=== PATIENT | female | born 1965 | race Hispanic/Latino ===

== ENCOUNTER → 2018-11-26 | Outpatient (CLI) | payer OTHER, BC ==
--- NOTE | 2018-11-26 13:14 | Diagnostic Imaging Report ---
EXAM: Right upper quadrant abdominal ultrasound INDICATION: Hepatitis C COMPARISON: None. TECHNIQUE: Transverse and longitudinal images of the right upper quadrant abdomen were obtained FINDINGS: Somewhat limited examination due to overlying bowel gas and abdominal tenderness. Liver: Size: 17.1 cm in the right midclavicular line, enlarged Appearance: Increased echogenicity, smooth contour Mass: No evidence of solid mass. Anechoic cystic structures along the posterior edge of the left hepatic lobe demonstrate no doppler flow. Gallbladder: No distention, pericholecystic fluid, wall thickening, stone, or reported sonographic Chowdhury's sign. Gallbladder wall measures 0.4 cm. Bile Ducts: Intrahepatic Ducts: No dilatation Extrahepatic Ducts: Common bile duct measures 0.3 cm, no dilatation Pancreas: The visualized portions are unremarkable. Limited visualization of the tail. Kidney: The right kidney measures 11.9 cm without evidence of hydronephrosis or stone. Vessels: Aorta: Partially visualized portions are unremarkable. Inferior Vena Cava: Not well visualized. Main Portal Vein: 1.0 cm, normal size with hepatopetal flow. Free Fluid: No evidence of ascites. IMPRESSION: Hepatomegaly with hepatic steatosis. No sonographic evidence of cirrhosis. Cystic structures along the posterior edge of the left hepatic lobe likely are external to the liver and may represent small bowel loops or less likely varices, given absence of doppler flow. Signed by: Dr. Urmila Chris MD on 11/26/2018 1:10 PM
== END ==
LOC: US 10:15
PROVIDERS: ATTEND Internal Medicine Infectious Disease
DX: B18.2 Chronic viral hepatitis C (principal)
CPT/HCPCS: 76705

== ENCOUNTER → 2019-08-31 | Day surgery (SDC) | payer BC, OTHER, MEDICARE ==
[2019-08-26 16:24] LABS: BASOPHILS % 0.6 % (0.0-1.0); EOSINOPHILS # (AUTO) 0.1 (0.0-0.4); EOSINOPHILS % 2.6 % (0.0-6.0); HEMATOCRIT 29.9 % (34.2-44.1); HEMOGLOBIN 10.1 g/dL (12.0-16.0); LYMPHOCYTES # (AUTO) 0.9 (1.0-3.2); LYMPHOCYTES % 29.1 % (18.0-39.1); MEAN CORPUSCULAR HGB CONC 33.8 g/dL (31-35); MEAN CORPUSCULAR VOLUME 85.9 fL (81-99); MONOCYTES # (AUTO) 0.3 (0.2-0.8); MONOCYTES % 9.6 % (4.4-11.3); NEUTROPHILS # (AUTO) 1.8 (2.1-6.9); NEUTROPHILS % 57.8 % (38.7-80.0); PLATELET COUNT 89 x10e3/uL (140-360); RED BLOOD COUNT 3.48 x10e6/uL (3.6-5.1); RED CELL DISTRIBUTION WIDTH 13.7 % (11.7-14.4)
[2019-08-26 16:36] LABS: INR 1.08; PARTIAL THROMBOPLASTIN TIME 30.6 seconds (23.8-35.5); PROTHROMBIN TIME 14.5 seconds (11.9-14.5)
[2019-08-26 16:46] LABS: ALBUMIN 3.6 g/dL (3.5-5.0); ALBUMIN/GLOBULIN RATIO 0.9 (0.8-2.0); ANION GAP 14.8 mmol/L (8-16); CALCIUM 8.8 mg/dL (8.4-10.2); CREATININE, SERUM 1.59 mg/dL (0.57-1.11); POTASSIUM 3.8 mmol/L (3.5-5.1)
[~2019-08-31] MED LIST: CLEOCIN HCL150 MG PO; DOXYCYCLINE HY100 MG PO; FENTANYL CITRATE/PF 100MCG/2 ML INJ ONE; FUROSEMIDE40 MG PO; INSULIN REGULAR, HUMAN 100 UNIT/1 ML 3ML VIAL ONE; LANTUS 3ML100 UNITS/ SQ; LEVOTHYROXINE50 MCG PO; MIDAZOLAM HCL 2 MG/2 ML VIAL ONE; NOVOLIN R100 UNIT/1 PO; OSTEO BI-FLEX1 EAC2 PO; PROPOFOL IV EMULSION 10 MG/ML 20 ML VIAL ONE; PROPRANOLOL HCL10 MG PO; SPIRONOLACTONE25 MG PO; ULTRAM50 MG PO; VITAMIN D250000 UNIT PO; XIFAXAN550 MG PO
--- OUTSIDE RECORDS SUMMARY | 2019-08-31 09:42 | XMS REPORT | Summary of Care ---
Author Author LI BUSTOS M.D. Organization Unknown Address Unknown Phone Unavailable Care Team Providers Care Business Director Name Role Phone LI BUSTOS M.D. Unavailable Unavailable KATE LEARY N.P. 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, D50.0) Status: Active Post-menopausal bleeding (627.1, N95.0) Status: Active Breast cancer screening (V76.10, Z12.39) Status: Active Yeast infection (112.9, B37.9) Status: Active Swollen leg (729.81, M79.89) Status: Active History of DVT (deep vein thrombosis) (V12.51, Z86.718) Status: Active Acute right lower quadrant pain (789.03, R10.31) Status: Active Medications Name Dates Details Vitamin D (Ergocalciferol) 1.25 MG (03061 UT) Oral Capsule * Start : 13-Sep-2018 Active Spironolactone 25 MG Oral Tablet * Refills: 0 * Start : 13-Sep-2018 Active Levothyroxine Sodium 50 MCG Oral Tablet * Refills: 0 * Start : 13-Sep-2018 Active Furosemide 80 MG Oral Tablet * Refills: 0 * Start : 13-Sep-2018 Active NIFEdipine ER 60 MG Oral Tablet Extended Release 24 Hour * Refills: 0 * Start : 13-Sep-2018 Active Xifaxan 550 MG Oral Tablet * Refills: 0 * Start : 13-Sep-2018 Active traMADol HCl - 50 MG Oral Tablet * Refills: 0 * Start : 13-Sep-2018 Active Doxycycline Hyclate 100 MG Oral Capsule * Refills: 0 * Start : 13-Sep-2018 Active Phytoplex Z-Guard 57-17 % External Paste * Refills: 0 * Start : 13-Sep-2018 Active 12 x 113 GM Tube Nystatin 173509 UNIT/GM External Powder apply Nystatin powder to affected area 3 times daily for 7 days, continue use as needed to treat fungal skin infection * Quantity: 1 Refills: 1 KATE LEARY N.P. 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 History of diabetes mellitus (V12.29, Z86.39) Status: Resolved History of hepatitis (V12.09, Z86.19) Status: Resolved History of hepatitis C virus infection (V12.09, Z86.19) Status: Resolved History of iron deficiency anemia (V12.3, Z86.2) Status: Resolved Procedures Procedure Dates Details History of section Completed History of Dilation and curettage Completed Immunization Name Dates Details Immunizations not documented Family History Name Dates Details Family history of lupus erythematosus (V19.8, Z84.0) Status: Active Name Dates Details Family history of Alcoholic fibrosis and sclerosis of liver (571.2, K70.2) Status: Active Name Dates Details Family history of Alcoholic fibrosis and sclerosis of liver (571.2, K70.2) Status: Active Family history of hypertension (V17.49, Z82.49) Status: Active Name Dates Details Family history of malignant neoplasm of breast (V16.3, Z80.3) Status: Active Social History Name Dates Details - Status: Name Dates Details Never smoker Vital Signs Date Test Result Details No Known Vitals to report Results Date Description Value Details Results not documented Plan of Care Name Dates Details Planned Observations Planned Goals not documented Planned Encounters Appointment; LI BUSTOS M.D. On: 19-Dec-2019 9:40 Interventions Provided Labs/Procedures/Imaging* CT Abdomen/Pelvis w contrast 49251; To Be Done: 30 May 2019 * [facility] Digital Mammo Screening [place]xton [id number]; To Be Done: 30 May 2019 * [[facility]] CBC (INCLUDES DIFF/PLT); Done: 30 May 2019 * [[facility]] CMP W/EGFR; Done: 30 May 2019 Instructions Name Dates Details Instructions not documented Encounters Appointment; LI BUSTOS M.D. Encounter Diagnosis: Problem not documented On: 13-Sep-2018 12:00 Appointment; LI BUSTOS M.D. Encounter Diagnosis: Problem not documented On: 27-Sep-2018 13:20 Appointment; LI BUSTOS M.D. Encounter Diagnosis: Problem not documented On: 11-Oct-2018 12:40 Appointment; LI BUSTOS M.D. Encounter Diagnosis: Problem not documented On: 28-Oct-2018 14:00 Appointment; LI BUSTOS M.D. Encounter Diagnosis: Problem not documented On: 08-Nov-2018 12:00 Appointment; LI BUSTOS M.D. Encounter Diagnosis: Problem not documented On: 17-Nov-2018 11:20 Appointment; LI BUSTOS M.D. Encounter Diagnosis: Problem not documented On: 29-Nov-2018 11:40 Appointment; LI BUSTOS M.D. Encounter Diagnosis: Problem not documented On: 30-May-2019 11:40
--- OUTSIDE RECORDS SUMMARY | 2019-08-31 09:42 | XMS REPORT ---
Author Author [facility] Address Unknown Phone Unavailable Care Team Providers Care Videotape Editor Name Role Phone ROBIN ESCALANTE Unavailable Unavailable Payers Payer Name Policy Type Policy Number Effective Date Expiration Date Problems This patient has no known problems. Allergies, Adverse Reactions, Alerts Allergy Name Allergy Type Status Severity Reaction(s) Onset Date Inactive Date Treating Clinician Comments Penicillins DA Active SV 2019-07-14 00:00:00 ibuprofen DA Active SV 2019-07-14 00:00:00 Penicillins DA Active SV 2019-01-07 00:00:00 ibuprofen DA Active SV 2019-01-07 00:00:00 Penicillins DA Active SV 2018-05-04 00:00:00 ibuprofen DA Active SV 2018-05-04 00:00:00 Medications This patient has no known medications. Encounters Start Date/Time End Date/Time Encounter Type Admission Type Attending Clinicians Care Facility Care Department Encounter ID 2019-06-06 10:22:00 2019-06-06 10:22:00 Outpatient [facility]SE [id number] Results Test Description Test Time Test Comments Text Results Atomic Results Result Comments GLUBED 2019-07-22 08:06:00 GLUBED (test code=GLUBED) 194 mg/dL 74-106 Performed by certified yarn texturing machine operator at [facility] [id number] 20:51:00* Test Item Value Reference Range Comments GLUBED (test code=GLUBED) 148 mg/dL 74-106 Performed by certified yarn texturing machine operator at [facility] [id number] 17:19:00* Test Item Value Reference Range Comments GLUBED (test code=GLUBED) 222 mg/dL 74-106 [facility] certified yarn texturing machine [facility]~ [id number] 12:25:00* Test Item Value Reference Range Comments GLUBED (test code=GLUBED) 160 mg/dL 74-106 [facility] certified yarn texturing machine [facility] - CT HEAD/BRAIN W/O [id number] 10:53:00 Name: GRETTA MIRANDA [facility] : 1965 Age/S: 54 / F [address] [facility] Unit #: [id number] Loc: [place] [address] Phys: Harvey Chambers MD Acct: [id number] Dis Date: Status: ADM IN PHONE #: [phone] Exam Date: 07/21/2019 0935 FAX #: [phone] Reason: DOCTOR'S ORDERS EXAMS: CPT CODE: [id number] CT HEAD/BRAIN W/O CONT [id number] HISTORY: DOCTOR'S ORDERS TECHNIQUE: Noncontrast 2.[address] of the head. HISTORY: DOCTOR'S ORDERS TECHNIQUE: Noncontrast 2.[address] of the head. Examination acquired within 24 hours of arrival. Automated exposure control for dose reduction. COMPARISON: Noncontrast CT brain June 06, 2019 FINDINGS: No lacerations or contusions of the scalp or facial soft tissues.. Calvarium and skull base are intact. Incidental note is made of nonfusion of the posterior elements of C1. No acute hemorrhage. No intracranial mass, mass effect, or midline shift. No effacement of the sulci or anderson-white matter interface to suggest acute infarct. Cortical atrophy is unchanged from the previous exam. No hydrocephalus.. No extra-axial fluid collection. Visualized paranasal sinuses are clear. Mastoid air cells and middle ear cavities are clear. Orbital contents are unremarkable. IMPRESSION: No acute intracranial process. Cortical atrophy is unchanged from the prior exam. at 1053 Reported and signed by: Harsh Cifuentes MD CC: Harvey Chambers Technologist:Guerda Sorenson RT(R)(CT) CTDI: DLP: Trnscb Date/Time: 07/21/2019 (9177) [email or web address] Orig Print D/T: S: 07/21/2019 (5991) PAGE 1 Signed Report [id number] 08:44:00* Test Item Value Reference Range Comments GLUBED (test code=GLUBED) 227 mg/dL 74-106 Performed by certified yarn texturing machine operator at [facility] COMPREHENSIVE METABOLIC [id number] 07:53:00* Test Item Value Reference Range Comments SODIUM (test code=NA) 138 mmol/L 136-145 POTASSIUM (test code=K) 4.5 mmol/L 3.5-5.1 CHLORIDE (test code=CL) 104.0 mmol/L 98-107 CARBON DIOXIDE (test code=CO2) 27.0 mmol/L 21-32 ANION GAP (test code=GAP) 11.5 10-20 GLUCOSE (test code=GLU) 274 mg/dL 74-106 BLOOD UREA NITROGEN (test code=BUN) 40 mg/dL 7-18 GLOMERULAR FILTRATION RATE (test code=GFR) 31 mL/min >=60 Estimated GFR by using Modified MDRD formula.Chronic kidney disease is defined as either kidney damageor GFR <60 mL/min/1.73 m2 for >3 months. CREATININE (test code=CREAT) 1.70 mg/dL 0.55-1.02 Note change in reference range due to change in reagent. BUN/CREATININE RATIO (test code=BUN/CREA) 23.8 10-20 TOTAL PROTEIN (test code=PROT) 6.6 gram/dL 6.4-8.2 ALBUMIN (test code=ALB) 3.1 g/dL 3.4-5.0 GLOBULIN (test code=GLOB) 3.5 gram/dL 2.7-4.2 ALBUMIN/GLOBULIN RATIO (test code=A/G) 0.9 0.75-1.50 CALCIUM (test code=CA) 8.5 mg/dL 8.5-10.1 BILIRUBIN TOTAL (test code=BILT) 0.90 mg/dL 0.0-1.0 SGOT/AST (test code=AST) 17 IUnit/L 15-37 SGPT/ALT (test code=ALT) 24 IUnit/L 12-78 ALKALINE PHOSPHATASE TOTAL (test code=ALKP) 117 IUnit/L 45-117 Note change in reference range due to change in reagent. COMPREHENSIVE METABOLIC [id number] 07:46:00* Test Item Value Reference Range Comments SODIUM (test code=NA) 138 mmol/L 136-145 POTASSIUM (test code=K) 4.5 mmol/L 3.5-5.1 CHLORIDE (test code=CL) 104.0 mmol/L 98-107 CARBON DIOXIDE (test code=CO2) mmol/L 21-32 ANION GAP (test code=GAP) 10-20 GLUCOSE (test code=GLU) mg/dL 74-106 BLOOD UREA NITROGEN (test code=BUN) mg/dL 7-18 GLOMERULAR FILTRATION RATE (test code=GFR) mL/min >=60 CREATININE (test code=CREAT) mg/dL 0.55-1.02 BUN/CREATININE RATIO (test code=BUN/CREA) 10-20 TOTAL PROTEIN (test code=PROT) gram/dL 6.4-8.2 ALBUMIN (test code=ALB) g/dL 3.4-5.0 GLOBULIN (test code=GLOB) gram/dL 2.7-4.2 ALBUMIN/GLOBULIN RATIO (test code=A/G) 0.75-1.50 CALCIUM (test code=CA) mg/dL 8.5-10.1 BILIRUBIN TOTAL (test code=BILT) mg/dL 0.0-1.0 SGOT/AST (test code=AST) IUnit/L 15-37 SGPT/ALT (test code=ALT) IUnit/L 12-78 ALKALINE PHOSPHATASE TOTAL (test code=ALKP) IUnit/L 45-117 ALPHA FETOPROTEIN TUMOR [id number] 03:07:00* Test Item Value Reference Range Comments ALPHA FETOPROTEIN TUMOR MARKER (test code=AFPTM) 3.9 ng/mL 0.0-8.3 [facility] Electrochemiluminescence Immunoassay(ECLIA)Values obtained with different assay methods or kits cannotbe used interchangeably. Results cannot be interpreted asabsolute evidence of the presence or absence of malignantdisease.This test is not interpretable in females.Performed At: [facility] [id number] [place], [place] [id number] Sae Romero MD Ph:[phone] [id number] 20:56:00* Test Item Value Reference Range Comments GLUBED (test code=GLUBED) 131 mg/dL 74-106 Performed by certified yarn texturing machine operator at [facility] [id number] 18:50:00* Test Item Value Reference Range Comments GLUBED (test code=GLUBED) 168 mg/dL 74-106 Performed by certified yarn texturing machine operator at [facility] - US RETRO [id number] 17:08:00 Name: GRETAT MIRANDA [facility] : 1965 Age/S: 54 / F [address] [facility] #: [id number] Loc: [place] [address] Phys: Garret Ramesh MD Acct: [id number] Dis Date: Status: ADM IN PHONE #: [phone] Exam Date: 07/20/2019 1642 FAX #: [phone] Reason: ELLYN EXAMS: CPT CODE: [id number] US RETRO LTD [id number] REASON FOR EXAM: ELLYN EXAM ORDER DATE: 07/20/2019 12:24 PM Attending Laura: Garret Ramesh MD PROCEDURE: - US RETRO LTD FINDINGS: The right kidney measures 10.3 x 4.1 cm. The cross-sectional thickness of the right renal cortex measured 1.1 cm. The left kidney measures 9.4 x 4.6 cm. The cross- sectional thickness of the left renal cortex measured 1.1 cm. There is no evidence of hydronephrosis. There is no evidence of nephrolithiasis. There is no evidence of renal mass. The urinary bladder is partially contracted IMPRESSION: Unremarkable kidneys. at 1707 Reported and signed by: Ignacio Acosta M.D. CC: Harvey Chambers Salman A MD Technologist: Rosemarie Mercer RDMS [facility] Date/Time: 07/20/2019 (1411) [email or web address] Orig Print D/T: S: 07/20/2019 (5663) Probe: PAGE 1 Signed Report UR CREATININE [id number] 15:42:00* Test Item Value Reference Range Comments UR CREATININE RANDOM (test code=CREATU) < 13.0 mg/dL 30-125 URINALYSIS [id number] 15:42:00* Test Item Value Reference Range Comments UA COLOR (test code=COLU) COLORLESS YELLOW UA APPEARANCE (test code=APPU) CLEAR CLEAR UA GLUCOSE DIPSTICK (test code=DGLUU) NEGATIVE mg/dL NEGATIVE UA BILIRUBIN DIPSTICK (test code=BILU) NEGATIVE mg/dL NEGATIVE UA KETONE DIPSTICK (test code=KETU) NEGATIVE mg/dL NEGATIVE UA SPECIFIC GRAVITY (test code=SGU) 1.005 1.001-1.035 UA BLOOD DIPSTICK (test code=TUCKER) Negative mg/dL NEGATIVE UA PH DIPSTICK (test code=CLEMENTE) 6.5 5.0-8.0 UA PROTEIN DIPSTICK (test code=PROU) NEGATIVE mg/dL NEGATIVE UA UROBILINIOGEN DIPSTICK (test code=URO) Normal mg/dL NEGATIVE UA NITRITE DIPSTICK (test code=LEANN) NEGATIVE NEGATIVE UA LEUKOCYTE ESTERASE W REFLEX (test code=LEUUR) NEGATIVE Yumiko/uL NEGATIVE UA WBC (test code=WBCU) 0-5 per HPF 0-5 UA RBC (test code=RBCU) NONE SEEN #/HPF 0-5 UA EPITHELIAL CELLS (test code=EPIU) FEW per HPF FEW UA BACTERIA (test code=BACU) NONE SEEN #/HPF NONE Urine Source? Clean CatchUR NA,[id number] 15:42:00* Test Item Value Reference Range Comments UR NA,RANDOM (test code=MIO) 57 mmol/L 20-110 Urine Source? Clean CatchUR PROTEIN/CREATININE [id number] 15:42:00* Test Item Value Reference Range Comments UR PROTEIN RANDOM (test code=PROTU) < 5.0 mg/dL 0.0-11.9 Protein levels may be falsely elevated in patients withelevated level of aminoglycoside antibiotics in CSF and inhighly concentrated urine specimens. If false elevation issuspected, contact lab for alternated testing technique. UR CREATININE RANDOM (test code=CREATU) < 13.0 mg/dL 30-125 PROTEIN/CREATININE RATIO (test code=P/CRATIO) 0.30 RATIO 0.0-0.20 Urine Source? Clean CatchURINALYSIS [id number] 15:40:00* Test Item Value Reference Range Comments UA COLOR (test code=COLU) COLORLESS YELLOW UA APPEARANCE (test code=APPU) CLEAR CLEAR UA GLUCOSE DIPSTICK (test code=DGLUU) NEGATIVE mg/dL NEGATIVE UA BILIRUBIN DIPSTICK (test code=BILU) NEGATIVE mg/dL NEGATIVE UA KETONE DIPSTICK (test code=KETU) NEGATIVE mg/dL NEGATIVE UA SPECIFIC GRAVITY (test code=SGU) 1.005 1.001-1.035 UA BLOOD DIPSTICK (test code=TUCKER) Negative mg/dL NEGATIVE UA PH DIPSTICK (test code=CLEMENTE) 6.5 5.0-8.0 UA PROTEIN DIPSTICK (test code=PROU) NEGATIVE mg/dL NEGATIVE UA UROBILINIOGEN DIPSTICK (test code=URO) Normal mg/dL NEGATIVE UA NITRITE DIPSTICK (test code=LEANN) NEGATIVE NEGATIVE UA LEUKOCYTE ESTERASE W REFLEX (test code=LEUUR) NEGATIVE Yumiko/uL NEGATIVE UA WBC (test code=WBCU) 0-5 per HPF 0-5 UA RBC (test code=RBCU) NONE SEEN #/HPF 0-5 UA EPITHELIAL CELLS (test code=EPIU) FEW per HPF FEW UA BACTERIA (test code=BACU) NONE SEEN #/HPF NONE Urine Source? Clean CatchUR NA,[id number] 15:40:00* Test Item Value Reference Range Comments UR NA,RANDOM (test code=MIO) 57 mmol/L 20-110 Urine Source? Clean CatchUR PROTEIN/CREATININE [id number] 15:40:00* Test Item Value Reference Range Comments UR PROTEIN RANDOM (test code=PROTU) mg/dL 0.0-11.9 UR CREATININE RANDOM (test code=CREATU) mg/dL 30-125 PROTEIN/CREATININE RATIO (test code=P/CRATIO) RATIO 0.0-0.20 Urine Source? Clean CatchURINALYSIS [id number] 15:31:00* Test Item Value Reference Range Comments UA COLOR (test code=COLU) COLORLESS YELLOW UA APPEARANCE (test code=APPU) CLEAR CLEAR UA GLUCOSE DIPSTICK (test code=DGLUU) NEGATIVE mg/dL NEGATIVE UA BILIRUBIN DIPSTICK (test code=BILU) NEGATIVE mg/dL NEGATIVE UA KETONE DIPSTICK (test code=KETU) NEGATIVE mg/dL NEGATIVE UA SPECIFIC GRAVITY (test code=SGU) 1.005 1.001-1.035 UA BLOOD DIPSTICK (test code=TUCKER) Negative mg/dL NEGATIVE UA PH DIPSTICK (test code=CLEMENTE) 6.5 5.0-8.0 UA PROTEIN DIPSTICK (test code=PROU) NEGATIVE mg/dL NEGATIVE UA UROBILINIOGEN DIPSTICK (test code=URO) Normal mg/dL NEGATIVE UA NITRITE DIPSTICK (test code=LEANN) NEGATIVE NEGATIVE UA LEUKOCYTE ESTERASE W REFLEX (test code=LEUUR) NEGATIVE Yumiko/uL NEGATIVE UA WBC (test code=WBCU) 0-5 per HPF 0-5 UA RBC (test code=RBCU) NONE SEEN #/HPF 0-5 UA EPITHELIAL CELLS (test code=EPIU) FEW per HPF FEW UA BACTERIA (test code=BACU) NONE SEEN #/HPF NONE Urine Source? Clean CatchUR NA,[id number] 15:31:00* Test Item Value Reference Range Comments UR NA,RANDOM (test code=MIO) mmol/L 20-110 Urine Source? Clean CatchUR PROTEIN/CREATININE [id number] 15:31:00* Test Item Value Reference Range Comments UR PROTEIN RANDOM (test code=PROTU) mg/dL 0.0-11.9 UR CREATININE RANDOM (test code=CREATU) mg/dL 30-125 PROTEIN/CREATININE RATIO (test code=P/CRATIO) RATIO 0.0-0.20 Urine Source? Clean [id number] 15:09:00* Test Item Value Reference Range Comments AMMONIA (test code=AMM) 65 umol/L 11-32 [id number] 12:20:00* Test Item Value Reference Range Comments GLUBED (test code=GLUBED) 206 mg/dL 74-106 Performed by certified yarn texturing machine operator at [facility] [id number] 09:02:00* Test Item Value Reference Range Comments GLUBED (test code=GLUBED) 171 mg/dL 74-106 Performed by certified yarn texturing machine operator at [facility] [id number] 08:21:00* Test Item Value Reference Range Comments GLUBED (test code=GLUBED) 107 mg/dL 74-106 Performed by certified yarn texturing machine operator at [facility] [id number] 08:20:00* Test Item Value Reference Range Comments GLUBED (test code=GLUBED) 153 mg/dL 74-106 Performed by certified yarn texturing machine operator at [facility] CBC W/AUTO [id number] 06:32:00* Test Item Value Reference Range Comments WHITE BLOOD CELL (test code=WBC) 2.6 K/mm3 4.5-12.5 RED BLOOD CELL (test code=RBC) 3.02 mill/mm3 3.7-5.2 HEMOGLOBIN (test code=HGB) 8.8 gram/dL 11.5-15.5 HEMATOCRIT (test code=HCT) 25.5 % 36.0-46.0 MEAN CELL VOLUME (test code=MCV) 84.4 fL 80-98 MEAN CELL HGB (test code=MCH) 29.1 picogram 27.0-33.0 MEAN CELL HGB CONCETRATION (test code=MCHC) 34.5 gram/dL 33.0-36.0 RED CELL DISTRIBUTION WIDTH (test code=RDW) 13.5 % 11.6-16.2 RED CELL DISTRIBUTION WIDTH SD (test code=RDW-SD) 41.5 fL 37.0-51.0 PLATELET COUNT (test code=PLT) 91 K/mm3 150-450 MEAN PLATELET VOLUME (test code=MPV) 10.7 fL 6.7-11.0 NEUTROPHIL % (test code=NT%) 57.4 % 39.0-69.0 IMMATURE GRANULOCYTE % (test code=IG%) 0.4 % 0.0-5.0 LYMPHOCYTE % (test code=LY%) 29.3 % 25.0-55.0 MONOCYTE % (test code=MO%) 9.8 % 0.0-10.0 EOSINOPHIL % (test code=EO%) 2.3 % 0.0-5.0 BASOPHIL % (test code=BA%) 0.8 % 0.0-1.0 NUCLEATED RBC % (test code=NRBC%) 0.0 % 0-0 NEUTROPHIL # (test code=NT#) 1.47 K/mm3 1.8-7.7 IMMATURE GRANULOCYTE # (test code=IG#) 0.01 x10 3/uL 0-0.03 LYMPHOCYTE # (test code=LY#) 0.75 K/mm3 1.0-5.0 MONOCYTE # (test code=MO#) 0.25 K/mm3 0-0.8 EOSINOPHIL # (test code=EO#) 0.06 K/mm3 0.0-0.5 BASOPHIL # (test code=BA#) 0.02 K/mm3 0.0-0.2 NUCLEATED RBC # (test code=NRBC#) 0.00 K/mm3 0.0-0.1 MANUAL DIFF REQUIRED (test code=MDIFF) NO, ONLY SCAN NEEDED DIFFERENTIAL [id number] 06:32:00* Test Item Value Reference Range Comments STAIN ACCEPTABILITY (test code=STN ACCEPTABLE) STAIN ACCEPTABLE ANISOCYTOSIS (test code=ANISO) 1+ MICROCYTOSIS (test code=MICR) 1+ PLATELET ESTIMATE (test code=PLTEST) DECREASED PLATELET MORPHOLOGY (test code=PLTMORPH) NORMAL CBC W/AUTO [id number] 05:25:00* Test Item Value Reference Range Comments WHITE BLOOD CELL (test code=WBC) 2.6 K/mm3 4.5-12.5 RED BLOOD CELL (test code=RBC) 3.02 mill/mm3 3.7-5.2 HEMOGLOBIN (test code=HGB) 8.8 gram/dL 11.5-15.5 HEMATOCRIT (test code=HCT) 25.5 % 36.0-46.0 MEAN CELL VOLUME (test code=MCV) 84.4 fL 80-98 MEAN CELL HGB (test code=MCH) 29.1 picogram 27.0-33.0 MEAN CELL HGB CONCETRATION (test code=MCHC) 34.5 gram/dL 33.0-36.0 RED CELL DISTRIBUTION WIDTH (test code=RDW) 13.5 % 11.6-16.2 RED CELL DISTRIBUTION WIDTH SD (test code=RDW-SD) 41.5 fL 37.0-51.0 PLATELET COUNT (test code=PLT) 91 K/mm3 150-450 MEAN PLATELET VOLUME (test code=MPV) 10.7 fL 6.7-11.0 NEUTROPHIL % (test code=NT%) 57.4 % 39.0-69.0 IMMATURE GRANULOCYTE % (test code=IG%) 0.4 % 0.0-5.0 LYMPHOCYTE % (test code=LY%) 29.3 % 25.0-55.0 MONOCYTE % (test code=MO%) 9.8 % 0.0-10.0 EOSINOPHIL % (test code=EO%) 2.3 % 0.0-5.0 BASOPHIL % (test code=BA%) 0.8 % 0.0-1.0 NUCLEATED RBC % (test code=NRBC%) 0.0 % 0-0 NEUTROPHIL # (test code=NT#) 1.47 K/mm3 1.8-7.7 IMMATURE GRANULOCYTE # (test code=IG#) 0.01 x10 3/uL 0-0.03 LYMPHOCYTE # (test code=LY#) 0.75 K/mm3 1.0-5.0 MONOCYTE # (test code=MO#) 0.25 K/mm3 0-0.8 EOSINOPHIL # (test code=EO#) 0.06 K/mm3 0.0-0.5 BASOPHIL # (test code=BA#) 0.02 K/mm3 0.0-0.2 NUCLEATED RBC # (test code=NRBC#) 0.00 K/mm3 0.0-0.1 MANUAL DIFF REQUIRED (test code=MDIFF) NO, ONLY SCAN NEEDED DIFFERENTIAL [id number] 05:25:00* Test Item Value Reference Range Comments STAIN ACCEPTABILITY (test code=STN ACCEPTABLE) CABOT RINGS (test code=CAB) MORPHOLOGY COMMENT (test code=MOC) PLATELET ESTIMATE (test code=PLTEST) PLATELET MORPHOLOGY (test code=PLTMORPH) CBC W/AUTO [id number] 05:25:00* Test Item Value Reference Range Comments WHITE BLOOD CELL (test code=WBC) 2.6 K/mm3 4.5-12.5 RED BLOOD CELL (test code=RBC) 3.02 mill/mm3 3.7-5.2 HEMOGLOBIN (test code=HGB) 8.8 gram/dL 11.5-15.5 HEMATOCRIT (test code=HCT) 25.5 % 36.0-46.0 MEAN CELL VOLUME (test code=MCV) 84.4 fL 80-98 MEAN CELL HGB (test code=MCH) 29.1 picogram 27.0-33.0 MEAN CELL HGB CONCETRATION (test code=MCHC) 34.5 gram/dL 33.0-36.0 RED CELL DISTRIBUTION WIDTH (test code=RDW) 13.5 % 11.6-16.2 RED CELL DISTRIBUTION WIDTH SD (test code=RDW-SD) 41.5 fL 37.0-51.0 PLATELET COUNT (test code=PLT) 91 K/mm3 150-450 MEAN PLATELET VOLUME (test code=MPV) 10.7 fL 6.7-11.0 NEUTROPHIL % (test code=NT%) 57.4 % 39.0-69.0 IMMATURE GRANULOCYTE % (test code=IG%) 0.4 % 0.0-5.0 LYMPHOCYTE % (test code=LY%) 29.3 % 25.0-55.0 MONOCYTE % (test code=MO%) 9.8 % 0.0-10.0 EOSINOPHIL % (test code=EO%) 2.3 % 0.0-5.0 BASOPHIL % (test code=BA%) 0.8 % 0.0-1.0 NUCLEATED RBC % (test code=NRBC%) 0.0 % 0-0 NEUTROPHIL # (test code=NT#) 1.47 K/mm3 1.8-7.7 IMMATURE GRANULOCYTE # (test code=IG#) 0.01 x10 3/uL 0-0.03 LYMPHOCYTE # (test code=LY#) 0.75 K/mm3 1.0-5.0 MONOCYTE # (test code=MO#) 0.25 K/mm3 0-0.8 EOSINOPHIL # (test code=EO#) 0.06 K/mm3 0.0-0.5 BASOPHIL # (test code=BA#) 0.02 K/mm3 0.0-0.2 NUCLEATED RBC # (test code=NRBC#) 0.00 K/mm3 0.0-0.1 MANUAL DIFF REQUIRED (test code=MDIFF) NO, ONLY SCAN NEEDED DIFFERENTIAL [id number] 05:25:00* Test Item Value Reference Range Comments STAIN ACCEPTABILITY (test code=STN ACCEPTABLE) CABOT RINGS (test code=CAB) MORPHOLOGY COMMENT (test code=MOC) PLATELET ESTIMATE (test code=PLTEST) PLATELET MORPHOLOGY (test code=PLTMORPH) CBC W/AUTO [id number] 05:25:00* Test Item Value Reference Range Comments WHITE BLOOD CELL (test code=WBC) 2.6 K/mm3 4.5-12.5 RED BLOOD CELL (test code=RBC) 3.02 mill/mm3 3.7-5.2 HEMOGLOBIN (test code=HGB) 8.8 gram/dL 11.5-15.5 HEMATOCRIT (test code=HCT) 25.5 % 36.0-46.0 MEAN CELL VOLUME (test code=MCV) 84.4 fL 80-98 MEAN CELL HGB (test code=MCH) 29.1 picogram 27.0-33.0 MEAN CELL HGB CONCETRATION (test code=MCHC) 34.5 gram/dL 33.0-36.0 RED CELL DISTRIBUTION WIDTH (test code=RDW) 13.5 % 11.6-16.2 RED CELL DISTRIBUTION WIDTH SD (test code=RDW-SD) 41.5 fL 37.0-51.0 PLATELET COUNT (test code=PLT) 91 K/mm3 150-450 MEAN PLATELET VOLUME (test code=MPV) 10.7 fL 6.7-11.0 NEUTROPHIL % (test code=NT%) 57.4 % 39.0-69.0 IMMATURE GRANULOCYTE % (test code=IG%) 0.4 % 0.0-5.0 LYMPHOCYTE % (test code=LY%) 29.3 % 25.0-55.0 MONOCYTE % (test code=MO%) 9.8 % 0.0-10.0 EOSINOPHIL % (test code=EO%) 2.3 % 0.0-5.0 BASOPHIL % (test code=BA%) 0.8 % 0.0-1.0 NUCLEATED RBC % (test code=NRBC%) 0.0 % 0-0 NEUTROPHIL # (test code=NT#) 1.47 K/mm3 1.8-7.7 IMMATURE GRANULOCYTE # (test code=IG#) 0.01 x10 3/uL 0-0.03 LYMPHOCYTE # (test code=LY#) 0.75 K/mm3 1.0-5.0 MONOCYTE # (test code=MO#) 0.25 K/mm3 0-0.8 EOSINOPHIL # (test code=EO#) 0.06 K/mm3 0.0-0.5 BASOPHIL # (test code=BA#) 0.02 K/mm3 0.0-0.2 NUCLEATED RBC # (test code=NRBC#) 0.00 K/mm3 0.0-0.1 MANUAL DIFF REQUIRED (test code=MDIFF) NO, ONLY SCAN NEEDED DIFFERENTIAL [id number] 05:25:00* Test Item Value Reference Range Comments STAIN ACCEPTABILITY (test code=STN ACCEPTABLE) MORPHOLOGY COMMENT (test code=MOC) PLATELET ESTIMATE (test code=PLTEST) PLATELET MORPHOLOGY (test code=PLTMORPH) CBC W/AUTO [id number] 05:25:00* Test Item Value Reference Range Comments WHITE BLOOD CELL (test code=WBC) 2.6 K/mm3 4.5-12.5 RED BLOOD CELL (test code=RBC) 3.02 mill/mm3 3.7-5.2 HEMOGLOBIN (test code=HGB) 8.8 gram/dL 11.5-15.5 HEMATOCRIT (test code=HCT) 25.5 % 36.0-46.0 MEAN CELL VOLUME (test code=MCV) 84.4 fL 80-98 MEAN CELL HGB (test code=MCH) 29.1 picogram 27.0-33.0 MEAN CELL HGB CONCETRATION (test code=MCHC) 34.5 gram/dL 33.0-36.0 RED CELL DISTRIBUTION WIDTH (test code=RDW) 13.5 % 11.6-16.2 RED CELL DISTRIBUTION WIDTH SD (test code=RDW-SD) 41.5 fL 37.0-51.0 PLATELET COUNT (test code=PLT) 91 K/mm3 150-450 MEAN PLATELET VOLUME (test code=MPV) 10.7 fL 6.7-11.0 NEUTROPHIL % (test code=NT%) 57.4 % 39.0-69.0 IMMATURE GRANULOCYTE % (test code=IG%) 0.4 % 0.0-5.0 LYMPHOCYTE % (test code=LY%) 29.3 % 25.0-55.0 MONOCYTE % (test code=MO%) 9.8 % 0.0-10.0 EOSINOPHIL % (test code=EO%) 2.3 % 0.0-5.0 BASOPHIL % (test code=BA%) 0.8 % 0.0-1.0 NUCLEATED RBC % (test code=NRBC%) 0.0 % 0-0 NEUTROPHIL # (test code=NT#) 1.47 K/mm3 1.8-7.7 IMMATURE GRANULOCYTE # (test code=IG#) 0.01 x10 3/uL 0-0.03 LYMPHOCYTE # (test code=LY#) 0.75 K/mm3 1.0-5.0 MONOCYTE # (test code=MO#) 0.25 K/mm3 0-0.8 EOSINOPHIL # (test code=EO#) 0.06 K/mm3 0.0-0.5 BASOPHIL # (test code=BA#) 0.02 K/mm3 0.0-0.2 NUCLEATED RBC # (test code=NRBC#) 0.00 K/mm3 0.0-0.1 MANUAL DIFF REQUIRED (test code=MDIFF) NO, ONLY SCAN NEEDED DIFFERENTIAL [id number] 05:25:00* Test Item Value Reference Range Comments STAIN ACCEPTABILITY (test code=STN ACCEPTABLE) CABOT RINGS (test code=CAB) MORPHOLOGY COMMENT (test code=MOC) PLATELET ESTIMATE (test code=PLTEST) PLATELET MORPHOLOGY (test code=PLTMORPH) [id number] 20:19:00* Test Item Value Reference Range Comments GLUBED (test code=GLUBED) 235 mg/dL 74-106 Performed by certified yarn texturing machine operator at [facility] COMPREHENSIVE METABOLIC [id number] 20:17:00* Test Item Value Reference Range Comments SODIUM (test code=NA) 134 mmol/L 136-145 POTASSIUM (test code=K) 4.7 mmol/L 3.5-5.1 CHLORIDE (test code=CL) 102.0 mmol/L 98-107 CARBON DIOXIDE (test code=CO2) 23.0 mmol/L 21-32 ANION GAP (test code=GAP) 13.7 10-20 GLUCOSE (test code=GLU) 246 mg/dL 74-106 BLOOD UREA NITROGEN (test code=BUN) 52 mg/dL 7-18 GLOMERULAR FILTRATION RATE (test code=GFR) 23 mL/min >=60 Estimated GFR by using Modified MDRD formula.Chronic kidney disease is defined as either kidney damageor GFR <60 mL/min/1.73 m2 for >3 months. CREATININE (test code=CREAT) 2.20 mg/dL 0.55-1.02 Note change in reference range due to change in reagent. BUN/CREATININE RATIO (test code=BUN/CREA) 23.9 10-20 TOTAL PROTEIN (test code=PROT) 7.0 gram/dL 6.4-8.2 ALBUMIN (test code=ALB) 2.9 g/dL 3.4-5.0 GLOBULIN (test code=GLOB) 4.1 gram/dL 2.7-4.2 ALBUMIN/GLOBULIN RATIO (test code=A/G) 0.7 0.75-1.50 CALCIUM (test code=CA) 8.8 mg/dL 8.5-10.1 BILIRUBIN TOTAL (test code=BILT) 1.00 mg/dL 0.0-1.0 SGOT/AST (test code=AST) 15 IUnit/L 15-37 SGPT/ALT (test code=ALT) 21 IUnit/L 12-78 ALKALINE PHOSPHATASE TOTAL (test code=ALKP) 98 IUnit/L 45-117 Note change in reference range due to change in reagent. COMPREHENSIVE METABOLIC [id number] 20:10:00* Test Item Value Reference Range Comments SODIUM (test code=NA) 134 mmol/L 136-145 POTASSIUM (test code=K) 4.7 mmol/L 3.5-5.1 CHLORIDE (test code=CL) 102.0 mmol/L 98-107 CARBON DIOXIDE (test code=CO2) mmol/L 21-32 ANION GAP (test code=GAP) 10-20 GLUCOSE (test code=GLU) mg/dL 74-106 BLOOD UREA NITROGEN (test code=BUN) mg/dL 7-18 GLOMERULAR FILTRATION RATE (test code=GFR) mL/min >=60 CREATININE (test code=CREAT) mg/dL 0.55-1.02 BUN/CREATININE RATIO (test code=BUN/CREA) 10-20 TOTAL PROTEIN (test code=PROT) gram/dL 6.4-8.2 ALBUMIN (test code=ALB) g/dL 3.4-5.0 GLOBULIN (test code=GLOB) gram/dL 2.7-4.2 ALBUMIN/GLOBULIN RATIO (test code=A/G) 0.75-1.50 CALCIUM (test code=CA) mg/dL 8.5-10.1 BILIRUBIN TOTAL (test code=BILT) mg/dL 0.0-1.0 SGOT/AST (test code=AST) IUnit/L 15-37 SGPT/ALT (test code=ALT) IUnit/L 12-78 ALKALINE PHOSPHATASE TOTAL (test code=ALKP) IUnit/L 45-117 [id number] 19:22:00* Test Item Value Reference Range Comments GLUBED (test code=GLUBED) 178 mg/dL 74-106 Performed by certified yarn texturing machine operator at [facility] [id number] 19:22:00* Test Item Value Reference Range Comments GLUBED (test code=GLUBED) 116 mg/dL 74-106 Performed by certified yarn texturing machine operator at [facility]2019-09-17 13:01:00* Test Item Value Reference Range Comments GLUBED (test code=GLUBED) 218 mg/dL 74-106 Performed by certified yarn texturing machine operator at [facility]2019-09-16 16:20:00* Test Item Value Reference Range Comments GLUBED (test code=GLUBED) 157 mg/dL 74-106 Performed by certified yarn texturing machine operator at [facility] [id number] 16:14:00* Test Item Value Reference Range Comments GLUBED (test code=GLUBED) 90 mg/dL 74-106 Performed by certified yarn texturing machine operator at [facility] [id number] 10:25:00* Test Item Value Reference Range Comments GLUBED (test code=GLUBED) 219 mg/dL 74-106 Performed by certified yarn texturing machine operator at [facility] [id number] 10:25:00* Test Item Value Reference Range Comments GLUBED (test code=GLUBED) 186 mg/dL 74-106 Performed by certified yarn texturing machine operator at [facility] [id number] 10:24:00* Test Item Value Reference Range Comments GLUBED (test code=GLUBED) 154 mg/dL 74-106 Performed by certified yarn texturing machine operator at [facility] [id number] 10:23:00* Test Item Value Reference Range Comments GLUBED (test code=GLUBED) 176 mg/dL 74-106 Performed by certified yarn texturing machine operator at [facility] [id number] 10:22:00* Test Item Value Reference Range Comments GLUBED (test code=GLUBED) 141 mg/dL 74-106 Performed by certified yarn texturing machine operator at [facility] [id number] 10:21:00* Test Item Value Reference Range Comments GLUBED (test code=GLUBED) 145 mg/dL 74-106 Performed by certified yarn texturing machine operator at [facility] [id number] 10:20:00* Test Item Value Reference Range Comments GLUBED (test code=GLUBED) 157 mg/dL 74-106 Performed by certified yarn texturing machine operator at [facility] [id number] 10:19:00* Test Item Value Reference Range Comments GLUBED (test code=GLUBED) 200 mg/dL 74-106 Performed by certified yarn texturing machine operator at [facility] [id number] 10:18:00* Test Item Value Reference Range Comments GLUBED (test code=GLUBED) 253 mg/dL 74-106 Performed by certified yarn texturing machine operator at [facility] [id number] 10:17:00* Test Item Value Reference Range Comments GLUBED (test code=GLUBED) 224 mg/dL 74-106 Performed by certified yarn texturing machine operator at [facility] [id number] 10:16:00* Test Item Value Reference Range Comments GLUBED (test code=GLUBED) 193 mg/dL 74-106 Performed by certified yarn texturing machine operator at [facility] [id number] 10:16:00* Test Item Value Reference Range Comments GLUBED (test code=GLUBED) 155 mg/dL 74-106 Performed by certified yarn texturing machine operator at [facility] [id number] 10:15:00* Test Item Value Reference Range Comments GLUBED (test code=GLUBED) 142 mg/dL 74-106 Performed by certified yarn texturing machine operator at [facility] BASIC METABOLIC [id number] 05:54:00* Test Item Value Reference Range Comments SODIUM (test code=NA) 133 mmol/L 136-145 POTASSIUM (test code=K) 4.1 mmol/L 3.5-5.1 CHLORIDE (test code=CL) 99.0 mmol/L 98-107 CARBON DIOXIDE (test code=CO2) 25.0 mmol/L 21-32 ANION GAP (test code=GAP) 13.1 10-20 GLUCOSE (test code=GLU) 212 mg/dL 74-106 BLOOD UREA NITROGEN (test code=BUN) 37 mg/dL 7-18 GLOMERULAR FILTRATION RATE (test code=GFR) 29 mL/min >=60 Estimated GFR by using Modified MDRD formula.Chronic kidney disease is defined as either kidney damageor GFR <60 mL/min/1.73 m2 for >3 months. CREATININE (test code=CREAT) 1.80 mg/dL 0.55-1.02 Note change in reference range due to change in reagent. BUN/CREATININE RATIO (test code=BUN/CREA) 20.6 10-20 CALCIUM (test code=CA) 7.7 mg/dL 8.5-10.1 BASIC METABOLIC [id number] 05:45:00* Test Item Value Reference Range Comments SODIUM (test code=NA) 133 mmol/L 136-145 POTASSIUM (test code=K) 4.1 mmol/L 3.5-5.1 CHLORIDE (test code=CL) 99.0 mmol/L 98-107 CARBON DIOXIDE (test code=CO2) mmol/L 21-32 ANION GAP (test code=GAP) 10-20 GLUCOSE (test code=GLU) mg/dL 74-106 BLOOD UREA NITROGEN (test code=BUN) mg/dL 7-18 GLOMERULAR FILTRATION RATE (test code=GFR) mL/min >=60 CREATININE (test code=CREAT) mg/dL 0.55-1.02 BUN/CREATININE RATIO (test code=BUN/CREA) 10-20 CALCIUM (test code=CA) mg/dL 8.5-10.1 CBC W/AUTO [id number] 05:43:00* Test Item Value Reference Range Comments WHITE BLOOD CELL (test code=WBC) 4.8 K/mm3 4.5-12.5 RED BLOOD CELL (test code=RBC) 3.40 mill/mm3 3.7-5.2 HEMOGLOBIN (test code=HGB) 9.9 gram/dL 11.5-15.5 RESULT VERIFIED BY REPEAT ANALYSIS HEMATOCRIT (test code=HCT) 28.4 % 36.0-46.0 MEAN CELL VOLUME (test code=MCV) 83.5 fL 80-98 MEAN CELL HGB (test code=MCH) 29.1 picogram 27.0-33.0 MEAN CELL HGB CONCETRATION (test code=MCHC) 34.9 gram/dL 33.0-36.0 RED CELL DISTRIBUTION WIDTH (test code=RDW) 13.4 % 11.6-16.2 RED CELL DISTRIBUTION WIDTH SD (test code=RDW-SD) 40.9 fL 37.0-51.0 PLATELET COUNT (test code=PLT) 79 K/mm3 150-450 MEAN PLATELET VOLUME (test code=MPV) 10.5 fL 6.7-11.0 NEUTROPHIL % (test code=NT%) 61.6 % 39.0-69.0 IMMATURE GRANULOCYTE % (test code=IG%) 0.2 % 0.0-5.0 LYMPHOCYTE % (test code=LY%) 26.2 % 25.0-55.0 MONOCYTE % (test code=MO%) 9.3 % 0.0-10.0 EOSINOPHIL % (test code=EO%) 2.3 % 0.0-5.0 BASOPHIL % (test code=BA%) 0.4 % 0.0-1.0 NUCLEATED RBC % (test code=NRBC%) 0.0 % 0-0 NEUTROPHIL # (test code=NT#) 2.98 K/mm3 1.8-7.7 IMMATURE GRANULOCYTE # (test code=IG#) 0.01 x10 3/uL 0-0.03 LYMPHOCYTE # (test code=LY#) 1.27 K/mm3 1.0-5.0 MONOCYTE # (test code=MO#) 0.45 K/mm3 0-0.8 EOSINOPHIL # (test code=EO#) 0.11 K/mm3 0.0-0.5 BASOPHIL # (test code=BA#) 0.02 K/mm3 0.0-0.2 NUCLEATED RBC # (test code=NRBC#) 0.00 K/mm3 0.0-0.1 MANUAL DIFF REQUIRED (test code=MDIFF) NO PROCALCITONIN (PCT)2019-07-14 18:18:00* Test Item Value Reference Range Comments PROCALCITONIN (PCT) (test code=PROCAL) 0.48 ng/ml Concentration Interpretation (ng/mL) <0.51 Sepsis is not likely. Local bacterial infection is possible. (LOW RISK for progression to Sepsis) 0.51 - 2.00 Sepsis is possible, but other conditions are known to elevate PCT as well. (MODERATE RISK for progression to Sepsis) > 2.00 Sepsis is likely, unless other causes are known. (HIGH RISK for progression to Severe Sepsis or Septic Shock) 10.00 High likelihood of Severe Sepsis or Septic or higher Shock. *Increased PCT levels may not always be related to systemic bacterial infection.*Low PCT levels do not automatically exclude the presence of bacterial infection.*All results should be interpreted taking into account the patients history. LACTIC [id number] 17:58:00* Test Item Value Reference Range Comments LACTIC ACID (test code=LACT) 1.7 mmol/L 0.4-1.9 B-TYPE NATRIURETIC [id number] 17:00:00* Test Item Value Reference Range Comments B-TYPE NATRIURETIC PEPTIDE (test code=BNP) 49.82 pgram/mL 0-100 BASIC METABOLIC [id number] 16:56:00* Test Item Value Reference Range Comments SODIUM (test code=NA) 135 mmol/L 136-145 POTASSIUM (test code=K) 4.6 mmol/L 3.5-5.1 CHLORIDE (test code=CL) 104.0 mmol/L 98-107 CARBON DIOXIDE (test code=CO2) 20.0 mmol/L 21-32 ANION GAP (test code=GAP) 15.6 10-20 GLUCOSE (test code=GLU) 221 mg/dL 74-106 BLOOD UREA NITROGEN (test code=BUN) 35 mg/dL 7-18 GLOMERULAR FILTRATION RATE (test code=GFR) 31 mL/min >=60 Estimated GFR by using Modified MDRD formula.Chronic kidney disease is defined as either kidney damageor GFR <60 mL/min/1.73 m2 for >3 months. CREATININE (test code=CREAT) 1.70 mg/dL 0.55-1.02 Note change in reference range due to change in reagent. BUN/CREATININE RATIO (test code=BUN/CREA) 20.6 10-20 CALCIUM (test code=CA) 9.5 mg/dL 8.5-10.1 HEPATIC FUNCTION [id number] 16:56:00* Test Item Value Reference Range Comments TOTAL PROTEIN (test code=PROT) 8.4 gram/dL 6.4-8.2 ALBUMIN (test code=ALB) 3.4 g/dL 3.4-5.0 GLOBULIN (test code=GLOB) 5.0 gram/dL 2.7-4.2 ALBUMIN/GLOBULIN RATIO (test code=A/G) 0.7 0.75-1.50 BILIRUBIN TOTAL (test code=BILT) 1.90 mg/dL 0.0-1.0 BILIRUBIN DIRECT (test code=BILD) 0.38 mg/dL 0.0-0.20 SGOT/AST (test code=AST) 26 IUnit/L 15-37 SGPT/ALT (test code=ALT) 33 IUnit/L 12-78 ALKALINE PHOSPHATASE TOTAL (test code=ALKP) 138 IUnit/L 45-117 Note change in reference range due to change in reagent. [id number] 16:56:00* Test Item Value Reference Range Comments LIPASE (test code=LIP) 130 U/L 73.0-393.0 [id number] 16:56:00* Test Item Value Reference Range Comments MAGNESIUM (test code=MAG) 2.1 mg/dL 1.8-2.4 [id number] 16:56:00* Test Item Value Reference Range Comments TROPONIN-I (test code=TROPI) <0.015 ng/mL 0-0.045 BASIC METABOLIC [id number] 16:47:00* Test Item Value Reference Range Comments SODIUM (test code=NA) 135 mmol/L 136-145 POTASSIUM (test code=K) 4.6 mmol/L 3.5-5.1 CHLORIDE (test code=CL) 104.0 mmol/L 98-107 CARBON DIOXIDE (test code=CO2) mmol/L 21-32 ANION GAP (test code=GAP) 10-20 GLUCOSE (test code=GLU) mg/dL 74-106 BLOOD UREA NITROGEN (test code=BUN) mg/dL 7-18 GLOMERULAR FILTRATION RATE (test code=GFR) mL/min >=60 CREATININE (test code=CREAT) mg/dL 0.55-1.02 BUN/CREATININE RATIO (test code=BUN/CREA) 10-20 CALCIUM (test code=CA) mg/dL 8.5-10.1 HEPATIC FUNCTION [id number] 16:47:00* Test Item Value Reference Range Comments TOTAL PROTEIN (test code=PROT) gram/dL 6.4-8.2 ALBUMIN (test code=ALB) g/dL 3.4-5.0 GLOBULIN (test code=GLOB) gram/dL 2.7-4.2 ALBUMIN/GLOBULIN RATIO (test code=A/G) 0.75-1.50 BILIRUBIN TOTAL (test code=BILT) mg/dL 0.0-1.0 BILIRUBIN DIRECT (test code=BILD) mg/dL 0.0-0.20 SGOT/AST (test code=AST) IUnit/L 15-37 SGPT/ALT (test code=ALT) IUnit/L 12-78 ALKALINE PHOSPHATASE TOTAL (test code=ALKP) IUnit/L 45-117 [id number] 16:47:00* Test Item Value Reference Range Comments LIPASE (test code=LIP) U/L 73.0-393.0 [id number] 16:47:00* Test Item Value Reference Range Comments MAGNESIUM (test code=MAG) mg/dL 1.8-2.4 [id number] 16:47:00* Test Item Value Reference Range Comments TROPONIN-I (test code=TROPI) ng/mL 0-0.045 - XR CHEST 1 [id number] 16:45:00 FAX: Harvey Thapa MD [phone] [place]: St: REG FAX: Joyce Jacobo MD [phone] Name: GRETTA MIRANDA LUCY [facility] : 1965 Age/S: 54[facility]F [address] [facility]: [id number] Loc: [place] [address] Phys: Joyce Jacobo MD Acct: [id number] Dis Date: Status: REG ER PHONE #: [phone] Exam Date: 07/14/2019 1626 FAX #: [phone] Reason: CHEST PAIN EXAMS: CPT CODE: [id number] XR CHEST 1 V [id number] REASON FOR EXAM: CHEST PAIN Exam Order Date: 07/14/2019 3:57 PM Ordering M.D.: Joyce Jacobo MD PROCEDURE: - XR CHEST 1 V COMPARISON: Frontal chest x-ray February 04, 2019 FINDINGS: The lungs are clear other than mild subsegmental atelectasis in the mid to lower left lung. There is no pleural effusion or pneumothorax. Pulmonary vascularity is within normal limits. Cardiomediastinal silhouette is prominent but stable in size. The mediastinal contours are within normal limits. Degenerative changes are present in the spine. The visualized upper abdomen is within normal limits. IMPRESSION: No acute car diopulmonary process. Electronically Signed by Harsh Cifuentes MD on 10/2019 at 4508 Reported and signed by: Harsh Cifuentes MD CC: Harvey Chambers; Joyce Jacobo MD Technolog ist: RT [place](R) Trnscrd Date/Time/By : 07/14/2019 (1648) : By: [email or web address] Orig Print D/T: S: 07/14/2019 (164 9) PAGE 1 Signed Report PROTHROMBIN [id number] 16:39:00* Test Item Value Reference Range Comments PROTHROMBIN TIME PATIENT (test code=PTP) 12.8 seconds 9.0-14.0 INTERNATIONAL NORMAL RATIO (test code=INR) 1.1 0.8-1.2 The therapeutic range for oral anticoagulant therapy formost indications is an international normalized ratio (INR)of between 2.0 and 3.0. The recommended therapeutic INRrange for various clinical situations is listed below: Clinical Situation INR range Pulmonary e mbolism treatment (2.0-3.0)Venous thrombosis treatmentVenous thrombosis prophylaxis (high risk surgery)Prevention of systemic embolism from: Acute myocardial infarction Valvular heart disease Atrial fibrillation Mechanical prosthetic heart valves (2.5-3.5) IS PATIENT ON ANTICOAGULANTS? NTHROMBOPLASTIN TIME [id number] 16:39:00* Test Item Value Reference Range Comments THROMBOPLASTIN TIME PARTIAL (test code=PTT) 29.9 seconds 25.0-36.5 IS PATIENT ON ANTICOAGULANTS? NCBC W/O [id number] 16:28:00* Test Item Value Reference Range Comments WHITE BLOOD CELL (test code=WBC) 9.5 K/mm3 4.5-12.5 RED BLOOD CELL (test code=RBC) 4.38 mill/mm3 3.7-5.2 HEMOGLOBIN (test code=HGB) 13.1 gram/dL 11.5-15.5 HEMATOCRIT (test code=HCT) 39.9 % 36.0-46.0 MEAN CELL VOLUME (test code=MCV) 89.7 fL 80-98 MEAN CELL HGB (test code=MCH) 29.2 picogram 27.0-33.0 MEAN CELL HGB CONCETRATION (test code=MCHC) 32.6 gram/dL 33.0-36.0 RED CELL DISTRIBUTION WIDTH (test code=RDW) 13.7 % 11.6-16.2 PLATELET COUNT (test code=PLT) 104 K/mm3 150-450 MEAN PLATELET VOLUME (test code=MPV) 9.8 fL 6.7-11.0 CBC W/O [id number] 16:25:00* Test Item Value Reference Range Comments WHITE BLOOD CELL (test code=WBC) K/mm3 4.5-12.5 RED BLOOD CELL (test code=RBC) mill/mm3 3.7-5.2 HEMOGLOBIN (test code=HGB) 13.1 gram/dL 11.5-15.5 HEMATOCRIT (test code=HCT) 39.9 % 36.0-46.0 MEAN CELL VOLUME (test code=MCV) fL 80-98 MEAN CELL HGB (test code=MCH) picogram 27.0-33.0 MEAN CELL HGB CONCETRATION (test code=MCHC) gram/dL 33.0-36.0 RED CELL DISTRIBUTION WIDTH (test code=RDW) % 11.6-16.2 PLATELET COUNT (test code=PLT) K/mm3 150-450 MEAN PLATELET VOLUME (test code=MPV) fL 6.7-11.0 [id number] 12:50:00* Test Item Value Reference Range Comments GLUBED (test code=GLUBED) 149 mg/dL 74-106 Performed by certified yarn texturing machine operator at [facility] [id number] 12:50:00* Test Item Value Reference Range Comments GLUBED (test code=GLUBED) 218 mg/dL 74-106 Performed by certified yarn texturing machine operator at [facility] [id number] 12:50:00* Test Item Value Reference Range Comments GLUBED (test code=GLUBED) 144 mg/dL 74-106 Performed by certified yarn texturing machine operator at [facility] [id number] 12:29:00* Test Item Value Reference Range Comments GLUBED (test code=GLUBED) 205 mg/dL 74-106 Performed by certified yarn texturing machine operator at [facility] [id number] 12:27:00* Test Item Value Reference Range Comments GLUBED (test code=GLUBED) 145 mg/dL 74-106 Performed by certified yarn texturing machine operator at [facility] [id number] 14:40:00* Test Item Value Reference Range Comments GLUBED (test code=GLUBED) 125 mg/dL 74-106 Performed by certified yarn texturing machine operator at [facility] [id number] 14:39:00* Test Item Value Reference Range Comments GLUBED (test code=GLUBED) 93 mg/dL 74-106 Performed by certified yarn texturing machine operator at [facility] [id number] 14:39:00* Test Item Value Reference Range Comments GLUBED (test code=GLUBED) 129 mg/dL 74-106 Performed by certified yarn texturing machine operator at [facility] [id number] 10:37:00* Test Item Value Reference Range Comments GLUBED (test code=GLUBED) 124 mg/dL 74-106 Performed by certified yarn texturing machine operator at [facility] [id number] 10:37:00* Test Item Value Reference Range Comments GLUBED (test code=GLUBED) 239 mg/dL 74-106 Performed by certified yarn texturing machine operator at [facility] [id number] 10:37:00* Test Item Value Reference Range Comments GLUBED (test code=GLUBED) 151 mg/dL 74-106 Performed by certified yarn texturing machine operator at [facility] [id number] 10:29:00* Test Item Value Reference Range Comments GLUBED (test code=GLUBED) 186 mg/dL 74-106 Performed by certified yarn texturing machine operator at [facility] CBC W/AUTO [id number] 06:34:00* Test Item Value Reference Range Comments WHITE BLOOD CELL (test code=WBC) 2.5 K/mm3 4.5-12.5 RED BLOOD CELL (test code=RBC) 2.99 mill/mm3 3.7-5.2 HEMOGLOBIN (test code=HGB) 8.1 gram/dL 11.5-15.5 HEMATOCRIT (test code=HCT) 26.1 % 36.0-46.0 MEAN CELL VOLUME (test code=MCV) 87.3 fL 80-98 MEAN CELL HGB (test code=MCH) 27.1 picogram 27.0-33.0 MEAN CELL HGB CONCETRATION (test code=MCHC) 31.0 gram/dL 33.0-36.0 RED CELL DISTRIBUTION WIDTH (test code=RDW) 14.6 % 11.6-16.2 RED CELL DISTRIBUTION WIDTH SD (test code=RDW-SD) 45.7 fL 37.0-51.0 PLATELET COUNT (test code=PLT) 90 K/mm3 150-450 MEAN PLATELET VOLUME (test code=MPV) 10.7 fL 6.7-11.0 NEUTROPHIL % (test code=NT%) 50.5 % 39.0-69.0 IMMATURE GRANULOCYTE % (test code=IG%) 0.0 % 0.0-5.0 LYMPHOCYTE % (test code=LY%) 36.0 % 25.0-55.0 MONOCYTE % (test code=MO%) 9.9 % 0.0-10.0 EOSINOPHIL % (test code=EO%) 2.8 % 0.0-5.0 BASOPHIL % (test code=BA%) 0.8 % 0.0-1.0 NUCLEATED RBC % (test code=NRBC%) 0.0 % 0-0 NEUTROPHIL # (test code=NT#) 1.28 K/mm3 1.8-7.7 IMMATURE GRANULOCYTE # (test code=IG#) 0.00 x10 3/uL 0-0.03 LYMPHOCYTE # (test code=LY#) 0.91 K/mm3 1.0-5.0 MONOCYTE # (test code=MO#) 0.25 K/mm3 0-0.8 EOSINOPHIL # (test code=EO#) 0.07 K/mm3 0.0-0.5 BASOPHIL # (test code=BA#) 0.02 K/mm3 0.0-0.2 NUCLEATED RBC # (test code=NRBC#) 0.00 K/mm3 0.0-0.1 MANUAL DIFF REQUIRED (test code=MDIFF) NO, ONLY SCAN NEEDED DIFFERENTIAL [id number] 06:34:00* Test Item Value Reference Range Comments STAIN ACCEPTABILITY (test code=STN ACCEPTABLE) STAIN ACCEPTABLE ANISOCYTOSIS (test code=ANISO) 1+ MICROCYTOSIS (test code=MICR) 1+ PLATELET ESTIMATE (test code=PLTEST) DECREASED PLATELET MORPHOLOGY (test code=PLTMORPH) NORMAL BASIC METABOLIC [id number] 05:43:00* Test Item Value Reference Range Comments SODIUM (test code=NA) 135 mmol/L 136-145 POTASSIUM (test code=K) 4.3 mmol/L 3.5-5.1 CHLORIDE (test code=CL) 106.0 mmol/L 98-107 CARBON DIOXIDE (test code=CO2) 23.0 mmol/L 21-32 ANION GAP (test code=GAP) 10.3 10-20 GLUCOSE (test code=GLU) 135 mg/dL 74-106 BLOOD UREA NITROGEN (test code=BUN) 41 mg/dL 7-18 GLOMERULAR FILTRATION RATE (test code=GFR) 31 mL/min >=60 Estimated GFR by using Modified MDRD formula.Chronic kidney disease is defined as either kidney damageor GFR <60 mL/min/1.73 m2 for >3 months. CREATININE (test code=CREAT) 1.70 mg/dL 0.55-1.02 Note change in reference range due to change in reagent. BUN/CREATININE RATIO (test code=BUN/CREA) 24.1 10-20 CALCIUM (test code=CA) 8.2 mg/dL 8.5-10.1 BASIC METABOLIC [id number] 05:32:00* Test Item Value Reference Range Comments SODIUM (test code=NA) 135 mmol/L 136-145 POTASSIUM (test code=K) 4.3 mmol/L 3.5-5.1 CHLORIDE (test code=CL) 106.0 mmol/L 98-107 CARBON DIOXIDE (test code=CO2) mmol/L 21-32 ANION GAP (test code=GAP) 10-20 GLUCOSE (test code=GLU) mg/dL 74-106 BLOOD UREA NITROGEN (test code=BUN) mg/dL 7-18 GLOMERULAR FILTRATION RATE (test code=GFR) mL/min >=60 CREATININE (test code=CREAT) mg/dL 0.55-1.02 BUN/CREATININE RATIO (test code=BUN/CREA) 10-20 CALCIUM (test code=CA) mg/dL 8.5-10.1 [id number] 05:29:00* Test Item Value Reference Range Comments AMMONIA (test code=AMM) 60 umol/L 11-32 CBC W/AUTO [id number] 05:11:00* Test Item Value Reference Range Comments WHITE BLOOD CELL (test code=WBC) 2.5 K/mm3 4.5-12.5 RED BLOOD CELL (test code=RBC) 2.99 mill/mm3 3.7-5.2 HEMOGLOBIN (test code=HGB) 8.1 gram/dL 11.5-15.5 HEMATOCRIT (test code=HCT) 26.1 % 36.0-46.0 MEAN CELL VOLUME (test code=MCV) 87.3 fL 80-98 MEAN CELL HGB (test code=MCH) 27.1 picogram 27.0-33.0 MEAN CELL HGB CONCETRATION (test code=MCHC) 31.0 gram/dL 33.0-36.0 RED CELL DISTRIBUTION WIDTH (test code=RDW) 14.6 % 11.6-16.2 RED CELL DISTRIBUTION WIDTH SD (test code=RDW-SD) 45.7 fL 37.0-51.0 PLATELET COUNT (test code=PLT) 90 K/mm3 150-450 MEAN PLATELET VOLUME (test code=MPV) 10.7 fL 6.7-11.0 NEUTROPHIL % (test code=NT%) 50.5 % 39.0-69.0 IMMATURE GRANULOCYTE % (test code=IG%) 0.0 % 0.0-5.0 LYMPHOCYTE % (test code=LY%) 36.0 % 25.0-55.0 MONOCYTE % (test code=MO%) 9.9 % 0.0-10.0 EOSINOPHIL % (test code=EO%) 2.8 % 0.0-5.0 BASOPHIL % (test code=BA%) 0.8 % 0.0-1.0 NUCLEATED RBC % (test code=NRBC%) 0.0 % 0-0 NEUTROPHIL # (test code=NT#) 1.28 K/mm3 1.8-7.7 IMMATURE GRANULOCYTE # (test code=IG#) 0.00 x10 3/uL 0-0.03 LYMPHOCYTE # (test code=LY#) 0.91 K/mm3 1.0-5.0 MONOCYTE # (test code=MO#) 0.25 K/mm3 0-0.8 EOSINOPHIL # (test code=EO#) 0.07 K/mm3 0.0-0.5 BASOPHIL # (test code=BA#) 0.02 K/mm3 0.0-0.2 NUCLEATED RBC # (test code=NRBC#) 0.00 K/mm3 0.0-0.1 MANUAL DIFF REQUIRED (test code=MDIFF) NO, ONLY SCAN NEEDED DIFFERENTIAL [id number] 05:11:00* Test Item Value Reference Range Comments STAIN ACCEPTABILITY (test code=STN ACCEPTABLE) CABOT RINGS (test code=CAB) MORPHOLOGY COMMENT (test code=MOC) PLATELET ESTIMATE (test code=PLTEST) PLATELET MORPHOLOGY (test code=PLTMORPH) CBC W/AUTO [id number] 05:11:00* Test Item Value Reference Range Comments WHITE BLOOD CELL (test code=WBC) 2.5 K/mm3 4.5-12.5 RED BLOOD CELL (test code=RBC) 2.99 mill/mm3 3.7-5.2 HEMOGLOBIN (test code=HGB) 8.1 gram/dL 11.5-15.5 HEMATOCRIT (test code=HCT) 26.1 % 36.0-46.0 MEAN CELL VOLUME (test code=MCV) 87.3 fL 80-98 MEAN CELL HGB (test code=MCH) 27.1 picogram 27.0-33.0 MEAN CELL HGB CONCETRATION (test code=MCHC) 31.0 gram/dL 33.0-36.0 RED CELL DISTRIBUTION WIDTH (test code=RDW) 14.6 % 11.6-16.2 RED CELL DISTRIBUTION WIDTH SD (test code=RDW-SD) 45.7 fL 37.0-51.0 PLATELET COUNT (test code=PLT) 90 K/mm3 150-450 MEAN PLATELET VOLUME (test code=MPV) 10.7 fL 6.7-11.0 NEUTROPHIL % (test code=NT%) 50.5 % 39.0-69.0 IMMATURE GRANULOCYTE % (test code=IG%) 0.0 % 0.0-5.0 LYMPHOCYTE % (test code=LY%) 36.0 % 25.0-55.0 MONOCYTE % (test code=MO%) 9.9 % 0.0-10.0 EOSINOPHIL % (test code=EO%) 2.8 % 0.0-5.0 BASOPHIL % (test code=BA%) 0.8 % 0.0-1.0 NUCLEATED RBC % (test code=NRBC%) 0.0 % 0-0 NEUTROPHIL # (test code=NT#) 1.28 K/mm3 1.8-7.7 IMMATURE GRANULOCYTE # (test code=IG#) 0.00 x10 3/uL 0-0.03 LYMPHOCYTE # (test code=LY#) 0.91 K/mm3 1.0-5.0 MONOCYTE # (test code=MO#) 0.25 K/mm3 0-0.8 EOSINOPHIL # (test code=EO#) 0.07 K/mm3 0.0-0.5 BASOPHIL # (test code=BA#) 0.02 K/mm3 0.0-0.2 NUCLEATED RBC # (test code=NRBC#) 0.00 K/mm3 0.0-0.1 MANUAL DIFF REQUIRED (test code=MDIFF) NO, ONLY SCAN NEEDED DIFFERENTIAL [id number] 05:11:00* Test Item Value Reference Range Comments STAIN ACCEPTABILITY (test code=STN ACCEPTABLE) CABOT RINGS (test code=CAB) MORPHOLOGY COMMENT (test code=MOC) PLATELET ESTIMATE (test code=PLTEST) PLATELET MORPHOLOGY (test code=PLTMORPH) CBC W/AUTO [id number] 05:11:00* Test Item Value Reference Range Comments WHITE BLOOD CELL (test code=WBC) 2.5 K/mm3 4.5-12.5 RED BLOOD CELL (test code=RBC) 2.99 mill/mm3 3.7-5.2 HEMOGLOBIN (test code=HGB) 8.1 gram/dL 11.5-15.5 HEMATOCRIT (test code=HCT) 26.1 % 36.0-46.0 MEAN CELL VOLUME (test code=MCV) 87.3 fL 80-98 MEAN CELL HGB (test code=MCH) 27.1 picogram 27.0-33.0 MEAN CELL HGB CONCETRATION (test code=MCHC) 31.0 gram/dL 33.0-36.0 RED CELL DISTRIBUTION WIDTH (test code=RDW) 14.6 % 11.6-16.2 RED CELL DISTRIBUTION WIDTH SD (test code=RDW-SD) 45.7 fL 37.0-51.0 PLATELET COUNT (test code=PLT) 90 K/mm3 150-450 MEAN PLATELET VOLUME (test code=MPV) 10.7 fL 6.7-11.0 NEUTROPHIL % (test code=NT%) 50.5 % 39.0-69.0 IMMATURE GRANULOCYTE % (test code=IG%) 0.0 % 0.0-5.0 LYMPHOCYTE % (test code=LY%) 36.0 % 25.0-55.0 MONOCYTE % (test code=MO%) 9.9 % 0.0-10.0 EOSINOPHIL % (test code=EO%) 2.8 % 0.0-5.0 BASOPHIL % (test code=BA%) 0.8 % 0.0-1.0 NUCLEATED RBC % (test code=NRBC%) 0.0 % 0-0 NEUTROPHIL # (test code=NT#) 1.28 K/mm3 1.8-7.7 IMMATURE GRANULOCYTE # (test code=IG#) 0.00 x10 3/uL 0-0.03 LYMPHOCYTE # (test code=LY#) 0.91 K/mm3 1.0-5.0 MONOCYTE # (test code=MO#) 0.25 K/mm3 0-0.8 EOSINOPHIL # (test code=EO#) 0.07 K/mm3 0.0-0.5 BASOPHIL # (test code=BA#) 0.02 K/mm3 0.0-0.2 NUCLEATED RBC # (test code=NRBC#) 0.00 K/mm3 0.0-0.1 MANUAL DIFF REQUIRED (test code=MDIFF) NO, ONLY SCAN NEEDED DIFFERENTIAL [id number] 05:11:00* Test Item Value Reference Range Comments STAIN ACCEPTABILITY (test code=STN ACCEPTABLE) MORPHOLOGY COMMENT (test code=MOC) PLATELET ESTIMATE (test code=PLTEST) PLATELET MORPHOLOGY (test code=PLTMORPH) CBC W/AUTO [id number] 05:11:00* Test Item Value Reference Range Comments WHITE BLOOD CELL (test code=WBC) 2.5 K/mm3 4.5-12.5 RED BLOOD CELL (test code=RBC) 2.99 mill/mm3 3.7-5.2 HEMOGLOBIN (test code=HGB) 8.1 gram/dL 11.5-15.5 HEMATOCRIT (test code=HCT) 26.1 % 36.0-46.0 MEAN CELL VOLUME (test code=MCV) 87.3 fL 80-98 MEAN CELL HGB (test code=MCH) 27.1 picogram 27.0-33.0 MEAN CELL HGB CONCETRATION (test code=MCHC) 31.0 gram/dL 33.0-36.0 RED CELL DISTRIBUTION WIDTH (test code=RDW) 14.6 % 11.6-16.2 RED CELL DISTRIBUTION WIDTH SD (test code=RDW-SD) 45.7 fL 37.0-51.0 PLATELET COUNT (test code=PLT) 90 K/mm3 150-450 MEAN PLATELET VOLUME (test code=MPV) 10.7 fL 6.7-11.0 NEUTROPHIL % (test code=NT%) 50.5 % 39.0-69.0 IMMATURE GRANULOCYTE % (test code=IG%) 0.0 % 0.0-5.0 LYMPHOCYTE % (test code=LY%) 36.0 % 25.0-55.0 MONOCYTE % (test code=MO%) 9.9 % 0.0-10.0 EOSINOPHIL % (test code=EO%) 2.8 % 0.0-5.0 BASOPHIL % (test code=BA%) 0.8 % 0.0-1.0 NUCLEATED RBC % (test code=NRBC%) 0.0 % 0-0 NEUTROPHIL # (test code=NT#) 1.28 K/mm3 1.8-7.7 IMMATURE GRANULOCYTE # (test code=IG#) 0.00 x10 3/uL 0-0.03 LYMPHOCYTE # (test code=LY#) 0.91 K/mm3 1.0-5.0 MONOCYTE # (test code=MO#) 0.25 K/mm3 0-0.8 EOSINOPHIL # (test code=EO#) 0.07 K/mm3 0.0-0.5 BASOPHIL # (test code=BA#) 0.02 K/mm3 0.0-0.2 NUCLEATED RBC # (test code=NRBC#) 0.00 K/mm3 0.0-0.1 MANUAL DIFF REQUIRED (test code=MDIFF) NO, ONLY SCAN NEEDED DIFFERENTIAL [id number] 05:11:00* Test Item Value Reference Range Comments STAIN ACCEPTABILITY (test code=STN ACCEPTABLE) CABOT RINGS (test code=CAB) MORPHOLOGY COMMENT (test code=MOC) PLATELET ESTIMATE (test code=PLTEST) PLATELET MORPHOLOGY (test code=PLTMORPH) [id number] 17:26:00* Test Item Value Reference Range Comments GLUBED (test code=GLUBED) 82 mg/dL 74-106 Performed by certified yarn texturing machine operator at [facility] [id number] 06:02:00* Test Item Value Reference Range Comments GLUBED (test code=GLUBED) 130 mg/dL 74-106 Performed by certified yarn texturing machine operator at [facility] [id number] 16:46:00* Test Item Value Reference Range Comments GLYCOSYLATED HEMOGLOBIN (HA1C) (test code=GLYHGB) 8.4 % HbA1 4.8-6.0 ESTIMATED AVERAGE GLUCOSE (test code=EAG) 194 MG/DL CBC W/AUTO [id number] 16:44:00* Test Item Value Reference Range Comments WHITE BLOOD CELL (test code=WBC) 2.5 K/mm3 4.5-12.5 RED BLOOD CELL (test code=RBC) 3.09 mill/mm3 3.7-5.2 HEMOGLOBIN (test code=HGB) 8.4 gram/dL 11.5-15.5 HEMATOCRIT (test code=HCT) 26.5 % 36.0-46.0 MEAN CELL VOLUME (test code=MCV) 85.8 fL 80-98 MEAN CELL HGB (test code=MCH) 27.2 picogram 27.0-33.0 MEAN CELL HGB CONCETRATION (test code=MCHC) 31.7 gram/dL 33.0-36.0 RED CELL DISTRIBUTION WIDTH (test code=RDW) 14.7 % 11.6-16.2 RED CELL DISTRIBUTION WIDTH SD (test code=RDW-SD) 45.1 fL 37.0-51.0 PLATELET COUNT (test code=PLT) 84 K/mm3 150-450 MEAN PLATELET VOLUME (test code=MPV) 10.2 fL 6.7-11.0 NEUTROPHIL % (test code=NT%) 46.4 % 39.0-69.0 IMMATURE GRANULOCYTE % (test code=IG%) 0.8 % 0.0-5.0 LYMPHOCYTE % (test code=LY%) 36.9 % 25.0-55.0 MONOCYTE % (test code=MO%) 13.1 % 0.0-10.0 EOSINOPHIL % (test code=EO%) 2.0 % 0.0-5.0 BASOPHIL % (test code=BA%) 0.8 % 0.0-1.0 NUCLEATED RBC % (test code=NRBC%) 0.0 % 0-0 NEUTROPHIL # (test code=NT#) 1.17 K/mm3 1.8-7.7 IMMATURE GRANULOCYTE # (test code=IG#) 0.02 x10 3/uL 0-0.03 LYMPHOCYTE # (test code=LY#) 0.93 K/mm3 1.0-5.0 MONOCYTE # (test code=MO#) 0.33 K/mm3 0-0.8 EOSINOPHIL # (test code=EO#) 0.05 K/mm3 0.0-0.5 BASOPHIL # (test code=BA#) 0.02 K/mm3 0.0-0.2 NUCLEATED RBC # (test code=NRBC#) 0.00 K/mm3 0.0-0.1 MANUAL DIFF REQUIRED (test code=MDIFF) NO, ONLY SCAN NEEDED DIFFERENTIAL [id number] 16:44:00* Test Item Value Reference Range Comments STAIN ACCEPTABILITY (test code=STN ACCEPTABLE) STAIN ACCEPTABLE ANISOCYTOSIS (test code=ANISO) 1+ PLATELET ESTIMATE (test code=PLTEST) DECREASED PLATELET MORPHOLOGY (test code=PLTMORPH) NORMAL CBC W/AUTO [id number] 16:14:00* Test Item Value Reference Range Comments WHITE BLOOD CELL (test code=WBC) 2.5 K/mm3 4.5-12.5 RED BLOOD CELL (test code=RBC) 3.09 mill/mm3 3.7-5.2 HEMOGLOBIN (test code=HGB) 8.4 gram/dL 11.5-15.5 HEMATOCRIT (test code=HCT) 26.5 % 36.0-46.0 MEAN CELL VOLUME (test code=MCV) 85.8 fL 80-98 MEAN CELL HGB (test code=MCH) 27.2 picogram 27.0-33.0 MEAN CELL HGB CONCETRATION (test code=MCHC) 31.7 gram/dL 33.0-36.0 RED CELL DISTRIBUTION WIDTH (test code=RDW) 14.7 % 11.6-16.2 RED CELL DISTRIBUTION WIDTH SD (test code=RDW-SD) 45.1 fL 37.0-51.0 PLATELET COUNT (test code=PLT) 84 K/mm3 150-450 MEAN PLATELET VOLUME (test code=MPV) 10.2 fL 6.7-11.0 NEUTROPHIL % (test code=NT%) 46.4 % 39.0-69.0 IMMATURE GRANULOCYTE % (test code=IG%) 0.8 % 0.0-5.0 LYMPHOCYTE % (test code=LY%) 36.9 % 25.0-55.0 MONOCYTE % (test code=MO%) 13.1 % 0.0-10.0 EOSINOPHIL % (test code=EO%) 2.0 % 0.0-5.0 BASOPHIL % (test code=BA%) 0.8 % 0.0-1.0 NUCLEATED RBC % (test code=NRBC%) 0.0 % 0-0 NEUTROPHIL # (test code=NT#) 1.17 K/mm3 1.8-7.7 IMMATURE GRANULOCYTE # (test code=IG#) 0.02 x10 3/uL 0-0.03 LYMPHOCYTE # (test code=LY#) 0.93 K/mm3 1.0-5.0 MONOCYTE # (test code=MO#) 0.33 K/mm3 0-0.8 EOSINOPHIL # (test code=EO#) 0.05 K/mm3 0.0-0.5 BASOPHIL # (test code=BA#) 0.02 K/mm3 0.0-0.2 NUCLEATED RBC # (test code=NRBC#) 0.00 K/mm3 0.0-0.1 MANUAL DIFF REQUIRED (test code=MDIFF) NO, ONLY SCAN NEEDED DIFFERENTIAL [id number] 16:14:00* Test Item Value Reference Range Comments STAIN ACCEPTABILITY (test code=STN ACCEPTABLE) MORPHOLOGY COMMENT (test code=MOC) PLATELET ESTIMATE (test code=PLTEST) PLATELET MORPHOLOGY (test code=PLTMORPH) CBC W/AUTO [id number] 16:13:00* Test Item Value Reference Range Comments WHITE BLOOD CELL (test code=WBC) 2.5 K/mm3 4.5-12.5 RED BLOOD CELL (test code=RBC) 3.09 mill/mm3 3.7-5.2 HEMOGLOBIN (test code=HGB) 8.4 gram/dL 11.5-15.5 HEMATOCRIT (test code=HCT) 26.5 % 36.0-46.0 MEAN CELL VOLUME (test code=MCV) 85.8 fL 80-98 MEAN CELL HGB (test code=MCH) 27.2 picogram 27.0-33.0 MEAN CELL HGB CONCETRATION (test code=MCHC) 31.7 gram/dL 33.0-36.0 RED CELL DISTRIBUTION WIDTH (test code=RDW) 14.7 % 11.6-16.2 RED CELL DISTRIBUTION WIDTH SD (test code=RDW-SD) 45.1 fL 37.0-51.0 PLATELET COUNT (test code=PLT) 84 K/mm3 150-450 MEAN PLATELET VOLUME (test code=MPV) 10.2 fL 6.7-11.0 NEUTROPHIL % (test code=NT%) 46.4 % 39.0-69.0 IMMATURE GRANULOCYTE % (test code=IG%) 0.8 % 0.0-5.0 LYMPHOCYTE % (test code=LY%) 36.9 % 25.0-55.0 MONOCYTE % (test code=MO%) 13.1 % 0.0-10.0 EOSINOPHIL % (test code=EO%) 2.0 % 0.0-5.0 BASOPHIL % (test code=BA%) 0.8 % 0.0-1.0 NUCLEATED RBC % (test code=NRBC%) 0.0 % 0-0 NEUTROPHIL # (test code=NT#) 1.17 K/mm3 1.8-7.7 IMMATURE GRANULOCYTE # (test code=IG#) 0.02 x10 3/uL 0-0.03 LYMPHOCYTE # (test code=LY#) 0.93 K/mm3 1.0-5.0 MONOCYTE # (test code=MO#) 0.33 K/mm3 0-0.8 EOSINOPHIL # (test code=EO#) 0.05 K/mm3 0.0-0.5 BASOPHIL # (test code=BA#) 0.02 K/mm3 0.0-0.2 NUCLEATED RBC # (test code=NRBC#) 0.00 K/mm3 0.0-0.1 MANUAL DIFF REQUIRED (test code=MDIFF) NO, ONLY SCAN NEEDED DIFFERENTIAL [id number] 16:13:00* Test Item Value Reference Range Comments STAIN ACCEPTABILITY (test code=STN ACCEPTABLE) CABOT RINGS (test code=CAB) MORPHOLOGY COMMENT (test code=MOC) PLATELET ESTIMATE (test code=PLTEST) PLATELET MORPHOLOGY (test code=PLTMORPH) CBC W/AUTO [id number] 16:13:00* Test Item Value Reference Range Comments WHITE BLOOD CELL (test code=WBC) 2.5 K/mm3 4.5-12.5 RED BLOOD CELL (test code=RBC) 3.09 mill/mm3 3.7-5.2 HEMOGLOBIN (test code=HGB) 8.4 gram/dL 11.5-15.5 HEMATOCRIT (test code=HCT) 26.5 % 36.0-46.0 MEAN CELL VOLUME (test code=MCV) 85.8 fL 80-98 MEAN CELL HGB (test code=MCH) 27.2 picogram 27.0-33.0 MEAN CELL HGB CONCETRATION (test code=MCHC) 31.7 gram/dL 33.0-36.0 RED CELL DISTRIBUTION WIDTH (test code=RDW) 14.7 % 11.6-16.2 RED CELL DISTRIBUTION WIDTH SD (test code=RDW-SD) 45.1 fL 37.0-51.0 PLATELET COUNT (test code=PLT) 84 K/mm3 150-450 MEAN PLATELET VOLUME (test code=MPV) 10.2 fL 6.7-11.0 NEUTROPHIL % (test code=NT%) 46.4 % 39.0-69.0 IMMATURE GRANULOCYTE % (test code=IG%) 0.8 % 0.0-5.0 LYMPHOCYTE % (test code=LY%) 36.9 % 25.0-55.0 MONOCYTE % (test code=MO%) 13.1 % 0.0-10.0 EOSINOPHIL % (test code=EO%) 2.0 % 0.0-5.0 BASOPHIL % (test code=BA%) 0.8 % 0.0-1.0 NUCLEATED RBC % (test code=NRBC%) 0.0 % 0-0 NEUTROPHIL # (test code=NT#) 1.17 K/mm3 1.8-7.7 IMMATURE GRANULOCYTE # (test code=IG#) 0.02 x10 3/uL 0-0.03 LYMPHOCYTE # (test code=LY#) 0.93 K/mm3 1.0-5.0 MONOCYTE # (test code=MO#) 0.33 K/mm3 0-0.8 EOSINOPHIL # (test code=EO#) 0.05 K/mm3 0.0-0.5 BASOPHIL # (test code=BA#) 0.02 K/mm3 0.0-0.2 NUCLEATED RBC # (test code=NRBC#) 0.00 K/mm3 0.0-0.1 MANUAL DIFF REQUIRED (test code=MDIFF) NO, ONLY SCAN NEEDED DIFFERENTIAL [id number] 16:13:00* Test Item Value Reference Range Comments STAIN ACCEPTABILITY (test code=STN ACCEPTABLE) MORPHOLOGY COMMENT (test code=MOC) PLATELET ESTIMATE (test code=PLTEST) PLATELET MORPHOLOGY (test code=PLTMORPH) CBC W/AUTO [id number] 16:12:00* Test Item Value Reference Range Comments WHITE BLOOD CELL (test code=WBC) 2.5 K/mm3 4.5-12.5 RED BLOOD CELL (test code=RBC) 3.09 mill/mm3 3.7-5.2 HEMOGLOBIN (test code=HGB) 8.4 gram/dL 11.5-15.5 HEMATOCRIT (test code=HCT) 26.5 % 36.0-46.0 MEAN CELL VOLUME (test code=MCV) 85.8 fL 80-98 MEAN CELL HGB (test code=MCH) 27.2 picogram 27.0-33.0 MEAN CELL HGB CONCETRATION (test code=MCHC) 31.7 gram/dL 33.0-36.0 RED CELL DISTRIBUTION WIDTH (test code=RDW) 14.7 % 11.6-16.2 RED CELL DISTRIBUTION WIDTH SD (test code=RDW-SD) 45.1 fL 37.0-51.0 PLATELET COUNT (test code=PLT) 84 K/mm3 150-450 MEAN PLATELET VOLUME (test code=MPV) 10.2 fL 6.7-11.0 NEUTROPHIL % (test code=NT%) 46.4 % 39.0-69.0 IMMATURE GRANULOCYTE % (test code=IG%) 0.8 % 0.0-5.0 LYMPHOCYTE % (test code=LY%) 36.9 % 25.0-55.0 MONOCYTE % (test code=MO%) 13.1 % 0.0-10.0 EOSINOPHIL % (test code=EO%) 2.0 % 0.0-5.0 BASOPHIL % (test code=BA%) 0.8 % 0.0-1.0 NUCLEATED RBC % (test code=NRBC%) 0.0 % 0-0 NEUTROPHIL # (test code=NT#) 1.17 K/mm3 1.8-7.7 IMMATURE GRANULOCYTE # (test code=IG#) 0.02 x10 3/uL 0-0.03 LYMPHOCYTE # (test code=LY#) 0.93 K/mm3 1.0-5.0 MONOCYTE # (test code=MO#) 0.33 K/mm3 0-0.8 EOSINOPHIL # (test code=EO#) 0.05 K/mm3 0.0-0.5 BASOPHIL # (test code=BA#) 0.02 K/mm3 0.0-0.2 NUCLEATED RBC # (test code=NRBC#) 0.00 K/mm3 0.0-0.1 MANUAL DIFF REQUIRED (test code=MDIFF) NO, ONLY SCAN NEEDED DIFFERENTIAL [id number] 16:12:00* Test Item Value Reference Range Comments STAIN ACCEPTABILITY (test code=STN ACCEPTABLE) CABOT RINGS (test code=CAB) MORPHOLOGY COMMENT (test code=MOC) PLATELET ESTIMATE (test code=PLTEST) PLATELET MORPHOLOGY (test code=PLTMORPH) [id number] 15:53:00* Test Item Value Reference Range Comments GLUBED (test code=GLUBED) 201 mg/dL 74-106 Performed by certified yarn texturing machine operator at [facility] T4 [id number] 15:35:00* Test Item Value Reference Range Comments T4 FREE (test code=T4F) 0.86 ng/dL 0.76-1.46 THYROID STIMULATING [id number] 15:35:00* Test Item Value Reference Range Comments THYROID STIMULATING HORMONE (test code=TSH) 5.260 uIU/mL 0.36-3.74 TSH REFERENCE RANGES: EUTHYROID: 0.35 - 4.3 mIU/mL HYPO : > 5.5 mIU/mL HYPER : < 0.35 mIU/mL LIPID PROFILE (CORONARY RISK)2019-02-06 11:41:00* Test Item Value Reference Range Comments TRIGLYCERIDES (test code=TRIG) 139 mg/dL 20-150 CHOLESTEROL (test code=CHOL) 125 mg/dL 0-200 CHOLESTEROL/HDL RATIO (test code=CHOLHDL) 2.0 RATIO 0-4.9 RISK ASSOCIATED WITH CHOL/HDL RATIOS: Risk Male Female1/2 AVERAGE 3.43 3.27AVERAGE 4.97 4.442X AVERAGE 9.55 7.053X AVERAGE 23.39 11.04 REFERENCE VALUE IS RELATED TO RISK LEVELS ASRECOMMENDED BY THE SIMÓN. HEART, LUNG, AND BLOOD INST. HDL CHOLESTEROL (test code=HDL) 51 mg/dL 40-60 LIPOPROTEIN LDL (test code=LDL) 59 mg/dL 100-129 Reference Interval: mg/dL mmol/L Optimal <100 <2.6Near/above optimal 100-129 2.6- 3.3Borderline High 130-159 3.4-4.1High 160-189 4.1-4.9Very High >=190 >=4.9=========This LDL result is a direct measurement.========= [id number] 11:14:00* Test Item Value Reference Range Comments GLUBED (test code=GLUBED) 184 mg/dL 74-106 Performed by certified yarn texturing machine operator at [facility] COMPREHENSIVE METABOLIC [id number] 07:09:00* Test Item Value Reference Range Comments SODIUM (test code=NA) 132 mmol/L 136-145 RESULT VERIFIED BY REPEAT ANALYSIS POTASSIUM (test code=K) 4.9 mmol/L 3.5-5.1 CHLORIDE (test code=CL) 102.0 mmol/L 98-107 CARBON DIOXIDE (test code=CO2) 22.0 mmol/L 21-32 ANION GAP (test code=GAP) 12.9 10-20 GLUCOSE (test code=GLU) 213 mg/dL 74-106 BLOOD UREA NITROGEN (test code=BUN) 55 mg/dL 7-18 GLOMERULAR FILTRATION RATE (test code=GFR) 23 mL/min >=60 Estimated GFR by using Modified MDRD formula.Chronic kidney disease is defined as either kidney damageor GFR <60 mL/min/1.73 m2 for >3 months. CREATININE (test code=CREAT) 2.20 mg/dL 0.55-1.02 Note change in reference range due to change in reagent. BUN/CREATININE RATIO (test code=BUN/CREA) 25.0 10-20 TOTAL PROTEIN (test code=PROT) 6.8 gram/dL 6.4-8.2 ALBUMIN (test code=ALB) 2.6 g/dL 3.4-5.0 GLOBULIN (test code=GLOB) 4.2 gram/dL 2.7-4.2 ALBUMIN/GLOBULIN RATIO (test code=A/G) 0.6 0.75-1.50 CALCIUM (test code=CA) 8.0 mg/dL 8.5-10.1 BILIRUBIN TOTAL (test code=BILT) 1.00 mg/dL 0.0-1.0 SGOT/AST (test code=AST) 32 IUnit/L 15-37 SGPT/ALT (test code=ALT) 28 IUnit/L 12-78 ALKALINE PHOSPHATASE TOTAL (test code=ALKP) 90 IUnit/L 45-117 Note change in reference range due to change in reagent. [id number] 16:50:00* Test Item Value Reference Range Comments GLUBED (test code=GLUBED) 207 mg/dL 74-106 Performed by certified yarn texturing machine operator at [facility] [id number] 12:30:00* Test Item Value Reference Range Comments GLUBED (test code=GLUBED) 233 mg/dL 74-106 Performed by certified yarn texturing machine operator at [facility] COMPREHENSIVE METABOLIC [id number] 09:01:00* Test Item Value Reference Range Comments SODIUM (test code=NA) 137 mmol/L 136-145 POTASSIUM (test code=K) 4.9 mmol/L 3.5-5.1 CHLORIDE (test code=CL) 104.0 mmol/L 98-107 CARBON DIOXIDE (test code=CO2) 23.0 mmol/L 21-32 ANION GAP (test code=GAP) 14.9 10-20 GLUCOSE (test code=GLU) 128 mg/dL 74-106 BLOOD UREA NITROGEN (test code=BUN) 62 mg/dL 7-18 GLOMERULAR FILTRATION RATE (test code=GFR) 24 mL/min >=60 Estimated GFR by using Modified MDRD formula.Chronic kidney disease is defined as either kidney damageor GFR <60 mL/min/1.73 m2 for >3 months. CREATININE (test code=CREAT) 2.10 mg/dL 0.55-1.02 Note change in reference range due to change in reagent. BUN/CREATININE RATIO (test code=BUN/CREA) 29.5 10-20 TOTAL PROTEIN (test code=PROT) 6.8 gram/dL 6.4-8.2 ALBUMIN (test code=ALB) 3.1 g/dL 3.4-5.0 GLOBULIN (test code=GLOB) 3.7 gram/dL 2.7-4.2 ALBUMIN/GLOBULIN RATIO (test code=A/G) 0.8 0.75-1.50 CALCIUM (test code=CA) 8.3 mg/dL 8.5-10.1 BILIRUBIN TOTAL (test code=BILT) 1.00 mg/dL 0.0-1.0 SGOT/AST (test code=AST) 32 IUnit/L 15-37 SGPT/ALT (test code=ALT) 31 IUnit/L 12-78 ALKALINE PHOSPHATASE TOTAL (test code=ALKP) 104 IUnit/L 45-117 Note change in reference range due to change in reagent. [id number] 09:01:00* Test Item Value Reference Range Comments MAGNESIUM (test code=MAG) 2.5 mg/dL 1.8-2.4 CBC W/AUTO [id number] 08:33:00* Test Item Value Reference Range Comments WHITE BLOOD CELL (test code=WBC) 3.1 K/mm3 4.5-12.5 RED BLOOD CELL (test code=RBC) 3.11 mill/mm3 3.7-5.2 HEMOGLOBIN (test code=HGB) 8.5 gram/dL 11.5-15.5 HEMATOCRIT (test code=HCT) 27.0 % 36.0-46.0 MEAN CELL VOLUME (test code=MCV) 86.8 fL 80-98 MEAN CELL HGB (test code=MCH) 27.3 picogram 27.0-33.0 MEAN CELL HGB CONCETRATION (test code=MCHC) 31.5 gram/dL 33.0-36.0 RED CELL DISTRIBUTION WIDTH (test code=RDW) 15.0 % 11.6-16.2 RED CELL DISTRIBUTION WIDTH SD (test code=RDW-SD) 47.0 fL 37.0-51.0 PLATELET COUNT (test code=PLT) 90 K/mm3 150-450 MEAN PLATELET VOLUME (test code=MPV) 10.2 fL 6.7-11.0 NEUTROPHIL % (test code=NT%) 51.3 % 39.0-69.0 IMMATURE GRANULOCYTE % (test code=IG%) 0.3 % 0.0-5.0 LYMPHOCYTE % (test code=LY%) 36.5 % 25.0-55.0 MONOCYTE % (test code=MO%) 10.3 % 0.0-10.0 EOSINOPHIL % (test code=EO%) 1.3 % 0.0-5.0 BASOPHIL % (test code=BA%) 0.3 % 0.0-1.0 NUCLEATED RBC % (test code=NRBC%) 0.0 % 0-0 NEUTROPHIL # (test code=NT#) 1.60 K/mm3 1.8-7.7 IMMATURE GRANULOCYTE # (test code=IG#) 0.01 x10 3/uL 0-0.03 LYMPHOCYTE # (test code=LY#) 1.14 K/mm3 1.0-5.0 MONOCYTE # (test code=MO#) 0.32 K/mm3 0-0.8 EOSINOPHIL # (test code=EO#) 0.04 K/mm3 0.0-0.5 BASOPHIL # (test code=BA#) 0.01 K/mm3 0.0-0.2 NUCLEATED RBC # (test code=NRBC#) 0.00 K/mm3 0.0-0.1 MANUAL DIFF REQUIRED (test code=MDIFF) NO [id number] 02:07:00* Test Item Value Reference Range Comments TROPONIN-I (test code=TROPI) <0.015 ng/mL 0-0.045 COMMENTS TO ASSEMBLER PRODUCTION LINE: COLLECT 3 HOURS AFTER PREVIOUS [id number] 23:04:00* Test Item Value Reference Range Comments TROPONIN-I (test code=TROPI) <0.015 ng/mL 0-0.045 COMMENTS TO ASSEMBLER PRODUCTION LINE: COLLECT 3 HOURS AFTER PREVIOUS [id number] 20:21:00* Test Item Value Reference Range Comments GLUBED (test code=GLUBED) 250 mg/dL 74-106 Performed by certified yarn texturing machine operator at [facility] URINALYSIS [id number] 17:05:00* Test Item Value Reference Range Comments UA COLOR (test code=COLU) STRAW YELLOW UA APPEARANCE (test code=APPU) CLEAR CLEAR UA GLUCOSE DIPSTICK (test code=DGLUU) NEGATIVE mg/dL NEGATIVE UA BILIRUBIN DIPSTICK (test code=BILU) NEGATIVE mg/dL NEGATIVE UA KETONE DIPSTICK (test code=KETU) NEGATIVE mg/dL NEGATIVE UA SPECIFIC GRAVITY (test code=SGU) 1.006 1.001-1.035 UA BLOOD DIPSTICK (test code=TUCKER) Negative mg/dL NEGATIVE UA PH DIPSTICK (test code=CLEMENTE) 6.0 5.0-8.0 UA PROTEIN DIPSTICK (test code=PROU) NEGATIVE mg/dL NEGATIVE UA UROBILINIOGEN DIPSTICK (test code=URO) NEGATIVE mg/dL NEGATIVE UA NITRITE DIPSTICK (test code=LEANN) NEGATIVE NEGATIVE UA LEUKOCYTE ESTERASE W REFLEX (test code=LEUUR) NEGATIVE Yumiko/uL NEGATIVE UA WBC (test code=WBCU) 0-5 per HPF 0-5 UA RBC (test code=RBCU) 0-2 #/HPF 0-5 UA EPITHELIAL CELLS (test code=EPIU) FEW per HPF FEW UA BACTERIA (test code=BACU) FEW #/HPF NONE Urine Source? CatheterURINALYSIS [id number] 16:49:00* Test Item Value Reference Range Comments UA COLOR (test code=COLU) STRAW YELLOW UA APPEARANCE (test code=APPU) CLEAR CLEAR UA GLUCOSE DIPSTICK (test code=DGLUU) NEGATIVE mg/dL NEGATIVE UA BILIRUBIN DIPSTICK (test code=BILU) NEGATIVE mg/dL NEGATIVE UA KETONE DIPSTICK (test code=KETU) NEGATIVE mg/dL NEGATIVE UA SPECIFIC GRAVITY (test code=SGU) 1.006 1.001-1.035 UA BLOOD DIPSTICK (test code=TUCKER) Negative mg/dL NEGATIVE UA PH DIPSTICK (test code=CLEMENTE) 6.0 5.0-8.0 UA PROTEIN DIPSTICK (test code=PROU) NEGATIVE mg/dL NEGATIVE UA UROBILINIOGEN DIPSTICK (test code=URO) NEGATIVE mg/dL NEGATIVE UA NITRITE DIPSTICK (test code=LEANN) NEGATIVE NEGATIVE UA LEUKOCYTE ESTERASE W REFLEX (test code=LEUUR) NEGATIVE Yumiko/uL NEGATIVE UA WBC (test code=WBCU) per HPF 0-5 Urine Source? [id number] 16:26:00* Test Item Value Reference Range Comments GLUBED (test code=GLUBED) 180 mg/dL 74-106 Performed by certified yarn texturing machine operator at [facility] - CT HEAD/BRAIN W/O [id number] 15:48:00 Name: GRETTA MIRANDA [facility] : 1965 Age/S: 54 / F [address] Unit #: [id number] Loc: [place] [address] Phys: Kelvin Lopez MD Acct: [id number] Dis Date: Status: REG ER PHONE #: [phone] Exam Date: 02/04/2019 1534 FAX #: [phone] Reason: Syncope EXAMS: CPT CODE: [id number] CT HEAD/BRAIN W/O CONT 16777 REASON FOR EXAM: Syncope EXAM ORDER DATE: 02/04/2019 2:30 PM Ordering MHang: Kelvin Lopez MD PROCEDURE: - CT HEAD/BRAIN W/O CONT COMPARISON: FINDINGS: CT images of the brain were obtained without IV contrast. Dose modulation, iterative reconstruction, and/or weight based adjustment of the MA/KV was utilized to reduce the radiation dose to as low as reasonably achievable. The brain parenchyma is within normal limits. The messer-white matter delineation is unremarkable. The ventricles, cisterns, and sulci are unremarkable. There is no evidence of hemorrhage, mass, mass effect. There is no evidence of acute or old infarct. The calvarium is intact. IMPRESSION: Unremarkable brain. at 1548 Reported and signed by: Ignacio Acosta M.D. CC: Kelvin Lopez MD; Harvey Chambers Techno logist:JOSE CELIS, RT(R) CT CTDI: DLP: Trnscb Date/Time : 02/04/2019 (1548) [email or web address] Orig Print D/T: S: 02/05/20 19 (5912) CTDI: DLP: PAGE 1 Nisreen d Report BASIC METABOLIC [id number] 15:47:00 * Test Item Value Reference Range Comments SODIUM (test code=NA) 134 mmol/L 136-145 POTASSIUM (test code=K) 4.2 mmol/L 3.5-5.1 CHLORIDE (test code=CL) 100.0 mmol/L 98-107 CARBON DIOXIDE (test code=CO2) 27.0 mmol/L 21-32 ANION GAP (test code=GAP) 11.2 10-20 GLUCOSE (test code=GLU) 144 mg/dL 74-106 BLOOD UREA NITROGEN (test code=BUN) 62 mg/dL 7-18 GLOMERULAR FILTRATION RATE (test code=GFR) 26 mL/min >=60 Estimated GFR by using Modified MDRD formula.Chronic kidney disease is defined as either kidney damageor GFR <60 mL/min/1.73 m2 for >3 months. CREATININE (test code=CREAT) 2.00 mg/dL 0.55-1.02 Note change in reference range due to change in reagent. BUN/CREATININE RATIO (test code=BUN/CREA) 31.0 10-20 CALCIUM (test code=CA) 8.6 mg/dL 8.5-10.1 HCG SERUM [id number] 15:47:00* Test Item Value Reference Range Comments HCG SERUM QUAL (test code=HCGQL) NEGATIVE NEGATIVE This HCGQL test is NOT applicable for MALE patients.Check with nurse about probable order error.If Tumor Marker Test needed, nurse should order test "HCGTU"(Test #[id number]) [id number] 15:47:00* Test Item Value Reference Range Comments TROPONIN-I (test code=TROPI) <0.015 ng/mL 0-0.045 B-TYPE NATRIURETIC [id number] 15:42:00* Test Item Value Reference Range Comments B-TYPE NATRIURETIC PEPTIDE (test code=BNP) 82.39 pgram/mL 0-100 BASIC METABOLIC [id number] 15:31:00* Test Item Value Reference Range Comments SODIUM (test code=NA) 134 mmol/L 136-145 POTASSIUM (test code=K) 4.2 mmol/L 3.5-5.1 CHLORIDE (test code=CL) 100.0 mmol/L 98-107 CARBON DIOXIDE (test code=CO2) 27.0 mmol/L 21-32 ANION GAP (test code=GAP) 11.2 10-20 GLUCOSE (test code=GLU) 144 mg/dL 74-106 BLOOD UREA NITROGEN (test code=BUN) 62 mg/dL 7-18 GLOMERULAR FILTRATION RATE (test code=GFR) 26 mL/min >=60 Estimated GFR by using Modified MDRD formula.Chronic kidney disease is defined as either kidney damageor GFR <60 mL/min/1.73 m2 for >3 months. CREATININE (test code=CREAT) 2.00 mg/dL 0.55-1.02 Note change in reference range due to change in reagent. BUN/CREATININE RATIO (test code=BUN/CREA) 31.0 10-20 CALCIUM (test code=CA) 8.6 mg/dL 8.5-10.1 HCG SERUM [id number] 15:31:00* Test Item Value Reference Range Comments HCG SERUM QUAL (test code=HCGQL) NEGATIVE [id number] 15:31:00* Test Item Value Reference Range Comments TROPONIN-I (test code=TROPI) <0.015 ng/mL 0-0.045 BASIC METABOLIC [id number] 15:25:00* Test Item Value Reference Range Comments SODIUM (test code=NA) 134 mmol/L 136-145 POTASSIUM (test code=K) 4.2 mmol/L 3.5-5.1 CHLORIDE (test code=CL) 100.0 mmol/L 98-107 CARBON DIOXIDE (test code=CO2) mmol/L 21-32 ANION GAP (test code=GAP) 10-20 GLUCOSE (test code=GLU) mg/dL 74-106 BLOOD UREA NITROGEN (test code=BUN) mg/dL 7-18 GLOMERULAR FILTRATION RATE (test code=GFR) mL/min >=60 CREATININE (test code=CREAT) mg/dL 0.55-1.02 BUN/CREATININE RATIO (test code=BUN/CREA) 10-20 CALCIUM (test code=CA) mg/dL 8.5-10.1 HCG SERUM [id number] 15:25:00* Test Item Value Reference Range Comments HCG SERUM QUAL (test code=HCGQL) NEGATIVE [id number] 15:25:00* Test Item Value Reference Range Comments TROPONIN-I (test code=TROPI) ng/mL 0-0.045 - XR CHEST 1 [id number] 15:04:00 FAX: Kelvin Jara [phone] [place]: B St: REG FAX: Y Harvey Chambers MD [phone] Name: GRETTA MIRANDA [facility] : 1965 Age/S: 54/F [address] [facility] Unit #: [id number] Loc: FINESSE [place]JUSTIN [place] [address] Phys: Kelvin Lopez MD Acct: [id number] Dis Date: Status: REG ER PHONE #: [phone] Exam Date: 02/04/2019 1459 FAX #: [phone] Reason: SYNCOPE EXAMS: CPT CODE: [id number] XR CHEST 1 V [id number] REASON FOR EXAM: SYNCOPE EXAM ORDER DATE: 02/04/2019 2:30 PM Ordering MHang: Kelvin Lopez MD PROCEDURE: - XR CHEST 1 V COMPARISON: 06/22/2018 FINDINGS: Portable AP frontal view of the chest obtained at 2:59 PM shows diffuse lytic airspace opacities. There is no evidence of effusion. The heart size is minimally enlarged. Pulmonary vasculatures are minimally congested. IMPRESSION: Vague diffuse airspace opacities suggestive of pulmonary edema at 4269 Reported and signed by: Ignacio Acosta M.D. CC: Kelvin Lopez MD; Harvey Chambers Technologist: Jose Angel López RT(R) Trnscrd Date/Time/By: 02/04/2019 (4079) : By: Promise Orig Print D/T: S: 02/04/2019 (5955) PAGE 1 Signed Report CBC W/O [id number] 14:59:00* Test Item Value Reference Range Comments WHITE BLOOD CELL (test code=WBC) 3.3 K/mm3 4.5-12.5 RED BLOOD CELL (test code=RBC) 3.47 mill/mm3 3.7-5.2 HEMOGLOBIN (test code=HGB) 9.7 gram/dL 11.5-15.5 HEMATOCRIT (test code=HCT) 28.6 % 36.0-46.0 MEAN CELL VOLUME (test code=MCV) 82.4 fL 80-98 MEAN CELL HGB (test code=MCH) 28.0 picogram 27.0-33.0 MEAN CELL HGB CONCETRATION (test code=MCHC) 33.9 gram/dL 33.0-36.0 RED CELL DISTRIBUTION WIDTH (test code=RDW) 14.6 % 11.6-16.2 PLATELET COUNT (test code=PLT) 86 K/mm3 150-450 MEAN PLATELET VOLUME (test code=MPV) 10.2 fL 6.7-11.0 [id number] 08:46:00* Test Item Value Reference Range Comments GLUBED (test code=GLUBED) 234 mg/dL 74-106 Performed by certified yarn texturing machine operator at [facility] [id number] 20:42:00* Test Item Value Reference Range Comments GLUBED (test code=GLUBED) 200 mg/dL 74-106 Performed by certified yarn texturing machine operator at [facility] [id number] 17:12:00* Test Item Value Reference Range Comments GLUBED (test code=GLUBED) 297 mg/dL 74-106 Performed by certified yarn texturing machine operator at [facility] [id number] 11:29:00* Test Item Value Reference Range Comments GLUBED (test code=GLUBED) 294 mg/dL 74-106 Performed by certified yarn texturing machine operator at [facility] [id number] 07:50:00* Test Item Value Reference Range Comments GLUBED (test code=GLUBED) 248 mg/dL 74-106 Performed by certified yarn texturing machine operator at [facility] [id number] 21:15:00* Test Item Value Reference Range Comments GLUBED (test code=GLUBED) 322 mg/dL 74-106 Performed by certified yarn texturing machine operator at [facility] COMPREHENSIVE METABOLIC [id number] 19:19:00* Test Item Value Reference Range Comments SODIUM (test code=NA) 136 mmol/L 136-145 POTASSIUM (test code=K) 3.9 mmol/L 3.5-5.1 CHLORIDE (test code=CL) 103.0 mmol/L 98-107 CARBON DIOXIDE (test code=CO2) 24.0 mmol/L 21-32 ANION GAP (test code=GAP) 12.9 10-20 GLUCOSE (test code=GLU) 340 mg/dL 74-106 BLOOD UREA NITROGEN (test code=BUN) 39 mg/dL 7-18 GLOMERULAR FILTRATION RATE (test code=GFR) 27 mL/min >=60 Estimated GFR by using Modified MDRD formula.Chronic kidney disease is defined as either kidney damageor GFR <60 mL/min/1.73 m2 for >3 months. CREATININE (test code=CREAT) 1.90 mg/dL 0.55-1.02 Note change in reference range due to change in reagent. BUN/CREATININE RATIO (test code=BUN/CREA) 20.5 10-20 TOTAL PROTEIN (test code=PROT) 7.7 gram/dL 6.4-8.2 ALBUMIN (test code=ALB) 3.2 g/dL 3.4-5.0 GLOBULIN (test code=GLOB) 4.5 gram/dL 2.7-4.2 ALBUMIN/GLOBULIN RATIO (test code=A/G) 0.7 0.75-1.50 CALCIUM (test code=CA) 8.5 mg/dL 8.5-10.1 BILIRUBIN TOTAL (test code=BILT) 1.40 mg/dL 0.0-1.0 SGOT/AST (test code=AST) 33 IUnit/L 15-37 SGPT/ALT (test code=ALT) 38 IUnit/L 12-78 ALKALINE PHOSPHATASE TOTAL (test code=ALKP) 171 IUnit/L 45-117 Note change in reference range due to change in reagent. COMPREHENSIVE METABOLIC [id number] 19:08:00* Test Item Value Reference Range Comments SODIUM (test code=NA) 136 mmol/L 136-145 POTASSIUM (test code=K) 3.9 mmol/L 3.5-5.1 CHLORIDE (test code=CL) 103.0 mmol/L 98-107 CARBON DIOXIDE (test code=CO2) mmol/L 21-32 ANION GAP (test code=GAP) 10-20 GLUCOSE (test code=GLU) mg/dL 74-106 BLOOD UREA NITROGEN (test code=BUN) mg/dL 7-18 GLOMERULAR FILTRATION RATE (test code=GFR) mL/min >=60 CREATININE (test code=CREAT) mg/dL 0.55-1.02 BUN/CREATININE RATIO (test code=BUN/CREA) 10-20 TOTAL PROTEIN (test code=PROT) gram/dL 6.4-8.2 ALBUMIN (test code=ALB) g/dL 3.4-5.0 GLOBULIN (test code=GLOB) gram/dL 2.7-4.2 ALBUMIN/GLOBULIN RATIO (test code=A/G) 0.75-1.50 CALCIUM (test code=CA) mg/dL 8.5-10.1 BILIRUBIN TOTAL (test code=BILT) mg/dL 0.0-1.0 SGOT/AST (test code=AST) IUnit/L 15-37 SGPT/ALT (test code=ALT) IUnit/L 12-78 ALKALINE PHOSPHATASE TOTAL (test code=ALKP) IUnit/L 45-117 CBC W/AUTO [id number] 18:43:00* Test Item Value Reference Range Comments WHITE BLOOD CELL (test code=WBC) 2.8 K/mm3 4.5-12.5 RED BLOOD CELL (test code=RBC) 3.69 mill/mm3 3.7-5.2 HEMOGLOBIN (test code=HGB) 9.8 gram/dL 11.5-15.5 HEMATOCRIT (test code=HCT) 30.3 % 36.0-46.0 MEAN CELL VOLUME (test code=MCV) 82.1 fL 80-98 MEAN CELL HGB (test code=MCH) 26.6 picogram 27.0-33.0 MEAN CELL HGB CONCETRATION (test code=MCHC) 32.3 gram/dL 33.0-36.0 RED CELL DISTRIBUTION WIDTH (test code=RDW) 14.7 % 11.6-16.2 RED CELL DISTRIBUTION WIDTH SD (test code=RDW-SD) 43.3 fL 37.0-51.0 PLATELET COUNT (test code=PLT) 88 K/mm3 150-450 MEAN PLATELET VOLUME (test code=MPV) 10.3 fL 6.7-11.0 NEUTROPHIL % (test code=NT%) 53.3 % 39.0-69.0 IMMATURE GRANULOCYTE % (test code=IG%) 0.4 % 0.0-5.0 LYMPHOCYTE % (test code=LY%) 36.6 % 25.0-55.0 MONOCYTE % (test code=MO%) 7.9 % 0.0-10.0 EOSINOPHIL % (test code=EO%) 1.4 % 0.0-5.0 BASOPHIL % (test code=BA%) 0.4 % 0.0-1.0 NUCLEATED RBC % (test code=NRBC%) 0.0 % 0-0 NEUTROPHIL # (test code=NT#) 1.49 K/mm3 1.8-7.7 IMMATURE GRANULOCYTE # (test code=IG#) 0.01 x10 3/uL 0-0.03 LYMPHOCYTE # (test code=LY#) 1.02 K/mm3 1.0-5.0 MONOCYTE # (test code=MO#) 0.22 K/mm3 0-0.8 EOSINOPHIL # (test code=EO#) 0.04 K/mm3 0.0-0.5 BASOPHIL # (test code=BA#) 0.01 K/mm3 0.0-0.2 NUCLEATED RBC # (test code=NRBC#) 0.00 K/mm3 0.0-0.1 VANCOMYCIN [id number] 17:05:00* Test Item Value Reference Range Comments VANCOMYCIN TROUGH (test code=VANCT) 14.6 ug/mL 10-20 [id number] 16:06:00* Test Item Value Reference Range Comments GLUBED (test code=GLUBED) 393 mg/dL 74-106 Performed by certified yarn texturing machine operator at [facility] [id number] 11:20:00* Test Item Value Reference Range Comments GLUBED (test code=GLUBED) 345 mg/dL 74-106 Performed by certified yarn texturing machine operator at [facility] [id number] 07:39:00* Test Item Value Reference Range Comments GLUBED (test code=GLUBED) 275 mg/dL 74-106 Performed by certified yarn texturing machine operator at [facility] CBC W/AUTO [id number] 07:07:00* Test Item Value Reference Range Comments WHITE BLOOD CELL (test code=WBC) 2.4 K/mm3 4.5-12.5 RED BLOOD CELL (test code=RBC) 3.12 mill/mm3 3.7-5.2 HEMOGLOBIN (test code=HGB) 8.4 gram/dL 11.5-15.5 HEMATOCRIT (test code=HCT) 24.9 % 36.0-46.0 MEAN CELL VOLUME (test code=MCV) 79.8 fL 80-98 MEAN CELL HGB (test code=MCH) 26.9 picogram 27.0-33.0 MEAN CELL HGB CONCETRATION (test code=MCHC) 33.7 gram/dL 33.0-36.0 RED CELL DISTRIBUTION WIDTH (test code=RDW) 14.7 % 11.6-16.2 RED CELL DISTRIBUTION WIDTH SD (test code=RDW-SD) 42.5 fL 37.0-51.0 PLATELET COUNT (test code=PLT) 72 K/mm3 150-450 MEAN PLATELET VOLUME (test code=MPV) 10.7 fL 6.7-11.0 NEUTROPHIL % (test code=NT%) 50.7 % 39.0-69.0 IMMATURE GRANULOCYTE % (test code=IG%) 0.4 % 0.0-5.0 LYMPHOCYTE % (test code=LY%) 36.6 % 25.0-55.0 MONOCYTE % (test code=MO%) 9.8 % 0.0-10.0 EOSINOPHIL % (test code=EO%) 2.1 % 0.0-5.0 BASOPHIL % (test code=BA%) 0.4 % 0.0-1.0 NUCLEATED RBC % (test code=NRBC%) 0.0 % 0-0 NEUTROPHIL # (test code=NT#) 1.19 K/mm3 1.8-7.7 IMMATURE GRANULOCYTE # (test code=IG#) 0.01 x10 3/uL 0-0.03 LYMPHOCYTE # (test code=LY#) 0.86 K/mm3 1.0-5.0 MONOCYTE # (test code=MO#) 0.23 K/mm3 0-0.8 EOSINOPHIL # (test code=EO#) 0.05 K/mm3 0.0-0.5 BASOPHIL # (test code=BA#) 0.01 K/mm3 0.0-0.2 NUCLEATED RBC # (test code=NRBC#) 0.00 K/mm3 0.0-0.1 MANUAL DIFF REQUIRED (test code=MDIFF) NO, ONLY SCAN NEEDED DIFFERENTIAL [id number] 07:07:00* Test Item Value Reference Range Comments STAIN ACCEPTABILITY (test code=STN ACCEPTABLE) STAIN ACCEPTABLE ANISOCYTOSIS (test code=ANISO) 1+ MICROCYTOSIS (test code=MICR) 1+ PLATELET ESTIMATE (test code=PLTEST) DECREASED PLATELET MORPHOLOGY (test code=PLTMORPH) NORMAL BLOOD UREA [id number] 07:00:00* Test Item Value Reference Range Comments BLOOD UREA NITROGEN (test code=BUN) 42 mg/dL 7-18 [id number] 07:00:00* Test Item Value Reference Range Comments CREATININE (test code=CREAT) 1.60 mg/dL 0.55-1.02 Note change in reference range due to change in reagent. BLOOD UREA [id number] 06:59:00* Test Item Value Reference Range Comments BLOOD UREA NITROGEN (test code=BUN) 42 mg/dL 7-18 [id number] 06:59:00* Test Item Value Reference Range Comments CREATININE (test code=CREAT) mg/dL 0.55-1.02 CBC W/AUTO [id number] 06:34:00* Test Item Value Reference Range Comments WHITE BLOOD CELL (test code=WBC) 2.4 K/mm3 4.5-12.5 RED BLOOD CELL (test code=RBC) 3.12 mill/mm3 3.7-5.2 HEMOGLOBIN (test code=HGB) 8.4 gram/dL 11.5-15.5 HEMATOCRIT (test code=HCT) 24.9 % 36.0-46.0 MEAN CELL VOLUME (test code=MCV) 79.8 fL 80-98 MEAN CELL HGB (test code=MCH) 26.9 picogram 27.0-33.0 MEAN CELL HGB CONCETRATION (test code=MCHC) 33.7 gram/dL 33.0-36.0 RED CELL DISTRIBUTION WIDTH (test code=RDW) 14.7 % 11.6-16.2 RED CELL DISTRIBUTION WIDTH SD (test code=RDW-SD) 42.5 fL 37.0-51.0 PLATELET COUNT (test code=PLT) 72 K/mm3 150-450 MEAN PLATELET VOLUME (test code=MPV) 10.7 fL 6.7-11.0 NEUTROPHIL % (test code=NT%) 50.7 % 39.0-69.0 IMMATURE GRANULOCYTE % (test code=IG%) 0.4 % 0.0-5.0 LYMPHOCYTE % (test code=LY%) 36.6 % 25.0-55.0 MONOCYTE % (test code=MO%) 9.8 % 0.0-10.0 EOSINOPHIL % (test code=EO%) 2.1 % 0.0-5.0 BASOPHIL % (test code=BA%) 0.4 % 0.0-1.0 NUCLEATED RBC % (test code=NRBC%) 0.0 % 0-0 NEUTROPHIL # (test code=NT#) 1.19 K/mm3 1.8-7.7 IMMATURE GRANULOCYTE # (test code=IG#) 0.01 x10 3/uL 0-0.03 LYMPHOCYTE # (test code=LY#) 0.86 K/mm3 1.0-5.0 MONOCYTE # (test code=MO#) 0.23 K/mm3 0-0.8 EOSINOPHIL # (test code=EO#) 0.05 K/mm3 0.0-0.5 BASOPHIL # (test code=BA#) 0.01 K/mm3 0.0-0.2 NUCLEATED RBC # (test code=NRBC#) 0.00 K/mm3 0.0-0.1 MANUAL DIFF REQUIRED (test code=MDIFF) NO, ONLY SCAN NEEDED DIFFERENTIAL [id number] 06:34:00* Test Item Value Reference Range Comments STAIN ACCEPTABILITY (test code=STN ACCEPTABLE) CABOT RINGS (test code=CAB) MORPHOLOGY COMMENT (test code=MOC) PLATELET ESTIMATE (test code=PLTEST) PLATELET MORPHOLOGY (test code=PLTMORPH) CBC W/AUTO [id number] 06:34:00* Test Item Value Reference Range Comments WHITE BLOOD CELL (test code=WBC) 2.4 K/mm3 4.5-12.5 RED BLOOD CELL (test code=RBC) 3.12 mill/mm3 3.7-5.2 HEMOGLOBIN (test code=HGB) 8.4 gram/dL 11.5-15.5 HEMATOCRIT (test code=HCT) 24.9 % 36.0-46.0 MEAN CELL VOLUME (test code=MCV) 79.8 fL 80-98 MEAN CELL HGB (test code=MCH) 26.9 picogram 27.0-33.0 MEAN CELL HGB CONCETRATION (test code=MCHC) 33.7 gram/dL 33.0-36.0 RED CELL DISTRIBUTION WIDTH (test code=RDW) 14.7 % 11.6-16.2 RED CELL DISTRIBUTION WIDTH SD (test code=RDW-SD) 42.5 fL 37.0-51.0 PLATELET COUNT (test code=PLT) 72 K/mm3 150-450 MEAN PLATELET VOLUME (test code=MPV) 10.7 fL 6.7-11.0 NEUTROPHIL % (test code=NT%) 50.7 % 39.0-69.0 IMMATURE GRANULOCYTE % (test code=IG%) 0.4 % 0.0-5.0 LYMPHOCYTE % (test code=LY%) 36.6 % 25.0-55.0 MONOCYTE % (test code=MO%) 9.8 % 0.0-10.0 EOSINOPHIL % (test code=EO%) 2.1 % 0.0-5.0 BASOPHIL % (test code=BA%) 0.4 % 0.0-1.0 NUCLEATED RBC % (test code=NRBC%) 0.0 % 0-0 NEUTROPHIL # (test code=NT#) 1.19 K/mm3 1.8-7.7 IMMATURE GRANULOCYTE # (test code=IG#) 0.01 x10 3/uL 0-0.03 LYMPHOCYTE # (test code=LY#) 0.86 K/mm3 1.0-5.0 MONOCYTE # (test code=MO#) 0.23 K/mm3 0-0.8 EOSINOPHIL # (test code=EO#) 0.05 K/mm3 0.0-0.5 BASOPHIL # (test code=BA#) 0.01 K/mm3 0.0-0.2 NUCLEATED RBC # (test code=NRBC#) 0.00 K/mm3 0.0-0.1 MANUAL DIFF REQUIRED (test code=MDIFF) NO, ONLY SCAN NEEDED DIFFERENTIAL [id number] 06:34:00* Test Item Value Reference Range Comments STAIN ACCEPTABILITY (test code=STN ACCEPTABLE) CABOT RINGS (test code=CAB) MORPHOLOGY COMMENT (test code=MOC) PLATELET ESTIMATE (test code=PLTEST) PLATELET MORPHOLOGY (test code=PLTMORPH) CBC W/AUTO [id number] 06:34:00* Test Item Value Reference Range Comments WHITE BLOOD CELL (test code=WBC) 2.4 K/mm3 4.5-12.5 RED BLOOD CELL (test code=RBC) 3.12 mill/mm3 3.7-5.2 HEMOGLOBIN (test code=HGB) 8.4 gram/dL 11.5-15.5 HEMATOCRIT (test code=HCT) 24.9 % 36.0-46.0 MEAN CELL VOLUME (test code=MCV) 79.8 fL 80-98 MEAN CELL HGB (test code=MCH) 26.9 picogram 27.0-33.0 MEAN CELL HGB CONCETRATION (test code=MCHC) 33.7 gram/dL 33.0-36.0 RED CELL DISTRIBUTION WIDTH (test code=RDW) 14.7 % 11.6-16.2 RED CELL DISTRIBUTION WIDTH SD (test code=RDW-SD) 42.5 fL 37.0-51.0 PLATELET COUNT (test code=PLT) 72 K/mm3 150-450 MEAN PLATELET VOLUME (test code=MPV) 10.7 fL 6.7-11.0 NEUTROPHIL % (test code=NT%) 50.7 % 39.0-69.0 IMMATURE GRANULOCYTE % (test code=IG%) 0.4 % 0.0-5.0 LYMPHOCYTE % (test code=LY%) 36.6 % 25.0-55.0 MONOCYTE % (test code=MO%) 9.8 % 0.0-10.0 EOSINOPHIL % (test code=EO%) 2.1 % 0.0-5.0 BASOPHIL % (test code=BA%) 0.4 % 0.0-1.0 NUCLEATED RBC % (test code=NRBC%) 0.0 % 0-0 NEUTROPHIL # (test code=NT#) 1.19 K/mm3 1.8-7.7 IMMATURE GRANULOCYTE # (test code=IG#) 0.01 x10 3/uL 0-0.03 LYMPHOCYTE # (test code=LY#) 0.86 K/mm3 1.0-5.0 MONOCYTE # (test code=MO#) 0.23 K/mm3 0-0.8 EOSINOPHIL # (test code=EO#) 0.05 K/mm3 0.0-0.5 BASOPHIL # (test code=BA#) 0.01 K/mm3 0.0-0.2 NUCLEATED RBC # (test code=NRBC#) 0.00 K/mm3 0.0-0.1 MANUAL DIFF REQUIRED (test code=MDIFF) NO, ONLY SCAN NEEDED DIFFERENTIAL [id number] 06:34:00* Test Item Value Reference Range Comments STAIN ACCEPTABILITY (test code=STN ACCEPTABLE) MORPHOLOGY COMMENT (test code=MOC) PLATELET ESTIMATE (test code=PLTEST) PLATELET MORPHOLOGY (test code=PLTMORPH) CBC W/AUTO [id number] 06:34:00* Test Item Value Reference Range Comments WHITE BLOOD CELL (test code=WBC) 2.4 K/mm3 4.5-12.5 RED BLOOD CELL (test code=RBC) 3.12 mill/mm3 3.7-5.2 HEMOGLOBIN (test code=HGB) 8.4 gram/dL 11.5-15.5 HEMATOCRIT (test code=HCT) 24.9 % 36.0-46.0 MEAN CELL VOLUME (test code=MCV) 79.8 fL 80-98 MEAN CELL HGB (test code=MCH) 26.9 picogram 27.0-33.0 MEAN CELL HGB CONCETRATION (test code=MCHC) 33.7 gram/dL 33.0-36.0 RED CELL DISTRIBUTION WIDTH (test code=RDW) 14.7 % 11.6-16.2 RED CELL DISTRIBUTION WIDTH SD (test code=RDW-SD) 42.5 fL 37.0-51.0 PLATELET COUNT (test code=PLT) 72 K/mm3 150-450 MEAN PLATELET VOLUME (test code=MPV) 10.7 fL 6.7-11.0 NEUTROPHIL % (test code=NT%) 50.7 % 39.0-69.0 IMMATURE GRANULOCYTE % (test code=IG%) 0.4 % 0.0-5.0 LYMPHOCYTE % (test code=LY%) 36.6 % 25.0-55.0 MONOCYTE % (test code=MO%) 9.8 % 0.0-10.0 EOSINOPHIL % (test code=EO%) 2.1 % 0.0-5.0 BASOPHIL % (test code=BA%) 0.4 % 0.0-1.0 NUCLEATED RBC % (test code=NRBC%) 0.0 % 0-0 NEUTROPHIL # (test code=NT#) 1.19 K/mm3 1.8-7.7 IMMATURE GRANULOCYTE # (test code=IG#) 0.01 x10 3/uL 0-0.03 LYMPHOCYTE # (test code=LY#) 0.86 K/mm3 1.0-5.0 MONOCYTE # (test code=MO#) 0.23 K/mm3 0-0.8 EOSINOPHIL # (test code=EO#) 0.05 K/mm3 0.0-0.5 BASOPHIL # (test code=BA#) 0.01 K/mm3 0.0-0.2 NUCLEATED RBC # (test code=NRBC#) 0.00 K/mm3 0.0-0.1 MANUAL DIFF REQUIRED (test code=MDIFF) NO, ONLY SCAN NEEDED DIFFERENTIAL [id number] 06:34:00* Test Item Value Reference Range Comments STAIN ACCEPTABILITY (test code=STN ACCEPTABLE) CABOT RINGS (test code=CAB) MORPHOLOGY COMMENT (test code=MOC) PLATELET ESTIMATE (test code=PLTEST) PLATELET MORPHOLOGY (test code=PLTMORPH) [id number] 20:35:00* Test Item Value Reference Range Comments GLUBED (test code=GLUBED) 234 mg/dL 74-106 Performed by certified yarn texturing machine operator at [facility] [id number] 16:33:00* Test Item Value Reference Range Comments GLUBED (test code=GLUBED) 318 mg/dL 74-106 Performed by certified yarn texturing machine operator at [facility] [id number] 12:31:00* Test Item Value Reference Range Comments GLUBED (test code=GLUBED) 285 mg/dL 74-106 Performed by certified yarn texturing machine operator at [facility] [id number] 07:40:00* Test Item Value Reference Range Comments GLUBED (test code=GLUBED) 252 mg/dL 74-106 Performed by certified yarn texturing machine operator at [facility] COMPREHENSIVE METABOLIC [id number] 07:32:00* Test Item Value Reference Range Comments SODIUM (test code=NA) 139 mmol/L 136-145 POTASSIUM (test code=K) 4.2 mmol/L 3.5-5.1 CHLORIDE (test code=CL) 106.0 mmol/L 98-107 CARBON DIOXIDE (test code=CO2) 25.0 mmol/L 21-32 ANION GAP (test code=GAP) 12.2 10-20 GLUCOSE (test code=GLU) 252 mg/dL 74-106 BLOOD UREA NITROGEN (test code=BUN) 49 mg/dL 7-18 GLOMERULAR FILTRATION RATE (test code=GFR) 31 mL/min >=60 Estimated GFR by using Modified MDRD formula.Chronic kidney disease is defined as either kidney damageor GFR <60 mL/min/1.73 m2 for >3 months. CREATININE (test code=CREAT) 1.70 mg/dL 0.55-1.02 Note change in reference range due to change in reagent. BUN/CREATININE RATIO (test code=BUN/CREA) 28.8 10-20 TOTAL PROTEIN (test code=PROT) 6.8 gram/dL 6.4-8.2 ALBUMIN (test code=ALB) 2.9 g/dL 3.4-5.0 GLOBULIN (test code=GLOB) 3.9 gram/dL 2.7-4.2 ALBUMIN/GLOBULIN RATIO (test code=A/G) 0.7 0.75-1.50 CALCIUM (test code=CA) 8.2 mg/dL 8.5-10.1 BILIRUBIN TOTAL (test code=BILT) 1.20 mg/dL 0.0-1.0 SGOT/AST (test code=AST) 33 IUnit/L 15-37 SGPT/ALT (test code=ALT) 34 IUnit/L 12-78 ALKALINE PHOSPHATASE TOTAL (test code=ALKP) 145 IUnit/L 45-117 Note change in reference range due to change in reagent. CBC W/AUTO [id number] 07:24:00* Test Item Value Reference Range Comments WHITE BLOOD CELL (test code=WBC) 2.1 K/mm3 4.5-12.5 RED BLOOD CELL (test code=RBC) 3.37 mill/mm3 3.7-5.2 HEMOGLOBIN (test code=HGB) 9.1 gram/dL 11.5-15.5 HEMATOCRIT (test code=HCT) 27.5 % 36.0-46.0 MEAN CELL VOLUME (test code=MCV) 81.6 fL 80-98 MEAN CELL HGB (test code=MCH) 27.0 picogram 27.0-33.0 MEAN CELL HGB CONCETRATION (test code=MCHC) 33.1 gram/dL 33.0-36.0 RED CELL DISTRIBUTION WIDTH (test code=RDW) 14.8 % 11.6-16.2 RED CELL DISTRIBUTION WIDTH SD (test code=RDW-SD) 43.6 fL 37.0-51.0 PLATELET COUNT (test code=PLT) 76 K/mm3 150-450 MEAN PLATELET VOLUME (test code=MPV) 10.3 fL 6.7-11.0 NEUTROPHIL % (test code=NT%) 45.8 % 39.0-69.0 IMMATURE GRANULOCYTE % (test code=IG%) 0.0 % 0.0-5.0 LYMPHOCYTE % (test code=LY%) 40.6 % 25.0-55.0 MONOCYTE % (test code=MO%) 10.8 % 0.0-10.0 EOSINOPHIL % (test code=EO%) 1.9 % 0.0-5.0 BASOPHIL % (test code=BA%) 0.9 % 0.0-1.0 NUCLEATED RBC % (test code=NRBC%) 0.0 % 0-0 NEUTROPHIL # (test code=NT#) 0.97 K/mm3 1.8-7.7 IMMATURE GRANULOCYTE # (test code=IG#) 0.00 x10 3/uL 0-0.03 LYMPHOCYTE # (test code=LY#) 0.86 K/mm3 1.0-5.0 MONOCYTE # (test code=MO#) 0.23 K/mm3 0-0.8 EOSINOPHIL # (test code=EO#) 0.04 K/mm3 0.0-0.5 BASOPHIL # (test code=BA#) 0.02 K/mm3 0.0-0.2 NUCLEATED RBC # (test code=NRBC#) 0.00 K/mm3 0.0-0.1 MANUAL DIFF REQUIRED (test code=MDIFF) NO COMPREHENSIVE METABOLIC [id number] 07:22:00* Test Item Value Reference Range Comments SODIUM (test code=NA) 139 mmol/L 136-145 POTASSIUM (test code=K) 4.2 mmol/L 3.5-5.1 CHLORIDE (test code=CL) 106.0 mmol/L 98-107 CARBON DIOXIDE (test code=CO2) mmol/L 21-32 ANION GAP (test code=GAP) 10-20 GLUCOSE (test code=GLU) mg/dL 74-106 BLOOD UREA NITROGEN (test code=BUN) mg/dL 7-18 GLOMERULAR FILTRATION RATE (test code=GFR) mL/min >=60 CREATININE (test code=CREAT) mg/dL 0.55-1.02 BUN/CREATININE RATIO (test code=BUN/CREA) 10-20 TOTAL PROTEIN (test code=PROT) gram/dL 6.4-8.2 ALBUMIN (test code=ALB) g/dL 3.4-5.0 GLOBULIN (test code=GLOB) gram/dL 2.7-4.2 ALBUMIN/GLOBULIN RATIO (test code=A/G) 0.75-1.50 CALCIUM (test code=CA) mg/dL 8.5-10.1 BILIRUBIN TOTAL (test code=BILT) mg/dL 0.0-1.0 SGOT/AST (test code=AST) IUnit/L 15-37 SGPT/ALT (test code=ALT) IUnit/L 12-78 ALKALINE PHOSPHATASE TOTAL (test code=ALKP) IUnit/L 45-117 BLOOD UREA [id number] 07:22:00* Test Item Value Reference Range Comments BLOOD UREA NITROGEN (test code=BUN) 50 mg/dL 7-18 [id number] 07:22:00* Test Item Value Reference Range Comments CREATININE (test code=CREAT) 1.60 mg/dL 0.55-1.02 Note change in reference range due to change in reagent. [id number] 20:32:00* Test Item Value Reference Range Comments GLUBED (test code=GLUBED) 389 mg/dL 74-106 Performed by certified yarn texturing machine operator at [facility] [id number] 16:39:00* Test Item Value Reference Range Comments GLUBED (test code=GLUBED) 332 mg/dL 74-106 Performed by certified yarn texturing machine operator at [facility] [id number] 11:49:00* Test Item Value Reference Range Comments GLUBED (test code=GLUBED) 192 mg/dL 74-106 Performed by certified yarn texturing machine operator at [facility] [id number] 08:21:00* Test Item Value Reference Range Comments GLUBED (test code=GLUBED) 281 mg/dL 74-106 Performed by certified yarn texturing machine operator at [facility] [id number] 02:47:00* Test Item Value Reference Range Comments GLUBED (test code=GLUBED) 440 mg/dL 74-106 Performed by certified yarn texturing machine operator at [facility] COMPREHENSIVE METABOLIC [id number] 19:09:00* Test Item Value Reference Range Comments SODIUM (test code=NA) 136 mmol/L 136-145 POTASSIUM (test code=K) 4.2 mmol/L 3.5-5.1 CHLORIDE (test code=CL) 103.0 mmol/L 98-107 CARBON DIOXIDE (test code=CO2) 23.0 mmol/L 21-32 ANION GAP (test code=GAP) 14.2 10-20 GLUCOSE (test code=GLU) 144 mg/dL 74-106 BLOOD UREA NITROGEN (test code=BUN) 59 mg/dL 7-18 GLOMERULAR FILTRATION RATE (test code=GFR) 23 mL/min >=60 Estimated GFR by using Modified MDRD formula.Chronic kidney disease is defined as either kidney damageor GFR <60 mL/min/1.73 m2 for >3 months. CREATININE (test code=CREAT) 2.20 mg/dL 0.55-1.02 Note change in reference range due to change in reagent. BUN/CREATININE RATIO (test code=BUN/CREA) 26.7 10-20 TOTAL PROTEIN (test code=PROT) 7.7 gram/dL 6.4-8.2 ALBUMIN (test code=ALB) 3.1 g/dL 3.4-5.0 GLOBULIN (test code=GLOB) 4.6 gram/dL 2.7-4.2 ALBUMIN/GLOBULIN RATIO (test code=A/G) 0.7 0.75-1.50 CALCIUM (test code=CA) 8.4 mg/dL 8.5-10.1 BILIRUBIN TOTAL (test code=BILT) 1.80 mg/dL 0.0-1.0 SGOT/AST (test code=AST) 34 IUnit/L 15-37 SGPT/ALT (test code=ALT) 35 IUnit/L 12-78 ALKALINE PHOSPHATASE TOTAL (test code=ALKP) 131 IUnit/L 45-117 Note change in reference range due to change in reagent. COMPREHENSIVE METABOLIC [id number] 19:01:00* Test Item Value Reference Range Comments SODIUM (test code=NA) 136 mmol/L 136-145 POTASSIUM (test code=K) 4.2 mmol/L 3.5-5.1 CHLORIDE (test code=CL) 103.0 mmol/L 98-107 CARBON DIOXIDE (test code=CO2) mmol/L 21-32 ANION GAP (test code=GAP) 10-20 GLUCOSE (test code=GLU) mg/dL 74-106 BLOOD UREA NITROGEN (test code=BUN) mg/dL 7-18 GLOMERULAR FILTRATION RATE (test code=GFR) mL/min >=60 CREATININE (test code=CREAT) mg/dL 0.55-1.02 BUN/CREATININE RATIO (test code=BUN/CREA) 10-20 TOTAL PROTEIN (test code=PROT) gram/dL 6.4-8.2 ALBUMIN (test code=ALB) g/dL 3.4-5.0 GLOBULIN (test code=GLOB) gram/dL 2.7-4.2 ALBUMIN/GLOBULIN RATIO (test code=A/G) 0.75-1.50 CALCIUM (test code=CA) mg/dL 8.5-10.1 BILIRUBIN TOTAL (test code=BILT) mg/dL 0.0-1.0 SGOT/AST (test code=AST) IUnit/L 15-37 SGPT/ALT (test code=ALT) IUnit/L 12-78 ALKALINE PHOSPHATASE TOTAL (test code=ALKP) IUnit/L 45-117 CBC W/AUTO [id number] 18:33:00* Test Item Value Reference Range Comments WHITE BLOOD CELL (test code=WBC) 4.0 K/mm3 4.5-12.5 RED BLOOD CELL (test code=RBC) 3.83 mill/mm3 3.7-5.2 HEMOGLOBIN (test code=HGB) 10.5 gram/dL 11.5-15.5 HEMATOCRIT (test code=HCT) 31.3 % 36.0-46.0 MEAN CELL VOLUME (test code=MCV) 81.7 fL 80-98 MEAN CELL HGB (test code=MCH) 27.4 picogram 27.0-33.0 MEAN CELL HGB CONCETRATION (test code=MCHC) 33.5 gram/dL 33.0-36.0 RED CELL DISTRIBUTION WIDTH (test code=RDW) 15.2 % 11.6-16.2 RED CELL DISTRIBUTION WIDTH SD (test code=RDW-SD) 44.1 fL 37.0-51.0 PLATELET COUNT (test code=PLT) 103 K/mm3 150-450 MEAN PLATELET VOLUME (test code=MPV) 10.5 fL 6.7-11.0 NEUTROPHIL % (test code=NT%) 55.2 % 39.0-69.0 IMMATURE GRANULOCYTE % (test code=IG%) 0.8 % 0.0-5.0 LYMPHOCYTE % (test code=LY%) 30.6 % 25.0-55.0 MONOCYTE % (test code=MO%) 11.1 % 0.0-10.0 EOSINOPHIL % (test code=EO%) 1.5 % 0.0-5.0 BASOPHIL % (test code=BA%) 0.8 % 0.0-1.0 NUCLEATED RBC % (test code=NRBC%) 0.0 % 0-0 NEUTROPHIL # (test code=NT#) 2.18 K/mm3 1.8-7.7 IMMATURE GRANULOCYTE # (test code=IG#) 0.03 x10 3/uL 0-0.03 LYMPHOCYTE # (test code=LY#) 1.21 K/mm3 1.0-5.0 MONOCYTE # (test code=MO#) 0.44 K/mm3 0-0.8 EOSINOPHIL # (test code=EO#) 0.06 K/mm3 0.0-0.5 BASOPHIL # (test code=BA#) 0.03 K/mm3 0.0-0.2 NUCLEATED RBC # (test code=NRBC#) 0.00 K/mm3 0.0-0.1 MANUAL DIFF REQUIRED (test code=MDIFF) NO [id number] 13:03:00 [place] [address] Patient Name: GRETTA MIRANDA MR #: [id number] : 1965 Age/Sex: 53/F Req #: [id number] Adm Physician: Ordered by: ROBIN ESCALANTE MD Report #: [id number] Location: Room/Bed: Procedure: [id number] US/U S LIVER Exam Date: Exam Time: REPORT STATUS: Signed EXAM: Right upper quadrant abd ominal ultrasound INDICATION: Hepatitis C COMPARISON: None. TECHNIQU E: Transverse and longitudinal images of the right upper quadrant abdomen were obtained FINDINGS: Somewhat limited examination due to overlying bowel g as and abdominal tenderness. Liver: Size: 17.1 cm in the right mid clavicular line, enlarged Appearance: Increased echogenicity, smooth contour Mass: No evidence of solid mass. Anechoic cystic structures along the posterior edge of the left hepatic lobe demonstrate no doppler flow. Gallbladder: No distention, pericholecystic fluid, wall thickening, stone, or reported son ographic Chowdhury's sign. Gallbladder wall measures 0.4 cm. Bile Ducts: In trahepatic Ducts: No dilatation Extrahepatic Ducts: Common bile duct measures 0.3 cm, no dilatation Pancreas: The visualized portions are unremarkable. Limited visualization of the tail. Kidney: The right kidney measures 11.9 cm without evidence of hydronephrosis or stone. Vessels: Aorta: Parti ally visualized portions are unremarkable. Inferior Vena Cava: Not well visual ized. Main Portal Vein: 1.0 cm, normal size with hepatopetal flow. Free F luid: No evidence of ascites. IMPRESSION: Hepatomegaly with hepatic st eatosis. No sonographic evidence of cirrhosis. Cystic structures davidson g the posterior edge of the left hepatic lobe likely are external to the liver and may represent small bowel loops or less likely varices, given absence of doppler flow. Signed by: Dr. Josef Marroquin MD on 11/26/2018 1:10 PM Di ctated By: JOSEF MARROQUIN MD 13 10 Transcribed By: CHAYA on 11/26/18 1310 COPY TO: ROBIN ESCALANTE MD [id number] 13:13:00 RUN DATE: 07/20/18 [facility] PAGE 1 RUN TIME: 1313 Specimen Inqui ry RUN USER: INTERFACE PATIENT: GRETTA MIRANDA ACCT #: [id number] LOC: [facility] U #: [id number] AGE/SX: 53/F ROOM: RE07/16/18REG DR: Nicci Morales MD : 61 BED: DIS: STATUS: [facility] TLOC: SPEC #: [id number] RECD: 07/19/18 STATUS: ROSEY FAUSTIN #: [id number] SHABANA: 07/16/18- SUBM DR: Nicci Morales MD ENTERED: 07/19/18 SP TYPE: STOMACH OTHR DR: Pee Chambers MD ORDERED: GROSS COPIES TO: Harvey Chambers MD [address] [place] [address] Nicci Morales MD [address] [place] [address] PROCEDURES: GROSS (07/20/18-1133) TISSUES: ANTRAL BIOPSY - H-PYLORI CLINICAL HISTORY COLLECTI ON DATE: 07/16/18 CHRONIC HEPATITIS C, CIRRHOSIS FINAL DIAGNOSIS Antrum, biopsy: REACTIVE GASTROPATHY WITH MILD CHRONIC INFLAMMATION NO INTESTINAL METAPLASIA SEEN NEGATIVE FOR HELICOBACTER PYLORI, GIEMSA CONTROL STAINS APPROPRIATELY NEGATIVE FOR MALIGNANCY DMW/sm D 67208, 70636 MACROSCOPIC The specimen is received in formalin, labeled with the patient's name, and identified as "antrum". It consist of t wo galvez biopsy fragments measuring 0.3 and 0.25 cm. An H E and a Giemsa stain will be prepared. CONTINUED ON NEXT PAGE * * RUN DATE: 07/20/18 [facility] PAGE 2 RUN TIME: 1313 Specimen Inq uiry RUN USER: INTERFACE SPEC #: [id number] PATIENT: ANA MIRANDA JADON AYALA #[id number] (Continued) MACROSCOPIC (Continued) GROSS PERFORMED AT [facility] [address] [place] [address] [phone] MICROSCOPIC MICROSCOPIC PERFORMED AT [facility] All of the stains, including any controls performed, stain appropriately. [facility] [address] [place] [address] [phone])[phone] PERFORMING SITE Diagnosis performed at: [facility] [address] [facility], [place] [address] [phone] Signed SIGNATURE ON FILE SainiYen M 07/20/18 1313 END OF REPORT [id number] 15:19:00 RUN DATE: 06/29/18 [facility] PAGE 1 RUN TIME: 1519 Specimen Inqui ry RUN USER: INTERFACE PATIENT: GRETTA MIRANDA ACCT #: V [id number] LOC: [facility] U #: [id number] AGE/SX: 53/F ROOM: RE06/28/18REG DR: Leoncio Allison MD : 61 BED: DIS: STATUS: [facility] TLOC: SPEC #: [id number] RECD: 06/28/18 STATUS: [facility] #: [id number] SHABANA: 06/28/[address] [facility] DR: Leoncio Allison MD ENTERED: 06/28/18 SP TYPE: CURENDOMET OTHR DR: Pee Chambers MD ORDERED: GROSS COPIES TO: Leoncio Allison MD [address] [facility] [place] [address] Harvey Chambers MD [address] [facility] [address] [place], [place] [id number] PROCEDURES: GROSS () TISSUES: ENDOMETRIUM, NOS - CURRETTINGS CLINICAL HIST ORY COLLECTION DATE: 06/28/18 ABNORMAL UTERINE BLEEDING COM MENT Interpretation is limited by the small amount of tissue available for rev iew. However, no significant pathologic alteration is seen in the identified t issue fragments. Correlation is suggested. FINAL DIAGNOSIS Endome trium, curettage: SCANT FRAGMENTS OF ENDOMETRIUM COMPATIBLE WITH LOWER UT ERINE SEGMENT AND RARE FRAGMENTS OF BENIGN ENDOCERVICAL GLANDULAR EPITHELIUM AND SQUAMOUS EPITHELIUM IN BACKGROUND OF BLOOD AND MU COID APPEARING MATERIAL NEGATIVE FOR MALIGNANCY CLINICAL CORRELATI ON RECOMMENDED RRB/sm D CONTINUED ON NEXT PAGE RUN DATE: 06/29/18 [facility] PAGE 2 RUN TIME: 1519 Specimen Inquiry RUN USER: INTERFACE SPEC #: [id number] PATIAILIN T: GRETTA MIRANDA #[id number] (Continued) FINAL DIAGNOSIS (Continued) [id number] MACROSCOPIC The spe cimen is received in formalin, labeled with the patient's name and identified as "curetting endometrium". It consists of multiple fragments of red-pink sof t tissue and red mucoid material. The specimen measures 2.5 X 2.0 X 0.3 cm in aggregate. The specimen is entirely submitted for histologic evaluation in a single cassette. GROSS PERFORMED AT [facility] [address], [place] [address] [phone] M ICROSCOPIC MICROSCOPIC PERFORMED AT [facility] All of the stain s, including any controls performed, stain appropriately. [facility] [address] [facility] [place] [address] [phone] [facility] SITE Diagnosis performed at: [facility], [address] [place] [address] ------ ------ Signed SIGNATURE ON FILE Elder Paul 1519 END OF REPOR T
[2019-08-31 12:40] VITALS: BP 107/56
== END | disposition home or self-care (01) ==
LOC: OR 09:18
PROVIDERS: ATTEND Internal Medicine Gastroenterology
DX: K74.60 Unspecified cirrhosis of liver (principal); B18.2 Chronic viral hepatitis C; I86.4 Gastric varices; R10.13 Epigastric pain; E66.01 Morbid (severe) obesity due to excess calories; Z68.43 Body mass index [BMI] 50.0-59.9, adult; I10 Essential (primary) hypertension; Z71.3 Dietary counseling and surveillance; Z01.810 Encounter for preprocedural cardiovascular examination; Z01.812 Encounter for preprocedural laboratory examination; Z88.0 Allergy status to penicillin; Z88.8 Allergy status to other drugs, medicaments and biological substances; K29.70 Gastritis, unspecified, without bleeding; K44.9 Diaphragmatic hernia without obstruction or gangrene; K21.9 Gastro-esophageal reflux disease without esophagitis
CPT/HCPCS: 36415 ×2; 43239; 80053; 82948; 85025; 85610; 85730; 88305; 88312; 93005; J2250; J2704; J3010; J1817

== ENCOUNTER 2020-03-22 11:03 | Inpatient (IN) | payer MEDICARE, OTHER ==
[~2020-03-22] VITALS: Ht 152.4 cm; Wt 139.7 kg
[~2020-03-22 11:03] MED LIST changes: -FENTANYL CITRATE/PF 100MCG/2 ML INJ ONE; -INSULIN REGULAR, HUMAN 100 UNIT/1 ML 3ML VIAL ONE; -MIDAZOLAM HCL 2 MG/2 ML VIAL ONE; -PROPOFOL IV EMULSION 10 MG/ML 20 ML VIAL ONE
--- OUTSIDE RECORDS SUMMARY | 2020-03-22 11:06 | XMS REPORT | Continuity of Care Document ---
Author Author [employer] ExchangeGRETTA [employer] Address Unknown Phone Unavailable Care Team Providers Care Nuclear Equipment Research Engineer Name Role Phone [employer] Unavailable Un available Problems Problem Status Onset Date Classification Date Reported Comments Source Abnormal EKG Active Problem 06/24/2019 Cuauhtemoc Priest Nonrheumatic tricuspid valve disorder Active Problem Cuauhtemoc Priest LVH (left ventricular hypertrophy) due t o hypertensive disease Active Prob john 06/24/2019 Cuauhtemoc Priest Chronic kidney disease, stage III (moderate) Active Problem 06/24/2019 Cuauhtemoc Priest Lymphedema of both lower extremities Active Problem Cuauhtemoc Priest Chronic kidney disease, stage IV (severe) Active Problem 06/24/2019 Cuauhtemoc Priest Hypertension Active Problem 06/24/2019 Cuauhtemoc Priest Mitral valve disorder Active Problem 06/24/2019 Cuauhtemoc Priest Mitral valve stenosis, unspecified etiology Active Problem 06/24/2019 Cuauhtemoc Priest Cellulitis of other specified site Active Problem Cuauhtemoc Priest Lymphedema, not elsewhere classified Active Problem Cuauhtemoc Priest Preoperative clearance Active Problem 06/24/2019 Cuauhtemoc Priest Swelling of extremity Active Problem 06/24/2019 Cuauhtemoc Priest History of DVT (deep vein thrombosis) Active Problem Cuauhtemoc Priest Chronic diastolic CHF (congestive heart failure) Active Problem 06/24/2019 Cuauhtemoc Priest DM w/ complication Active Problem 06/24/2019 Cuauhtemoc Priest Morbid obesity with BMI of 50.0-59.9, adult Active Problem 06/24/2019 Cuauhtemoc Priest Shortness of breath Active Problem 06/24/2019 Cuauhtemoc Priest Medications Medication Details Route Status Patient Instructions Ordering Provider Order Date Source Clonidine HCl 1 tablet PO Active 0.1 MG PO twice a day ( bid) Zayda 07/21/2017 Cuauhtemoc Priest NIFEdipine ER 1 tablet Orally Active 90 [facility] Tramadol HCl 1 tablet as needed Orally Active 50 MG Orally Twice a day [place] Soliskoko Bryn Priest Probiotic 1 capsule Orally Active 250 MG Orally Twice a d ay [place]als[place] Soliskoko Bryn Priest Losartan Potassium 1 tablet Orally Active 25 MG Orally Once a day Dnoalsat[place] Soliskoko Bryn Priest Furosemide 1 tablet Orally Active 80 MG Orally twice a da y (bid) [facility] Priest Metformin HCl 1 tablet with me als Orally Active 1000 mg Orally Twice a day [facility] Priest Lyrica 1 capsule Orally Active 300 MG Orally Twice a d [facility] Propranolol HCl 1 tablet Orally Active 10 MG Orally Twice a da y [place] Soliskoko Bryn Priest NovoLog Flexpen 8 units Subcutaneous Active 100 UNIT/ML Subcutaneous TID [place] [facility] Bryn Priest Lantus SoloStar 45 units Subcutaneous Active 100 UNIT/ML Subcutaneous Once a day Donals[facility]ya [facility] Bryn Priest Potassium Chloride 1 capsule w ith food Orally Active 20 MEQ/15ML (10%) Orally Twice a day [place] Soliskoko Bryn Priest Paroxetine HCl 1 tablet in the morning Orally Active 20 MG Orally Once a day Donalsatya Priest Allergies, Adverse Reactions, Alerts Substance Category Reaction Severity Reaction type Status Date Reported Comments Source Penicillin Adverse Reaction anaphylaxis Adverse Reaction Active 08/26/2017 Cuauhtemoc Priest Darvocet A500 Adverse Reaction anaphylaxis Adverse Reaction Active 08/26/2017 Cuauhtemoc Priest Immunizations No Data Provided for This Section Results No Data Provided for This Section Pathology Reports No Data Provided for This Section Diagnostic Reports No Data Provided for This Section Consultation Notes No Data Provided for This Section Discharge Summaries No Data Provided for This Section History and Physicals No Data Provided for This Section Vital Signs Vital Sign Value Date Comments Source Weight 312 08/26/2017 Cuauhtemoc Priest Height 61 1 Cuauhtemoc Priest Temperature Oral (F) 98 F 08/26/2017 Cuauhtemoc Priest Heart Rate 70 08/26/2017 Cuauhtemoc Priest Diastolic (mm Hg) 70 08/26/2017 Mohamed O Jeroudi Systolic (mm Hg) 132 08/26/2017 Cuauhtemoc Priest Encounters No Data Provided for This Section Procedures No Data Provided for This Section Assessment and Plan No Data Provided for This Section Plan of Care No Data Provided for This Section Social History No Data Provided for This Section Family History No Data Provided for This Section Advance Directives No Data Provided for This Section Functional Status No Data Provided for This Section
--- OUTSIDE RECORDS SUMMARY | 2020-03-22 11:06 | XMS REPORT ---
Author Author Nabila Priest Organization [employer] Address Unknown Phone Unavailable Care Team Providers Care Allied Health Teacher Name Role Phone Cuauhtemoc Priest CP Unavailable Allergies No Known Allergies Problems Problem Type Condition Code Onset Dates Condition Statu s Problem Abnormal EKG R94.31 Active Problem Nonrheumatic tricuspid valve disorder I36.9 Active Problem LVH (left ventricular hypertrophy) due to hypertensive disease I11.9 Active Problem Chronic kidney disease, stage III (moderate) N18.3 Active Problem Lymphedema of both lower extremities I89.0 Active Problem Chronic kidney disease, stage IV (severe) N18.4 Active Problem Hypertension I10 Active Problem Mitral valve disorder I05.9 Active Problem Mitral valve stenosis, unspecified etiology I05.0 Active Problem Cellulitis of other specified site L03.818 Active Problem Lymphedema, not elsewhere classified I89.0 Active Problem Preoperative clearance Z01.818 Activ e Problem Swelling of extremity M79.89 Active Problem History of DVT (deep vein thrombosis) Z86.718 Active Problem Chronic diastolic CHF (congestive heart failure) I50.3 2 Active Problem DM w/ complication E11.8 Active Problem Morbid obesity with BMI of 50.0-59.9, adult Z68.43 Active Problem Shortness of breath R06.02 Active Medications Medication Code System Code Instructions Start Date End Date Status Dosage NIFEdipine ER [facility] [id number] 90 MG Orally daily Act yadira 1 tablet Results No Known Results Summary Purpose [employer]ClinicalWorks Submission
--- OUTSIDE RECORDS SUMMARY | 2020-03-22 11:06 | XMS REPORT ---
Author Author Nabila Priest [facility] [employer] Address Unknown Phone Unavailable Care Team Providers Care Corn Lab Technician Name Role Phone Omayra Priest Unavailable Allergies, Adverse Reactions, Alerts Substance Reaction Event Type Penicillin anaphylaxis Drug Allergy Darvocet A500 anaphylaxis Drug Allergy Problems Problem Type Condition Code Onset Dates Condition Statu s Problem Lymphedema, not elsewhere classified I89.0 Active Problem Chronic diastolic CHF (congestive heart failure) I50.3 2 Active Problem Preoperative clearance Z01.818 Activ e Problem Cellulitis of other specified site L03.818 Active Assessment DM w/ complication E11.8 Active Problem Hypertension I10 Active Assessment Morbid obesity with BMI of 50.0-59.9, adult Z68.43 Active Assessment History of DVT (deep vein thrombosis) Z86.718 Active Problem Mitral valve stenosis, unspecified etiology I05.0 Active Problem Mitral valve disorder I05.9 Active Problem DM w/ complication E11.8 Active Problem Nonrheumatic tricuspid valve disorder I36.9 Active Problem LVH (left ventricular hypertrophy) due to hypertensive disease I11.9 Active Assessment Mitral valve stenosis, unspecified etiology I05.0 Active Assessment Chronic diastolic CHF (congestive heart failure) I50.3 2 Active Assessment Abnormal EKG R94.31 Active Assessment Hypertension I10 Active Problem Shortness of breath R06.02 Active Problem Abnormal EKG R94.31 Active Assessment Shortness of breath R06.02 Active Problem Morbid obesity with BMI of 50.0-59.9, adult Z68.43 Active Problem History of DVT (deep vein thrombosis) Z86.718 Active Problem Swelling of extremity M79.89 Active Medications Medication Code System Code Instructions Start Date End Date Status Dosage Tramadol HCl [facility] 22547645802 50 MG Orally Twice a day Active 1 tablet as needed Probiotic [facility] 62478751338 250 MG Orally Twice a day Active 1 capsule Losartan Potassium [facility] 36491553848 25 MG Orally Once a day Active 1 tablet Furosemide [facility] 25632309093 80 MG Orally twice a day (bid) Active 1 tablet Metformin HCl [facility] 56917800320 1000 mg Orally Twice a day Active 1 tablet with meals Lyrica ND 42239329798 300 MG Orally Twice a day Ac tive 1 capsule Propranolol HCl [facility] 84837261717 10 MG Orally Twice a day Active 1 tablet NovoLog Flexpen ND 72205493080 100 UNIT/ML Subcutaneous TID Active 8 units Lantus SoloStar ND 74866622179 100 UNIT/ML Subcutaneous Once a day Active 45 units Potassium Chloride [facility] 35966954195 20 MEQ/15ML (10%) Orally Twic e a day Active 1 capsule with food Paroxetine HCl [facility] 41691829034 20 MG Orally Once a day Active 1 tablet in the morning Clonidine HCl [facility] 46188796366 0.1 MG PO twice a day (bid) Jul 032016 Active 1 tablet Vital Signs Date/Time: Aug 26, 2017 BMI 58.95 Index Weight 312 lbs Height 61 in Temperature 98. F Cardiac Monitoring Heart Rate 70 /min Blood Pressure Diastolic 70 mm Hg Blood Pressure Systolic 132 mm Hg Results No Known Results Summary Purpose eClinicalWorks Submission
--- OUTSIDE RECORDS SUMMARY | 2020-03-22 11:07 | XMS REPORT | Summary of Care ---
Author Author JULI Sanchez, GRETTA AYALA Organization Unknown Address Unknown Phone Unavailable Care Team Providers Care Supervisor Assembling Name Role Phone KATE LEARY N.P. Unavailable Unavailable LI BUSTOS MD Unavailable Unavailable Unavailable Unavailable Functional Status Name Dates Details Functional status health issues are not documented Status: Name Dates Details Cognitive status health issues are not d ocumented Status: Problems Name Dates Details Liver disease (573.9, K76.9) Status: Active Chronic blood loss anemia (280.0, D50.0) Status: Active Post-menopausal bleeding (627.1, N95.0) Status: Active Breast cancer screening (V76.10, Z12.39) Status: Active Yeast infection (112.9, B37.9) Status: Active Swollen leg (729.81, M79.89) Status: Active History of DVT (deep vein thrombosis) (V 12.51, Z86.718) Status: Active Acute right lower quadrant pain (789.03, R10.31) Status: Active Medications Name Dates Details Vitamin D (Ergocalciferol) 1.25 MG (5000 0 UT) Oral Capsule M.A. * Start : 13-Sep-2018 Active Spironolactone 25 MG Oral Tablet * Refills: 0 M.A. * Start : 13-Sep-2018 Active Levothyroxine Sodium 50 MCG Oral Tablet * Refills: 0 M.A. * Start : 13-Sep-2018 Active Furosemide 80 MG Oral Tablet * Refills: 0 M.A. * Start : 13-Sep-2018 Active NIFEdipine ER 60 MG Oral Tablet Extended Release 24 Hour * Refills: 0 M.A. * Start : 13-Sep-2018 Active Xifaxan 550 MG Oral Tablet * Refills: 0 M.A. * Start : 13-Sep-2018 Active traMADol HCl - 50 MG Oral Tablet * Refills: 0 M.A. * Start : 13-Sep-2018 Active Doxycycline Hyclate 100 MG Oral Capsule * Refills: 0 M.A. * Start : 13-Sep-2018 Active Phytoplex Z-Guard 57-17 % External Paste * Refills: 0 M.A. * Start : 13-Sep-2018 Active 12 x 113 GM Tube Nystatin 856350 UNIT/GM External Powder apply Nystatin powder to affected area 3 times daily for 7 days, continue use as needed to treat fungal skin infection * Quantity: 1 Refills: 1 KATE LEARY N.P. * Start : 27-Sep-2018 Active 15 GM Bottle Bioflex Oral Tablet * Refills: 0 M.A. 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 On: 19-Dec-2019 9:40 Instructions Name Dates Details Instructions not documented [...] Diagnosis: Problem not documented On: 30-May-2019 11:40 Appointment; LI BUSTOS M.D. Encounter Diagnosis: Problem not documented On: 27-Jun-2019 14:20
--- OUTSIDE RECORDS SUMMARY | 2020-03-22 11:07 | XMS REPORT ---
Author Author [facility] t Organization [facility] t Address [address] [place] [address] Phone Unavailable Care Team Providers Care Tack Cutter Name Role Phone LI BUSTOS M.D. 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 Problem Resolved [facility] History of diabetes mellitus History of diabetes mellitus Problem Re solved [facility] History of hepatitis History of hepatitis Problem Resolved [facility] History of hepatitis C virus infection History of hepatitis C virus infection Problem Resolved [facility] History of iron deficiency anemia History of iron deficiency ane allison Problem Resolved [facility] Liver disease Liver disease Problem Active [facility] Chronic blood loss anemia Chronic blood loss anemia Problem Active [facility] Post-menopausal bleeding Post-menopausal bleeding Problem Active [facility] Breast cancer screening Breast cancer screening Problem Active [facility] Yeast infection Yeast infection Problem Active [facility] Swollen leg Swollen leg Problem Active [facility] History of DVT (deep vein thrombosis) History of DVT (deep v ein thrombosis) Problem Active [facility] Acute right lower quadrant pain Acute right lower quadrant pain Pro blem Active [facility] Abnormal EKG Abno rmal EKG Active Problem 06/24/2019 Cuauhtemoc Bryn Priest Problem Active 2019-06-24 02:45:00 Cuauhtemoc Priest Nonrheumatic tricuspid valve disorder Nonrheumatic tricuspid valve disorder Active Problem 06/24/2019 Mohamed O Donaloudi Problem Active 2019-06-24 02:45:00 Shalonda Priest LVH (left ventricular hypertrophy) due to hypertensive disease LVH (left ventricular hypertrophy) due to hypertensive disease Active Problem 06/24/2019 Mohamed O Donaloudi Problem Active 2019-06-24 02:45:0 0 Cuauhtemoc Priest Chronic kidney disease, stage III (moderate) Chronic kidney disease, stage III (moderate) Active Problem 06/24/2019 Mohamed O Donalousatya Problem Active 2019-06-24 02:45:00 Irmaamed Bryn Priest Lymphedema of both lower extremities Lymphedema of both lower extremities Active Problem 06/24/2019 Mohamed O Donaloudi Problem Active 2019-06-24 02:45:00 Cuauhtemoc Priest Chronic kidney disease, stage IV (severe) Chronic kidney disease, stage IV (severe) Active Problem 06/24/2019 Mohamed Bryn Mansfieldoudi Problem Active 2019-06-24 02:45:00 Shalonda Priest Hypertension Hype rtension Active Problem 06/24/2019 Mohamed O Donaloudi Problem Active 2019-06-24 02:45:00 Irmaamed Bryn Mansfieldousatya Mitral valve disorder Mitr al valve disorder Active Problem 06/24/2019 Mohamed O Donaloudi Problem Active 2019-06-24 02:45:0 0 Cuauhtemoc Colvindi Mitral valve stenosis, unspecified etiology Mitral valve stenosis, unspecified etiology Active Problem 06/24/2019 Mohamed O Donaloudi Problem Active 2019-06-24 02:45:00 Cuauhtemoc Priets Cellulitis of other specified site Cellulitis of other specified site Active Problem 06/24/2019 Mohamed O Donaloudi Problem Active 2019-06-24 02:45:00 Mohamed Bryn Priest Preoperative clearance Preo perative clearance Active Problem 06/24/2019 Cuauhtemoc Clemente Zayda Problem Active 20 20-06-23 02:45:00 Irmakoko Bryn Priest Swelling of extremity Swel ling of extremity Active Problem 06/24/2019 Cuauhtemoc Mansfieldroma Problem Active 2019-06-24 02:45:0 0 Irmakoko Bryn Priest History of DVT (deep vein thrombosis) History of DVT (deep vein thrombosis) Active Problem 06/24/2019 Cuauhtemoc Bryn Priest Problem Active 2019-06-24 02:45:00 Irmakoko Bryn Priest Chronic diastolic CHF (congestive heart failure) Chronic diastolic CHF (congestive heart failure) Active Problem 06/24/2019 Cuauhtemoc Bryn Priest Problem Active 2019-06-24 02:45:00 Irmapee jane Priest DM w/ complication DM w / complication Active Problem 06/24/2019 Cuauhtemoc Clemente Zayda Problem Active 2019-06-24 02:45:00 Cuauhtemoc Priest Morbid obesity with BMI of 50.0-59.9, adult Morbid obesity with BMI of 50.0-59.9, adult Active Problem 06/24/2019 Cuauhtemoc Bryn Priest Problem Active 2019-06-24 02:45:00 Irmakoko Bryn Priest Shortness of breath Shor tness of breath Active Problem 06/24/2019 Cuauhtemoc Mansfieldroma Problem Active 2019-06-24 02:45:00 Irmakoko Bryn Priest Allergies, Adverse Reactions, Alerts Allergy Name Allergy Type Status Severity Reaction(s) Onset Date Inacti ve Date Treating Clinician Comments Source Penicillins DA Active SV 2019-12-22 00:00:00 [facility] ibuprofen DA Active SV 2019-12-22 00:00:00 [facility] Penicillins DA Active SV 2019-07-14 00:00:00 [facility] ibuprofen DA Active SV 2019-07-14 00:00:00 [facility] Penicillins DA Active SV 2019-01-07 00:00:00 [facility] ibuprofen DA Active SV 2019-01-07 00:00:00 [facility] Penicillins DA Active SV 2018-05-04 00:00:00 [facility] ibuprofen DA Active SV 2018-05-04 00:00:00 [facility] Darvocet A500 Darvocet A500 Active anaphylaxis 2017-08-26 00:00:00 [facility] Ibuprofen TABS Allergy to drug (finding) Active [facility] Penicillins Allergy to drug (finding) Active [facility] Family History Family Member Diagnosis Comments Start Date Stop Date Source cousin Family history of lupus erythematosus [facility] Mother Family history of Alcoholic fibrosis and sclerosis of live r [facility] Father Family history of Alcoholic fibrosis and sclerosis of live r [facility] Father Family history of hypertension [facility] Sister Family history of malignant neoplasm of breast [facility] Social History Smoking Status Start Date Stop Date Source [facility] smoked tobacco (finding[facility] Medications Ordered Medication Name Filled Medication Name Start Date Stop Da te Current Medication? Ordering Clinician Indication Dosage Frequency Signature (SIG) Comments Components Source NexIUM 40 MG Oral Packet NexIUM 40 MG Oral Packet 2020-01-02 00:00:00 Yes QD MIX THE CONTENTS OF 1 PACKET IN 15ML OF WATER AND DRIN K ONCE DAILY. [facility] NIFEdipine ER 2019-06-24 02:45:00 Yes Mohamed Jeroudi 1 tablet Mohamed O Jeroudi Vitamin D (Ergocalciferol) 1.25 MG (69249 UT) Oral Cap jose luis Vitamin D (Ergocalciferol) 1.25 MG (63104 UT) Oral Capsule 2018-09-13 00:00:00 Yes [facility] Spironolactone 25 MG Oral Tablet Spironolactone 25 MG Oral T ablet 2018-09-13 00:00:00 Yes [facility] Levothyroxine Sodium 50 MCG Oral Tablet Levothyroxine Sodium 50 MCG Oral Tablet 2018-09-13 00:00:00 Yes [facility] Furosemide 80 MG Oral Tablet Furosemide 80 MG Oral Tablet 2018-09-02 2 00:00:00 Yes [facility] Xifaxan 550 MG Oral Tablet Xifaxan 550 MG Oral Tablet 2018-09-13 00:0 0:00 Yes [facility] traMADol HCl - 50 MG Oral Tablet traMADol HCl - 50 MG Oral T ablet 2018-09-13 00:00:00 Yes [facility] Doxycycline Hyclate 100 MG Oral Capsule Doxycycline Hyclate 100 MG Oral Capsule 2018-09-13 00:00:00 Yes [facility] Tramadol HCl 2018-02-03 02:45:01 Yes Ahmad Jeroudi 1 tablet as needed Mohkoko Colvindi Probiotic 2018-02-03 02:45:01 Yes Ahmad Jeroudi 1 capsule Mohkoko O Mariidi Losartan Potassium 2018-02-03 02:45:01 Yes Ahmad Jeroudi 1 tablet Cuauhtemoc Colvindi Furosemide 2018-02-03 02:45:01 Yes Ahmad Jeroudi 1 tablet Mohamed O Mariidi Metformin HCl 2018-02-03 02:45:01 Yes Ahmad Jeroudi 1 tablet with meals Cuauhtemoc Priest Lyrica 2018-02-03 02:45:01 Yes Ahmad Jeroudi 1 ca psule Mohkoko Priest Propranolol HCl 2018-02-03 02:45:01 Yes Ahmad Jeroudi 1 tablet Cuauhtemoc Priest NovoLog Flexpen 2018-02-03 02:45:01 Yes Ahmad Jeroudi 8 units Mohkoko O Zayda Lantus SoloStar 2018-02-03 02:45:01 Yes Ahmad Jeroudi 45 units Mohamed O Donalroma Potassium Chloride 2018-02-03 02:45:01 Yes Ahmad Jeroudi 1 capsule with food Cuauhtemoc Priest Paroxetine HCl 2018-02-03 02:45:01 Yes Ahmad Jeroudi 1 tablet in the morning Cuauhtemoc Priest Clonidine HCl 2017-07-21 00:00:00 Yes Ahmad Jeroudi 1 tablet Irmaamed O Zayda Vital Signs Vital Name Observation Time Observation Value Comments Source Systolic blood pressure 2020-01-02 13:22:00 129 mm[Hg] Loca tion: LUE; Position: Sitting [facility] Diastolic blood pressure 2020-01-02 13:22:00 79 mm[Hg] Loc ation: LUE; Position: Sitting [facility] Body temperature 2020-01-02 13:22:00 98.2 [degF] Method: Oral [facility] Body height 2020-01-02 13:22:00 151 cm [facility] Weight 2020-01-02 13:22:00 129.9 kg [facility] Body mass index (BMI) [Ratio] 2020-01-02 13:22:00 56.97 kg/m2 [facility] Heart Rate 2020-01-02 13:22:00 72 /min [facility] Respiratory rate 2020-01-02 13:22:00 18 /min [facility] O2 SAT 2020-01-02 13:22:00 97 % Source: RA [facility] BP Systolic 2019-06-27 15:28:00 111 mm[Hg] Location: RUE; Positi on: Sitting [facility] BP Diastolic 2019-06-27 15:28:00 69 mm[Hg] Location: RUE; Positi on: Sitting [facility] Respiration Rate 2019-06-27 15:28:00 18 /min [facility] Height 2019-06-27 15:28:00 151 cm [facility] Weight 2019-06-27 15:28:00 126 kg [facility] Body Mass Index Calculated 2019-06-27 15:28:00 55.26 kg/m2 [facility] Temperature 2019-06-27 15:28:00 98.2 [degF] Method: Oral [facility] Heart Rate 2019-06-27 15:28:00 80 /min [facility] BP Systolic 2019-05-30 12:14:00 146 mm[Hg] Location: LUE; Positi on: Sitting [facility] BP Diastolic 2019-05-30 12:14:00 79 mm[Hg] Location: LUE; Positi on: Sitting [facility] Temperature 2019-05-30 12:14:00 98.3 [degF] Method: Oral [facility] Heart Rate 2019-05-30 12:14:00 74 /min [facility] O2 SAT 2019-05-30 12:14:00 98 % [facility] Height 2019-05-30 12:14:00 152.5 cm [facility] Weight 2019-05-30 12:14:00 123.2 kg [facility] Body Mass Index Calculated 2019-05-30 12:14:00 52.98 kg/m2 [facility] BP Systolic 2018-11-29 11:55:00 162 mm[Hg] Location: LUE; Positi on: Sitting [facility] BP Diastolic 2018-11-29 11:55:00 84 mm[Hg] Location: LUE; Positi on: Sitting [facility] Height 2018-11-29 11:55:00 153.2 cm [facility] Weight 2018-11-29 11:55:00 255.375 [lb_av] [facility] Body Mass Index Calculated 2018-11-29 11:55:00 49.36 kg/m2 [facility] Temperature 2018-11-29 11:55:00 98.4 [degF] Method: Oral [facility] Heart Rate 2018-11-29 11:55:00 103 /min [facility] Respiration Rate 2018-11-29 11:55:00 16 /min Quality: Normal [facility] BP Systolic 2018-11-08 11:34:00 141 mm[Hg] Location: LUE; Positi on: Sitting [facility] BP Diastolic 2018-11-08 11:34:00 81 mm[Hg] Location: LUE; Positi on: Sitting [facility] Height 2018-11-08 11:34:00 152 cm [facility] Weight 2018-11-08 11:34:00 263.125 [lb_av] [facility] Body Mass Index Calculated 2018-11-08 11:34:00 51.66 kg/m2 [facility] Temperature 2018-11-08 11:34:00 98.3 [degF] Method: Oral [facility] Heart Rate 2018-11-08 11:34:00 78 /min [facility] Respiration Rate 2018-11-08 11:34:00 17 /min Quality: Normal [facility] [place] [facility] BP Systolic 2018-10-11 13:38:00 168 mm[Hg] Location: RUE; Positi on: Sitting [facility] BP Diastolic 2018-10-11 13:38:00 77 mm[Hg] Location: RUE; Positi on: Sitting [facility] Height 2018-10-11 13:38:00 60 [in_us] [facility] Weight 2018-10-11 13:38:00 270.4 [lb_av] [facility] Body Mass Index Calculated 2018-10-11 13:38:00 52.81 kg/m2 [facility] Temperature 2018-10-11 13:38:00 98.4 [degF] Method: Oral [facility] Heart Rate 2018-10-11 13:38:00 79 /min [facility] Respiration Rate 2018-10-11 13:38:00 20 /min [facility] O2 SAT 2018-10-11 13:38:00 98 % Source: RA [facility] BP Systolic 2018-09-27 12:39:00 132 mm[Hg] Location: RUE; Positi on: Sitting [facility] BP Diastolic 2018-09-27 12:39:00 79 mm[Hg] Location: RUTiana; Positi on: Sitting [facility] Height 2018-09-27 12:39:00 60 [in_us] [facility] Weight 2018-09-27 12:39:00 271 [lb_av] [facility] Body Mass Index Calculated 2018-09-27 12:39:00 52.93 kg/m2 [facility] Temperature 2018-09-27 12:39:00 98.4 [degF] Method: Oral [facility] Heart Rate 2018-09-27 12:39:00 80 /min [facility] Respiration Rate 2018-09-27 12:39:00 18 /min [facility] BP Systolic 2018-09-13 12:10:00 135 mm[Hg] Location: LUTiana; Positi on: Sitting [facility] BP Diastolic 2018-09-13 12:10:00 81 mm[Hg] Location: CHIQUITA; Positi on: Sitting [facility] Height 2018-09-13 12:10:00 152 cm [facility] Weight 2018-09-13 12:10:00 275 [lb_av] [facility] Body Mass Index Calculated 2018-09-13 12:10:00 53.99 kg/m2 [facility] Temperature 2018-09-13 12:10:00 98.3 [degF] Method: Oral [facility] Heart Rate 2018-09-13 12:10:00 69 /min [facility] Respiration Rate 2018-09-13 12:10:00 17 /min Quality: Normal [facility] Weight 2017-08-26 19:30:00 Irmakoko Bryn Priest Height 2017-08-26 19:30:00 Iramkoko Bryn Priest Temperature Oral (F) 2017-08-26 19:30:00 98 F Cuauhtemoc Mansfieldmariesatya Heart Rate 2017-08-26 19:30:00 Cuauhtemoc Mansfieldroma Diastolic (mm Hg) 2017-08-26 19:30:00 Moh kokomónica Mansfieldroma Systolic (mm Hg) 2017-08-26 19:30:00 Irmapee med Bryn Priest Procedures Procedure Date / Time Performed Performing Clinician [facility] e [QLH] CBC (INCLUDES DIFF/PLT) 2019-05-30 00:00:00 [facility] [[facility]] CMP W/EGFR 2019-05-30 00:00:[address] [facility] CT Abdomen/Pelvis w contrast [id number] 2019-05-30 00:00:00 [facility] MA Digital Mammo Screening Braxton [id number] 2019-05-30 00:00:00 [facility] US Extremity lower venous doppler bilat [id number] 2018-10-22 00:00:0 0 [facility] [QL] CBC (INCLUDES DIFF/PLT) 2018-09-13 00:00:00 [facility] [QL] CMP W/EGFR 2018-09-13 00:00:00 [facility] [H] PT/PTT Mixing Study Comprehensive 2018-09-13 00:00:00 [facility] [Q] HEPATITIS C VIRAL RNA, QUANTITATIVE BDNA TMA 2018-09-13 00:0 0:00 [facility] [QL] PROTHROMBIN W/INR + PARTIAL THROMBOPLASTIN TIMES 2018-09-02 2 00:00:00 [facility] [QL] CA 125 2018-09-13 00:00:00 [place] [facility] [place] [facility] CT Abdomen/Pelvis w contrast [id number] 2018-09-13 00:00:00 [facility] CT Chest w contrast [id number] 2018-09-13 00:00:[facility] Digital Mammo Screening Braxton [id number] 2018-09-13 00:00:00 [facility] History of Dilation and curettage [facility] Encounters Start Date/Time End Date/Time Encounter Type Admission Type [facility] Care Facility Care Department Encounter ID Source 2020-03-22 11:06:25 Outpatient MHIEALT MHIEALT [id number] [facility] 2020-01-02 12:20:00 2020-01-02 12:20:00 Appointment; LI BUSTOS M.D. LUCCI, JOSEPH, M.D. UTP Gynecologic Oncology [facility] [id number] [facility] 2019-06-27 14:20:00 2019-06-27 14:20:00 Appointment; LI BUSTOS M.D. LUCCI, JOSEPH, M.D. UTP [facility]s [facility] [id number] [facility] 2019-06-23 11:04:00 2019-06-23 11:04:00 Outpatient Cuauhtemoc Priest [place] [id number] [employer] 2019-06-06 10:22:00 2019-06-06 10:22:00 [id number] 2019-05-30 11:40:00 2019-05-30 11:40:00 Appointment; LI BUSTOS M.D. LUCCI, JOSEPH, M.D. UTP [facility] [id number] [facility] 2018-11-29 11:40:00 2018-11-29 11:40:00 Appointment; LI BUSTOS M.D. LUCCI, JOSEPH, M.D. UTP Gynecologic Oncology at [facility] [id number] [facility] 2018-11-17 11:20:00 2018-11-17 11:20:00 Appointment; LI BUSTOS M.D. LUCCI, JOSEPH, M.D. UTP [facility] [id number] [facility] 2018-11-08 12:00:00 2018-11-08 12:00:00 Appointment; LI BUSTOS M.D. LUCCI, JOSEPH, M.D. UTP Gynecologic Oncology at [facility] [id number] [facility] 2018-10-28 14:00:00 2018-10-28 14:00:00 Appointment; LI BUSTOS M.D. LUCCI, JOSEPH, M.D. UTP [facility] [id number] [facility] 2018-10-11 12:40:00 2018-10-11 12:40:00 Appointment; LI BUSTOS M.D. LUCCI, JOSEPH, M.D. [facility] Gynecologic Oncology at [facility] [id number] [facility] 2018-09-27 13:20:00 2018-09-27 13:20:00 Appointment; [place] BUSTOS M.D. LUCCI, JOSEPH, M.D. [facility] Gynecologic Oncology at [facility] [id number] [facility] 2018-09-13 12:00:00 2018-09-13 12:00:00 Appointment; LI BUSTOS M.D. LUCCI, JOSEPH, M.D. [facility] Parts Department Manager [id number] [facility] 2017-08-26 14:30:00 2017-08-26 14:30:00 Outpatient Cuauhtemoc Priest [place] [id number] [employer] Results Test Description Test Time Test Comments Results Result Comments Source URINALYSIS COMPLETE 2019-12-22 19:41:00 Test Item UA COLOR (test code = COLU) Light-Yellow YELLOW UA APPEARANCE (test code = APPU) CLEAR CLEAR UA GLUCOSE DIPSTICK (test code = DGLUU) NEGATIVE mg/dL NEGATIVE UA BILIRUBIN DIPSTICK (test code = BILU) NEGATIVE mg/dL NEGATIVE UA KETONE DIPSTICK (test code = KETU) NEGATIVE mg/dL NEGATIVE UA SPECIFIC GRAVITY (test code = SGU) 1.007 1.001-1.035 UA BLOOD DIPSTICK (test code = TUCKER) Negative mg/dL NEGATIVE UA PH DIPSTICK (test code = CLEMENTE) 5.0 5.0-8.0 UA PROTEIN DIPSTICK (test code = PROU) NEGATIVE mg/dL NEGATIVE UA UROBILINIOGEN DIPSTICK (test code = URO) Normal mg/dL NEGATIVE UA NITRITE DIPSTICK (test code = LEANN) NEGATIVE NEGATIVE UA LEUKOCYTE ESTERASE W REFLEX (test code = LEUUR) NEGATIVE Yumiko/uL NEGATIVE UA WBC (test code = WBCU) per HPF 0-5 UA RBC (test code = RBCU) per HPF 0-5 UA EPITHELIAL CELLS (test code = EPIU) per HPF Few UA BACTERIA (test code = BACU) per HPF NONE Urine Source? Clean CatchURINALYSIS [id number] 19:41:00* Test Item Value Reference Range Interpretation Comments UA COLOR (test code = COLU) Light-Yellow YELLOW UA APPEARANCE (test code = APPU) CLEAR CLEAR UA GLUCOSE DIPSTICK (test code = DGLUU) NEGATIVE mg/dL NEGATIVE UA BILIRUBIN DIPSTICK (test code = BILU) NEGATIVE mg/dL NEGATIVE UA KETONE DIPSTICK (test code = KETU) NEGATIVE mg/dL NEGATIVE UA SPECIFIC GRAVITY (test code = SGU) 1.007 1.001-1.035 UA BLOOD DIPSTICK (test code = TUCKER) Negative mg/dL NEGATIVE UA PH DIPSTICK (test code = CLEMENTE) 5.0 5.0-8.0 UA PROTEIN DIPSTICK (test code = PROU) NEGATIVE mg/dL NEGATIVE UA UROBILINIOGEN DIPSTICK (test code = URO) Normal mg/dL NEGATIVE UA NITRITE DIPSTICK (test code = LEANN) NEGATIVE NEGATIVE UA LEUKOCYTE ESTERASE W REFLEX (test code = LEUUR) NEGATIVE Yumiko/uL NEGATIVE UA WBC (test code = WBCU) 0-5 per HPF 0-5 UA RBC (test code = RBCU) per HPF 0-5 UA EPITHELIAL CELLS (test code = EPIU) MOD per HPF FEW UA BACTERIA (test code = BACU) per HPF NONE UA HYALINE CAST (test code = HYALU) 3-5 #/LPF 0-5 UA MUCUS (test code = MUCU) FEW #/LPF FEW Urine Source? Clean CatchURINALYSIS [id number] 19:41:00* Test Item Value Reference Range Interpretation Comments UA COLOR (test code = COLU) Light-Yellow YELLOW UA APPEARANCE (test code = APPU) CLEAR CLEAR UA GLUCOSE DIPSTICK (test code = DGLUU) NEGATIVE mg/dL NEGATIVE UA BILIRUBIN DIPSTICK (test code = BILU) NEGATIVE mg/dL NEGATIVE UA KETONE DIPSTICK (test code = KETU) NEGATIVE mg/dL NEGATIVE UA SPECIFIC GRAVITY (test code = SGU) 1.007 1.001-1.035 UA BLOOD DIPSTICK (test code = TUCKER) Negative mg/dL NEGATIVE UA PH DIPSTICK (test code = CLEMENTE) 5.0 5.0-8.0 UA PROTEIN DIPSTICK (test code = PROU) NEGATIVE mg/dL NEGATIVE UA UROBILINIOGEN DIPSTICK (test code = URO) Normal mg/dL NEGATIVE UA NITRITE DIPSTICK (test code = LEANN) NEGATIVE NEGATIVE UA LEUKOCYTE ESTERASE W REFLEX (test code = LEUUR) NEGATIVE Yumiko/uL NEGATIVE UA WBC (test code = WBCU) 0-5 per HPF 0-5 UA RBC (test code = RBCU) 0-3 per HPF 0-5 UA EPITHELIAL CELLS (test code = EPIU) MOD per HPF FEW UA BACTERIA (test code = BACU) NONE SEEN per HPF NONE UA HYALINE CAST (test code = HYALU) 3-5 #/LPF 0-5 UA MUCUS (test code = MUCU) FEW #/LPF FEW Urine Source? Clean CatchBASIC METABOLIC [id number] 18:49:00* Test Item Value Reference Range Interpretation Comments SODIUM (test code = NA) 134 mmol/L 136-145 L POTASSIUM (test code = K) 3.5 mmol/L 3.5-5.1 N CHLORIDE (test code = CL) 102.0 mmol/L 98-107 N CARBON DIOXIDE (test code = CO2) 26.0 mmol/L 21-32 N ANION GAP (test code = GAP) 9.5 10-20 L GLUCOSE (test code = GLU) 148 mg/dL 74-106 H BLOOD UREA NITROGEN (test code = BUN) 35 mg/dL 7-18 H GLOMERULAR FILTRATION RATE (test code = GFR) 29 mL/min >=60 Estimated GFR by using Modified MDRD formula.Chronic kidney disease is defined as either kidney damageor GFR <60 mL/min/1.73 m2 for >3 months. CREATININE (test code = CREAT) 1.80 mg/dL 0.55-1.02 H Note change in reference range due to change in reagent. BUN/CREATININE RATIO (test code = BUN/CREA) 19.4 10-20 N CALCIUM (test code = CA) 8.9 mg/dL 8.5-10.1 N HEPATIC FUNCTION [id number] 18:49:00* Test Item Value Reference Range Interpretation Comments TOTAL PROTEIN (test code = PROT) 8.4 gram/dL 6.4-8.2 H ALBUMIN (test code = ALB) 3.6 g/dL 3.4-5.0 N GLOBULIN (test code = GLOB) 4.8 gram/dL 2.7-4.2 H ALBUMIN/GLOBULIN RATIO (test code = A/G) 0.8 0.75-1.50 N BILIRUBIN TOTAL (test code = BILT) 2.30 mg/dL 0.0-1.0 H BILIRUBIN DIRECT (test code = BILD) 0.60 mg/dL 0.0-0.20 H SGOT/AST (test code = AST) 28 IUnit/L 15-37 N SGPT/ALT (test code = ALT) 25 IUnit/L 12-78 N ALKALINE PHOSPHATASE TOTAL (test code = ALKP) 120 IUnit/L 45-117 H Note change in reference range due to change in reagent. [id number] 18:49:00* Test Item Value Reference Range Interpretation Comments LIPASE (test code = LIP) 117 U/L 73.0-393.0 N CBC W/O [id number] 18:45:00* Test Item Value Reference Range Interpretation Comments WHITE BLOOD CELL (test code = WBC) 8.0 K/mm3 4.5-12.5 N RED BLOOD CELL (test code = RBC) 3.87 mill/mm3 3.7-5.2 N HEMOGLOBIN (test code = HGB) 11.4 gram/dL 11.5-15.5 L HEMATOCRIT (test code = HCT) 32.9 % 36.0-46.0 L MEAN CELL VOLUME (test code = MCV) 85.0 fL 80-98 N MEAN CELL HGB (test code = MCH) 29.5 picogram 27.0-33.0 N MEAN CELL HGB CONCETRATION (test code = MCHC) 34.7 gram/dL 33.0-36. 0 N RED CELL DISTRIBUTION WIDTH (test code = RDW) 14.6 % 11.6-16. 2 N PLATELET COUNT (test code = PLT) 104 K/mm3 150-450 L MEAN PLATELET VOLUME (test code = MPV) 10.1 fL 6.7-11.0 N BASIC METABOLIC [id number] 18:42:00* Test Item Value Reference Range Interpretation Comments SODIUM (test code = NA) 134 mmol/L 136-145 L POTASSIUM (test code = K) 3.5 mmol/L 3.5-5.1 N CHLORIDE (test code = CL) 102.0 mmol/L 98-107 N CARBON DIOXIDE (test code = CO2) mmol/L 21-32 ANION GAP (test code = GAP) 10-20 GLUCOSE (test code = GLU) mg/dL 74-106 BLOOD UREA NITROGEN (test code = BUN) mg/dL 7-18 GLOMERULAR FILTRATION RATE (test code = GFR) mL/min >=60 CREATININE (test code = CREAT) mg/dL 0.55-1.02 BUN/CREATININE RATIO (test code = BUN/CREA) 10-20 CALCIUM (test code = CA) mg/dL 8.5-10.1 HEPATIC FUNCTION [id number] 18:42:00* Test Item Value Reference Range Interpretation Comments TOTAL PROTEIN (test code = PROT) gram/dL 6.4-8.2 ALBUMIN (test code = ALB) g/dL 3.4-5.0 GLOBULIN (test code = GLOB) gram/dL 2.7-4.2 ALBUMIN/GLOBULIN RATIO (test code = A/G) 0.75-1.50 BILIRUBIN TOTAL (test code = BILT) mg/dL 0.0-1.0 BILIRUBIN DIRECT (test code = BILD) mg/dL 0.0-0.20 SGOT/AST (test code = AST) IUnit/L 15-37 SGPT/ALT (test code = ALT) IUnit/L 12-78 ALKALINE PHOSPHATASE TOTAL (test code = ALKP) IUnit/L 45-117 [id number] 18:42:00* Test Item Value Reference Range Interpretation Comments LIPASE (test code = LIP) U/L 73.0-393.0 [id number] 18:30:00* Test Item Value Reference Range Interpretation Comments GLUBED (test code = GLUBED) 219 mg/dL 74-106 H Performed by certified bath mix operator at [facility] [id number] 17:12:00* Test Item Value Reference Range Interpretation Comments GLUBED (test code = GLUBED) 113 mg/dL 74-106 H Performed by certified bath mix operator at [facility] - XR L-SPINE 12/05 [id number] 13:37:00 FAX: Kelvin Jara [phone] [place]: B St: REG FAX: Harvey Thapa MD [phone] Name: GRETTA MIRANDA [facility] : 1965 Age/S: 54/F [address] Unit #: [id number] Loc: [place] [address] Phys: Kelvin Lopez MD Acct: [id number] Dis Date: Status: REG ER PHONE #: [phone] Exam Date: 10/24/2019 1313 FAX #: [phone] Reason: LOW BACK PAIN EXAMS: CPT CODE: [id number] XR L-SPINE 2/3 VIEWS 04204 HISTORY: LOW BACK PAIN TECHNIQUE: AP, lateral, and lumbosacral views of the lumbar spine. Comparison:CT of the abdom en and pelvis July 05, 2018 which includes lumbar spine FINDINGS: No acute fracture or subluxation. Vertebral body alignm ent is satisfactory. Degenerative changes of the facets are seen in the lo wer lumbar spine. Vertebral body heights are preserved. Disc spaces are preserved. Prominent osteophyte is seen in the L4 vertebral tasha dy. Smaller osteophytes are seen throughout the remainder of the visualize d spine. No evident paraspinal soft tissue contour abnormality. IMPRESSION: Degenerative changes of the spine b ut no radiographically evident fracture or malalignment. Location: [facility] 19 at 1337 Reported and signed by: Harsh Cifuentes MD CC: Kelvin Lopez MD; Harvey Chambers Technologist: Brielle Khan) Trnscrd Date/Time/By: ([id number]) : By: [email or web address] Orig Print D/T: S: 10/24/2019 (0532) PAGE 1 Signed Report [id number] 08:06:00* Test Item Value Reference Range Interpretation Comments GLUBED (test code = GLUBED) 194 mg/dL 74-106 H Performed by certified bath mix operator at [facility] [id number] 20:51:00* Test Item Value Reference Range Interpretation Comments GLUBED (test code = GLUBED) 148 mg/dL 74-106 H Performed by certified bath mix operator at [facility] [id number] 17:19:00* Test Item Value Reference Range Interpretation Comments GLUBED (test code = GLUBED) 222 mg/dL 74-106 H [facility] certified bath mix [facility]~ [id number] 12:25:00* Test Item Value Reference Range Interpretation Comments GLUBED (test code = GLUBED) 160 mg/dL 74-106 H [facility] certified bath mix [facility] - CT HEAD/BRAIN W/O [id number] 10:53:00 Name: GRETTA MIRANDA [facility] : 1965 Age/S: 54 / F [address] [facility] Unit #: [id number] Loc: [place] [address] Phys: Harvey Chambers MD Acct: [id number] Dis Date: Status: ADM IN PHONE #: [phone] Exam Date: 07/21/2019 0935 FAX #: [phone] Reason: DOCTOR'S ORDERS EXAMS: CPT CODE: [id number] CT HEAD/BRAIN W/O CONT 51922 HISTORY: DOCTOR'S ORDERS TECHNIQUE: Noncontrast 2.5 mm [...] Sorenson RT(R)(CT) CTDI: DLP: Trnscb Date/Time: 07/21/2019 (7939) t.[email or web address] Orig Print D/T: S: 07/21/2019 (2631) PAGE 1 Signed Report [id number] 08:44:00* Test Item Value Reference Range Interpretation Comments GLUBED (test code = GLUBED) 227 mg/dL 74-106 H Performed by certified bath mix operator at [facility] COMPREHENSIVE METABOLIC [id number] 07:53:00* Test Item Value Reference Range Interpretation Comments SODIUM (test code = NA) 138 mmol/L 136-145 N POTASSIUM (test code = K) 4.5 mmol/L 3.5-5.1 N CHLORIDE (test code = CL) 104.0 mmol/L 98-107 N CARBON DIOXIDE (test code = CO2) 27.0 mmol/L 21-32 N ANION GAP (test code = GAP) 11.5 10-20 N GLUCOSE (test code = GLU) 274 mg/dL 74-106 H BLOOD UREA NITROGEN (test code = BUN) 40 mg/dL 7-18 H GLOMERULAR FILTRATION RATE (test code = GFR) 31 mL/min >=60 Estimated GFR by using Modified MDRD formula.Chronic kidney disease is defined as either kidney damageor GFR <60 mL/min/1.73 m2 for >3 months. CREATININE (test code = CREAT) 1.70 mg/dL 0.55-1.02 H Note change in reference range due to change in reagent. BUN/CREATININE RATIO (test code = BUN/CREA) 23.8 10-20 H TOTAL PROTEIN (test code = PROT) 6.6 gram/dL 6.4-8.2 N ALBUMIN (test code = ALB) 3.1 g/dL 3.4-5.0 L GLOBULIN (test code = GLOB) 3.5 gram/dL 2.7-4.2 N ALBUMIN/GLOBULIN RATIO (test code = A/G) 0.9 0.75-1.50 N CALCIUM (test code = CA) 8.5 mg/dL 8.5-10.1 N BILIRUBIN TOTAL (test code = BILT) 0.90 mg/dL 0.0-1.0 N SGOT/AST (test code = AST) 17 IUnit/L 15-37 N SGPT/ALT (test code = ALT) 24 IUnit/L 12-78 N ALKALINE PHOSPHATASE TOTAL (test code = ALKP) 117 IUnit/L 45-117 N Note change in reference range due to change in reagent. COMPREHENSIVE METABOLIC [id number] 07:46:00* Test Item Value Reference Range Interpretation Comments SODIUM (test code = NA) 138 mmol/L 136-145 N POTASSIUM (test code = K) 4.5 mmol/L 3.5-5.1 N CHLORIDE (test code = CL) 104.0 mmol/L 98-107 N CARBON DIOXIDE (test code = CO2) mmol/L 21-32 ANION GAP (test code = GAP) 10-20 GLUCOSE (test code = GLU) mg/dL 74-106 BLOOD UREA NITROGEN (test code = BUN) mg/dL 7-18 GLOMERULAR FILTRATION RATE (test code = GFR) mL/min >=60 CREATININE (test code = CREAT) mg/dL 0.55-1.02 BUN/CREATININE RATIO (test code = BUN/CREA) 10-20 TOTAL PROTEIN (test code = PROT) gram/dL 6.4-8.2 ALBUMIN (test code = ALB) g/dL 3.4-5.0 GLOBULIN (test code = GLOB) gram/dL 2.7-4.2 ALBUMIN/GLOBULIN RATIO (test code = A/G) 0.75-1.50 CALCIUM (test code = CA) mg/dL 8.5-10.1 BILIRUBIN TOTAL (test code = BILT) mg/dL 0.0-1.0 SGOT/AST (test code = AST) IUnit/L 15-37 SGPT/ALT (test code = ALT) IUnit/L 12-78 ALKALINE PHOSPHATASE TOTAL (test code = ALKP) IUnit/L 45-117 ALPHA FETOPROTEIN TUMOR [id number] 03:07:00* Test Item Value Reference Range Interpretation Comments ALPHA FETOPROTEIN TUMOR MARKER (test code = AFPTM) 3.9 ng/mL 0.0 -8.3 [facility] Electrochemiluminescence Immunoassay(ECLIA)Values obtained with different assay methods or kits cannotbe used interchangeably. Results cannot be interpreted asabsolute evidence of the presence or absence of malignantdisease.This test is not interpretable in females.Performed At: [facility] [address] [id number] Sae Romero MD Ph:[phone] [id number] 20:56:00* Test Item Value Reference Range Interpretation Comments GLUBED (test code = GLUBED) 131 mg/dL 74-106 H Performed by certified bath mix operator at [facility] [id number] 18:50:00* Test Item Value Reference Range Interpretation Comments GLUBED (test code = GLUBED) 168 mg/dL 74-106 H Performed by certified bath mix operator at [facility] - US RETRO [id number] 17:08:00 Name: GRETTA MIRANDA [facility] : 1965 Age/S: 54 / F [address] [facility] Unit #: [id number] Loc: [place] [address] Phys: Garret Ramesh MD Acct: [id number] Dis Date: Status: ADM IN PHONE #: [phone] Exam Date: 07/20/2019 1642 FAX #: [phone] Reason: ELLYN EXAMS: CPT CODE: [id number] US RETRO LTD 935[address] REASON FOR EXAM: ELLYN EXAM ORDER DATE: 07/20/2019 12:24 PM Attending MHang: Garret Ramesh MD PROCEDURE: - US RETRO [...] is partially contracted IMPRESSION: Unremarkable kidneys. at 1708 Reported and signed by: Ignacio Acosta M.D. CC: Harvey Chambers Salman A MD Technologist: Rosemarie Mercer RDMS [facility] Date/Time: 07/20/2019 (1708) Promise Orig Print D/T: S: 07/20/2019 (8760) Probe: PAGE 1 Signed Report UR CREATININE [id number] 15:42:00* Test Item Value Reference Range Interpretation Comments UR CREATININE RANDOM (test code = CREATU) < 13.0 mg/dL 30-125 L URINALYSIS [id number] 15:42:00* Test Item Value Reference Range Interpretation Comments UA COLOR (test code = COLU) COLORLESS YELLOW A UA APPEARANCE (test code = APPU) CLEAR CLEAR UA GLUCOSE DIPSTICK (test code = DGLUU) NEGATIVE mg/dL NEGATIVE UA BILIRUBIN DIPSTICK (test code = BILU) NEGATIVE mg/dL NEGATIVE UA KETONE DIPSTICK (test code = KETU) NEGATIVE mg/dL NEGATIVE UA SPECIFIC GRAVITY (test code = SGU) 1.005 1.001-1.035 UA BLOOD DIPSTICK (test code = TUCKER) Negative mg/dL NEGATIVE UA PH DIPSTICK (test code = CLEMENTE) 6.5 5.0-8.0 UA PROTEIN DIPSTICK (test code = PROU) NEGATIVE mg/dL NEGATIVE UA UROBILINIOGEN DIPSTICK (test code = URO) Normal mg/dL NEGATIVE UA NITRITE DIPSTICK (test code = LEANN) NEGATIVE NEGATIVE UA LEUKOCYTE ESTERASE W REFLEX (test code = LEUUR) NEGATIVE Yumiko/uL NEGATIVE UA WBC (test code = WBCU) 0-5 per HPF 0-5 UA RBC (test code = RBCU) NONE SEEN #/HPF 0-5 UA EPITHELIAL CELLS (test code = EPIU) FEW per HPF FEW UA BACTERIA (test code = BACU) NONE SEEN #/HPF NONE Urine Source? Clean CatchUR NA,[id number] 15:42:00* Test Item Value Reference Range Interpretation Comments UR NA,RANDOM (test code = MIO) 57 mmol/L 20-110 N Urine Source? Clean CatchUR PROTEIN/CREATININE [id number] 15:42:00* Test Item Value Reference Range Interpretation Comments UR PROTEIN RANDOM (test code = PROTU) < 5.0 mg/dL 0.0-11.9 N Protein levels may be falsely elevated in patients withelevated level of aminoglycoside antibiotics in CSF and inhighly concentrated urine specimens. If false elevation issuspected, contact lab for alternated testing technique. UR CREATININE RANDOM (test code = CREATU) < 13.0 mg/dL 30-125 L PROTEIN/CREATININE RATIO (test code = P/CRATIO) 0.30 RATIO 0.0-0. 20 H Urine Source? Clean CatchURINALYSIS [id number] 15:40:00* Test Item Value Reference Range Interpretation Comments UA COLOR (test code = COLU) COLORLESS YELLOW A UA APPEARANCE (test code = APPU) CLEAR CLEAR UA GLUCOSE DIPSTICK (test code = DGLUU) NEGATIVE mg/dL NEGATIVE UA BILIRUBIN DIPSTICK (test code = BILU) NEGATIVE mg/dL NEGATIVE UA KETONE DIPSTICK (test code = KETU) NEGATIVE mg/dL NEGATIVE UA SPECIFIC GRAVITY (test code = SGU) 1.005 1.001-1.035 UA BLOOD DIPSTICK (test code = TUCKER) Negative mg/dL NEGATIVE UA PH DIPSTICK (test code = CLEMENTE) 6.5 5.0-8.0 UA PROTEIN DIPSTICK (test code = PROU) NEGATIVE mg/dL NEGATIVE UA UROBILINIOGEN DIPSTICK (test code = URO) Normal mg/dL NEGATIVE UA NITRITE DIPSTICK (test code = LEANN) NEGATIVE NEGATIVE UA LEUKOCYTE ESTERASE W REFLEX (test code = LEUUR) NEGATIVE Yumiko/uL NEGATIVE UA WBC (test code = WBCU) 0-5 per HPF 0-5 UA RBC (test code = RBCU) NONE SEEN #/HPF 0-5 UA EPITHELIAL CELLS (test code = EPIU) FEW per HPF FEW UA BACTERIA (test code = BACU) NONE SEEN #/HPF NONE Urine Source? Clean CatchUR NA,[id number] 15:40:00* Test Item Value Reference Range Interpretation Comments UR NA,RANDOM (test code = MIO) 57 mmol/L 20-110 N Urine Source? Clean CatchUR PROTEIN/CREATININE [id number] 15:40:00* Test Item Value Reference Range Interpretation Comments UR PROTEIN RANDOM (test code = PROTU) mg/dL 0.0-11.9 UR CREATININE RANDOM (test code = CREATU) mg/dL 30-125 PROTEIN/CREATININE RATIO (test code = P/CRATIO) RATIO 0.0-0. 20 Urine Source? Clean CatchURINALYSIS [id number] 15:31:00* Test Item Value Reference Range Interpretation Comments UA COLOR (test code = COLU) COLORLESS YELLOW A UA APPEARANCE (test code = APPU) CLEAR CLEAR UA GLUCOSE DIPSTICK (test code = DGLUU) NEGATIVE mg/dL NEGATIVE UA BILIRUBIN DIPSTICK (test code = BILU) NEGATIVE mg/dL NEGATIVE UA KETONE DIPSTICK (test code = KETU) NEGATIVE mg/dL NEGATIVE UA SPECIFIC GRAVITY (test code = SGU) 1.005 1.001-1.035 UA BLOOD DIPSTICK (test code = TUCKER) Negative mg/dL NEGATIVE UA PH DIPSTICK (test code = CLEMENTE) 6.5 5.0-8.0 UA PROTEIN DIPSTICK (test code = PROU) NEGATIVE mg/dL NEGATIVE UA UROBILINIOGEN DIPSTICK (test code = URO) Normal mg/dL NEGATIVE UA NITRITE DIPSTICK (test code = LEANN) NEGATIVE NEGATIVE UA LEUKOCYTE ESTERASE W REFLEX (test code = LEUUR) NEGATIVE Yumiko/uL NEGATIVE UA WBC (test code = WBCU) 0-5 per HPF 0-5 UA RBC (test code = RBCU) NONE SEEN #/HPF 0-5 UA EPITHELIAL CELLS (test code = EPIU) FEW per HPF FEW UA BACTERIA (test code = BACU) NONE SEEN #/HPF NONE Urine Source? Clean CatchUR NA,[id number] 15:31:00* Test Item Value Reference Range Interpretation Comments UR NA,RANDOM (test code = MIO) mmol/L 20-110 Urine Source? Clean CatchUR PROTEIN/CREATININE [id number] 15:31:00* Test Item Value Reference Range Interpretation Comments UR PROTEIN RANDOM (test code = PROTU) mg/dL 0.0-11.9 UR CREATININE RANDOM (test code = CREATU) mg/dL 30-125 PROTEIN/CREATININE RATIO (test code = P/CRATIO) RATIO 0.0-0. 20 Urine Source? Clean [id number] 15:09:00* Test Item Value Reference Range Interpretation Comments AMMONIA (test code = AMM) 65 umol/L 11-32 H [id number] 12:20:00* Test Item Value Reference Range Interpretation Comments GLUBED (test code = GLUBED) 206 mg/dL 74-106 H Performed by certified bath mix operator at [facility] [id number] 09:02:00* Test Item Value Reference Range Interpretation Comments GLUBED (test code = GLUBED) 171 mg/dL 74-106 H Performed by certified bath mix operator at [facility] [id number] 08:21:00* Test Item Value Reference Range Interpretation Comments GLUBED (test code = GLUBED) 107 mg/dL 74-106 H Performed by certified bath mix operator at [facility] [id number] 08:20:00* Test Item Value Reference Range Interpretation Comments GLUBED (test code = GLUBED) 153 mg/dL 74-106 H Performed by certified bath mix operator at [facility] CBC W/AUTO [id number] 06:32:00* Test Item Value Reference Range Interpretation Comments WHITE BLOOD CELL (test code = WBC) 2.6 K/mm3 4.5-12.5 L RED BLOOD CELL (test code = RBC) 3.02 mill/mm3 3.7-5.2 L HEMOGLOBIN (test code = HGB) 8.8 gram/dL 11.5-15.5 L HEMATOCRIT (test code = HCT) 25.5 % 36.0-46.0 L MEAN CELL VOLUME (test code = MCV) 84.4 fL 80-98 N MEAN CELL HGB (test code = MCH) 29.1 picogram 27.0-33.0 N MEAN CELL HGB CONCETRATION (test code = MCHC) 34.5 gram/dL 33.0-36. 0 N RED CELL DISTRIBUTION WIDTH (test code = RDW) 13.5 % 11.6-16. 2 N RED CELL DISTRIBUTION WIDTH SD (test code = RDW-SD) 41.5 fL 37 .0-51.0 N PLATELET COUNT (test code = PLT) 91 K/mm3 150-450 L MEAN PLATELET VOLUME (test code = MPV) 10.7 fL 6.7-11.0 N NEUTROPHIL % (test code = NT%) 57.4 % 39.0-69.0 N IMMATURE GRANULOCYTE % (test code = IG%) 0.4 % 0.0-5.0 N LYMPHOCYTE % (test code = LY%) 29.3 % 25.0-55.0 N MONOCYTE % (test code = MO%) 9.8 % 0.0-10.0 N EOSINOPHIL % (test code = EO%) 2.3 % 0.0-5.0 N BASOPHIL % (test code = BA%) 0.8 % 0.0-1.0 N NUCLEATED RBC % (test code = NRBC%) 0.0 % 0-0 N NEUTROPHIL # (test code = NT#) 1.47 K/mm3 1.8-7.7 L IMMATURE GRANULOCYTE # (test code = IG#) 0.01 x10 3/uL 0-0.03 N LYMPHOCYTE # (test code = LY#) 0.75 K/mm3 1.0-5.0 L MONOCYTE # (test code = MO#) 0.25 K/mm3 0-0.8 N EOSINOPHIL # (test code = EO#) 0.06 K/mm3 0.0-0.5 N BASOPHIL # (test code = BA#) 0.02 K/mm3 0.0-0.2 N NUCLEATED RBC # (test code = NRBC#) 0.00 K/mm3 0.0-0.1 N MANUAL DIFF REQUIRED (test code = MDIFF) NO, ONLY SCAN NEEDED DIFFERENTIAL [id number] 06:32:00* Test Item Value Reference Range Interpretation Comments STAIN ACCEPTABILITY (test code = STN ACCEPTABLE) STAIN ACCEPTABLE ANISOCYTOSIS (test code = ANISO) 1+ MICROCYTOSIS (test code = MICR) 1+ PLATELET ESTIMATE (test code = PLTEST) DECREASED PLATELET MORPHOLOGY (test code = PLTMORPH) NORMAL CBC W/AUTO [id number] 05:25:00* Test Item Value Reference Range Interpretation Comments WHITE BLOOD CELL (test code = WBC) 2.6 K/mm3 4.5-12.5 L RED BLOOD CELL (test code = RBC) 3.02 mill/mm3 3.7-5.2 L HEMOGLOBIN (test code = HGB) 8.8 gram/dL 11.5-15.5 L HEMATOCRIT (test code = HCT) 25.5 % 36.0-46.0 L MEAN CELL VOLUME (test code = MCV) 84.4 fL 80-98 N MEAN CELL HGB (test code = MCH) 29.1 picogram 27.0-33.0 N MEAN CELL HGB CONCETRATION (test code = MCHC) 34.5 gram/dL 33.0-36. 0 N RED CELL DISTRIBUTION WIDTH (test code = RDW) 13.5 % 11.6-16. 2 N RED CELL DISTRIBUTION WIDTH SD (test code = RDW-SD) 41.5 fL 37 .0-51.0 N PLATELET COUNT (test code = PLT) 91 K/mm3 150-450 L MEAN PLATELET VOLUME (test code = MPV) 10.7 fL 6.7-11.0 N NEUTROPHIL % (test code = NT%) 57.4 % 39.0-69.0 N IMMATURE GRANULOCYTE % (test code = IG%) 0.4 % 0.0-5.0 N LYMPHOCYTE % (test code = LY%) 29.3 % 25.0-55.0 N MONOCYTE % (test code = MO%) 9.8 % 0.0-10.0 N EOSINOPHIL % (test code = EO%) 2.3 % 0.0-5.0 N BASOPHIL % (test code = BA%) 0.8 % 0.0-1.0 N NUCLEATED RBC % (test code = NRBC%) 0.0 % 0-0 N NEUTROPHIL # (test code = NT#) 1.47 K/mm3 1.8-7.7 L IMMATURE GRANULOCYTE # (test code = IG#) 0.01 x10 3/uL 0-0.03 N LYMPHOCYTE # (test code = LY#) 0.75 K/mm3 1.0-5.0 L MONOCYTE # (test code = MO#) 0.25 K/mm3 0-0.8 N EOSINOPHIL # (test code = EO#) 0.06 K/mm3 0.0-0.5 N BASOPHIL # (test code = BA#) 0.02 K/mm3 0.0-0.2 N NUCLEATED RBC # (test code = NRBC#) 0.00 K/mm3 0.0-0.1 N MANUAL DIFF REQUIRED (test code = MDIFF) NO, ONLY SCAN NEEDED DIFFERENTIAL [id number] 05:25:00* Test Item Value Reference Range Interpretation Comments STAIN ACCEPTABILITY (test code = STN ACCEPTABLE) CABOT RINGS (test code = CAB) MORPHOLOGY COMMENT (test code = MOC) PLATELET ESTIMATE (test code = PLTEST) PLATELET MORPHOLOGY (test code = PLTMORPH) CBC W/AUTO [id number] 05:25:00* Test Item Value Reference Range Interpretation Comments WHITE BLOOD CELL (test code = WBC) 2.6 K/mm3 4.5-12.5 L RED BLOOD CELL (test code = RBC) 3.02 mill/mm3 3.7-5.2 L HEMOGLOBIN (test code = HGB) 8.8 gram/dL 11.5-15.5 L HEMATOCRIT (test code = HCT) 25.5 % 36.0-46.0 L MEAN CELL VOLUME (test code = MCV) 84.4 fL 80-98 N MEAN CELL HGB (test code = MCH) 29.1 picogram 27.0-33.0 N MEAN CELL HGB CONCETRATION (test code = MCHC) 34.5 gram/dL 33.0-36. 0 N RED CELL DISTRIBUTION WIDTH (test code = RDW) 13.5 % 11.6-16. 2 N RED CELL DISTRIBUTION WIDTH SD (test code = RDW-SD) 41.5 fL 37 .0-51.0 N PLATELET COUNT (test code = PLT) 91 K/mm3 150-450 L MEAN PLATELET VOLUME (test code = MPV) 10.7 fL 6.7-11.0 N NEUTROPHIL % (test code = NT%) 57.4 % 39.0-69.0 N IMMATURE GRANULOCYTE % (test code = IG%) 0.4 % 0.0-5.0 N LYMPHOCYTE % (test code = LY%) 29.3 % 25.0-55.0 N MONOCYTE % (test code = MO%) 9.8 % 0.0-10.0 N EOSINOPHIL % (test code = EO%) 2.3 % 0.0-5.0 N BASOPHIL % (test code = BA%) 0.8 % 0.0-1.0 N NUCLEATED RBC % (test code = NRBC%) 0.0 % 0-0 N NEUTROPHIL # (test code = NT#) 1.47 K/mm3 1.8-7.7 L IMMATURE GRANULOCYTE # (test code = IG#) 0.01 x10 3/uL 0-0.03 N LYMPHOCYTE # (test code = LY#) 0.75 K/mm3 1.0-5.0 L MONOCYTE # (test code = MO#) 0.25 K/mm3 0-0.8 N EOSINOPHIL # (test code = EO#) 0.06 K/mm3 0.0-0.5 N BASOPHIL # (test code = BA#) 0.02 K/mm3 0.0-0.2 N NUCLEATED RBC # (test code = NRBC#) 0.00 K/mm3 0.0-0.1 N MANUAL DIFF REQUIRED (test code = MDIFF) NO, ONLY SCAN NEEDED DIFFERENTIAL [id number] 05:25:00* Test Item Value Reference Range Interpretation Comments STAIN ACCEPTABILITY (test code = STN ACCEPTABLE) CABOT RINGS (test code = CAB) MORPHOLOGY COMMENT (test code = MOC) PLATELET ESTIMATE (test code = PLTEST) PLATELET MORPHOLOGY (test code = PLTMORPH) CBC W/AUTO [id number] 05:25:00* Test Item Value Reference Range Interpretation Comments WHITE BLOOD CELL (test code = WBC) 2.6 K/mm3 4.5-12.5 L RED BLOOD CELL (test code = RBC) 3.02 mill/mm3 3.7-5.2 L HEMOGLOBIN (test code = HGB) 8.8 gram/dL 11.5-15.5 L HEMATOCRIT (test code = HCT) 25.5 % 36.0-46.0 L MEAN CELL VOLUME (test code = MCV) 84.4 fL 80-98 N MEAN CELL HGB (test code = MCH) 29.1 picogram 27.0-33.0 N MEAN CELL HGB CONCETRATION (test code = MCHC) 34.5 gram/dL 33.0-36. 0 N RED CELL DISTRIBUTION WIDTH (test code = RDW) 13.5 % 11.6-16. 2 N RED CELL DISTRIBUTION WIDTH SD (test code = RDW-SD) 41.5 fL 37 .0-51.0 N PLATELET COUNT (test code = PLT) 91 K/mm3 150-450 L MEAN PLATELET VOLUME (test code = MPV) 10.7 fL 6.7-11.0 N NEUTROPHIL % (test code = NT%) 57.4 % 39.0-69.0 N IMMATURE GRANULOCYTE % (test code = IG%) 0.4 % 0.0-5.0 N LYMPHOCYTE % (test code = LY%) 29.3 % 25.0-55.0 N MONOCYTE % (test code = MO%) 9.8 % 0.0-10.0 N EOSINOPHIL % (test code = EO%) 2.3 % 0.0-5.0 N BASOPHIL % (test code = BA%) 0.8 % 0.0-1.0 N NUCLEATED RBC % (test code = NRBC%) 0.0 % 0-0 N NEUTROPHIL # (test code = NT#) 1.47 K/mm3 1.8-7.7 L IMMATURE GRANULOCYTE # (test code = IG#) 0.01 x10 3/uL 0-0.03 N LYMPHOCYTE # (test code = LY#) 0.75 K/mm3 1.0-5.0 L MONOCYTE # (test code = MO#) 0.25 K/mm3 0-0.8 N EOSINOPHIL # (test code = EO#) 0.06 K/mm3 0.0-0.5 N BASOPHIL # (test code = BA#) 0.02 K/mm3 0.0-0.2 N NUCLEATED RBC # (test code = NRBC#) 0.00 K/mm3 0.0-0.1 N MANUAL DIFF REQUIRED (test code = MDIFF) NO, ONLY SCAN NEEDED DIFFERENTIAL [id number] 05:25:00* Test Item Value Reference Range Interpretation Comments STAIN ACCEPTABILITY (test code = STN ACCEPTABLE) MORPHOLOGY COMMENT (test code = MOC) PLATELET ESTIMATE (test code = PLTEST) PLATELET MORPHOLOGY (test code = PLTMORPH) CBC W/AUTO [id number] 05:25:00* Test Item Value Reference Range Interpretation Comments WHITE BLOOD CELL (test code = WBC) 2.6 K/mm3 4.5-12.5 L RED BLOOD CELL (test code = RBC) 3.02 mill/mm3 3.7-5.2 L HEMOGLOBIN (test code = HGB) 8.8 gram/dL 11.5-15.5 L HEMATOCRIT (test code = HCT) 25.5 % 36.0-46.0 L MEAN CELL VOLUME (test code = MCV) 84.4 fL 80-98 N MEAN CELL HGB (test code = MCH) 29.1 picogram 27.0-33.0 N MEAN CELL HGB CONCETRATION (test code = MCHC) 34.5 gram/dL 33.0-36. 0 N RED CELL DISTRIBUTION WIDTH (test code = RDW) 13.5 % 11.6-16. 2 N RED CELL DISTRIBUTION WIDTH SD (test code = RDW-SD) 41.5 fL 37 .0-51.0 N PLATELET COUNT (test code = PLT) 91 K/mm3 150-450 L MEAN PLATELET VOLUME (test code = MPV) 10.7 fL 6.7-11.0 N NEUTROPHIL % (test code = NT%) 57.4 % 39.0-69.0 N IMMATURE GRANULOCYTE % (test code = IG%) 0.4 % 0.0-5.0 N LYMPHOCYTE % (test code = LY%) 29.3 % 25.0-55.0 N MONOCYTE % (test code = MO%) 9.8 % 0.0-10.0 N EOSINOPHIL % (test code = EO%) 2.3 % 0.0-5.0 N BASOPHIL % (test code = BA%) 0.8 % 0.0-1.0 N NUCLEATED RBC % (test code = NRBC%) 0.0 % 0-0 N NEUTROPHIL # (test code = NT#) 1.47 K/mm3 1.8-7.7 L IMMATURE GRANULOCYTE # (test code = IG#) 0.01 x10 3/uL 0-0.03 N LYMPHOCYTE # (test code = LY#) 0.75 K/mm3 1.0-5.0 L MONOCYTE # (test code = MO#) 0.25 K/mm3 0-0.8 N EOSINOPHIL # (test code = EO#) 0.06 K/mm3 0.0-0.5 N BASOPHIL # (test code = BA#) 0.02 K/mm3 0.0-0.2 N NUCLEATED RBC # (test code = NRBC#) 0.00 K/mm3 0.0-0.1 N MANUAL DIFF REQUIRED (test code = MDIFF) NO, ONLY SCAN NEEDED DIFFERENTIAL [id number] 05:25:00* Test Item Value Reference Range Interpretation Comments STAIN ACCEPTABILITY (test code = STN ACCEPTABLE) CABOT RINGS (test code = CAB) MORPHOLOGY COMMENT (test code = MOC) PLATELET ESTIMATE (test code = PLTEST) PLATELET MORPHOLOGY (test code = PLTMORPH) [id number] 20:19:00* Test Item Value Reference Range Interpretation Comments GLUBED (test code = GLUBED) 235 mg/dL 74-106 H Performed by certified bath mix operator at [facility] COMPREHENSIVE METABOLIC [id number] 20:17:00* Test Item Value Reference Range Interpretation Comments SODIUM (test code = NA) 134 mmol/L 136-145 L POTASSIUM (test code = K) 4.7 mmol/L 3.5-5.1 N CHLORIDE (test code = CL) 102.0 mmol/L 98-107 N CARBON DIOXIDE (test code = CO2) 23.0 mmol/L 21-32 N ANION GAP (test code = GAP) 13.7 10-20 N GLUCOSE (test code = GLU) 246 mg/dL 74-106 H BLOOD UREA NITROGEN (test code = BUN) 52 mg/dL 7-18 H GLOMERULAR FILTRATION RATE (test code = GFR) 23 mL/min >=60 Estimated GFR by using Modified MDRD formula.Chronic kidney disease is defined as either kidney damageor GFR <60 mL/min/1.73 m2 for >3 months. CREATININE (test code = CREAT) 2.20 mg/dL 0.55-1.02 H Note change in reference range due to change in reagent. BUN/CREATININE RATIO (test code = BUN/CREA) 23.9 10-20 H TOTAL PROTEIN (test code = PROT) 7.0 gram/dL 6.4-8.2 N ALBUMIN (test code = ALB) 2.9 g/dL 3.4-5.0 L GLOBULIN (test code = GLOB) 4.1 gram/dL 2.7-4.2 N ALBUMIN/GLOBULIN RATIO (test code = A/G) 0.7 0.75-1.50 L CALCIUM (test code = CA) 8.8 mg/dL 8.5-10.1 N BILIRUBIN TOTAL (test code = BILT) 1.00 mg/dL 0.0-1.0 N SGOT/AST (test code = AST) 15 IUnit/L 15-37 N SGPT/ALT (test code = ALT) 21 IUnit/L 12-78 N ALKALINE PHOSPHATASE TOTAL (test code = ALKP) 98 IUnit/L 45-117 N Note change in reference range due to change in reagent. COMPREHENSIVE METABOLIC [id number] 20:10:00* Test Item Value Reference Range Interpretation Comments SODIUM (test code = NA) 134 mmol/L 136-145 L POTASSIUM (test code = K) 4.7 mmol/L 3.5-5.1 N CHLORIDE (test code = CL) 102.0 mmol/L 98-107 N CARBON DIOXIDE (test code = CO2) mmol/L 21-32 ANION GAP (test code = GAP) 10-20 GLUCOSE (test code = GLU) mg/dL 74-106 BLOOD UREA NITROGEN (test code = BUN) mg/dL 7-18 GLOMERULAR FILTRATION RATE (test code = GFR) mL/min >=60 CREATININE (test code = CREAT) mg/dL 0.55-1.02 BUN/CREATININE RATIO (test code = BUN/CREA) 10-20 TOTAL PROTEIN (test code = PROT) gram/dL 6.4-8.2 ALBUMIN (test code = ALB) g/dL 3.4-5.0 GLOBULIN (test code = GLOB) gram/dL 2.7-4.2 ALBUMIN/GLOBULIN RATIO (test code = A/G) 0.75-1.50 CALCIUM (test code = CA) mg/dL 8.5-10.1 BILIRUBIN TOTAL (test code = BILT) mg/dL 0.0-1.0 SGOT/AST (test code = AST) IUnit/L 15-37 SGPT/ALT (test code = ALT) IUnit/L 12-78 ALKALINE PHOSPHATASE TOTAL (test code = ALKP) IUnit/L 45-117 [id number] 19:22:00* Test Item Value Reference Range Interpretation Comments GLUBED (test code = GLUBED) 178 mg/dL 74-106 H Performed by certified bath mix operator at [facility] [id number] 19:22:00* Test Item Value Reference Range Interpretation Comments GLUBED (test code = GLUBED) 116 mg/dL 74-106 H Performed by certified bath mix operator at [facility] [id number] 13:01:00* Test Item Value Reference Range Interpretation Comments GLUBED (test code = GLUBED) 218 mg/dL 74-106 H Performed by certified bath mix operator at [facility] [id number] 16:20:00* Test Item Value Reference Range Interpretation Comments GLUBED (test code = GLUBED) 157 mg/dL 74-106 H Performed by certified bath mix operator at [facility] [id number] 16:14:00* Test Item Value Reference Range Interpretation Comments GLUBED (test code = GLUBED) 90 mg/dL 74-106 N Performed by certified bath mix operator at [facility] [id number] 10:25:00* Test Item Value Reference Range Interpretation Comments GLUBED (test code = GLUBED) 219 mg/dL 74-106 H Performed by certified bath mix operator at [facility] [id number] 10:25:00* Test Item Value Reference Range Interpretation Comments GLUBED (test code = GLUBED) 186 mg/dL 74-106 H Performed by certified bath mix operator at [facility] [id number] 10:24:00* Test Item Value Reference Range Interpretation Comments GLUBED (test code = GLUBED) 154 mg/dL 74-106 H Performed by certified bath mix operator at [facility] [id number] 10:23:00* Test Item Value Reference Range Interpretation Comments GLUBED (test code = GLUBED) 176 mg/dL 74-106 H Performed by certified bath mix operator at [facility] [id number] 10:22:00* Test Item Value Reference Range Interpretation Comments GLUBED (test code = GLUBED) 141 mg/dL 74-106 H Performed by certified bath mix operator at [facility] [id number] 10:21:00* Test Item Value Reference Range Interpretation Comments GLUBED (test code = GLUBED) 145 mg/dL 74-106 H Performed by certified bath mix operator at [facility] [id number] 10:20:00* Test Item Value Reference Range Interpretation Comments GLUBED (test code = GLUBED) 157 mg/dL 74-106 H Performed by certified bath mix operator at [facility] [id number] 10:19:00* Test Item Value Reference Range Interpretation Comments GLUBED (test code = GLUBED) 200 mg/dL 74-106 H Performed by certified bath mix operator at [facility] [id number] 10:18:00* Test Item Value Reference Range Interpretation Comments GLUBED (test code = GLUBED) 253 mg/dL 74-106 H Performed by certified bath mix operator at [facility] [id number] 10:17:00* Test Item Value Reference Range Interpretation Comments GLUBED (test code = GLUBED) 224 mg/dL 74-106 H Performed by certified bath mix operator at [facility] [id number] 10:16:00* Test Item Value Reference Range Interpretation Comments GLUBED (test code = GLUBED) 193 mg/dL 74-106 H Performed by certified bath mix operator at [facility] [id number] 10:16:00* Test Item Value Reference Range Interpretation Comments GLUBED (test code = GLUBED) 155 mg/dL 74-106 H Performed by certified bath mix operator at [facility] [id number] 10:15:00* Test Item Value Reference Range Interpretation Comments GLUBED (test code = GLUBED) 142 mg/dL 74-106 H Performed by certified bath mix operator at [facility] BASIC METABOLIC [id number] 05:54:00* Test Item Value Reference Range Interpretation Comments SODIUM (test code = NA) 133 mmol/L 136-145 L POTASSIUM (test code = K) 4.1 mmol/L 3.5-5.1 N CHLORIDE (test code = CL) 99.0 mmol/L 98-107 N CARBON DIOXIDE (test code = CO2) 25.0 mmol/L 21-32 N ANION GAP (test code = GAP) 13.1 10-20 N GLUCOSE (test code = GLU) 212 mg/dL 74-106 H BLOOD UREA NITROGEN (test code = BUN) 37 mg/dL 7-18 H GLOMERULAR FILTRATION RATE (test code = GFR) 29 mL/min >=60 Estimated GFR by using Modified MDRD formula.Chronic kidney disease is defined as either kidney damageor GFR <60 mL/min/1.73 m2 for >3 months. CREATININE (test code = CREAT) 1.80 mg/dL 0.55-1.02 H Note change in reference range due to change in reagent. BUN/CREATININE RATIO (test code = BUN/CREA) 20.6 10-20 H CALCIUM (test code = CA) 7.7 mg/dL 8.5-10.1 L BASIC METABOLIC [id number] 05:45:00* Test Item Value Reference Range Interpretation Comments SODIUM (test code = NA) 133 mmol/L 136-145 L POTASSIUM (test code = K) 4.1 mmol/L 3.5-5.1 N CHLORIDE (test code = CL) 99.0 mmol/L 98-107 N CARBON DIOXIDE (test code = CO2) mmol/L 21-32 ANION GAP (test code = GAP) 10-20 GLUCOSE (test code = GLU) mg/dL 74-106 BLOOD UREA NITROGEN (test code = BUN) mg/dL 7-18 GLOMERULAR FILTRATION RATE (test code = GFR) mL/min >=60 CREATININE (test code = CREAT) mg/dL 0.55-1.02 BUN/CREATININE RATIO (test code = BUN/CREA) 10-20 CALCIUM (test code = CA) mg/dL 8.5-10.1 CBC W/AUTO [id number] 05:43:00* Test Item Value Reference Range Interpretation Comments WHITE BLOOD CELL (test code = WBC) 4.8 K/mm3 4.5-12.5 N RED BLOOD CELL (test code = RBC) 3.40 mill/mm3 3.7-5.2 L HEMOGLOBIN (test code = HGB) 9.9 gram/dL 11.5-15.5 L RESULT VERIFIED BY REPEAT ANALYSIS HEMATOCRIT (test code = HCT) 28.4 % 36.0-46.0 L MEAN CELL VOLUME (test code = MCV) 83.5 fL 80-98 N MEAN CELL HGB (test code = MCH) 29.1 picogram 27.0-33.0 N MEAN CELL HGB CONCETRATION (test code = MCHC) 34.9 gram/dL 33.0-36. 0 N RED CELL DISTRIBUTION WIDTH (test code = RDW) 13.4 % 11.6-16. 2 N RED CELL DISTRIBUTION WIDTH SD (test code = RDW-SD) 40.9 fL 37 .0-51.0 N PLATELET COUNT (test code = PLT) 79 K/mm3 150-450 L MEAN PLATELET VOLUME (test code = MPV) 10.5 fL 6.7-11.0 N NEUTROPHIL % (test code = NT%) 61.6 % 39.0-69.0 N IMMATURE GRANULOCYTE % (test code = IG%) 0.2 % 0.0-5.0 N LYMPHOCYTE % (test code = LY%) 26.2 % 25.0-55.0 N MONOCYTE % (test code = MO%) 9.3 % 0.0-10.0 N EOSINOPHIL % (test code = EO%) 2.3 % 0.0-5.0 N BASOPHIL % (test code = BA%) 0.4 % 0.0-1.0 N NUCLEATED RBC % (test code = NRBC%) 0.0 % 0-0 N NEUTROPHIL # (test code = NT#) 2.98 K/mm3 1.8-7.7 N IMMATURE GRANULOCYTE # (test code = IG#) 0.01 x10 3/uL 0-0.03 N LYMPHOCYTE # (test code = LY#) 1.27 K/mm3 1.0-5.0 N MONOCYTE # (test code = MO#) 0.45 K/mm3 0-0.8 N EOSINOPHIL # (test code = EO#) 0.11 K/mm3 0.0-0.5 N BASOPHIL # (test code = BA#) 0.02 K/mm3 0.0-0.2 N NUCLEATED RBC # (test code = NRBC#) 0.00 K/mm3 0.0-0.1 N MANUAL DIFF REQUIRED (test code = MDIFF) NO PROCALCITONIN (PCT)2019-07-14 18:18:00* Test Item Value Reference Range Interpretation Comments PROCALCITONIN (PCT) (test code = PROCAL) 0.48 ng/ml Concentration Interpretation (ng/mL) <0.51 Sepsis [...] taking into account the patients history. LACTIC [id number] 17:58:00* Test Item Value Reference Range Interpretation Comments LACTIC ACID (test code = LACT) 1.7 mmol/L 0.4-1.9 N B-TYPE NATRIURETIC [id number] 17:00:00* Test Item Value Reference Range Interpretation Comments B-TYPE NATRIURETIC PEPTIDE (test code = BNP) 49.82 pgram/mL 0-100 N BASIC METABOLIC [id number] 16:56:00* Test Item Value Reference Range Interpretation Comments SODIUM (test code = NA) 135 mmol/L 136-145 L POTASSIUM (test code = K) 4.6 mmol/L 3.5-5.1 N CHLORIDE (test code = CL) 104.0 mmol/L 98-107 N CARBON DIOXIDE (test code = CO2) 20.0 mmol/L 21-32 L ANION GAP (test code = GAP) 15.6 10-20 N GLUCOSE (test code = GLU) 221 mg/dL 74-106 H BLOOD UREA NITROGEN (test code = BUN) 35 mg/dL 7-18 H GLOMERULAR FILTRATION RATE (test code = GFR) 31 mL/min >=60 Estimated GFR by using Modified MDRD formula.Chronic kidney disease is defined as either kidney damageor GFR <60 mL/min/1.73 m2 for >3 months. CREATININE (test code = CREAT) 1.70 mg/dL 0.55-1.02 H Note change in reference range due to change in reagent. BUN/CREATININE RATIO (test code = BUN/CREA) 20.6 10-20 H CALCIUM (test code = CA) 9.5 mg/dL 8.5-10.1 N HEPATIC FUNCTION [id number] 16:56:00* Test Item Value Reference Range Interpretation Comments TOTAL PROTEIN (test code = PROT) 8.4 gram/dL 6.4-8.2 H ALBUMIN (test code = ALB) 3.4 g/dL 3.4-5.0 N GLOBULIN (test code = GLOB) 5.0 gram/dL 2.7-4.2 H ALBUMIN/GLOBULIN RATIO (test code = A/G) 0.7 0.75-1.50 L BILIRUBIN TOTAL (test code = BILT) 1.90 mg/dL 0.0-1.0 H BILIRUBIN DIRECT (test code = BILD) 0.38 mg/dL 0.0-0.20 H SGOT/AST (test code = AST) 26 IUnit/L 15-37 N SGPT/ALT (test code = ALT) 33 IUnit/L 12-78 N ALKALINE PHOSPHATASE TOTAL (test code = ALKP) 138 IUnit/L 45-117 H Note change in reference range due to change in reagent. [id number] 16:56:00* Test Item Value Reference Range Interpretation Comments LIPASE (test code = LIP) 130 U/L 73.0-393.0 N [id number] 16:56:00* Test Item Value Reference Range Interpretation Comments MAGNESIUM (test code = MAG) 2.1 mg/dL 1.8-2.4 N [id number] 16:56:00* Test Item Value Reference Range Interpretation Comments TROPONIN-I (test code = TROPI) <0.015 ng/mL 0-0.045 N BASIC METABOLIC [id number] 16:47:00* Test Item Value Reference Range Interpretation Comments SODIUM (test code = NA) 135 mmol/L 136-145 L POTASSIUM (test code = K) 4.6 mmol/L 3.5-5.1 N CHLORIDE (test code = CL) 104.0 mmol/L 98-107 N CARBON DIOXIDE (test code = CO2) mmol/L 21-32 ANION GAP (test code = GAP) 10-20 GLUCOSE (test code = GLU) mg/dL 74-106 BLOOD UREA NITROGEN (test code = BUN) mg/dL 7-18 GLOMERULAR FILTRATION RATE (test code = GFR) mL/min >=60 CREATININE (test code = CREAT) mg/dL 0.55-1.02 BUN/CREATININE RATIO (test code = BUN/CREA) 10-20 CALCIUM (test code = CA) mg/dL 8.5-10.1 HEPATIC FUNCTION [id number] 16:47:00* Test Item Value Reference Range Interpretation Comments TOTAL PROTEIN (test code = PROT) gram/dL 6.4-8.2 ALBUMIN (test code = ALB) g/dL 3.4-5.0 GLOBULIN (test code = GLOB) gram/dL 2.7-4.2 ALBUMIN/GLOBULIN RATIO (test code = A/G) 0.75-1.50 BILIRUBIN TOTAL (test code = BILT) mg/dL 0.0-1.0 BILIRUBIN DIRECT (test code = BILD) mg/dL 0.0-0.20 SGOT/AST (test code = AST) IUnit/L 15-37 SGPT/ALT (test code = ALT) IUnit/L 12-78 ALKALINE PHOSPHATASE TOTAL (test code = ALKP) IUnit/L 45-117 [id number] 16:47:00* Test Item Value Reference Range Interpretation Comments LIPASE (test code = LIP) U/L 73.0-393.0 [id number] 16:47:00* Test Item Value Reference Range Interpretation Comments MAGNESIUM (test code = MAG) mg/dL 1.8-2.4 [id number] 16:47:00* Test Item Value Reference Range Interpretation Comments TROPONIN-I (test code = TROPI) ng/mL 0-0.045 - XR CHEST 1 [id number] 16:45:00 FAX: Harvey Thapa MD [phone] [place]: St: [facility] FAX: Joyce Jacobo MD [phone] Name: GRETTA MIRANDA [facility] : 1965 Age/S: 54/F [address] [facility] Unit #: [id number] Loc: [place] [address] Phys: Joyce Jacobo MD Acct: [id number] Dis Date: Status: REG ER PHONE #: [phone] Exam Date: 07/14/2019 1620 FAX #: [phone] Reason: CHEST PAIN EXAMS: CPT CODE: [id number] XR CHEST 1 V [id number] REASON FOR EXAM: CHEST PAIN Exam Order Date: 07/14/2019 3:57 PM Ordering M.DJohanna: Joyce Jacobo MD PROCEDURE: - XR CHEST [...] by Harsh Cifuentes MD on 10/2019 at 1645 Reported and signed by: Harsh Cifuentes MD CC: Harvey Chambers; Joyce Jacobo MD Technolog ist: RT [place](R) Trnscrd Date/Time/By : 07/14/2019 (3067) : By: [email or web address] Orig Print D/T: S: 07/14/2019 (014 4) PAGE 1 Signed Report PROTHROMBIN [id number] 16:39:00* Test Item Value Reference Range Interpretation Comments PROTHROMBIN TIME PATIENT (test code = PTP) 12.8 seconds 9.0-14.0 N INTERNATIONAL NORMAL RATIO (test code = INR) 1.1 0.8-1.2 N The therapeutic range for oral anticoagulant therapy [...] (2.5-3.5) IS PATIENT ON ANTICOAGULANTS? NTHROMBOPLASTIN TIME [id number] 16:39:00* Test Item Value Reference Range Interpretation Comments THROMBOPLASTIN TIME PARTIAL (test code = PTT) 29.9 seconds 25.0-36. 5 N IS PATIENT ON ANTICOAGULANTS? NCBC W/O [id number] 16:28:00* Test Item Value Reference Range Interpretation Comments WHITE BLOOD CELL (test code = WBC) 9.5 K/mm3 4.5-12.5 N RED BLOOD CELL (test code = RBC) 4.38 mill/mm3 3.7-5.2 N HEMOGLOBIN (test code = HGB) 13.1 gram/dL 11.5-15.5 N HEMATOCRIT (test code = HCT) 39.9 % 36.0-46.0 N MEAN CELL VOLUME (test code = MCV) 89.7 fL 80-98 N MEAN CELL HGB (test code = MCH) 29.2 picogram 27.0-33.0 N MEAN CELL HGB CONCETRATION (test code = MCHC) 32.6 gram/dL 33.0-36. 0 L RED CELL DISTRIBUTION WIDTH (test code = RDW) 13.7 % 11.6-16. 2 N PLATELET COUNT (test code = PLT) 104 K/mm3 150-450 L MEAN PLATELET VOLUME (test code = MPV) 9.8 fL 6.7-11.0 N CBC W/O [id number] 16:25:00* Test Item Value Reference Range Interpretation Comments WHITE BLOOD CELL (test code = WBC) K/mm3 4.5-12.5 RED BLOOD CELL (test code = RBC) mill/mm3 3.7-5.2 HEMOGLOBIN (test code = HGB) 13.1 gram/dL 11.5-15.5 N HEMATOCRIT (test code = HCT) 39.9 % 36.0-46.0 N MEAN CELL VOLUME (test code = MCV) fL 80-98 MEAN CELL HGB (test code = MCH) picogram 27.0-33.0 MEAN CELL HGB CONCETRATION (test code = MCHC) gram/dL 33.0-36. 0 RED CELL DISTRIBUTION WIDTH (test code = RDW) % 11.6-16. 2 PLATELET COUNT (test code = PLT) K/mm3 150-450 MEAN PLATELET VOLUME (test code = MPV) fL 6.7-11.0 [id number] 12:50:00* Test Item Value Reference Range Interpretation Comments GLUBED (test code = GLUBED) 149 mg/dL 74-106 H Performed by certified bath mix operator at [facility] [id number] 12:50:00* Test Item Value Reference Range Interpretation Comments GLUBED (test code = GLUBED) 218 mg/dL 74-106 H Performed by certified bath mix operator at [facility] [id number] 12:50:00* Test Item Value Reference Range Interpretation Comments GLUBED (test code = GLUBED) 144 mg/dL 74-106 H Performed by certified bath mix operator at [facility] [id number] 12:29:00* Test Item Value Reference Range Interpretation Comments GLUBED (test code = GLUBED) 205 mg/dL 74-106 H Performed by certified bath mix operator at [facility] [id number] 12:27:00* Test Item Value Reference Range Interpretation Comments GLUBED (test code = GLUBED) 145 mg/dL 74-106 H Performed by certified bath mix operator at [facility] [id number] 14:40:00* Test Item Value Reference Range Interpretation Comments GLUBED (test code = GLUBED) 125 mg/dL 74-106 H Performed by certified bath mix operator at [facility] [id number] 14:39:00* Test Item Value Reference Range Interpretation Comments GLUBED (test code = GLUBED) 93 mg/dL 74-106 N Performed by certified bath mix operator at [facility] [id number] 14:39:00* Test Item Value Reference Range Interpretation Comments GLUBED (test code = GLUBED) 129 mg/dL 74-106 H Performed by certified bath mix operator at [facility] [id number] 10:37:00* Test Item Value Reference Range Interpretation Comments GLUBED (test code = GLUBED) 124 mg/dL 74-106 H Performed by certified bath mix operator at [facility] [id number] 10:37:00* Test Item Value Reference Range Interpretation Comments GLUBED (test code = GLUBED) 239 mg/dL 74-106 H Performed by certified bath mix operator at [facility] [id number] 10:37:00* Test Item Value Reference Range Interpretation Comments GLUBED (test code = GLUBED) 151 mg/dL 74-106 H Performed by certified bath mix operator at [facility] [id number] 10:29:00* Test Item Value Reference Range Interpretation Comments GLUBED (test code = GLUBED) 186 mg/dL 74-106 H Performed by certified bath mix operator at [facility] CBC W/AUTO [id number] 06:34:00* Test Item Value Reference Range Interpretation Comments WHITE BLOOD CELL (test code = WBC) 2.5 K/mm3 4.5-12.5 L RED BLOOD CELL (test code = RBC) 2.99 mill/mm3 3.7-5.2 L HEMOGLOBIN (test code = HGB) 8.1 gram/dL 11.5-15.5 L HEMATOCRIT (test code = HCT) 26.1 % 36.0-46.0 L MEAN CELL VOLUME (test code = MCV) 87.3 fL 80-98 N MEAN CELL HGB (test code = MCH) 27.1 picogram 27.0-33.0 N MEAN CELL HGB CONCETRATION (test code = MCHC) 31.0 gram/dL 33.0-36. 0 L RED CELL DISTRIBUTION WIDTH (test code = RDW) 14.6 % 11.6-16. 2 N RED CELL DISTRIBUTION WIDTH SD (test code = RDW-SD) 45.7 fL 37 .0-51.0 N PLATELET COUNT (test code = PLT) 90 K/mm3 150-450 L MEAN PLATELET VOLUME (test code = MPV) 10.7 fL 6.7-11.0 N NEUTROPHIL % (test code = NT%) 50.5 % 39.0-69.0 N IMMATURE GRANULOCYTE % (test code = IG%) 0.0 % 0.0-5.0 N LYMPHOCYTE % (test code = LY%) 36.0 % 25.0-55.0 N MONOCYTE % (test code = MO%) 9.9 % 0.0-10.0 N EOSINOPHIL % (test code = EO%) 2.8 % 0.0-5.0 N BASOPHIL % (test code = BA%) 0.8 % 0.0-1.0 N NUCLEATED RBC % (test code = NRBC%) 0.0 % 0-0 N NEUTROPHIL # (test code = NT#) 1.28 K/mm3 1.8-7.7 L IMMATURE GRANULOCYTE # (test code = IG#) 0.00 x10 3/uL 0-0.03 N LYMPHOCYTE # (test code = LY#) 0.91 K/mm3 1.0-5.0 L MONOCYTE # (test code = MO#) 0.25 K/mm3 0-0.8 N EOSINOPHIL # (test code = EO#) 0.07 K/mm3 0.0-0.5 N BASOPHIL # (test code = BA#) 0.02 K/mm3 0.0-0.2 N NUCLEATED RBC # (test code = NRBC#) 0.00 K/mm3 0.0-0.1 N MANUAL DIFF REQUIRED (test code = MDIFF) NO, ONLY SCAN NEEDED DIFFERENTIAL [id number] 06:34:00* Test Item Value Reference Range Interpretation Comments STAIN ACCEPTABILITY (test code = STN ACCEPTABLE) STAIN ACCEPTABLE ANISOCYTOSIS (test code = ANISO) 1+ MICROCYTOSIS (test code = MICR) 1+ PLATELET ESTIMATE (test code = PLTEST) DECREASED PLATELET MORPHOLOGY (test code = PLTMORPH) NORMAL BASIC METABOLIC [id number] 05:43:00* Test Item Value Reference Range Interpretation Comments SODIUM (test code = NA) 135 mmol/L 136-145 L POTASSIUM (test code = K) 4.3 mmol/L 3.5-5.1 N CHLORIDE (test code = CL) 106.0 mmol/L 98-107 N CARBON DIOXIDE (test code = CO2) 23.0 mmol/L 21-32 N ANION GAP (test code = GAP) 10.3 10-20 N GLUCOSE (test code = GLU) 135 mg/dL 74-106 H BLOOD UREA NITROGEN (test code = BUN) 41 mg/dL 7-18 H GLOMERULAR FILTRATION RATE (test code = GFR) 31 mL/min >=60 Estimated GFR by using Modified MDRD formula.Chronic kidney disease is defined as either kidney damageor GFR <60 mL/min/1.73 m2 for >3 months. CREATININE (test code = CREAT) 1.70 mg/dL 0.55-1.02 H Note change in reference range due to change in reagent. BUN/CREATININE RATIO (test code = BUN/CREA) 24.1 10-20 H CALCIUM (test code = CA) 8.2 mg/dL 8.5-10.1 L BASIC METABOLIC [id number] 05:32:00* Test Item Value Reference Range Interpretation Comments SODIUM (test code = NA) 135 mmol/L 136-145 L POTASSIUM (test code = K) 4.3 mmol/L 3.5-5.1 N CHLORIDE (test code = CL) 106.0 mmol/L 98-107 N CARBON DIOXIDE (test code = CO2) mmol/L 21-32 ANION GAP (test code = GAP) 10-20 GLUCOSE (test code = GLU) mg/dL 74-106 BLOOD UREA NITROGEN (test code = BUN) mg/dL 7-18 GLOMERULAR FILTRATION RATE (test code = GFR) mL/min >=60 CREATININE (test code = CREAT) mg/dL 0.55-1.02 BUN/CREATININE RATIO (test code = BUN/CREA) 10-20 CALCIUM (test code = CA) mg/dL 8.5-10.1 [id number] 05:29:00* Test Item Value Reference Range Interpretation Comments AMMONIA (test code = AMM) 60 umol/L 11-32 H CBC W/AUTO [id number] 05:11:00* Test Item Value Reference Range Interpretation Comments WHITE BLOOD CELL (test code = WBC) 2.5 K/mm3 4.5-12.5 L RED BLOOD CELL (test code = RBC) 2.99 mill/mm3 3.7-5.2 L HEMOGLOBIN (test code = HGB) 8.1 gram/dL 11.5-15.5 L HEMATOCRIT (test code = HCT) 26.1 % 36.0-46.0 L MEAN CELL VOLUME (test code = MCV) 87.3 fL 80-98 N MEAN CELL HGB (test code = MCH) 27.1 picogram 27.0-33.0 N MEAN CELL HGB CONCETRATION (test code = MCHC) 31.0 gram/dL 33.0-36. 0 L RED CELL DISTRIBUTION WIDTH (test code = RDW) 14.6 % 11.6-16. 2 N RED CELL DISTRIBUTION WIDTH SD (test code = RDW-SD) 45.7 fL 37 .0-51.0 N PLATELET COUNT (test code = PLT) 90 K/mm3 150-450 L MEAN PLATELET VOLUME (test code = MPV) 10.7 fL 6.7-11.0 N NEUTROPHIL % (test code = NT%) 50.5 % 39.0-69.0 N IMMATURE GRANULOCYTE % (test code = IG%) 0.0 % 0.0-5.0 N LYMPHOCYTE % (test code = LY%) 36.0 % 25.0-55.0 N MONOCYTE % (test code = MO%) 9.9 % 0.0-10.0 N EOSINOPHIL % (test code = EO%) 2.8 % 0.0-5.0 N BASOPHIL % (test code = BA%) 0.8 % 0.0-1.0 N NUCLEATED RBC % (test code = NRBC%) 0.0 % 0-0 N NEUTROPHIL # (test code = NT#) 1.28 K/mm3 1.8-7.7 L IMMATURE GRANULOCYTE # (test code = IG#) 0.00 x10 3/uL 0-0.03 N LYMPHOCYTE # (test code = LY#) 0.91 K/mm3 1.0-5.0 L MONOCYTE # (test code = MO#) 0.25 K/mm3 0-0.8 N EOSINOPHIL # (test code = EO#) 0.07 K/mm3 0.0-0.5 N BASOPHIL # (test code = BA#) 0.02 K/mm3 0.0-0.2 N NUCLEATED RBC # (test code = NRBC#) 0.00 K/mm3 0.0-0.1 N MANUAL DIFF REQUIRED (test code = MDIFF) NO, ONLY SCAN NEEDED DIFFERENTIAL [id number] 05:11:00* Test Item Value Reference Range Interpretation Comments STAIN ACCEPTABILITY (test code = STN ACCEPTABLE) CABOT RINGS (test code = CAB) MORPHOLOGY COMMENT (test code = MOC) PLATELET ESTIMATE (test code = PLTEST) PLATELET MORPHOLOGY (test code = PLTMORPH) CBC W/AUTO [id number] 05:11:00* Test Item Value Reference Range Interpretation Comments WHITE BLOOD CELL (test code = WBC) 2.5 K/mm3 4.5-12.5 L RED BLOOD CELL (test code = RBC) 2.99 mill/mm3 3.7-5.2 L HEMOGLOBIN (test code = HGB) 8.1 gram/dL 11.5-15.5 L HEMATOCRIT (test code = HCT) 26.1 % 36.0-46.0 L MEAN CELL VOLUME (test code = MCV) 87.3 fL 80-98 N MEAN CELL HGB (test code = MCH) 27.1 picogram 27.0-33.0 N MEAN CELL HGB CONCETRATION (test code = MCHC) 31.0 gram/dL 33.0-36. 0 L RED CELL DISTRIBUTION WIDTH (test code = RDW) 14.6 % 11.6-16. 2 N RED CELL DISTRIBUTION WIDTH SD (test code = RDW-SD) 45.7 fL 37 .0-51.0 N PLATELET COUNT (test code = PLT) 90 K/mm3 150-450 L MEAN PLATELET VOLUME (test code = MPV) 10.7 fL 6.7-11.0 N NEUTROPHIL % (test code = NT%) 50.5 % 39.0-69.0 N IMMATURE GRANULOCYTE % (test code = IG%) 0.0 % 0.0-5.0 N LYMPHOCYTE % (test code = LY%) 36.0 % 25.0-55.0 N MONOCYTE % (test code = MO%) 9.9 % 0.0-10.0 N EOSINOPHIL % (test code = EO%) 2.8 % 0.0-5.0 N BASOPHIL % (test code = BA%) 0.8 % 0.0-1.0 N NUCLEATED RBC % (test code = NRBC%) 0.0 % 0-0 N NEUTROPHIL # (test code = NT#) 1.28 K/mm3 1.8-7.7 L IMMATURE GRANULOCYTE # (test code = IG#) 0.00 x10 3/uL 0-0.03 N LYMPHOCYTE # (test code = LY#) 0.91 K/mm3 1.0-5.0 L MONOCYTE # (test code = MO#) 0.25 K/mm3 0-0.8 N EOSINOPHIL # (test code = EO#) 0.07 K/mm3 0.0-0.5 N BASOPHIL # (test code = BA#) 0.02 K/mm3 0.0-0.2 N NUCLEATED RBC # (test code = NRBC#) 0.00 K/mm3 0.0-0.1 N MANUAL DIFF REQUIRED (test code = MDIFF) NO, ONLY SCAN NEEDED DIFFERENTIAL [id number] 05:11:00* Test Item Value Reference Range Interpretation Comments STAIN ACCEPTABILITY (test code = STN ACCEPTABLE) CABOT RINGS (test code = CAB) MORPHOLOGY COMMENT (test code = MOC) PLATELET ESTIMATE (test code = PLTEST) PLATELET MORPHOLOGY (test code = PLTMORPH) CBC W/AUTO [id number] 05:11:00* Test Item Value Reference Range Interpretation Comments WHITE BLOOD CELL (test code = WBC) 2.5 K/mm3 4.5-12.5 L RED BLOOD CELL (test code = RBC) 2.99 mill/mm3 3.7-5.2 L HEMOGLOBIN (test code = HGB) 8.1 gram/dL 11.5-15.5 L HEMATOCRIT (test code = HCT) 26.1 % 36.0-46.0 L MEAN CELL VOLUME (test code = MCV) 87.3 fL 80-98 N MEAN CELL HGB (test code = MCH) 27.1 picogram 27.0-33.0 N MEAN CELL HGB CONCETRATION (test code = MCHC) 31.0 gram/dL 33.0-36. 0 L RED CELL DISTRIBUTION WIDTH (test code = RDW) 14.6 % 11.6-16. 2 N RED CELL DISTRIBUTION WIDTH SD (test code = RDW-SD) 45.7 fL 37 .0-51.0 N PLATELET COUNT (test code = PLT) 90 K/mm3 150-450 L MEAN PLATELET VOLUME (test code = MPV) 10.7 fL 6.7-11.0 N NEUTROPHIL % (test code = NT%) 50.5 % 39.0-69.0 N IMMATURE GRANULOCYTE % (test code = IG%) 0.0 % 0.0-5.0 N LYMPHOCYTE % (test code = LY%) 36.0 % 25.0-55.0 N MONOCYTE % (test code = MO%) 9.9 % 0.0-10.0 N EOSINOPHIL % (test code = EO%) 2.8 % 0.0-5.0 N BASOPHIL % (test code = BA%) 0.8 % 0.0-1.0 N NUCLEATED RBC % (test code = NRBC%) 0.0 % 0-0 N NEUTROPHIL # (test code = NT#) 1.28 K/mm3 1.8-7.7 L IMMATURE GRANULOCYTE # (test code = IG#) 0.00 x10 3/uL 0-0.03 N LYMPHOCYTE # (test code = LY#) 0.91 K/mm3 1.0-5.0 L MONOCYTE # (test code = MO#) 0.25 K/mm3 0-0.8 N EOSINOPHIL # (test code = EO#) 0.07 K/mm3 0.0-0.5 N BASOPHIL # (test code = BA#) 0.02 K/mm3 0.0-0.2 N NUCLEATED RBC # (test code = NRBC#) 0.00 K/mm3 0.0-0.1 N MANUAL DIFF REQUIRED (test code = MDIFF) NO, ONLY SCAN NEEDED DIFFERENTIAL [id number] 05:11:00* Test Item Value Reference Range Interpretation Comments STAIN ACCEPTABILITY (test code = STN ACCEPTABLE) MORPHOLOGY COMMENT (test code = MOC) PLATELET ESTIMATE (test code = PLTEST) PLATELET MORPHOLOGY (test code = PLTMORPH) CBC W/AUTO [id number] 05:11:00* Test Item Value Reference Range Interpretation Comments WHITE BLOOD CELL (test code = WBC) 2.5 K/mm3 4.5-12.5 L RED BLOOD CELL (test code = RBC) 2.99 mill/mm3 3.7-5.2 L HEMOGLOBIN (test code = HGB) 8.1 gram/dL 11.5-15.5 L HEMATOCRIT (test code = HCT) 26.1 % 36.0-46.0 L MEAN CELL VOLUME (test code = MCV) 87.3 fL 80-98 N MEAN CELL HGB (test code = MCH) 27.1 picogram 27.0-33.0 N MEAN CELL HGB CONCETRATION (test code = MCHC) 31.0 gram/dL 33.0-36. 0 L RED CELL DISTRIBUTION WIDTH (test code = RDW) 14.6 % 11.6-16. 2 N RED CELL DISTRIBUTION WIDTH SD (test code = RDW-SD) 45.7 fL 37 .0-51.0 N PLATELET COUNT (test code = PLT) 90 K/mm3 150-450 L MEAN PLATELET VOLUME (test code = MPV) 10.7 fL 6.7-11.0 N NEUTROPHIL % (test code = NT%) 50.5 % 39.0-69.0 N IMMATURE GRANULOCYTE % (test code = IG%) 0.0 % 0.0-5.0 N LYMPHOCYTE % (test code = LY%) 36.0 % 25.0-55.0 N MONOCYTE % (test code = MO%) 9.9 % 0.0-10.0 N EOSINOPHIL % (test code = EO%) 2.8 % 0.0-5.0 N BASOPHIL % (test code = BA%) 0.8 % 0.0-1.0 N NUCLEATED RBC % (test code = NRBC%) 0.0 % 0-0 N NEUTROPHIL # (test code = NT#) 1.28 K/mm3 1.8-7.7 L IMMATURE GRANULOCYTE # (test code = IG#) 0.00 x10 3/uL 0-0.03 N LYMPHOCYTE # (test code = LY#) 0.91 K/mm3 1.0-5.0 L MONOCYTE # (test code = MO#) 0.25 K/mm3 0-0.8 N EOSINOPHIL # (test code = EO#) 0.07 K/mm3 0.0-0.5 N BASOPHIL # (test code = BA#) 0.02 K/mm3 0.0-0.2 N NUCLEATED RBC # (test code = NRBC#) 0.00 K/mm3 0.0-0.1 N MANUAL DIFF REQUIRED (test code = MDIFF) NO, ONLY SCAN NEEDED DIFFERENTIAL [id number] 05:11:00* Test Item Value Reference Range Interpretation Comments STAIN ACCEPTABILITY (test code = STN ACCEPTABLE) CABOT RINGS (test code = CAB) MORPHOLOGY COMMENT (test code = MOC) PLATELET ESTIMATE (test code = PLTEST) PLATELET MORPHOLOGY (test code = PLTMORPH) [id number] 17:26:00* Test Item Value Reference Range Interpretation Comments GLUBED (test code = GLUBED) 82 mg/dL 74-106 N Performed by certified bath mix operator at [facility] [id number] 06:02:00* Test Item Value Reference Range Interpretation Comments GLUBED (test code = GLUBED) 130 mg/dL 74-106 H Performed by certified bath mix operator at [facility] [id number] 16:46:00* Test Item Value Reference Range Interpretation Comments GLYCOSYLATED HEMOGLOBIN (HA1C) (test code = GLYHGB) 8.4 % HbA1 4. 8-6.0 H ESTIMATED AVERAGE GLUCOSE (test code = EAG) 194 MG/DL CBC W/AUTO [id number] 16:44:00* Test Item Value Reference Range Interpretation Comments WHITE BLOOD CELL (test code = WBC) 2.5 K/mm3 4.5-12.5 L RED BLOOD CELL (test code = RBC) 3.09 mill/mm3 3.7-5.2 L HEMOGLOBIN (test code = HGB) 8.4 gram/dL 11.5-15.5 L HEMATOCRIT (test code = HCT) 26.5 % 36.0-46.0 L MEAN CELL VOLUME (test code = MCV) 85.8 fL 80-98 N MEAN CELL HGB (test code = MCH) 27.2 picogram 27.0-33.0 N MEAN CELL HGB CONCETRATION (test code = MCHC) 31.7 gram/dL 33.0-36. 0 L RED CELL DISTRIBUTION WIDTH (test code = RDW) 14.7 % 11.6-16. 2 N RED CELL DISTRIBUTION WIDTH SD (test code = RDW-SD) 45.1 fL 37 .0-51.0 N PLATELET COUNT (test code = PLT) 84 K/mm3 150-450 L MEAN PLATELET VOLUME (test code = MPV) 10.2 fL 6.7-11.0 N NEUTROPHIL % (test code = NT%) 46.4 % 39.0-69.0 N IMMATURE GRANULOCYTE % (test code = IG%) 0.8 % 0.0-5.0 N LYMPHOCYTE % (test code = LY%) 36.9 % 25.0-55.0 N MONOCYTE % (test code = MO%) 13.1 % 0.0-10.0 H EOSINOPHIL % (test code = EO%) 2.0 % 0.0-5.0 N BASOPHIL % (test code = BA%) 0.8 % 0.0-1.0 N NUCLEATED RBC % (test code = NRBC%) 0.0 % 0-0 N NEUTROPHIL # (test code = NT#) 1.17 K/mm3 1.8-7.7 L IMMATURE GRANULOCYTE # (test code = IG#) 0.02 x10 3/uL 0-0.03 N LYMPHOCYTE # (test code = LY#) 0.93 K/mm3 1.0-5.0 L MONOCYTE # (test code = MO#) 0.33 K/mm3 0-0.8 N EOSINOPHIL # (test code = EO#) 0.05 K/mm3 0.0-0.5 N BASOPHIL # (test code = BA#) 0.02 K/mm3 0.0-0.2 N NUCLEATED RBC # (test code = NRBC#) 0.00 K/mm3 0.0-0.1 N MANUAL DIFF REQUIRED (test code = MDIFF) NO, ONLY SCAN NEEDED DIFFERENTIAL [id number] 16:44:00* Test Item Value Reference Range Interpretation Comments STAIN ACCEPTABILITY (test code = STN ACCEPTABLE) STAIN ACCEPTABLE ANISOCYTOSIS (test code = ANISO) 1+ PLATELET ESTIMATE (test code = PLTEST) DECREASED PLATELET MORPHOLOGY (test code = PLTMORPH) NORMAL CBC W/AUTO [id number] 16:14:00* Test Item Value Reference Range Interpretation Comments WHITE BLOOD CELL (test code = WBC) 2.5 K/mm3 4.5-12.5 L RED BLOOD CELL (test code = RBC) 3.09 mill/mm3 3.7-5.2 L HEMOGLOBIN (test code = HGB) 8.4 gram/dL 11.5-15.5 L HEMATOCRIT (test code = HCT) 26.5 % 36.0-46.0 L MEAN CELL VOLUME (test code = MCV) 85.8 fL 80-98 N MEAN CELL HGB (test code = MCH) 27.2 picogram 27.0-33.0 N MEAN CELL HGB CONCETRATION (test code = MCHC) 31.7 gram/dL 33.0-36. 0 L RED CELL DISTRIBUTION WIDTH (test code = RDW) 14.7 % 11.6-16. 2 N RED CELL DISTRIBUTION WIDTH SD (test code = RDW-SD) 45.1 fL 37 .0-51.0 N PLATELET COUNT (test code = PLT) 84 K/mm3 150-450 L MEAN PLATELET VOLUME (test code = MPV) 10.2 fL 6.7-11.0 N NEUTROPHIL % (test code = NT%) 46.4 % 39.0-69.0 N IMMATURE GRANULOCYTE % (test code = IG%) 0.8 % 0.0-5.0 N LYMPHOCYTE % (test code = LY%) 36.9 % 25.0-55.0 N MONOCYTE % (test code = MO%) 13.1 % 0.0-10.0 H EOSINOPHIL % (test code = EO%) 2.0 % 0.0-5.0 N BASOPHIL % (test code = BA%) 0.8 % 0.0-1.0 N NUCLEATED RBC % (test code = NRBC%) 0.0 % 0-0 N NEUTROPHIL # (test code = NT#) 1.17 K/mm3 1.8-7.7 L IMMATURE GRANULOCYTE # (test code = IG#) 0.02 x10 3/uL 0-0.03 N LYMPHOCYTE # (test code = LY#) 0.93 K/mm3 1.0-5.0 L MONOCYTE # (test code = MO#) 0.33 K/mm3 0-0.8 N EOSINOPHIL # (test code = EO#) 0.05 K/mm3 0.0-0.5 N BASOPHIL # (test code = BA#) 0.02 K/mm3 0.0-0.2 N NUCLEATED RBC # (test code = NRBC#) 0.00 K/mm3 0.0-0.1 N MANUAL DIFF REQUIRED (test code = MDIFF) NO, ONLY SCAN NEEDED DIFFERENTIAL [id number] 16:14:00* Test Item Value Reference Range Interpretation Comments STAIN ACCEPTABILITY (test code = STN ACCEPTABLE) MORPHOLOGY COMMENT (test code = MOC) PLATELET ESTIMATE (test code = PLTEST) PLATELET MORPHOLOGY (test code = PLTMORPH) CBC W/AUTO [id number] 16:13:00* Test Item Value Reference Range Interpretation Comments WHITE BLOOD CELL (test code = WBC) 2.5 K/mm3 4.5-12.5 L RED BLOOD CELL (test code = RBC) 3.09 mill/mm3 3.7-5.2 L HEMOGLOBIN (test code = HGB) 8.4 gram/dL 11.5-15.5 L HEMATOCRIT (test code = HCT) 26.5 % 36.0-46.0 L MEAN CELL VOLUME (test code = MCV) 85.8 fL 80-98 N MEAN CELL HGB (test code = MCH) 27.2 picogram 27.0-33.0 N MEAN CELL HGB CONCETRATION (test code = MCHC) 31.7 gram/dL 33.0-36. 0 L RED CELL DISTRIBUTION WIDTH (test code = RDW) 14.7 % 11.6-16. 2 N RED CELL DISTRIBUTION WIDTH SD (test code = RDW-SD) 45.1 fL 37 .0-51.0 N PLATELET COUNT (test code = PLT) 84 K/mm3 150-450 L MEAN PLATELET VOLUME (test code = MPV) 10.2 fL 6.7-11.0 N NEUTROPHIL % (test code = NT%) 46.4 % 39.0-69.0 N IMMATURE GRANULOCYTE % (test code = IG%) 0.8 % 0.0-5.0 N LYMPHOCYTE % (test code = LY%) 36.9 % 25.0-55.0 N MONOCYTE % (test code = MO%) 13.1 % 0.0-10.0 H EOSINOPHIL % (test code = EO%) 2.0 % 0.0-5.0 N BASOPHIL % (test code = BA%) 0.8 % 0.0-1.0 N NUCLEATED RBC % (test code = NRBC%) 0.0 % 0-0 N NEUTROPHIL # (test code = NT#) 1.17 K/mm3 1.8-7.7 L IMMATURE GRANULOCYTE # (test code = IG#) 0.02 x10 3/uL 0-0.03 N LYMPHOCYTE # (test code = LY#) 0.93 K/mm3 1.0-5.0 L MONOCYTE # (test code = MO#) 0.33 K/mm3 0-0.8 N EOSINOPHIL # (test code = EO#) 0.05 K/mm3 0.0-0.5 N BASOPHIL # (test code = BA#) 0.02 K/mm3 0.0-0.2 N NUCLEATED RBC # (test code = NRBC#) 0.00 K/mm3 0.0-0.1 N MANUAL DIFF REQUIRED (test code = MDIFF) NO, ONLY SCAN NEEDED DIFFERENTIAL [id number] 16:13:00* Test Item Value Reference Range Interpretation Comments STAIN ACCEPTABILITY (test code = STN ACCEPTABLE) CABOT RINGS (test code = CAB) MORPHOLOGY COMMENT (test code = MOC) PLATELET ESTIMATE (test code = PLTEST) PLATELET MORPHOLOGY (test code = PLTMORPH) CBC W/AUTO [id number] 16:13:00* Test Item Value Reference Range Interpretation Comments WHITE BLOOD CELL (test code = WBC) 2.5 K/mm3 4.5-12.5 L RED BLOOD CELL (test code = RBC) 3.09 mill/mm3 3.7-5.2 L HEMOGLOBIN (test code = HGB) 8.4 gram/dL 11.5-15.5 L HEMATOCRIT (test code = HCT) 26.5 % 36.0-46.0 L MEAN CELL VOLUME (test code = MCV) 85.8 fL 80-98 N MEAN CELL HGB (test code = MCH) 27.2 picogram 27.0-33.0 N MEAN CELL HGB CONCETRATION (test code = MCHC) 31.7 gram/dL 33.0-36. 0 L RED CELL DISTRIBUTION WIDTH (test code = RDW) 14.7 % 11.6-16. 2 N RED CELL DISTRIBUTION WIDTH SD (test code = RDW-SD) 45.1 fL 37 .0-51.0 N PLATELET COUNT (test code = PLT) 84 K/mm3 150-450 L MEAN PLATELET VOLUME (test code = MPV) 10.2 fL 6.7-11.0 N NEUTROPHIL % (test code = NT%) 46.4 % 39.0-69.0 N IMMATURE GRANULOCYTE % (test code = IG%) 0.8 % 0.0-5.0 N LYMPHOCYTE % (test code = LY%) 36.9 % 25.0-55.0 N MONOCYTE % (test code = MO%) 13.1 % 0.0-10.0 H EOSINOPHIL % (test code = EO%) 2.0 % 0.0-5.0 N BASOPHIL % (test code = BA%) 0.8 % 0.0-1.0 N NUCLEATED RBC % (test code = NRBC%) 0.0 % 0-0 N NEUTROPHIL # (test code = NT#) 1.17 K/mm3 1.8-7.7 L IMMATURE GRANULOCYTE # (test code = IG#) 0.02 x10 3/uL 0-0.03 N LYMPHOCYTE # (test code = LY#) 0.93 K/mm3 1.0-5.0 L MONOCYTE # (test code = MO#) 0.33 K/mm3 0-0.8 N EOSINOPHIL # (test code = EO#) 0.05 K/mm3 0.0-0.5 N BASOPHIL # (test code = BA#) 0.02 K/mm3 0.0-0.2 N NUCLEATED RBC # (test code = NRBC#) 0.00 K/mm3 0.0-0.1 N MANUAL DIFF REQUIRED (test code = MDIFF) NO, ONLY SCAN NEEDED DIFFERENTIAL [id number] 16:13:00* Test Item Value Reference Range Interpretation Comments STAIN ACCEPTABILITY (test code = STN ACCEPTABLE) MORPHOLOGY COMMENT (test code = MOC) PLATELET ESTIMATE (test code = PLTEST) PLATELET MORPHOLOGY (test code = PLTMORPH) CBC W/AUTO [id number] 16:12:00* Test Item Value Reference Range Interpretation Comments WHITE BLOOD CELL (test code = WBC) 2.5 K/mm3 4.5-12.5 L RED BLOOD CELL (test code = RBC) 3.09 mill/mm3 3.7-5.2 L HEMOGLOBIN (test code = HGB) 8.4 gram/dL 11.5-15.5 L HEMATOCRIT (test code = HCT) 26.5 % 36.0-46.0 L MEAN CELL VOLUME (test code = MCV) 85.8 fL 80-98 N MEAN CELL HGB (test code = MCH) 27.2 picogram 27.0-33.0 N MEAN CELL HGB CONCETRATION (test code = MCHC) 31.7 gram/dL 33.0-36. 0 L RED CELL DISTRIBUTION WIDTH (test code = RDW) 14.7 % 11.6-16. 2 N RED CELL DISTRIBUTION WIDTH SD (test code = RDW-SD) 45.1 fL 37 .0-51.0 N PLATELET COUNT (test code = PLT) 84 K/mm3 150-450 L MEAN PLATELET VOLUME (test code = MPV) 10.2 fL 6.7-11.0 N NEUTROPHIL % (test code = NT%) 46.4 % 39.0-69.0 N IMMATURE GRANULOCYTE % (test code = IG%) 0.8 % 0.0-5.0 N LYMPHOCYTE % (test code = LY%) 36.9 % 25.0-55.0 N MONOCYTE % (test code = MO%) 13.1 % 0.0-10.0 H EOSINOPHIL % (test code = EO%) 2.0 % 0.0-5.0 N BASOPHIL % (test code = BA%) 0.8 % 0.0-1.0 N NUCLEATED RBC % (test code = NRBC%) 0.0 % 0-0 N NEUTROPHIL # (test code = NT#) 1.17 K/mm3 1.8-7.7 L IMMATURE GRANULOCYTE # (test code = IG#) 0.02 x10 3/uL 0-0.03 N LYMPHOCYTE # (test code = LY#) 0.93 K/mm3 1.0-5.0 L MONOCYTE # (test code = MO#) 0.33 K/mm3 0-0.8 N EOSINOPHIL # (test code = EO#) 0.05 K/mm3 0.0-0.5 N BASOPHIL # (test code = BA#) 0.02 K/mm3 0.0-0.2 N NUCLEATED RBC # (test code = NRBC#) 0.00 K/mm3 0.0-0.1 N MANUAL DIFF REQUIRED (test code = MDIFF) NO, ONLY SCAN NEEDED DIFFERENTIAL [id number] 16:12:00* Test Item Value Reference Range Interpretation Comments STAIN ACCEPTABILITY (test code = STN ACCEPTABLE) CABOT RINGS (test code = CAB) MORPHOLOGY COMMENT (test code = MOC) PLATELET ESTIMATE (test code = PLTEST) PLATELET MORPHOLOGY (test code = PLTMORPH) [id number] 15:53:00* Test Item Value Reference Range Interpretation Comments GLUBED (test code = GLUBED) 201 mg/dL 74-106 H Performed by certified bath mix operator at [facility] T4 [id number] 15:35:00* Test Item Value Reference Range Interpretation Comments T4 FREE (test code = T4F) 0.86 ng/dL 0.76-1.46 N THYROID STIMULATING [id number] 15:35:00* Test Item Value Reference Range Interpretation Comments THYROID STIMULATING HORMONE (test code = TSH) 5.260 uIU/mL 0.36-3.7 4 H TSH REFERENCE RANGES: EUTHYROID: 0.35 - 4.3 mIU/mL HYPO : > 5.5 mIU/mL HYPER : < 0.35 mIU/mL LIPID PROFILE (CORONARY RISK)[id number] 11:41:00* Test Item Value Reference Range Interpretation Comments TRIGLYCERIDES (test code = TRIG) 139 mg/dL 20-150 N CHOLESTEROL (test code = CHOL) 125 mg/dL 0-200 N CHOLESTEROL/HDL RATIO (test code = CHOLHDL) 2.0 RATIO 0-4.9 N RISK ASSOCIATED WITH CHOL/HDL RATIOS: Risk Male Female1/2 AVERAGE 3.43 3.27AVERAGE 4.97 4.442X AVERAGE 9.55 7.053X AVERAGE 23.39 11.04 REFERENCE VALUE IS RELATED TO RISK LEVELS ASRECOMMENDED BY THE SIMÓN. HEART, LUNG, AND BLOOD INST. HDL CHOLESTEROL (test code = HDL) 51 mg/dL 40-60 N LIPOPROTEIN LDL (test code = LDL) 59 mg/dL 100-129 L Reference Interval: mg/dL mmol/L Optimal <100 <2.6Near/above optimal 100-129 2.6- 3.3Borderline High 130-159 3.4-4.1High 160-189 4.1-4.9Very High >=190 >=4.9========= This LDL result is a direct measurement.========= [id number] 11:14:00* Test Item Value Reference Range Interpretation Comments GLUBED (test code = GLUBED) 184 mg/dL 74-106 H Performed by certified bath mix operator at [facility] COMPREHENSIVE METABOLIC [id number] 07:09:00* Test Item Value Reference Range Interpretation Comments SODIUM (test code = NA) 132 mmol/L 136-145 L RESU LT VERIFIED BY REPEAT ANALYSIS POTASSIUM (test code = K) 4.9 mmol/L 3.5-5.1 N CHLORIDE (test code = CL) 102.0 mmol/L 98-107 N CARBON DIOXIDE (test code = CO2) 22.0 mmol/L 21-32 N ANION GAP (test code = GAP) 12.9 10-20 N GLUCOSE (test code = GLU) 213 mg/dL 74-106 H BLOOD UREA NITROGEN (test code = BUN) 55 mg/dL 7-18 H GLOMERULAR FILTRATION RATE (test code = GFR) 23 mL/min >=60 Estimated GFR by using Modified MDRD formula.Chronic kidney disease is defined as either kidney damageor GFR <60 mL/min/1.73 m2 for >3 months. CREATININE (test code = CREAT) 2.20 mg/dL 0.55-1.02 H Note change in reference range due to change in reagent. BUN/CREATININE RATIO (test code = BUN/CREA) 25.0 10-20 H TOTAL PROTEIN (test code = PROT) 6.8 gram/dL 6.4-8.2 N ALBUMIN (test code = ALB) 2.6 g/dL 3.4-5.0 L GLOBULIN (test code = GLOB) 4.2 gram/dL 2.7-4.2 N ALBUMIN/GLOBULIN RATIO (test code = A/G) 0.6 0.75-1.50 L CALCIUM (test code = CA) 8.0 mg/dL 8.5-10.1 L BILIRUBIN TOTAL (test code = BILT) 1.00 mg/dL 0.0-1.0 N SGOT/AST (test code = AST) 32 IUnit/L 15-37 N SGPT/ALT (test code = ALT) 28 IUnit/L 12-78 N ALKALINE PHOSPHATASE TOTAL (test code = ALKP) 90 IUnit/L 45-117 N Note change in reference range due to change in reagent. [id number] 16:50:00* Test Item Value Reference Range Interpretation Comments GLUBED (test code = GLUBED) 207 mg/dL 74-106 H Performed by certified bath mix operator at [facility] [id number] 12:30:00* Test Item Value Reference Range Interpretation Comments GLUBED (test code = GLUBED) 233 mg/dL 74-106 H Performed by certified bath mix operator at [facility] COMPREHENSIVE METABOLIC [id number] 09:01:00* Test Item Value Reference Range Interpretation Comments SODIUM (test code = NA) 137 mmol/L 136-145 N POTASSIUM (test code = K) 4.9 mmol/L 3.5-5.1 N CHLORIDE (test code = CL) 104.0 mmol/L 98-107 N CARBON DIOXIDE (test code = CO2) 23.0 mmol/L 21-32 N ANION GAP (test code = GAP) 14.9 10-20 N GLUCOSE (test code = GLU) 128 mg/dL 74-106 H BLOOD UREA NITROGEN (test code = BUN) 62 mg/dL 7-18 H GLOMERULAR FILTRATION RATE (test code = GFR) 24 mL/min >=60 Estimated GFR by using Modified MDRD formula.Chronic kidney disease is defined as either kidney damageor GFR <60 mL/min/1.73 m2 for >3 months. CREATININE (test code = CREAT) 2.10 mg/dL 0.55-1.02 H Note change in reference range due to change in reagent. BUN/CREATININE RATIO (test code = BUN/CREA) 29.5 10-20 H TOTAL PROTEIN (test code = PROT) 6.8 gram/dL 6.4-8.2 N ALBUMIN (test code = ALB) 3.1 g/dL 3.4-5.0 L GLOBULIN (test code = GLOB) 3.7 gram/dL 2.7-4.2 N ALBUMIN/GLOBULIN RATIO (test code = A/G) 0.8 0.75-1.50 N CALCIUM (test code = CA) 8.3 mg/dL 8.5-10.1 L BILIRUBIN TOTAL (test code = BILT) 1.00 mg/dL 0.0-1.0 N SGOT/AST (test code = AST) 32 IUnit/L 15-37 N SGPT/ALT (test code = ALT) 31 IUnit/L 12-78 N ALKALINE PHOSPHATASE TOTAL (test code = ALKP) 104 IUnit/L 45-117 N Note change in reference range due to change in reagent. [id number] 09:01:00* Test Item Value Reference Range Interpretation Comments MAGNESIUM (test code = MAG) 2.5 mg/dL 1.8-2.4 H CBC W/AUTO [id number] 08:33:00* Test Item Value Reference Range Interpretation Comments WHITE BLOOD CELL (test code = WBC) 3.1 K/mm3 4.5-12.5 L RED BLOOD CELL (test code = RBC) 3.11 mill/mm3 3.7-5.2 L HEMOGLOBIN (test code = HGB) 8.5 gram/dL 11.5-15.5 L HEMATOCRIT (test code = HCT) 27.0 % 36.0-46.0 L MEAN CELL VOLUME (test code = MCV) 86.8 fL 80-98 N MEAN CELL HGB (test code = MCH) 27.3 picogram 27.0-33.0 N MEAN CELL HGB CONCETRATION (test code = MCHC) 31.5 gram/dL 33.0-36. 0 L RED CELL DISTRIBUTION WIDTH (test code = RDW) 15.0 % 11.6-16. 2 N RED CELL DISTRIBUTION WIDTH SD (test code = RDW-SD) 47.0 fL 37 .0-51.0 N PLATELET COUNT (test code = PLT) 90 K/mm3 150-450 L MEAN PLATELET VOLUME (test code = MPV) 10.2 fL 6.7-11.0 N NEUTROPHIL % (test code = NT%) 51.3 % 39.0-69.0 N IMMATURE GRANULOCYTE % (test code = IG%) 0.3 % 0.0-5.0 N LYMPHOCYTE % (test code = LY%) 36.5 % 25.0-55.0 N MONOCYTE % (test code = MO%) 10.3 % 0.0-10.0 H EOSINOPHIL % (test code = EO%) 1.3 % 0.0-5.0 N BASOPHIL % (test code = BA%) 0.3 % 0.0-1.0 N NUCLEATED RBC % (test code = NRBC%) 0.0 % 0-0 N NEUTROPHIL # (test code = NT#) 1.60 K/mm3 1.8-7.7 L IMMATURE GRANULOCYTE # (test code = IG#) 0.01 x10 3/uL 0-0.03 N LYMPHOCYTE # (test code = LY#) 1.14 K/mm3 1.0-5.0 N MONOCYTE # (test code = MO#) 0.32 K/mm3 0-0.8 N EOSINOPHIL # (test code = EO#) 0.04 K/mm3 0.0-0.5 N BASOPHIL # (test code = BA#) 0.01 K/mm3 0.0-0.2 N NUCLEATED RBC # (test code = NRBC#) 0.00 K/mm3 0.0-0.1 N MANUAL DIFF REQUIRED (test code = MDIFF) NO [id number] 02:07:00* Test Item Value Reference Range Interpretation Comments TROPONIN-I (test code = TROPI) <0.015 ng/mL 0-0.045 N COMMENTS TO SALES ASSISTANT INSTITUTIONAL SALES: COLLECT 3 HOURS AFTER PREVIOUS [id number] 23:04:00* Test Item Value Reference Range Interpretation Comments TROPONIN-I (test code = TROPI) <0.015 ng/mL 0-0.045 N COMMENTS TO SALES ASSISTANT INSTITUTIONAL SALES: COLLECT 3 HOURS AFTER PREVIOUS [id number] 20:21:00* Test Item Value Reference Range Interpretation Comments GLUBED (test code = GLUBED) 250 mg/dL 74-106 H Performed by certified bath mix operator at [facility] URINALYSIS [id number] 17:05:00* Test Item Value Reference Range Interpretation Comments UA COLOR (test code = COLU) STRAW YELLOW UA APPEARANCE (test code = APPU) CLEAR CLEAR UA GLUCOSE DIPSTICK (test code = DGLUU) NEGATIVE mg/dL NEGATIVE UA BILIRUBIN DIPSTICK (test code = BILU) NEGATIVE mg/dL NEGATIVE UA KETONE DIPSTICK (test code = KETU) NEGATIVE mg/dL NEGATIVE UA SPECIFIC GRAVITY (test code = SGU) 1.006 1.001-1.035 UA BLOOD DIPSTICK (test code = TUCKER) Negative mg/dL NEGATIVE UA PH DIPSTICK (test code = CLEMENTE) 6.0 5.0-8.0 UA PROTEIN DIPSTICK (test code = PROU) NEGATIVE mg/dL NEGATIVE UA UROBILINIOGEN DIPSTICK (test code = URO) NEGATIVE mg/dL NEGATIVE UA NITRITE DIPSTICK (test code = LEANN) NEGATIVE NEGATIVE UA LEUKOCYTE ESTERASE W REFLEX (test code = LEUUR) NEGATIVE Yumiko/uL NEGATIVE UA WBC (test code = WBCU) 0-5 per HPF 0-5 UA RBC (test code = RBCU) 0-2 #/HPF 0-5 UA EPITHELIAL CELLS (test code = EPIU) FEW per HPF FEW UA BACTERIA (test code = BACU) FEW #/HPF NONE A Urine Source? CatheterURINALYSIS [id number] 16:49:00* Test Item Value Reference Range Interpretation Comments UA COLOR (test code = COLU) STRAW YELLOW UA APPEARANCE (test code = APPU) CLEAR CLEAR UA GLUCOSE DIPSTICK (test code = DGLUU) NEGATIVE mg/dL NEGATIVE UA BILIRUBIN DIPSTICK (test code = BILU) NEGATIVE mg/dL NEGATIVE UA KETONE DIPSTICK (test code = KETU) NEGATIVE mg/dL NEGATIVE UA SPECIFIC GRAVITY (test code = SGU) 1.006 1.001-1.035 UA BLOOD DIPSTICK (test code = TUCKER) Negative mg/dL NEGATIVE UA PH DIPSTICK (test code = CLEMENTE) 6.0 5.0-8.0 UA PROTEIN DIPSTICK (test code = PROU) NEGATIVE mg/dL NEGATIVE UA UROBILINIOGEN DIPSTICK (test code = URO) NEGATIVE mg/dL NEGATIVE UA NITRITE DIPSTICK (test code = LEANN) NEGATIVE NEGATIVE UA LEUKOCYTE ESTERASE W REFLEX (test code = LEUUR) NEGATIVE Yumiko/uL NEGATIVE UA WBC (test code = WBCU) per HPF 0-5 Urine Source? [id number] 16:26:00* Test Item Value Reference Range Interpretation Comments GLUBED (test code = GLUBED) 180 mg/dL 74-106 H Performed by certified bath mix operator at [facility] - CT HEAD/BRAIN W/O [id number] 15:48:00 Name: GRETTA MIRANDA [facility] : 1965 Age/S: 54 / F [address] Unit #: [id number] Loc: [place] [address] Phys: Kelvin Lopez MD Acct: [id number] Dis Date: Status: REG ER PHONE #: [phone] Exam Date: 02/04/2019 1534 FAX #: [phone] Reason: Syncope EXAMS: CPT CODE: [id number] CT HEAD/BRAIN W/O CONT 11207 REASON FOR EXAM: Syncope EXAM ORDER DATE: 02/04/2019 2:30 PM Ordering M.DJohanna: Kelvin Lopez MD PROCEDURE: - CT HEAD/BRAIN [...] The calvarium is intact. IMPRESSION: Unremarkable brain. Electronically Signed by Laura Acosta on 0 02/04/2019 at 1548 Reported and signed by: Ignacio Acosta M.D. CC: Kelvin Lopez MD; Harvey Chambers Techno logist:JOSE CELIS, RT(R) CT CTDI: DLP: Trnscb Date/Time : 02/04/2019 (1548) t.SDR.VTL Orig Print D/T: S: 02/05/20 19 (1368) CTDI: DLP: PAGE 1 Nisreen d Report BASIC METABOLIC [id number] 15:47:00 * Test Item Value Reference Range Interpretation Comments SODIUM (test code = NA) 134 mmol/L 136-145 L POTASSIUM (test code = K) 4.2 mmol/L 3.5-5.1 N CHLORIDE (test code = CL) 100.0 mmol/L 98-107 N CARBON DIOXIDE (test code = CO2) 27.0 mmol/L 21-32 N ANION GAP (test code = GAP) 11.2 10-20 N GLUCOSE (test code = GLU) 144 mg/dL 74-106 H BLOOD UREA NITROGEN (test code = BUN) 62 mg/dL 7-18 H GLOMERULAR FILTRATION RATE (test code = GFR) 26 mL/min >=60 Estimated GFR by using Modified MDRD formula.Chronic kidney disease is defined as either kidney damageor GFR <60 mL/min/1.73 m2 for >3 months. CREATININE (test code = CREAT) 2.00 mg/dL 0.55-1.02 H Note change in reference range due to change in reagent. BUN/CREATININE RATIO (test code = BUN/CREA) 31.0 10-20 H CALCIUM (test code = CA) 8.6 mg/dL 8.5-10.1 N HCG SERUM [id number] 15:47:00* Test Item Value Reference Range Interpretation Comments HCG SERUM QUAL (test code = HCGQL) NEGATIVE NEGATIVE This HCGQL test is NOT applicable for MALE patients.Check with nurse about probable order error.If Tumor Marker Test needed, nurse should order test "HCGTU"(Test #550.13307) [id number] 15:47:00* Test Item Value Reference Range Interpretation Comments TROPONIN-I (test code = TROPI) <0.015 ng/mL 0-0.045 N B-TYPE NATRIURETIC [id number] 15:42:00* Test Item Value Reference Range Interpretation Comments B-TYPE NATRIURETIC PEPTIDE (test code = BNP) 82.39 pgram/mL 0-100 N BASIC METABOLIC [id number] 15:31:00* Test Item Value Reference Range Interpretation Comments SODIUM (test code = NA) 134 mmol/L 136-145 L POTASSIUM (test code = K) 4.2 mmol/L 3.5-5.1 N CHLORIDE (test code = CL) 100.0 mmol/L 98-107 N CARBON DIOXIDE (test code = CO2) 27.0 mmol/L 21-32 N ANION GAP (test code = GAP) 11.2 10-20 N GLUCOSE (test code = GLU) 144 mg/dL 74-106 H BLOOD UREA NITROGEN (test code = BUN) 62 mg/dL 7-18 H GLOMERULAR FILTRATION RATE (test code = GFR) 26 mL/min >=60 Estimated GFR by using Modified MDRD formula.Chronic kidney disease is defined as either kidney damageor GFR <60 mL/min/1.73 m2 for >3 months. CREATININE (test code = CREAT) 2.00 mg/dL 0.55-1.02 H Note change in reference range due to change in reagent. BUN/CREATININE RATIO (test code = BUN/CREA) 31.0 10-20 H CALCIUM (test code = CA) 8.6 mg/dL 8.5-10.1 N HCG SERUM [id number] 15:31:00* Test Item Value Reference Range Interpretation Comments HCG SERUM QUAL (test code = HCGQL) NEGATIVE [id number] 15:31:00* Test Item Value Reference Range Interpretation Comments TROPONIN-I (test code = TROPI) <0.015 ng/mL 0-0.045 N BASIC METABOLIC [id number] 15:25:00* Test Item Value Reference Range Interpretation Comments SODIUM (test code = NA) 134 mmol/L 136-145 L POTASSIUM (test code = K) 4.2 mmol/L 3.5-5.1 N CHLORIDE (test code = CL) 100.0 mmol/L 98-107 N CARBON DIOXIDE (test code = CO2) mmol/L 21-32 ANION GAP (test code = GAP) 10-20 GLUCOSE (test code = GLU) mg/dL 74-106 BLOOD UREA NITROGEN (test code = BUN) mg/dL 7-18 GLOMERULAR FILTRATION RATE (test code = GFR) mL/min >=60 CREATININE (test code = CREAT) mg/dL 0.55-1.02 BUN/CREATININE RATIO (test code = BUN/CREA) 10-20 CALCIUM (test code = CA) mg/dL 8.5-10.1 HCG SERUM [id number] 15:25:00* Test Item Value Reference Range Interpretation Comments HCG SERUM QUAL (test code = HCGQL) NEGATIVE [id number] 15:25:00* Test Item Value Reference Range Interpretation Comments TROPONIN-I (test code = TROPI) ng/mL 0-0.045 - XR CHEST 1 [id number] 15:04:00 FAX: Kelvin Jara [phone] [place]: St: [facility] FAX: Harvey Thapa MD [phone] Name: GRETTA MIRANDA [facility] : 1965 Age/S: 54/F [address] Unit #: [id number] Loc: [place], [place] [address] Phys: Kelvin Lopez MD Acct: [id number] Dis Date: Status: REG ER PHONE #: [phone] Exam Date: 02/04/2019 145 FAX #: [phone] Reason: SYNCOPE EXAMS: CPT CODE: [id number] XR CHEST 1 V [id number] REASON FOR EXAM: SYNCOPE EXAM ORDER DATE: 02/04/2019 2:30 PM Ordering Laura: Kelvin Lopez MD PROCEDURE: - XR CHEST 1 V COMPARISON: 06/22/2018 FINDINGS: Portable AP frontal view of the chest obtained at 2:59 PM shows diffuse lytic airspace opacities. There is no evidence of effusion. The heart size is minimally enlarged. Pulmonary vasculatures are minimally congested. IMPRESSION: Vague diffuse airspace opacities suggestive of pulmonary edema at 1041 Reported and signed by: Ignacio Acosta M.D. CC: Kelvin Lopez MD; Harvey Chambers Technologist: Jose Angel VÁZQUEZ(R) Trnroney Da te/Time/By: 02/04/2019 (6401) : By: AlvaroL Orig Print D/T: S: 02/04 (5704) PAGE 1 Signed Report CBC W/O [id number] 14:59:00* Test Item Value Reference Range Interpretation Comments WHITE BLOOD CELL (test code = WBC) 3.3 K/mm3 4.5-12.5 L RED BLOOD CELL (test code = RBC) 3.47 mill/mm3 3.7-5.2 L HEMOGLOBIN (test code = HGB) 9.7 gram/dL 11.5-15.5 L HEMATOCRIT (test code = HCT) 28.6 % 36.0-46.0 L MEAN CELL VOLUME (test code = MCV) 82.4 fL 80-98 N MEAN CELL HGB (test code = MCH) 28.0 picogram 27.0-33.0 N MEAN CELL HGB CONCETRATION (test code = MCHC) 33.9 gram/dL 33.0-36. 0 N RED CELL DISTRIBUTION WIDTH (test code = RDW) 14.6 % 11.6-16. 2 N PLATELET COUNT (test code = PLT) 86 K/mm3 150-450 L MEAN PLATELET VOLUME (test code = MPV) 10.2 fL 6.7-11.0 N [id number] 08:46:00* Test Item Value Reference Range Interpretation Comments GLUBED (test code = GLUBED) 234 mg/dL 74-106 H Performed by certified bath mix operator at [facility] [id number] 20:42:00* Test Item Value Reference Range Interpretation Comments GLUBED (test code = GLUBED) 200 mg/dL 74-106 H Performed by certified bath mix operator at [facility] [id number] 17:12:00* Test Item Value Reference Range Interpretation Comments GLUBED (test code = GLUBED) 297 mg/dL 74-106 H Performed by certified bath mix operator at [facility] [id number] 11:29:00* Test Item Value Reference Range Interpretation Comments GLUBED (test code = GLUBED) 294 mg/dL 74-106 H Performed by certified bath mix operator at [facility] [id number] 07:50:00* Test Item Value Reference Range Interpretation Comments GLUBED (test code = GLUBED) 248 mg/dL 74-106 H Performed by certified bath mix operator at [facility] [id number] 21:15:00* Test Item Value Reference Range Interpretation Comments GLUBED (test code = GLUBED) 322 mg/dL 74-106 H Performed by certified bath mix operator at [facility] COMPREHENSIVE METABOLIC [id number] 19:19:00* Test Item Value Reference Range Interpretation Comments SODIUM (test code = NA) 136 mmol/L 136-145 N POTASSIUM (test code = K) 3.9 mmol/L 3.5-5.1 N CHLORIDE (test code = CL) 103.0 mmol/L 98-107 N CARBON DIOXIDE (test code = CO2) 24.0 mmol/L 21-32 N ANION GAP (test code = GAP) 12.9 10-20 N GLUCOSE (test code = GLU) 340 mg/dL 74-106 H BLOOD UREA NITROGEN (test code = BUN) 39 mg/dL 7-18 H GLOMERULAR FILTRATION RATE (test code = GFR) 27 mL/min >=60 Estimated GFR by using Modified MDRD formula.Chronic kidney disease is defined as either kidney damageor GFR <60 mL/min/1.73 m2 for >3 months. CREATININE (test code = CREAT) 1.90 mg/dL 0.55-1.02 H Note change in reference range due to change in reagent. BUN/CREATININE RATIO (test code = BUN/CREA) 20.5 10-20 H TOTAL PROTEIN (test code = PROT) 7.7 gram/dL 6.4-8.2 N ALBUMIN (test code = ALB) 3.2 g/dL 3.4-5.0 L GLOBULIN (test code = GLOB) 4.5 gram/dL 2.7-4.2 H ALBUMIN/GLOBULIN RATIO (test code = A/G) 0.7 0.75-1.50 L CALCIUM (test code = CA) 8.5 mg/dL 8.5-10.1 N BILIRUBIN TOTAL (test code = BILT) 1.40 mg/dL 0.0-1.0 H SGOT/AST (test code = AST) 33 IUnit/L 15-37 N SGPT/ALT (test code = ALT) 38 IUnit/L 12-78 N ALKALINE PHOSPHATASE TOTAL (test code = ALKP) 171 IUnit/L 45-117 H Note change in reference range due to change in reagent. COMPREHENSIVE METABOLIC [id number] 19:08:00* Test Item Value Reference Range Interpretation Comments SODIUM (test code = NA) 136 mmol/L 136-145 N POTASSIUM (test code = K) 3.9 mmol/L 3.5-5.1 N CHLORIDE (test code = CL) 103.0 mmol/L 98-107 N CARBON DIOXIDE (test code = CO2) mmol/L 21-32 ANION GAP (test code = GAP) 10-20 GLUCOSE (test code = GLU) mg/dL 74-106 BLOOD UREA NITROGEN (test code = BUN) mg/dL 7-18 GLOMERULAR FILTRATION RATE (test code = GFR) mL/min >=60 CREATININE (test code = CREAT) mg/dL 0.55-1.02 BUN/CREATININE RATIO (test code = BUN/CREA) 10-20 TOTAL PROTEIN (test code = PROT) gram/dL 6.4-8.2 ALBUMIN (test code = ALB) g/dL 3.4-5.0 GLOBULIN (test code = GLOB) gram/dL 2.7-4.2 ALBUMIN/GLOBULIN RATIO (test code = A/G) 0.75-1.50 CALCIUM (test code = CA) mg/dL 8.5-10.1 BILIRUBIN TOTAL (test code = BILT) mg/dL 0.0-1.0 SGOT/AST (test code = AST) IUnit/L 15-37 SGPT/ALT (test code = ALT) IUnit/L 12-78 ALKALINE PHOSPHATASE TOTAL (test code = ALKP) IUnit/L 45-117 CBC W/AUTO [id number] 18:43:00* Test Item Value Reference Range Interpretation Comments WHITE BLOOD CELL (test code = WBC) 2.8 K/mm3 4.5-12.5 L RED BLOOD CELL (test code = RBC) 3.69 mill/mm3 3.7-5.2 L HEMOGLOBIN (test code = HGB) 9.8 gram/dL 11.5-15.5 L HEMATOCRIT (test code = HCT) 30.3 % 36.0-46.0 L MEAN CELL VOLUME (test code = MCV) 82.1 fL 80-98 N MEAN CELL HGB (test code = MCH) 26.6 picogram 27.0-33.0 L MEAN CELL HGB CONCETRATION (test code = MCHC) 32.3 gram/dL 33.0-36. 0 L RED CELL DISTRIBUTION WIDTH (test code = RDW) 14.7 % 11.6-16. 2 N RED CELL DISTRIBUTION WIDTH SD (test code = RDW-SD) 43.3 fL 37 .0-51.0 N PLATELET COUNT (test code = PLT) 88 K/mm3 150-450 L MEAN PLATELET VOLUME (test code = MPV) 10.3 fL 6.7-11.0 N NEUTROPHIL % (test code = NT%) 53.3 % 39.0-69.0 N IMMATURE GRANULOCYTE % (test code = IG%) 0.4 % 0.0-5.0 N LYMPHOCYTE % (test code = LY%) 36.6 % 25.0-55.0 N MONOCYTE % (test code = MO%) 7.9 % 0.0-10.0 N EOSINOPHIL % (test code = EO%) 1.4 % 0.0-5.0 N BASOPHIL % (test code = BA%) 0.4 % 0.0-1.0 N NUCLEATED RBC % (test code = NRBC%) 0.0 % 0-0 N NEUTROPHIL # (test code = NT#) 1.49 K/mm3 1.8-7.7 L IMMATURE GRANULOCYTE # (test code = IG#) 0.01 x10 3/uL 0-0.03 N LYMPHOCYTE # (test code = LY#) 1.02 K/mm3 1.0-5.0 N MONOCYTE # (test code = MO#) 0.22 K/mm3 0-0.8 N EOSINOPHIL # (test code = EO#) 0.04 K/mm3 0.0-0.5 N BASOPHIL # (test code = BA#) 0.01 K/mm3 0.0-0.2 N NUCLEATED RBC # (test code = NRBC#) 0.00 K/mm3 0.0-0.1 N VANCOMYCIN [id number] 17:05:00* Test Item Value Reference Range Interpretation Comments VANCOMYCIN TROUGH (test code = VANCT) 14.6 ug/mL 10-20 N [id number] 16:06:00* Test Item Value Reference Range Interpretation Comments GLUBED (test code = GLUBED) 393 mg/dL 74-106 H Performed by certified bath mix operator at [facility] [id number] 11:20:00* Test Item Value Reference Range Interpretation Comments GLUBED (test code = GLUBED) 345 mg/dL 74-106 H Performed by certified bath mix operator at [facility] [id number] 07:39:00* Test Item Value Reference Range Interpretation Comments GLUBED (test code = GLUBED) 275 mg/dL 74-106 H Performed by certified bath mix operator at [facility] CBC W/AUTO [id number] 07:07:00* Test Item Value Reference Range Interpretation Comments WHITE BLOOD CELL (test code = WBC) 2.4 K/mm3 4.5-12.5 L RED BLOOD CELL (test code = RBC) 3.12 mill/mm3 3.7-5.2 L HEMOGLOBIN (test code = HGB) 8.4 gram/dL 11.5-15.5 L HEMATOCRIT (test code = HCT) 24.9 % 36.0-46.0 L MEAN CELL VOLUME (test code = MCV) 79.8 fL 80-98 L MEAN CELL HGB (test code = MCH) 26.9 picogram 27.0-33.0 L MEAN CELL HGB CONCETRATION (test code = MCHC) 33.7 gram/dL 33.0-36. 0 N RED CELL DISTRIBUTION WIDTH (test code = RDW) 14.7 % 11.6-16. 2 N RED CELL DISTRIBUTION WIDTH SD (test code = RDW-SD) 42.5 fL 37 .0-51.0 N PLATELET COUNT (test code = PLT) 72 K/mm3 150-450 L MEAN PLATELET VOLUME (test code = MPV) 10.7 fL 6.7-11.0 N NEUTROPHIL % (test code = NT%) 50.7 % 39.0-69.0 N IMMATURE GRANULOCYTE % (test code = IG%) 0.4 % 0.0-5.0 N LYMPHOCYTE % (test code = LY%) 36.6 % 25.0-55.0 N MONOCYTE % (test code = MO%) 9.8 % 0.0-10.0 N EOSINOPHIL % (test code = EO%) 2.1 % 0.0-5.0 N BASOPHIL % (test code = BA%) 0.4 % 0.0-1.0 N NUCLEATED RBC % (test code = NRBC%) 0.0 % 0-0 N NEUTROPHIL # (test code = NT#) 1.19 K/mm3 1.8-7.7 L IMMATURE GRANULOCYTE # (test code = IG#) 0.01 x10 3/uL 0-0.03 N LYMPHOCYTE # (test code = LY#) 0.86 K/mm3 1.0-5.0 L MONOCYTE # (test code = MO#) 0.23 K/mm3 0-0.8 N EOSINOPHIL # (test code = EO#) 0.05 K/mm3 0.0-0.5 N BASOPHIL # (test code = BA#) 0.01 K/mm3 0.0-0.2 N NUCLEATED RBC # (test code = NRBC#) 0.00 K/mm3 0.0-0.1 N MANUAL DIFF REQUIRED (test code = MDIFF) NO, ONLY SCAN NEEDED DIFFERENTIAL [id number] 07:07:00* Test Item Value Reference Range Interpretation Comments STAIN ACCEPTABILITY (test code = STN ACCEPTABLE) STAIN ACCEPTABLE ANISOCYTOSIS (test code = ANISO) 1+ MICROCYTOSIS (test code = MICR) 1+ PLATELET ESTIMATE (test code = PLTEST) DECREASED PLATELET MORPHOLOGY (test code = PLTMORPH) NORMAL BLOOD UREA [id number] 07:00:00* Test Item Value Reference Range Interpretation Comments BLOOD UREA NITROGEN (test code = BUN) 42 mg/dL 7-18 H [id number] 07:00:00* Test Item Value Reference Range Interpretation Comments CREATININE (test code = CREAT) 1.60 mg/dL 0.55-1.02 H Note change in reference range due to change in reagent. BLOOD UREA [id number] 06:59:00* Test Item Value Reference Range Interpretation Comments BLOOD UREA NITROGEN (test code = BUN) 42 mg/dL 7-18 H [id number] 06:59:00* Test Item Value Reference Range Interpretation Comments CREATININE (test code = CREAT) mg/dL 0.55-1.02 CBC W/AUTO [id number] 06:34:00* Test Item Value Reference Range Interpretation Comments WHITE BLOOD CELL (test code = WBC) 2.4 K/mm3 4.5-12.5 L RED BLOOD CELL (test code = RBC) 3.12 mill/mm3 3.7-5.2 L HEMOGLOBIN (test code = HGB) 8.4 gram/dL 11.5-15.5 L HEMATOCRIT (test code = HCT) 24.9 % 36.0-46.0 L MEAN CELL VOLUME (test code = MCV) 79.8 fL 80-98 L MEAN CELL HGB (test code = MCH) 26.9 picogram 27.0-33.0 L MEAN CELL HGB CONCETRATION (test code = MCHC) 33.7 gram/dL 33.0-36. 0 N RED CELL DISTRIBUTION WIDTH (test code = RDW) 14.7 % 11.6-16. 2 N RED CELL DISTRIBUTION WIDTH SD (test code = RDW-SD) 42.5 fL 37 .0-51.0 N PLATELET COUNT (test code = PLT) 72 K/mm3 150-450 L MEAN PLATELET VOLUME (test code = MPV) 10.7 fL 6.7-11.0 N NEUTROPHIL % (test code = NT%) 50.7 % 39.0-69.0 N IMMATURE GRANULOCYTE % (test code = IG%) 0.4 % 0.0-5.0 N LYMPHOCYTE % (test code = LY%) 36.6 % 25.0-55.0 N MONOCYTE % (test code = MO%) 9.8 % 0.0-10.0 N EOSINOPHIL % (test code = EO%) 2.1 % 0.0-5.0 N BASOPHIL % (test code = BA%) 0.4 % 0.0-1.0 N NUCLEATED RBC % (test code = NRBC%) 0.0 % 0-0 N NEUTROPHIL # (test code = NT#) 1.19 K/mm3 1.8-7.7 L IMMATURE GRANULOCYTE # (test code = IG#) 0.01 x10 3/uL 0-0.03 N LYMPHOCYTE # (test code = LY#) 0.86 K/mm3 1.0-5.0 L MONOCYTE # (test code = MO#) 0.23 K/mm3 0-0.8 N EOSINOPHIL # (test code = EO#) 0.05 K/mm3 0.0-0.5 N BASOPHIL # (test code = BA#) 0.01 K/mm3 0.0-0.2 N NUCLEATED RBC # (test code = NRBC#) 0.00 K/mm3 0.0-0.1 N MANUAL DIFF REQUIRED (test code = MDIFF) NO, ONLY SCAN NEEDED DIFFERENTIAL [id number] 06:34:00* Test Item Value Reference Range Interpretation Comments STAIN ACCEPTABILITY (test code = STN ACCEPTABLE) CABOT RINGS (test code = CAB) MORPHOLOGY COMMENT (test code = MOC) PLATELET ESTIMATE (test code = PLTEST) PLATELET MORPHOLOGY (test code = PLTMORPH) CBC W/AUTO [id number] 06:34:00* Test Item Value Reference Range Interpretation Comments WHITE BLOOD CELL (test code = WBC) 2.4 K/mm3 4.5-12.5 L RED BLOOD CELL (test code = RBC) 3.12 mill/mm3 3.7-5.2 L HEMOGLOBIN (test code = HGB) 8.4 gram/dL 11.5-15.5 L HEMATOCRIT (test code = HCT) 24.9 % 36.0-46.0 L MEAN CELL VOLUME (test code = MCV) 79.8 fL 80-98 L MEAN CELL HGB (test code = MCH) 26.9 picogram 27.0-33.0 L MEAN CELL HGB CONCETRATION (test code = MCHC) 33.7 gram/dL 33.0-36. 0 N RED CELL DISTRIBUTION WIDTH (test code = RDW) 14.7 % 11.6-16. 2 N RED CELL DISTRIBUTION WIDTH SD (test code = RDW-SD) 42.5 fL 37 .0-51.0 N PLATELET COUNT (test code = PLT) 72 K/mm3 150-450 L MEAN PLATELET VOLUME (test code = MPV) 10.7 fL 6.7-11.0 N NEUTROPHIL % (test code = NT%) 50.7 % 39.0-69.0 N IMMATURE GRANULOCYTE % (test code = IG%) 0.4 % 0.0-5.0 N LYMPHOCYTE % (test code = LY%) 36.6 % 25.0-55.0 N MONOCYTE % (test code = MO%) 9.8 % 0.0-10.0 N EOSINOPHIL % (test code = EO%) 2.1 % 0.0-5.0 N BASOPHIL % (test code = BA%) 0.4 % 0.0-1.0 N NUCLEATED RBC % (test code = NRBC%) 0.0 % 0-0 N NEUTROPHIL # (test code = NT#) 1.19 K/mm3 1.8-7.7 L IMMATURE GRANULOCYTE # (test code = IG#) 0.01 x10 3/uL 0-0.03 N LYMPHOCYTE # (test code = LY#) 0.86 K/mm3 1.0-5.0 L MONOCYTE # (test code = MO#) 0.23 K/mm3 0-0.8 N EOSINOPHIL # (test code = EO#) 0.05 K/mm3 0.0-0.5 N BASOPHIL # (test code = BA#) 0.01 K/mm3 0.0-0.2 N NUCLEATED RBC # (test code = NRBC#) 0.00 K/mm3 0.0-0.1 N MANUAL DIFF REQUIRED (test code = MDIFF) NO, ONLY SCAN NEEDED DIFFERENTIAL [id number] 06:34:00* Test Item Value Reference Range Interpretation Comments STAIN ACCEPTABILITY (test code = STN ACCEPTABLE) CABOT RINGS (test code = CAB) MORPHOLOGY COMMENT (test code = MOC) PLATELET ESTIMATE (test code = PLTEST) PLATELET MORPHOLOGY (test code = PLTMORPH) CBC W/AUTO [id number] 06:34:00* Test Item Value Reference Range Interpretation Comments WHITE BLOOD CELL (test code = WBC) 2.4 K/mm3 4.5-12.5 L RED BLOOD CELL (test code = RBC) 3.12 mill/mm3 3.7-5.2 L HEMOGLOBIN (test code = HGB) 8.4 gram/dL 11.5-15.5 L HEMATOCRIT (test code = HCT) 24.9 % 36.0-46.0 L MEAN CELL VOLUME (test code = MCV) 79.8 fL 80-98 L MEAN CELL HGB (test code = MCH) 26.9 picogram 27.0-33.0 L MEAN CELL HGB CONCETRATION (test code = MCHC) 33.7 gram/dL 33.0-36. 0 N RED CELL DISTRIBUTION WIDTH (test code = RDW) 14.7 % 11.6-16. 2 N RED CELL DISTRIBUTION WIDTH SD (test code = RDW-SD) 42.5 fL 37 .0-51.0 N PLATELET COUNT (test code = PLT) 72 K/mm3 150-450 L MEAN PLATELET VOLUME (test code = MPV) 10.7 fL 6.7-11.0 N NEUTROPHIL % (test code = NT%) 50.7 % 39.0-69.0 N IMMATURE GRANULOCYTE % (test code = IG%) 0.4 % 0.0-5.0 N LYMPHOCYTE % (test code = LY%) 36.6 % 25.0-55.0 N MONOCYTE % (test code = MO%) 9.8 % 0.0-10.0 N EOSINOPHIL % (test code = EO%) 2.1 % 0.0-5.0 N BASOPHIL % (test code = BA%) 0.4 % 0.0-1.0 N NUCLEATED RBC % (test code = NRBC%) 0.0 % 0-0 N NEUTROPHIL # (test code = NT#) 1.19 K/mm3 1.8-7.7 L IMMATURE GRANULOCYTE # (test code = IG#) 0.01 x10 3/uL 0-0.03 N LYMPHOCYTE # (test code = LY#) 0.86 K/mm3 1.0-5.0 L MONOCYTE # (test code = MO#) 0.23 K/mm3 0-0.8 N EOSINOPHIL # (test code = EO#) 0.05 K/mm3 0.0-0.5 N BASOPHIL # (test code = BA#) 0.01 K/mm3 0.0-0.2 N NUCLEATED RBC # (test code = NRBC#) 0.00 K/mm3 0.0-0.1 N MANUAL DIFF REQUIRED (test code = MDIFF) NO, ONLY SCAN NEEDED DIFFERENTIAL [id number] 06:34:00* Test Item Value Reference Range Interpretation Comments STAIN ACCEPTABILITY (test code = STN ACCEPTABLE) MORPHOLOGY COMMENT (test code = MOC) PLATELET ESTIMATE (test code = PLTEST) PLATELET MORPHOLOGY (test code = PLTMORPH) CBC W/AUTO [id number] 06:34:00* Test Item Value Reference Range Interpretation Comments WHITE BLOOD CELL (test code = WBC) 2.4 K/mm3 4.5-12.5 L RED BLOOD CELL (test code = RBC) 3.12 mill/mm3 3.7-5.2 L HEMOGLOBIN (test code = HGB) 8.4 gram/dL 11.5-15.5 L HEMATOCRIT (test code = HCT) 24.9 % 36.0-46.0 L MEAN CELL VOLUME (test code = MCV) 79.8 fL 80-98 L MEAN CELL HGB (test code = MCH) 26.9 picogram 27.0-33.0 L MEAN CELL HGB CONCETRATION (test code = MCHC) 33.7 gram/dL 33.0-36. 0 N RED CELL DISTRIBUTION WIDTH (test code = RDW) 14.7 % 11.6-16. 2 N RED CELL DISTRIBUTION WIDTH SD (test code = RDW-SD) 42.5 fL 37 .0-51.0 N PLATELET COUNT (test code = PLT) 72 K/mm3 150-450 L MEAN PLATELET VOLUME (test code = MPV) 10.7 fL 6.7-11.0 N NEUTROPHIL % (test code = NT%) 50.7 % 39.0-69.0 N IMMATURE GRANULOCYTE % (test code = IG%) 0.4 % 0.0-5.0 N LYMPHOCYTE % (test code = LY%) 36.6 % 25.0-55.0 N MONOCYTE % (test code = MO%) 9.8 % 0.0-10.0 N EOSINOPHIL % (test code = EO%) 2.1 % 0.0-5.0 N BASOPHIL % (test code = BA%) 0.4 % 0.0-1.0 N NUCLEATED RBC % (test code = NRBC%) 0.0 % 0-0 N NEUTROPHIL # (test code = NT#) 1.19 K/mm3 1.8-7.7 L IMMATURE GRANULOCYTE # (test code = IG#) 0.01 x10 3/uL 0-0.03 N LYMPHOCYTE # (test code = LY#) 0.86 K/mm3 1.0-5.0 L MONOCYTE # (test code = MO#) 0.23 K/mm3 0-0.8 N EOSINOPHIL # (test code = EO#) 0.05 K/mm3 0.0-0.5 N BASOPHIL # (test code = BA#) 0.01 K/mm3 0.0-0.2 N NUCLEATED RBC # (test code = NRBC#) 0.00 K/mm3 0.0-0.1 N MANUAL DIFF REQUIRED (test code = MDIFF) NO, ONLY SCAN NEEDED DIFFERENTIAL [id number] 06:34:00* Test Item Value Reference Range Interpretation Comments STAIN ACCEPTABILITY (test code = STN ACCEPTABLE) CABOT RINGS (test code = CAB) MORPHOLOGY COMMENT (test code = MOC) PLATELET ESTIMATE (test code = PLTEST) PLATELET MORPHOLOGY (test code = PLTMORPH) [id number] 20:35:00* Test Item Value Reference Range Interpretation Comments GLUBED (test code = GLUBED) 234 mg/dL 74-106 H Performed by certified bath mix operator at [facility] [id number] 16:33:00* Test Item Value Reference Range Interpretation Comments GLUBED (test code = GLUBED) 318 mg/dL 74-106 H Performed by certified bath mix operator at [facility] [id number] 12:31:00* Test Item Value Reference Range Interpretation Comments GLUBED (test code = GLUBED) 285 mg/dL 74-106 H Performed by certified bath mix operator at [facility] [id number] 07:40:00* Test Item Value Reference Range Interpretation Comments GLUBED (test code = GLUBED) 252 mg/dL 74-106 H Performed by certified bath mix operator at [facility] COMPREHENSIVE METABOLIC [id number] 07:32:00* Test Item Value Reference Range Interpretation Comments SODIUM (test code = NA) 139 mmol/L 136-145 N POTASSIUM (test code = K) 4.2 mmol/L 3.5-5.1 N CHLORIDE (test code = CL) 106.0 mmol/L 98-107 N CARBON DIOXIDE (test code = CO2) 25.0 mmol/L 21-32 N ANION GAP (test code = GAP) 12.2 10-20 N GLUCOSE (test code = GLU) 252 mg/dL 74-106 H BLOOD UREA NITROGEN (test code = BUN) 49 mg/dL 7-18 H GLOMERULAR FILTRATION RATE (test code = GFR) 31 mL/min >=60 Estimated GFR by using Modified MDRD formula.Chronic kidney disease is defined as either kidney damageor GFR <60 mL/min/1.73 m2 for >3 months. CREATININE (test code = CREAT) 1.70 mg/dL 0.55-1.02 H Note change in reference range due to change in reagent. BUN/CREATININE RATIO (test code = BUN/CREA) 28.8 10-20 H TOTAL PROTEIN (test code = PROT) 6.8 gram/dL 6.4-8.2 N ALBUMIN (test code = ALB) 2.9 g/dL 3.4-5.0 L GLOBULIN (test code = GLOB) 3.9 gram/dL 2.7-4.2 N ALBUMIN/GLOBULIN RATIO (test code = A/G) 0.7 0.75-1.50 L CALCIUM (test code = CA) 8.2 mg/dL 8.5-10.1 L BILIRUBIN TOTAL (test code = BILT) 1.20 mg/dL 0.0-1.0 H SGOT/AST (test code = AST) 33 IUnit/L 15-37 N SGPT/ALT (test code = ALT) 34 IUnit/L 12-78 N ALKALINE PHOSPHATASE TOTAL (test code = ALKP) 145 IUnit/L 45-117 H Note change in reference range due to change in reagent. CBC W/AUTO [id number] 07:24:00* Test Item Value Reference Range Interpretation Comments WHITE BLOOD CELL (test code = WBC) 2.1 K/mm3 4.5-12.5 L RED BLOOD CELL (test code = RBC) 3.37 mill/mm3 3.7-5.2 L HEMOGLOBIN (test code = HGB) 9.1 gram/dL 11.5-15.5 L HEMATOCRIT (test code = HCT) 27.5 % 36.0-46.0 L MEAN CELL VOLUME (test code = MCV) 81.6 fL 80-98 N MEAN CELL HGB (test code = MCH) 27.0 picogram 27.0-33.0 N MEAN CELL HGB CONCETRATION (test code = MCHC) 33.1 gram/dL 33.0-36. 0 N RED CELL DISTRIBUTION WIDTH (test code = RDW) 14.8 % 11.6-16. 2 N RED CELL DISTRIBUTION WIDTH SD (test code = RDW-SD) 43.6 fL 37 .0-51.0 N PLATELET COUNT (test code = PLT) 76 K/mm3 150-450 L MEAN PLATELET VOLUME (test code = MPV) 10.3 fL 6.7-11.0 N NEUTROPHIL % (test code = NT%) 45.8 % 39.0-69.0 N IMMATURE GRANULOCYTE % (test code = IG%) 0.0 % 0.0-5.0 N LYMPHOCYTE % (test code = LY%) 40.6 % 25.0-55.0 N MONOCYTE % (test code = MO%) 10.8 % 0.0-10.0 H EOSINOPHIL % (test code = EO%) 1.9 % 0.0-5.0 N BASOPHIL % (test code = BA%) 0.9 % 0.0-1.0 N NUCLEATED RBC % (test code = NRBC%) 0.0 % 0-0 N NEUTROPHIL # (test code = NT#) 0.97 K/mm3 1.8-7.7 L IMMATURE GRANULOCYTE # (test code = IG#) 0.00 x10 3/uL 0-0.03 N LYMPHOCYTE # (test code = LY#) 0.86 K/mm3 1.0-5.0 L MONOCYTE # (test code = MO#) 0.23 K/mm3 0-0.8 N EOSINOPHIL # (test code = EO#) 0.04 K/mm3 0.0-0.5 N BASOPHIL # (test code = BA#) 0.02 K/mm3 0.0-0.2 N NUCLEATED RBC # (test code = NRBC#) 0.00 K/mm3 0.0-0.1 N MANUAL DIFF REQUIRED (test code = MDIFF) NO COMPREHENSIVE METABOLIC [id number] 07:22:00* Test Item Value Reference Range Interpretation Comments SODIUM (test code = NA) 139 mmol/L 136-145 N POTASSIUM (test code = K) 4.2 mmol/L 3.5-5.1 N CHLORIDE (test code = CL) 106.0 mmol/L 98-107 N CARBON DIOXIDE (test code = CO2) mmol/L 21-32 ANION GAP (test code = GAP) 10-20 GLUCOSE (test code = GLU) mg/dL 74-106 BLOOD UREA NITROGEN (test code = BUN) mg/dL 7-18 GLOMERULAR FILTRATION RATE (test code = GFR) mL/min >=60 CREATININE (test code = CREAT) mg/dL 0.55-1.02 BUN/CREATININE RATIO (test code = BUN/CREA) 10-20 TOTAL PROTEIN (test code = PROT) gram/dL 6.4-8.2 ALBUMIN (test code = ALB) g/dL 3.4-5.0 GLOBULIN (test code = GLOB) gram/dL 2.7-4.2 ALBUMIN/GLOBULIN RATIO (test code = A/G) 0.75-1.50 CALCIUM (test code = CA) mg/dL 8.5-10.1 BILIRUBIN TOTAL (test code = BILT) mg/dL 0.0-1.0 SGOT/AST (test code = AST) IUnit/L 15-37 SGPT/ALT (test code = ALT) IUnit/L 12-78 ALKALINE PHOSPHATASE TOTAL (test code = ALKP) IUnit/L 45-117 BLOOD UREA [id number] 07:22:00* Test Item Value Reference Range Interpretation Comments BLOOD UREA NITROGEN (test code = BUN) 50 mg/dL 7-18 H [id number] 07:22:00* Test Item Value Reference Range Interpretation Comments CREATININE (test code = CREAT) 1.60 mg/dL 0.55-1.02 H Note change in reference range due to change in reagent. [id number] 20:32:00* Test Item Value Reference Range Interpretation Comments GLUBED (test code = GLUBED) 389 mg/dL 74-106 H Performed by certified bath mix operator at [facility] [id number] 16:39:00* Test Item Value Reference Range Interpretation Comments GLUBED (test code = GLUBED) 332 mg/dL 74-106 H Performed by certified bath mix operator at [facility] [id number] 11:49:00* Test Item Value Reference Range Interpretation Comments GLUBED (test code = GLUBED) 192 mg/dL 74-106 H Performed by certified bath mix operator at [facility] [id number] 08:21:00* Test Item Value Reference Range Interpretation Comments GLUBED (test code = GLUBED) 281 mg/dL 74-106 H Performed by certified bath mix operator at [facility] [id number] 02:47:00* Test Item Value Reference Range Interpretation Comments GLUBED (test code = GLUBED) 440 mg/dL 74-106 H Performed by certified bath mix operator at [facility] COMPREHENSIVE METABOLIC [id number] 19:09:00* Test Item Value Reference Range Interpretation Comments SODIUM (test code = NA) 136 mmol/L 136-145 N POTASSIUM (test code = K) 4.2 mmol/L 3.5-5.1 N CHLORIDE (test code = CL) 103.0 mmol/L 98-107 N CARBON DIOXIDE (test code = CO2) 23.0 mmol/L 21-32 N ANION GAP (test code = GAP) 14.2 10-20 N GLUCOSE (test code = GLU) 144 mg/dL 74-106 H BLOOD UREA NITROGEN (test code = BUN) 59 mg/dL 7-18 H GLOMERULAR FILTRATION RATE (test code = GFR) 23 mL/min >=60 Estimated GFR by using Modified MDRD formula.Chronic kidney disease is defined as either kidney damageor GFR <60 mL/min/1.73 m2 for >3 months. CREATININE (test code = CREAT) 2.20 mg/dL 0.55-1.02 H Note change in reference range due to change in reagent. BUN/CREATININE RATIO (test code = BUN/CREA) 26.7 10-20 H TOTAL PROTEIN (test code = PROT) 7.7 gram/dL 6.4-8.2 N ALBUMIN (test code = ALB) 3.1 g/dL 3.4-5.0 L GLOBULIN (test code = GLOB) 4.6 gram/dL 2.7-4.2 H ALBUMIN/GLOBULIN RATIO (test code = A/G) 0.7 0.75-1.50 L CALCIUM (test code = CA) 8.4 mg/dL 8.5-10.1 L BILIRUBIN TOTAL (test code = BILT) 1.80 mg/dL 0.0-1.0 H SGOT/AST (test code = AST) 34 IUnit/L 15-37 N SGPT/ALT (test code = ALT) 35 IUnit/L 12-78 N ALKALINE PHOSPHATASE TOTAL (test code = ALKP) 131 IUnit/L 45-117 H Note change in reference range due to change in reagent. COMPREHENSIVE METABOLIC [id number] 19:01:00* Test Item Value Reference Range Interpretation Comments SODIUM (test code = NA) 136 mmol/L 136-145 N POTASSIUM (test code = K) 4.2 mmol/L 3.5-5.1 N CHLORIDE (test code = CL) 103.0 mmol/L 98-107 N CARBON DIOXIDE (test code = CO2) mmol/L 21-32 ANION GAP (test code = GAP) 10-20 GLUCOSE (test code = GLU) mg/dL 74-106 BLOOD UREA NITROGEN (test code = BUN) mg/dL 7-18 GLOMERULAR FILTRATION RATE (test code = GFR) mL/min >=60 CREATININE (test code = CREAT) mg/dL 0.55-1.02 BUN/CREATININE RATIO (test code = BUN/CREA) 10-20 TOTAL PROTEIN (test code = PROT) gram/dL 6.4-8.2 ALBUMIN (test code = ALB) g/dL 3.4-5.0 GLOBULIN (test code = GLOB) gram/dL 2.7-4.2 ALBUMIN/GLOBULIN RATIO (test code = A/G) 0.75-1.50 CALCIUM (test code = CA) mg/dL 8.5-10.1 BILIRUBIN TOTAL (test code = BILT) mg/dL 0.0-1.0 SGOT/AST (test code = AST) IUnit/L 15-37 SGPT/ALT (test code = ALT) IUnit/L 12-78 ALKALINE PHOSPHATASE TOTAL (test code = ALKP) IUnit/L 45-117 CBC W/AUTO [id number] 18:33:00* Test Item Value Reference Range Interpretation Comments WHITE BLOOD CELL (test code = WBC) 4.0 K/mm3 4.5-12.5 L RED BLOOD CELL (test code = RBC) 3.83 mill/mm3 3.7-5.2 N HEMOGLOBIN (test code = HGB) 10.5 gram/dL 11.5-15.5 L HEMATOCRIT (test code = HCT) 31.3 % 36.0-46.0 L MEAN CELL VOLUME (test code = MCV) 81.7 fL 80-98 N MEAN CELL HGB (test code = MCH) 27.4 picogram 27.0-33.0 N MEAN CELL HGB CONCETRATION (test code = MCHC) 33.5 gram/dL 33.0-36. 0 N RED CELL DISTRIBUTION WIDTH (test code = RDW) 15.2 % 11.6-16. 2 N RED CELL DISTRIBUTION WIDTH SD (test code = RDW-SD) 44.1 fL 37 .0-51.0 N PLATELET COUNT (test code = PLT) 103 K/mm3 150-450 L MEAN PLATELET VOLUME (test code = MPV) 10.5 fL 6.7-11.0 N NEUTROPHIL % (test code = NT%) 55.2 % 39.0-69.0 N IMMATURE GRANULOCYTE % (test code = IG%) 0.8 % 0.0-5.0 N LYMPHOCYTE % (test code = LY%) 30.6 % 25.0-55.0 N MONOCYTE % (test code = MO%) 11.1 % 0.0-10.0 H EOSINOPHIL % (test code = EO%) 1.5 % 0.0-5.0 N BASOPHIL % (test code = BA%) 0.8 % 0.0-1.0 N NUCLEATED RBC % (test code = NRBC%) 0.0 % 0-0 N NEUTROPHIL # (test code = NT#) 2.18 K/mm3 1.8-7.7 N IMMATURE GRANULOCYTE # (test code = IG#) 0.03 x10 3/uL 0-0.03 N LYMPHOCYTE # (test code = LY#) 1.21 K/mm3 1.0-5.0 N MONOCYTE # (test code = MO#) 0.44 K/mm3 0-0.8 N EOSINOPHIL # (test code = EO#) 0.06 K/mm3 0.0-0.5 N BASOPHIL # (test code = BA#) 0.03 K/mm3 0.0-0.2 N NUCLEATED RBC # (test code = NRBC#) 0.00 K/mm3 0.0-0.1 N MANUAL DIFF REQUIRED (test code = MDIFF) NO US [id number] 13:03:00 [place] [address] Patient Name: GRETTA MIRANDA MR #: [id number] : 1965 Age/Sex: 53/F Req #: [id number] Adm Physician: Ordered by: ROBIN ESCALANTE MD Report #: [id number] Location: Room/Bed: Procedure: [id number] US/U S LIVER Exam Date: Exam Time: [...] 11/26/18 1310 COPY TO: ROBIN ESCALANTE MD US Extremity lower venous doppler bilat [id number] 15:20:00EXAM: US BILATERAL LOWER EXTREMITY VENOUS DOPPLERDATE: 10/27/2018 15:20 CSTINDICATION: - M79.89 Other specified soft tissue disorders, Z86.718 Personal history of other venous thrombosis and embolismADDITIONAL INFORMATION: None.COMPARISON: None.TECHNIQUE: Multiplanar grayscale, color Doppler and spectral Doppler ul trasoundimages of the bilateral lower extremity veins.DISCUSSION:Right Thigh Vei ns:Common Femoral: Patent.Femoral (SFV): Patent.Popliteal: Patent.Proximal Great er Saphenous: Patent.Deep Femoral Veins: Patent.Left Thigh Veins:Common Femoral: Patent.Femoral (SFV): Patent.Popliteal: Patent.Proximal Greater Saphenous: Gabriel nt.Deep Femoral Veins: Patent.IMPRESSION:1. Normal. No deep venous thrombosis ( DVT).--Read by: José Avilez MDDictated Date/time: 10/28/18 09:24Electro nically Signed by: José Avilez MD 10/28/1809:25FINAL REPORTUnSevier Valley Hospital PhysiciansCT Chest/Abdomen/Pelvis w contrast [id number] 2018-09-17 11:35:00EXAM: CT of the chest, abdomen, and pelvis with IV contrastINDICATION: Liver disease, iron deficiency anemia, postmenopausal bleedingCOMPARISON: NoneTechnique: Axial CT images through the chest, abdomen, and pelvis were obtainedwith IV contrast. Coronal and sagittal reformats were obtained.Contrast: 75 cc of IV Visipaque contrast material was used for the exam. Oralcontrast was administered.CT imaging performed at this location utilizes radiation dose optimizationtechniques which include one or more of the following:-Automated exposure control-Adjustment of the mA and/or kV according to patient size-Use of iterative reconstruction techniqueCT Radiation Dose DLP 1820 mGy-cmFINDINGS:CHEST: No consolidation, pneumothorax, pleural effusion, or pulmonary nodulesidentified. No endobronchial abnormalities evident.No threshold enlarged hilar, mediastinal, or axillary lymph nodes identified.No cardiomegaly or pericardial effusion. Main pulmonary artery and thoracicaorta are normal in caliber.ABDOMEN: Liver contour demonstrates subtle micronodularity. There isenlargement of the caudate and left hepatic lobes. No focal arterial enhancinghepatic lesion identified. Intrahepatic portal veins are widely patent.The spleen is enlarged, measuring up to 18.5 cm in craniocaudal d imension.Large periesophageal and perigastric varices are present.Pancreas, panc reatic duct, common bile duct, and gallbladder are within normallimits. 2 nonobs tructive right renal calculi measure less than 4 mm. Nohydroureteronephrosis joana ntified. No focal renal lesions identified.Small bowel and colon are nondilated. Oral contrast reaches the rectum. Theappendix is normal. Umbilical hernia is sm all and contains fat only.Abdominal aorta is normal in caliber. No threshold enl arged periaortic,retroperitoneal, mesenteric, or inguinal lymph nodes identified .PELVIS: Circumferential bladder wall thickening is likely related to thebladder 's collapsed state. No pelvic mass, free fluid, or lymphadenopathyidentified. No suspicious lytic or blastic osseous lesions identified.IMPRESSION:Cirrhosis wit hout evidence for hepatocellular carcinoma. MRI with IV contrastis best for hepa tocellular carcinoma screening.Splenomegaly and portal hypertension with enlarge d periesophageal andperigastric varices.Circumferential bladder wall thickening is likely related to the bladder'scollapsed state. However, in the setting of dy suria and pelvic pain, cystitisshould be considered.2 nonobstructive right renal calculi measure less than 4 mm.BAILEY: PAT--Read by: Matt Hargrove MDDictated Date/time: 09/17/18 16:32Electronically Signed by: Ghada Hargrove MD 09/17/1816:40FINAL REPORTUnSevier Valley Hospital Physicians[[facility]] PROTHROMBIN W/INR + PARTIAL THROMBOPLASTIN [id number] 13:53:01* Test Item Value Reference Range Interpretation Comments PT (test code = 5902-2) 14.6 {sec} 12.0-14.7 International Normalization Ratio (test code = 6301-6) 1.14 0.85-1.17 RECOMMENDED RANGES FOR PROTIME INR: 2.0-3.0 for most medical and surgical thromboembolic states. 2.5-3.5 for artificial heart valves and recurrent embolism.INR SHOULD BE USED ONLY FOR PATIENTS ON STABLE ANTICOAGULANT THERAPY. Partial Thromboplastin Time (test code = 75341-5) 31.5 {sec} 22.9 -35.8 Heparin Therapeutic Range: 57 - 92 Seconds [facility][H] PT/PTT Mixing Study [id number] 13:53:01* Test Item Value Reference Range Interpretation Comments TT Baseline (test code = 3243-3) 16.2 {sec} 15.0-21.1 PTT Baseline (test code = 64647-6) 32.3 {sec} 22.9-35.8 FACTOR DEFICIENCIES may be congenital or acquired. Acquired deficiencies maybe seen with gut sterilization or long-termantibiotic use. Suggest appropriate factor assays, whereclinically indicated.CIRCULATING INHIBITORS may be associated with either bleedingor thrombotic tendencies. Certain circulating inhibitors maybe transient (drug-related or seocndary to autoimmune/inflammatory conditions). Martines ggest further studies as clinically indicated. PT Baseline; Above High Threshold (test code = 5902-2) 16.0 {sec} 12.0-14.7 FACTOR DEFICIENCIES may be congenital or acquired. Acquired deficiencies maybe seen with gut sterilization or long-termantibiotic use. Suggest appropriate factor assays, whereclinically indicated.CIRCULATING INHIBITORS may be associated with either bleedingor thrombotic tendencies. Certain circulating inhibitors maybe transient (drug-related or seocndary to autoimmune/inflammatory conditions). Suggest further studies as clinically indicated. PT 1:1 Immediate (test code = 5959-2) 13.7 {sec} PT 1:1 1hr (test code = 52017-8) 14.1 {sec} Mixing Study Interpretation (test code = Mixing Study Interp retation) SEE NOTES " PT mixing study demostrate d correction indicating probable factordeficiency."Electronic Signature Queen Zaid RINALDI 09/13/18 9:16 PM [facility]] CBC (INCLUDES DIFF/PLT)2018-09-13 13:53:01* Test Item Value Reference Range Interpretation Comments WBC; Below Low Threshold (test code = 6690-2) 2.7 {K/CMM} 3.7-10.4 RBC; Below Low Threshold (test code = 789-8) 3.58 {M/CMM} 4.20-5.40 Hgb; Below Low Threshold (test code = 718-7) 9.7 g/dl 12.0-16.0 Hct; Below Low Threshold (test code = 70919-7) 28.6 % 36.0-48 .0 MCV; Below Low Threshold (test code = 787-2) 79.9 fL 80.0-98.0 MCH (test code = 785-6) 27.1 pg 27.0-31.0 MCHC (test code = 786-4) 33.9 g/dl 32.0-36.0 RDW; Above High Threshold (test code = 788-0) 16.5 % 11.5-14. 5 Platelet; Below Low Threshold (test code = 18725-4) 83 {K/CMM} 13 3-450 Mean Platelet Volume (test code = 65020-5) 8.9 fL 7.4-10.4 [facility]] [id number] 13:53:01* Test Item Value Reference Range Interpretation Comments Segmented Neutrophils (test code = 27202-7) 60.0 % 45.0-75.0 Monocytes (test code = 42973-9) 7.8 % 2.0-12.0 Lymphocytes (test code = 94938-7) 30.2 % 20.0-40.0 Eosinophils (test code = 02872-4) 1.3 % 0.0-4.0 Basophils (test code = 706-2) 0.7 % 0.0-1.0 Segs-Bands # (test code = 46424-0) 1.6 {K/CMM} 1.5-8.1 Lymphocytes #; Below Low Threshold (test code = 99630-4) 0.8 {K/CMM } 1.0-5.5 Monocytes # (test code = 24283-1) 0.2 {K/CMM} 0.0-0.8 [facility]] CMP [id number] 13:53:01* Test Item Value Reference Range Interpretation Comments Sodium Level (test code = 2951-2) 136 {mEq/l} 135-145 Potassium Level (test code = 2823-3) 4.1 {mEq/l} 3.5-5.1 Chloride Level (test code = 5-0) 99 {mEq/l} 95-109 Carbon Dioxide (test code = 2027-9) 32 {mEq/l} 24-32 AGAP; Below Low Threshold (test code = 18372-6) 9.1 {mEq/l} 10.0-2 0.0 Glucose Lvl; Above High Threshold (test code = 2345-7) 271 mg/dl 70-99 Adult reference range values reflect the clinical guidelinesof the [place] [employer]. Creatinine Lvl; Above High Threshold (test code = 2160-0) 1.90 m g/dl 0.50-1.40 Blood Urea Nitrogen; Above High Threshold (test code = 3094-0) 32 m g/dl 7-22 BUN/Creatinine Ratio (test code = 3097-3) 17 6-25 Total Protein (test code = 2885-2) 7.6 g/dl 6.4-8.4 Albumin Lvl (test code = 1751-7) 3.8 g/dl 3.5-5.0 Globulin (test code = 90203-9) 3.8 g/dl 2.7-4.2 A/G Ratio (test code = 1759-0) 1.0 0.7-1.6 Calcium Level Total (test code = 74035-7) 9.0 mg/dl 8.5-10.5 ALT (test code = 1743-4) 42 u/l 0-65 AST (test code = 48687-4) 32 u/l 0-37 Bili Total (test code = 1974-) 1.2 mg/dl 0.2-1.3 Alk Phos (test code = 1783-0) 119 u/l 39-136 eGFR (test code = 46632-4) 29 {ML/MIN/1.7} The eGFR is calculated using the CKD-EPI formula. In most young, healthyindividuals the eGFR will be >90 mL/min/1.73m2. The eGFR declines with age. AneGFR of 60-89 may be normal in some populations, particularly the elderly, forwhom the CKD-EPI formula has not been extensively validated. Use of the eGFR isnot recommended in the following populations:Individuals with unstable creatinine concentrations, including patients and those with serious co-morbid conditions.Patients with extremes in muscle mass or diet.The data above are obtained from the National Kidney Disease Education Program(NKDEP) which additionally recommends that when the eGFR is used in patientswith extremes of body mass index for purposes of drug dosing, the eGFR shouldbe multiplied by the estimated BMI. [facility]] [place] [id number] 13:53:01* Test Item Value Reference Range Interpretation Comments Cancer Antigen 125 (test code = 85676-7) 19.1 U/ml 0.0-35.0 [facility][H] Hepatitis C Virus RNA by PCR [id number] 13:53:01* Test Item Value Reference Range Interpretation Comments HCV RNA VirLoad (test code = HCV RNA VirLoad) 817 {IU/ml} HCV RNA Log10 (test code = 44156-7) 2.9 {IU/ml} No Target HCV RNA detected will be reported as "HCV RNA Not Detected". Anegative result does not rule out the possibility of the presence of the HCVvirus. The specimen may contain HCV below the detectable limits of the assayHCV RNA detected below 15 IU/mL will be resulted as "HCV RNA Detected, Lessthan 15 HCV RNA IU/mL."HCV version 2.0 quantitative assay is performed using the FDA approved [employer] AmpliPrep/MEGGAN TaqMan HCV real-time RT-PCR IVD system to detect the5- untranslated region of the HCV genome in genotypes 1 through 6 utilizing adual probe approach. The assay is intended for use as an aid in the managementof HCV- infected individuals undergoing anti-viral therapy and results are notintended to be used as the individual means for clinical diagnosis or patientmanagement. Performance characteristics have been verified by the [facility]. The Molecular DiagnosticsLaboratory is authorized under the Clinical Laboratory Improvement Amendmentsof 1988 (CLIA-88) to perform high complexity testing. [facility] PhysiciansTobacco Use [id number] 12:00:00* Test Item Value Reference Range Interpretation Comments Completed (test code = Completed) DONE [facility] [id number] 13:13:00 RUN DATE: 07/20/18 [facility] PAGE 1 RUN TIME: 1313 Specimen Inqui ry RUN USER: INTERFACE PATIENT: GRETTA MIRANDA ACCT #: [id number] LOC: V.DSU U #: [id number] AGE/SX: 53/F ROOM: RE07/16/18DAVE DR: Nicci Morales MD : 61 BED: DIS: STATUS: [facility] [place]: SPEC #: [id number] RECD: 07/19/18 STATUS: ROSEY AFUSTIN #: [id number] SHABANA: 07/16/18- DR: Nicci Morales MD ENTERED: 07/19/18 SP TYPE: STOMACH OTHR DR: Pee Chambers MD ORDERED: GROSS COPIES TO: Harvey Chambers MD [address] [place] [address] Nicci Morales MD [address] [place] [address] PROCEDURES: GROSS (07/20/18-1132) TISSUES: ANTRAL BIOPSY - H-PYLORI CLINICAL HISTORY COLLECTI ON DATE: 07/16/18 CHRONIC HEPATITIS C, CIRRHOSIS FINAL DIAGNOSIS Antrum, biopsy: REACTIVE GASTROPATHY WITH MILD CHRONIC INFLAMMATION NO INTESTINAL METAPLASIA SEEN NEGATIVE FOR HELICOBACTER PYLORI, GIEMS A CONTROL STAINS APPROPRIATELY NEGATIVE FOR MALIGNANCY DMW/sm D 51043, 18155 MACROSCOPIC The specimen is received in formalin, labeled with the patient's name, and identified as "antrum". It consist of t wo galvez biopsy fragments measuring 0.3 and 0.25 cm. An H E and a Giemsa stain will be prepared. CONTINUED ON NEXT PAGE * * RUN DATE: 07/20/18 [facility] PAGE 2 RUN TIME: 1313 Specimen Inq uiry RUN USER: INTERFACE SPEC #: [id number] PATIENT: ANA MIRANDA LUCY #[id number] (Continued) MACROSCOPIC (Continued) GROSS PERFORMED AT [facility] [address] [place] [address] (P)[phone] MICROSCOPIC MICROSCOPIC PERFORMED AT [facility] All of the stains, including any controls performed, stain appropriately. [facility] [address] [place] [address] (P)[phone] PERFORMING SITE Diagnosis performed at: [facility] [address] [place] [address] [phone] Signed SIGNATURE ON FILE SainiYen 07/20/18 1313 END OF REPORT KWAME JUÁREZ2018-08-28 15:19:00 RUN DATE: 06/29/18 [facility] PAGE 1 RUN TIME: 1519 Specimen Inqui ry RUN USER: INTERFACE PATIENT: GRETTA MIRANDA ACCT #: V [id number] LOC: OSCAR U #: [id number] AGE/SX: 53/F ROOM: RE06/28/18[facility] DR: Leoncio Allison MD : 61 BED: DIS: STATUS: [facility] [place] TLOC: SPEC #: [id number] RECD: 06/28/18 STATUS: ROSEY FAUSTIN #: [id number] SHABANA: 06/28/18 [facility] DR: Leoncio Allison MD ENTERED: 06/28/18 SP TYPE: CURENDOMET OTHR DR: Pee Chambers MD ORDERED: GROSS COPIES TO: Leoncio Allison MD [id number] [facility] [place], [place] [id number] Harvey Chambers MD [address] [facility] [address] [place] [address] PROCEDURES: GROSS () TISSUES: ENDOMETRIUM, NOS - [...] CONTINUED ON NEXT PAGE RUN DATE: 06/29/18 [facility] PAGE 2 RUN TIME: 1519 Specimen Inquiry RUN USER: INTERFACE SPEC #: [id number] PATIAILIN T: GRETTA MIRANDA #[id number] (Continued) FINAL DIAGNOSIS (Continued) [id number] MACROSCOPIC The spe cimen is received in formalin, labeled with the patient's name and identified as "curetting endometrium". It consists of multiple fragments of red-pink sof t tissue and red mucoid material. The specimen measures 2.5 X 2.0 X 0.3 cm in aggregate. The specimen is entirely submitted for histologic evaluation in a single cassette. GROSS PERFORMED AT [facility] [address] [place] [address] (p)[phone] ICROSCOPIC MICROSCOPIC PERFORMED AT [facility] All of the stain s, including any controls performed, stain appropriately. [facility] [address] [place] [address] [phone])[phone] [facility] SITE Diagnosis performed at: [facility], [place] [address] [place] [address] ------ ------ Signed SIGNATURE ON FILE Elder Paul [phone] END OF REPOR T
--- OUTSIDE RECORDS SUMMARY | 2020-03-22 11:07 | XMS REPORT | Summary of Care ---
Author Author GRETTA Perez M.A. Organization Unknown Address Unknown Phone Unavailable Care Team Providers Care Shrimp Picker Name Role Phone LI BUSTOS M.D. Unavailable Unavailable LI BUSTOS MD Unavailable Unavailable [...] 1.25 MG (5000 0 UT) Oral Capsule * Start : 13-Sep-2018 [...] Refills: 0 * Start : 13-Sep-2018 Active NexIUM 40 MG Oral Packet MIX THE CONTENTS OF 1 PACKET IN 15ML OF WATER AND DRINK ONCE DAILY. * Refills: 0 * Start : 02-Jan-2020 Active Allergies and Adverse Reactions Name Dates [...] Details - Status: Name Dates Details Never smoked tobacco (finding) Vital Signs Date Test Result Details [id number] Systolic blood pressure 129 mm[Hg] Status: Comments : Location: LUE; Position: Sitting Diastolic blood pressure 79 mm[Hg] Status: Comment s: Location: LUE; Position: Sitting Body temperature 98.2 f Status: Comments: Me thod: Oral Body height 151 cm Status: Weight 129.9 kg Status: Body mass index (BMI) [Ratio] 56.97 kg/m2 Status: Body surface area Derived from formula 2.16 m2 S tatus: Heart Rate 72 /min Status: Respiratory rate 18 /min Status: O2 SAT 97 % Status: Comments: So urce: RA Results Date Description Value Details Results not documented Plan of Care Name Dates Details Planned Observations Planned Goals not documented Instructions Name Dates Details Instructions not documented [...] Diagnosis: Problem not documented On: 27-Jun-2019 14:20 Appointment; LI BUSTOS M.D. Encounter Diagnosis: Problem not documented On: 02-Jan-2020 12:20
--- OUTSIDE RECORDS SUMMARY | 2020-03-22 11:07 | XMS REPORT | Summary of Care ---
Author Author GRETTA WATERS APRN Organization Unknown Address Unknown Phone Unavailable Care Team Providers Care Elementary Reading Specialist Name Role Phone LI BUSTOS M.D. Unavailable [...] (finding) Vital Signs Date Test Result Details [id number] Systolic blood pressure 129 mm[Hg] Status: Comments [...] Details Planned Observations Planned Goals not documented Interventions Provided Discussion/Summary* Ms. Miranda is a 54 year old female s/p ZEFERINO , BSO on 10/28/18 for suspected endometrial cancer however pathology was Benign, returning to day for surveillance of symptoms: * 1. WWE: * -Last MMG 10/2019 BIRADS-2, fibroglandular tissue noted on imaging; Completed additional CBE today for complaint of breast tenderness and exam was benign. Tenderness noted on palpation. Advised pt to wear supportive undergarments, avoid caffeine and continue to work on weight management. * -Pelvic exam benign, no masses. Cuff intact. * 2. Lymphedema and LLE cellulitis - s/p completion of antibiotic therapy with keflex per PCP for cellulits as of 01-01-20. Encouraged to call for follow-up for reassessment. LLE with discoloration consistent with recent infection, as well as healing ulcer in mid-pardo. * 3. DM: * -Encouraged pt to contact endocrine provider for quicker appointment given recent hypoglycemic episode. Next endocrine visit scheduled for 03/2020 per patient. * RTC 1 year for WWE. Appropriate to resume care with SEO TEAM LEAD provider if desired. * Discussed above with patient and family (spent 25 minutes face to face). Questions answered. Instructions Name Dates Details Instructions not documented [...]
--- NOTE | 2020-03-22 12:00 | NUR ---
d50 pushed for a blood sugar of 45
[2020-03-22] MEDS ORDERED: DEXTROSE 50% SYRINGE 50 ML IV ONE (12:18)
[2020-03-22 12:42] LABS: BASOPHILS % 0.5 % (0.0-1.0); EOSINOPHILS # (AUTO) 0.1 (0.0-0.4); EOSINOPHILS % 1.6 % (0.0-6.0); HEMATOCRIT 32.1 % (34.2-44.1); LYMPHOCYTES # (AUTO) 1.4 (1.0-3.2); LYMPHOCYTES % 22.1 % (18.0-39.1); MEAN CORPUSCULAR HEMOGLOBIN 28.7 pg (28-32); MEAN CORPUSCULAR HGB CONC 34.3 g/dL (31-35); MEAN CORPUSCULAR VOLUME 83.8 fL (81-99); MONOCYTES # (AUTO) 0.6 (0.2-0.8); MONOCYTES % 8.8 % (4.4-11.3); NEUTROPHILS # (AUTO) 4.2 (2.1-6.9); NEUTROPHILS % 66.5 % (38.7-80.0); PLATELET COUNT 144 x10e3/uL (140-360); RED BLOOD COUNT 3.83 x10e6/uL (3.6-5.1); RED CELL DISTRIBUTION WIDTH 14.2 % (11.7-14.4)
[2020-03-22 12:51] LABS: ALANINE AMINOTRANSFERASE 21 IU/L (0-55); ALBUMIN 3.8 g/dL (3.5-5.0); ALBUMIN/GLOBULIN RATIO 0.9 (0.8-2.0); ALKALINE PHOSPHATASE 87 IU/L (40-150); ANION GAP 12.6 mmol/L (8-16); BLOOD UREA NITROGEN 39 mg/dL (7-26); BUN/CREATININE RATIO 20 (6-25); CALCIUM 9.6 mg/dL (8.4-10.2); CARBON DIOXIDE 24 mmol/L (22-29); CHLORIDE 107 mmol/L (98-107); CREATINE KINASE 42 IU/L (29-168); CREATININE, SERUM 1.94 mg/dL (0.57-1.11); EST GLOMERULAR FILTRATION RATE 27 ML/MIN (60-); POTASSIUM 3.6 mmol/L (3.5-5.1); SODIUM 140 mmol/L (136-145)
--- NOTE | 2020-03-22 12:56 | Emergency Department Note ---
History of Present Illnes History of Present Illness Chief Complaint: General Medicine Complaints History of Present Illness This is a 55 year old female arrived to the ED with complaint of shortness of breath- pt states her renal function is also elevated and was told to come to the ED for further work up. Chief Complaint Comment PT LLE PT STATES PAIN AND CELLULITIS. PT STATES SOB, FEVER, COUGH, CHILLS. DENIES COVID EXPOSURE. PT STATES DID BLOOD WORK AT DR SALINAS'S THURSDAY AND SENT TO ER FOR ADMISSION FOR ANEMIA, CELLULITIS, AND HER "KIDNEYS ARE 29." PT CRYING IN TRIAGE STATES NO MONEY, LIVES WITH DAUGHTER AND LIVES ON FOOD STAMPS AND PARTIAL DISABILITY AND PERSONAL PROBLEMS. Historian: Patient Arrival Mode: Car Onset (how long ago): week(s) Radiation: non-radiation, back, neck, extremity, abdomen, periumbilical, flank, proximal, distal, other Severity: mild Onset quality: sudden Duration (how long): day(s) (4 days) Timing of current episode: constant Progression: worsening Context: recent illness, recent surgery, recent immobilization, recent travel, trauma/injury, new medications, hx of DVT/PE, non-compliance w/ medications, other Relieving factors: none Exacerbating factors: none Treatments prior to arrival: none Past Medical/Family History Physician Review I have reviewed the patient's past medical and family history. Any updates have been documented here. Past Medical History Recent Fever: No Clinical Suspicion of Infectio: No New/Unexplained Change in Ment: No Past Medical History: Hypertension, Diabetes, Hepatitis C, Cancer, UTI's, Liver Disease, Depression, Other Mental Illness, Hyperlipedemia, Chronic Kidney Disease Other Medical History: SEVERE MORBID OBESITY PVD W/ CELLULITIS MALIGNANT NEOPLASM OF ENDOMETRIUM (2018 COMPLETE HYST) LYMPHEDEMA SLEEP APNEA GASTROPARESIS Past Surgical History: Hysterectomy, Social History Smoking Cessation: Never Smoker Counseling Performed: No Alcohol Use: None Any Illegal Drug Use: No TB Exposure/Symptoms: No Physically hurt or threatened: No Other Last Tetanus: 2019 Any Pre-Existing Lines (PICC,: No Is patient up to date on immun: Yes Last Flu: utd Last Pneumovax: utd Review of Systems Review of Systems Constitutional: no symptoms; as per HPI, chills, diaphoresis, fever, malaise, weakness, other EENTM: no symptoms; as per HPI, eye pain, blurred vision, tearing, double vision, ear pain, ear discharge, nose pain, nose congestion, throat pain, throat swelling, mouth pain, mouth swelling, other Cardiovascular: no symptoms; as per HPI, chest pain, edema, palpitations, syncope, other Respiratory: no symptoms; as per HPI, change in phlegm color, chest congestion, cough, hemoptysis, excessive phlegm production, pain on inspiration, pain with cough, dyspnea, dyspnea on exertion, snoring, stridor, wheezing, other Gastrointestinal: no symptoms; as per HPI, abdominal pain, constipation, diarrhea, nausea, vomiting, other Genitourinary: no symptoms; as per HPI, discharge, dysuria, frequency, hematuria, pain, other Musculoskeletal: no symptoms Neurological: other (left lower ext swelling redness ); no symptoms, as per HPI, headache, numbness, paresthesia, pre-existing deficit, seizure, tingling, tremors, weakness Psychological: no symptoms, as per HPI, anxiety, depressed, emotional problems, other Endocrine: no symptoms, as per HPI, excessive sweating, flushing, intolerance to cold, intolerance to heat, increased hunger, increased thirst, increased urination, unexplained weight gain, unexplained weight loss, other Hematological/Lymphatic: no symptoms, as per HPI, anemia, blood clots, easy bleeding, easy bruising, swollen glands, other Review of other systems All other systems reviewed and negative. Physical Exam Related Data Allergies: Coded Allergies: Penicillins (Verified Allergy, Severe, TURNS BLUE, 08/26/19) ibuprofen (Verified Allergy, Severe, TURNS BLUE, 08/26/19) Triage Vital Signs Vital Signs Date Time Temp Pulse Resp B/P (MAP) Pulse Ox O2 Delivery O2 Flow Rate FiO2 03/22/20 11:21 98.9 76 22 162/82 96 Vital signs reviewed: Yes Physical Exam CONSTITUTIONAL Constitutional: well-developed, well-nourished, morbidly obese HENT HENT: normocephalic, atraumatic, oropharynx clear/moist, nose normal HENT L/R: left ext ear normal, right ext ear normal EYES Eyes: PERRL, conjunctivae normal NECK Neck: ROM normal PULMONARY Pulmonary: effort normal, breath sounds normal CARDIOVASCULAR Cardiovascular: regular rhythm, heart sounds normal, capillary refill normal, normal rate GASTROINTESTINAL Abdominal: soft, nontender, bowel sounds normal GENITOURINARY Genitourinary: exam deferred SKIN Skin: other (noted left lower leg swelling redness c/w cellulitis) MUSCULOSKELETAL Musculoskeletal: ROM normal NEUROLOGICAL Neurological: alert, oriented x 3, no gross motor or sensory deficits PSYCHOLOGICAL Psychological: mood/affect normal, judgement normal Results Laboratory Result Diagram: 03/22/20 1223 Laboratory Dextrose 50 ml STK-MED ONCE IV ; Start 03/22/20 at 12:18; Stop 03/22/20 at 12:13; Status DC Laboratory Tests Test 03/22/20 12:23 White Blood Count 6.25 x10e3/uL (4.8-10.8) Red Blood Count 3.83 x10e6/uL (3.6-5.1) Hemoglobin 11.0 g/dL (12.0-16.0) Hematocrit 32.1 % (34.2-44.1) Mean Corpuscular Volume 83.8 fL (81-99) Mean Corpuscular Hemoglobin 28.7 pg (28-32) Mean Corpuscular Hemoglobin Concent 34.3 g/dL (31-35) Red Cell Distribution Width 14.2 % (11.7-14.4) Platelet Count 144 x10e3/uL (140-360) Neutrophils (%) (Auto) 66.5 % (38.7-80.0) Lymphocytes (%) (Auto) 22.1 % (18.0-39.1) Monocytes (%) (Auto) 8.8 % (4.4-11.3) Eosinophils (%) (Auto) 1.6 % (0.0-6.0) Basophils (%) (Auto) 0.5 % (0.0-1.0) Neutrophils # (Auto) 4.2 (2.1-6.9) Lymphocytes # (Auto) 1.4 (1.0-3.2) Monocytes # (Auto) 0.6 (0.2-0.8) Eosinophils # (Auto) 0.1 (0.0-0.4) Basophils # (Auto) 0.0 (0.0-0.1) Absolute Immature Granulocyte (auto 0.03 x10e3/uL (0-0.1) Lab results reviewed: Yes Imaging Imaging results reviewed: Yes Imaging Comments Findings: Limited exam because of the patient's body habitus. Central airways unremarkable. Cardiomegaly. No definite pleural effusion or pneumothorax. Prominent upper lobe vessels suggesting vascular congestion. No other focal lung disease of significance. Discoid atelectasis in the left lower lung zone. Regional bones remarkable for degenerative changes. Upper abdomen not well-visualized. Impression: Cardiomegaly. No acute pulmonary disease. Procedures 12 Lead ECG Interpretation Dust Collector Treater: Interpreted by ED physician Prior GUEST EXPERIENCE MANAGER tracings: reviewed Rhythm: sinus rhythm Rate: normal QRS axis: left Clinical Impression: normal ECG Critical Care Time Subsequent provider I assumed direction of critical care for this patient from another provider of my specialty. Assessment & Plan Reassessment Reassessment time: 12:00 Reassessment 55y f presented to ed c/o left lower ext swelling redness pt medicated w/ cefepime vanc bs 45 on arrival given d50 bs reported rom lab 30 - pt medicated w/ d50 and pt to be fed Assessment & Plan Final Impression: (1) Cellulitis of left leg (2) Hypoglycemia (3) Obese Assessment & Plan spoke w/ Dr Salinas will admit Depart Disposition: ADMITTED Last Vital Signs Date Time Temp Pulse Resp B/P (MAP) Pulse Ox O2 Delivery O2 Flow Rate FiO2 03/22/20 12:00 98.8 61 16 155/78 97 Home Meds Reported Medications Insulin Regular, Human (NOVOLIN R) 100 Unit/1 Ml Vial, 15 UNITS PO AC 08/26/19 Insulin Glargine (LANTUS 3ML PEN) 100 Units/1 Ml Inj, 40 UNITS SQ HS 08/26/19 Glucosamine/D3/Boswellia Nicol (OSTEO BI-FLEX CAPLET) 1 Each Tablet, 1 TAB PO BID 08/26/19 Propranolol Hcl (PROPRANOLOL HCL) 10 Mg Tablet, 10 MG PO BID, TAB 08/26/19 Furosemide (FUROSEMIDE) 40 Mg Tablet, 80 MG PO BID, #30 TAB 08/26/19 Tramadol Hcl (ULTRAM) 50 Mg Tablet, 50 MG PO PRN, TAB 08/26/19 Levothyroxine Sodium (LEVOTHYROXINE SODIUM) 50 Mcg Tablet, 50 MCG PO DAILY, #30 TAB 08/26/19 Clindamycin Hcl (CLEOCIN HCL) 150 Mg Capsule, 300 MG PO Q8H, CAP 08/26/19 Rifaximin (XIFAXAN) 550 Mg Tablet, 550 MG PO BID 08/26/19 Doxycycline Hyclate (DOXYCYCLINE HYCLATE) 100 Mg Capsule, 100 MG PO DAILY, CAP 08/26/19 Ergocalciferol (Vitamin D2) (VITAMIN D2) 50,000 Unit Capsule, 07486 UNITS PO WE EKLY 08/26/19 Spironolactone (SPIRONOLACTONE) 25 Mg Tablet, 25 MG PO DAILY, #60 TAB 08/26/19 Medications in the ED Dextrose 50 ml STK-MED ONCE IV ; Start 03/22/20 at 12:18; Stop 03/22/20 at 12:13; Status DC FRANKO ALFONSO, March 22, 2020 12:56
[2020-03-22 12:57] LABS: GLUCOSE 30 mg/dL (74-118)
[2020-03-22] MEDS ORDERED: DEXTROSE 50% SYRINGE 50 ML IV STA (12:57)
--- NOTE | 2020-03-22 13:02 | Diagnostic Imaging Report ---
X-ray chest frontal portable Comparison: None History: Chest pain Findings: Limited exam because of the patient's body habitus. Central airways unremarkable. Cardiomegaly. No definite pleural effusion or pneumothorax. Prominent upper lobe vessels suggesting vascular congestion. No other focal lung disease of significance. Discoid atelectasis in the left lower lung zone. Regional bones remarkable for degenerative changes. Upper abdomen not well-visualized. Impression: Cardiomegaly. No acute pulmonary disease. Signed by: Pranav Nuñez MD on 03/22/2020 12:59 PM
[2020-03-22] MEDS ORDERED: DEXTROSE 50% SYRINGE 50 ML IV PRN (13:30)
[2020-03-22] MEDS ORDERED: CEFEPIME HCL 1 GM VIAL IV SCH (13:45)
[2020-03-22] MEDS ORDERED: CEFEPIME 1GM/NS 0.9% 50 ML 50 ML IV SCH ×2 (14:00→18:00)
[2020-03-22] MEDS ORDERED: VANCOMYCIN 1GM/NS 250 ML 250 ML IV ONE ×2 (14:30→20:00)
--- OUTSIDE RECORDS SUMMARY | 2020-03-22 14:45 | XMS REPORT | Continuity of Care Document ---
Author Author Sayah [employer]TTA [employer] Address Unknown Phone Unavailable Care Team Providers Care Zoning Technician Name Role Phone [employer] Unavailable Un available Problems Problem [...] tablet Orally Active 90 MG Orally daily [facility]da Tramadol HCl 1 tablet as needed Orally Active 50 MG Orally Twice a day [place] Soliskoko [facility] Priest Probiotic 1 capsule Orally Active 250 MG Orally Twice a d ay [place] Soliskoko [place] Priest Losartan Potassium 1 tablet Orally Active 25 MG Orally Once a day [place] Soliskoko [place] Priest Furosemide 1 tablet Orally Active 80 MG Orally twice a da y (bid) [place] Metformin HCl 1 tablet with me als Orally Active 1000 mg Orally Twice a day [facility] Lyrica 1 capsule Orally Active 300 MG Orally Twice a d [facility] Propranolol HCl 1 tablet Orally Active 10 MG Orally Twice a da y [place] Soliskoko [place] Priest NovoLog Flexpen 8 units Subcutaneous Active 100 UNIT/ML Subcutaneous TID [place] Soliskoko [place] Priest Lantus SoloStar 45 units Subcutaneous Active 100 UNIT/ML Subcutaneous Once a day [place] Bryn Priest Potassium Chloride 1 capsule [...]
[2020-03-22 14:50] LABS: BILIRUBIN,URINE NEGATIVE (NEGATIVE); CLARITY,URINE CLEAR (CLEAR); COLOR,URINE YELLOW (YELLOW); KETONES,URINE NEGATIVE (NEGATIVE); LEUKOCYTE ESTERASE ,URINE NEGATIVE (NEGATIVE); NITRITE,URINE NEGATIVE (NEGATIVE); PROTEIN,URINE DIPSTICK NEGATIVE (NEGATIVE); URINE UROBILINOGEN 0.2 mg/dL (0.2 - 1)
[2020-03-22] MEDS ORDERED: DEXTROSE 5%/0.45% SOD CHL 1,000 ML IV STA (15:14)
[2020-03-22 15:20] LABS: BACTERIA,URINE MANY /HPF; EPITHELIAL CELLS,URINE MODERATE /LPF; RENAL EPITHELIAL CELLS,URINE FEW
[2020-03-22] MEDS: INSULIN LISPRO 100 UNIT/1 ML 3ML VIAL SQ SCH ×2 (17:48→23:01)
--- NOTE | 2020-03-22 18:03 | NUR ---
RCD PT FROM ER BY BED PT IS ALERT AND ORIENTED VITALS CHECKED PT RESTING ON BED BED LOW AND LOCKED CALL LIGHT IN REACH
[2020-03-22] MEDS ORDERED: SODIUM CHLORIDE 0.9% 250ML 250 ML ONE (18:21)
[2020-03-22] MEDS: DEXTROSE 5%/0.45% SOD CHL 1,000 ML IV SCH (18:29)
[2020-03-22 18:38] VITALS: BP 147/82
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
[2020-03-22] MEDS ORDERED: ESOMEPRAZOLE MA10 MG PO (19:31)
[2020-03-22 19:44] VITALS: BP 127/62
[2020-03-22 20:00] VITALS: BP 127/62
--- NOTE | 2020-03-22 20:54 | History and Physical ---
HISTORY OF PRESENT ILLNESS: The patient is a 55-year-old lady who comes in with cellulitis and redness of the left lower extremity which is chronic but the patient had an acute exacerbation with increased tenderness, increased pain, and the patient was seen by our nurse practitioner, sent cephalexin 500 mg 3 times a day. The patient was not able to get it because of transportation issues and over the period of time, which is two days the patient's cellulitis and redness and erythema got worse. The patient came to the emergency room and also complains of some right-sided chest pain. PAST MEDICAL HISTORY: History of uncontrolled diabetes mellitus, history of hypothyroidism, history of chronic cirrhosis of the liver, history of hepatitis C, history of long-term use of insulin, and history of chronic lymphedema with accompanying cellulitis of the left lower extremity, which is chronic. PAST SURGICAL HISTORY: Please review medical chart. SOCIAL HISTORY: No EtOH. No IV drug abuse. Lives by herself and no history of smoking either. MEDICATIONS: She takes at home, doxycycline 100 mg twice a day by Dr. Ledezma, vitamin D2, furosemide 80 mg twice a day, insulin glargine 40 units at bedtime and insulin Humulin 15 units before meals and at bedtime, levothyroxine 50 mcg, propranolol 10 mg twice a day, Xifaxan 550 mg, Aldactone 25 mg and tramadol 50 mg. The patient also has an additional diagnosis of chronic kidney injury, which has developed into acute kidney injury at this time. REVIEW OF SYSTEMS: Positive for chest pain, more right-sided. Positive for shortness of breath. No nausea. No vomiting. No diarrhea. No constipation. No rectal bleeding. No hematochezia. No hematemesis. Positive for headache. No diplopia. No blurry vision and no neurological changes. Positive for bilateral lower extremity edema which is chronic per the patient. PHYSICAL EXAMINATION: VITAL SIGNS: Temperature is 98.8, pulse of 61, respirations 16, blood pressure is 155/78, pulse oximetry of 97%. HEENT: Normocephalic, atraumatic. The patient is obese. CVS: S1 and S2 regular. ABDOMEN: Nontender in the epigastrium. LUNGS: Decreased air entry. EXTREMITIES: Left lower extremity with increased erythema, tenderness, area of ulceration. No skin break seen and chronic venous insufficiency changes seen and also the patient has bilateral lower extremity lymphedema. CHEST: On examination of chest wall, tenderness at the right upper chest wall present. LABORATORY VALUES: White count is 6.25, hemoglobin of 11, hematocrit of 32.1. Chemistry shows sodium of 140, potassium of 3.6, BUN of 39, creatinine of 1.94, GFR of 27, calculated bilirubin is 1.5. Troponin is less than 0.1. BNP is pending. IMAGING STUDIES: Chest x-ray done shows cardiomegaly, no acute cardiac or pulmonary processes. ASSESSMENT: Ms. Nabila Huffman with cellulitis of the lower extremity. PLAN: The patient will be given IV antibiotics. Resume all home medications. Doppler will be done. Echocardiogram will be done to assess the ejection fraction. For cirrhosis of the liver, we will continue home medications and also keep a volume status euvolemic. Further recommendation per clinical course. We will continue to monitor the patient and further recommendation as per progression of the disease process. The patient will be admitted roughly for about 1 to 2 days. MD SHAKIR Gifford/MODL /[id number]
[2020-03-22 21:00] VITALS: BP 127/62
--- NOTE | 2020-03-22 22:00 | NUR ---
MD BRAD ESPINOZA VIA ANSWERING SERVICE, UPDATED VERBALLY WITH PATIENT PAIN LEVEL, ADVISED THAT PATIENT CURRENT HOME MEDICATION IS TRAMADOL 50MG, ORDERED TO RESUME HOME MEDICATION TRAMADOL 50MG po Q6H FOR MODERATE PAIN
[2020-03-22] MEDS: TRAMADOL HCL 50 MG TAB PO PRN (22:28)
[2020-03-22 22:40] VITALS: BP 127/62
[2020-03-23] VITALS (10 sets, daily range): BP systolic 114–156; BP diastolic 54–97
[2020-03-23] MEDS: CEFEPIME 1GM/NS 0.9% 50 ML 50 ML IV SCH ×2 (01:23→15:44)
[2020-03-23] MEDS: DEXTROSE 5%/0.45% SOD CHL 1,000 ML IV SCH ×2 (01:30→10:30)
--- NOTE | 2020-03-23 03:17 | NUR ---
respiratory called arrived on the floor now to perform EKG Addendum: 03/23/20 at 0319 by LUIGI TEJADA RN patient given care for incontinence, seen sleeping no distress noted
[2020-03-23] MEDS: TRAMADOL HCL 50 MG TAB PO PRN ×2 (04:20→21:32)
[2020-03-23 06:00] LABS: ANION GAP 14.2 mmol/L (8-16); CALCIUM 8.5 mg/dL (8.4-10.2); CREATININE, SERUM 1.77 mg/dL (0.57-1.11); POTASSIUM 4.2 mmol/L (3.5-5.1)
[2020-03-23 06:04] LABS: BASOPHILS % 0.6 % (0.0-1.0); EOSINOPHILS # (AUTO) 0.1 (0.0-0.4); HEMATOCRIT 27.8 % (34.2-44.1); HEMOGLOBIN 9.3 g/dL (12.0-16.0); LYMPHOCYTES # (AUTO) 1.2 (1.0-3.2); LYMPHOCYTES % 33.9 % (18.0-39.1); MEAN CORPUSCULAR HEMOGLOBIN 28.8 pg (28-32); MEAN CORPUSCULAR HGB CONC 33.5 g/dL (31-35); MEAN CORPUSCULAR VOLUME 86.1 fL (81-99); MONOCYTES # (AUTO) 0.2 (0.2-0.8); MONOCYTES % 6.8 % (4.4-11.3); NEUTROPHILS % 56.1 % (38.7-80.0); PLATELET COUNT 91 x10e3/uL (140-360); RED BLOOD COUNT 3.23 x10e6/uL (3.6-5.1); RED CELL DISTRIBUTION WIDTH 14.1 % (11.7-14.4)
[2020-03-23] MEDS ORDERED: TRAMADOL HCL 50 MG TAB PO SCH (06:15)
--- NOTE | 2020-03-23 06:21 | NUR ---
MD SALINAS ROUNDING ON PATIENT AT THIS CURRENT TIME, PT ASSESSED, PT REPORT SEVERE PAIN DURING PALPATIONS OF BLE, DOPPLER STUDY RESULT GIVEN TO MD SALINAS, NEGATIVE DOPPLER STUDY
[2020-03-23] MEDS: LEVOTHYROXINE SODIUM 50 MCG TAB PO SCH (06:30)
--- NOTE | 2020-03-23 06:44 | NUR ---
[facility] CALLED TO ANSWERING SERVICE AT [phone], CALL BACK PENDING
[2020-03-23] MEDS: INSULIN LISPRO 100 UNIT/1 ML 3ML VIAL SQ SCH ×4 (07:30→21:12)
[2020-03-23] MEDS ORDERED: DICYCLOMINE HCL 20 MG TAB PO PRN (08:15)
--- NOTE | 2020-03-23 08:21 | Progress Note ---
DATE: SUBJECTIVE: This is a 55-year-old, who came in with cellulitis of the left lower extremity and DVT. Doppler was done yesterday. The patient's preliminary study does not show any clot. The patient still continues with pain 8/10 in intensity and on ambulation or movement 10/10. The patient is on IV morphine for it. Yesterday, the patient also had acute kidney injury, which fluid resuscitation has improved. The patient's creatinine is 1.77 today. PHYSICAL EXAMINATION: VITAL SIGNS: Temperature is 98.1, pulse of 75, respirations of 20, blood pressure is 124/69, pulse oximetry of 99% on room air. HEENT: Normocephalic, atraumatic. The patient is morbidly obese. CVS: S1 and S2 distant. Regular rate and rhythm. ABDOMEN: Nontender, nondistended. EXTREMITIES: Left lower extremity with lymphedema. Positive for erythema, tenderness, and calf erythema too. The patient has chronic changes of venous insufficiency in the lower extremities and positive for edema. LABORATORY VALUES: Sodium is 136 today, potassium 4.2, BUN of 33, creatinine of 1.77, GFR of 30, and glucose has gone up to 211. She came in with hypoglycemia of 30 yesterday. BNP was 334.7. ASSESSMENT: Ms. Nbaila Huffman with: 1. Cellulitis of left lower extremity. 2. Acute kidney injury. 3. Morbid obesity. 4. Elevated BNP. PLAN: Continue on current antibiotics. The patient is on cefepime at this time. Echocardiogram has been ordered and DVT has been negative. We will restart all her medications. For hypoglycemic episode, the patient is improved. Give Lovenox for DVT prophylaxis. Plan to stay in the hospital for 1 to 2 days and also a consult with Dr. Ledezma and for her cirrhosis, continue on her Xifaxan for encephalopathy. Further recommendation per clinical course. We will continue to monitor the patient. MD JEANA GiffordJ/MODL /[id number]
[2020-03-23] MEDS: SPIRONOLACTONE 25 MG TAB PO SCH (08:32)
[2020-03-23] MEDS: PROPRANOLOL HCL 10 MG TAB PO SCH ×2 (08:33→16:01)
[2020-03-23] MEDS: NYSTATIN 15 GM POWDER UD BTL TOP SCH ×2 (08:34→16:01)
[2020-03-23] MEDS: FUROSEMIDE 40 MG TAB PO SCH ×2 (08:34→16:01)
[2020-03-23] MEDS: RIFAXIMIN 550 MG TABLET PO SCH ×2 (08:34→21:11)
[2020-03-23] MEDS: DOCUSATE SODIUM 100 MG CAP PO SCH ×2 (09:00→16:01)
--- NOTE | 2020-03-23 13:25 | NUR ---
ASSESSMENT: Spiritual concern Pt thankful for family, especially grandchildren. Pt states her children are "worried" about her. Intervention: Provided hospitality and pastoral conversation. Provided blessing. Outcome: Pt expressed appreciation for visit. No need to follow at this time. CARIE LARKIN [facility] Department O: [phone]
--- NOTE | 2020-03-23 17:44 | Consultation ---
DATE OF CONSULTATION: REASON FOR CONSULTATION: Cellulitis of the leg. HISTORY OF PRESENT ILLNESS: Thank you so much for asking me to see this patient. This patient is well known to me, 55-year-old white female, who has history of a morbidly obese patient, bilateral lower extremities lymphedema, venous stasis dermatitis, neuropathy, diabetes mellitus, hypothyroidism, liver cirrhosis, hepatitis C, was treated, multiple admissions for cellulitis, chronic pain syndrome called me on her way to the emergency room complaining of fever and chills and not feeling well. The patient was admitted, started on antibiotic. When she first came, it was noted to have redness, swelling in her leg. The patient who has history of diabetes mellitus, obesity. She also had enlarged uterus. MEDICATIONS: She is on insulin, Colace, rifaximin, Inderal. She was started on cefepime. She received one dose of vancomycin. LABORATORY DATA: White count of 3.5, hemoglobin 9.3. Her sodium 136, potassium 4.2 with creatinine of 1.77. COVID-19 was negative. PHYSICAL EXAMINATION: GENERAL: She is currently alert, oriented, does not seem to be in acute distress. VITAL SIGNS: Stable, currently afebrile. HEENT: She is not icteric. NECK: Supple. CHEST: Clear bilateral. HEART: S1, S2. No S3, S4. No murmur. ABDOMEN: Soft. EXTREMITIES: There is some erythema, edema mainly on the left lower extremity and going from the knee all the way down to the ankle. The patient was obese. Physical examination otherwise unremarkable. IMPRESSION: 1. Cellulitis of the leg, present on admission. 2. Chronic kidney disease stage 3. 3. Obesity. 4. Diabetes mellitus with neuropathy. 5. Chronic pain syndrome. 6. We will follow. MD ALKA Akers/[facility] /[id number]
[2020-03-23] MEDS: CLINDAMYCIN 600MG / 50ML 50 ML IV SCH (17:56)
--- NOTE | 2020-03-23 19:15 | NUR ---
RECEIVED REPORT FROM PREVIOUS NURSE. CALL LIGHT WITHIN REACH. PATIENT IN BED.
[2020-03-23] MEDS: INSULIN GLARGINE 100 UNITS/ML VIAL SQ SCH (21:12)
[2020-03-24] VITALS (7 sets, daily range): BP systolic 107–137; BP diastolic 49–74
[2020-03-24] MEDS: CLINDAMYCIN 600MG / 50ML 50 ML IV SCH ×4 (00:50→16:30)
[2020-03-24] MEDS: CEFEPIME 1GM/NS 0.9% 50 ML 50 ML IV SCH ×2 (02:46→12:00)
[2020-03-24] MEDS: TRAMADOL HCL 50 MG TAB PO PRN ×3 (03:57→23:50)
[2020-03-24] MEDS: LEVOTHYROXINE SODIUM 50 MCG TAB PO SCH (05:23)
[2020-03-24 05:52] LABS: BASOPHILS % 0.9 % (0.0-1.0); EOSINOPHILS # (AUTO) 0.1 (0.0-0.4); EOSINOPHILS % 2.1 % (0.0-6.0); HEMATOCRIT 27.3 % (34.2-44.1); HEMOGLOBIN 9.2 g/dL (12.0-16.0); LYMPHOCYTES # (AUTO) 1.4 (1.0-3.2); LYMPHOCYTES % 32.2 % (18.0-39.1); MEAN CORPUSCULAR HEMOGLOBIN 29.2 pg (28-32); MEAN CORPUSCULAR HGB CONC 33.7 g/dL (31-35); MEAN CORPUSCULAR VOLUME 86.7 fL (81-99); MONOCYTES # (AUTO) 0.4 (0.2-0.8); MONOCYTES % 10.4 % (4.4-11.3); NEUTROPHILS # (AUTO) 2.3 (2.1-6.9); NEUTROPHILS % 53.7 % (38.7-80.0); PLATELET COUNT 100 x10e3/uL (140-360); RED BLOOD COUNT 3.15 x10e6/uL (3.6-5.1); RED CELL DISTRIBUTION WIDTH 14.3 % (11.7-14.4)
[2020-03-24 06:34] LABS: ANION GAP 14.3 mmol/L (8-16); CALCIUM 8.8 mg/dL (8.4-10.2); CREATININE, SERUM 1.79 mg/dL (0.57-1.11); POTASSIUM 4.3 mmol/L (3.5-5.1)
--- NOTE | 2020-03-24 07:17 | NUR ---
GAVE BEDSIDE SHIFT REPORT TO ONCOMING NURSE. CALL LIGHT WITHIN REACH. PATIENT IN BED.
--- NOTE | 2020-03-24 07:18 | NUR ---
GAVE BEDSIDE SHIFT REPORT TO BOB PHILLIPS. CALL LIGHT WITHIN REACH. PATIENT IN BED. Addendum: 03/24/20 at 0719 by Usha Gabriel RN PLEASE IGNORE
[2020-03-24] MEDS: INSULIN LISPRO 100 UNIT/1 ML 3ML VIAL SQ SCH ×4 (07:30→21:00)
[2020-03-24] MEDS: DOCUSATE SODIUM 100 MG CAP PO SCH ×2 (09:02→16:24)
[2020-03-24] MEDS: SPIRONOLACTONE 25 MG TAB PO SCH (09:02)
[2020-03-24] MEDS: RIFAXIMIN 550 MG TABLET PO SCH ×2 (09:03→21:18)
[2020-03-24] MEDS: NYSTATIN 15 GM POWDER UD BTL TOP SCH ×2 (09:03→16:25)
[2020-03-24] MEDS: FUROSEMIDE 40 MG TAB PO SCH ×2 (09:03→16:25)
[2020-03-24] MEDS: PROPRANOLOL HCL 10 MG TAB PO SCH ×2 (09:03→16:31)
--- NOTE | 2020-03-24 10:52 | Progress Note ---
DATE: SUBJECTIVE: This is a 55-year-old female. The patient is here for cellulitis of the left lower extremities. The patient still continues of pain, 10/10 at intensity and very sensitive and also tender to touch. The patient is otherwise stable. Headache persistent. OBJECTIVE: VITAL SIGNS: Temperature is 97.1, pulse of 68, respiration of 18, blood pressure is 137/71. HEENT: Normocephalic and atraumatic. Morbidly obese. CVS: S1 and S2 normal. Regular rate and rhythm. Distant. LUNGS: Clear. ABDOMEN: Nontender and nondistended. EXTREMITIES: Left lower extremity with erythema and tenderness, positive for vascular changes, venous insufficiency, and right lower extremity and left lower extremity both have lymphedema. LABORATORY VALUES: White count is 4.25, hemoglobin of 9.2, hematocrit 27.3. Chemistry shows, sodium 143, potassium 4.3, BUN of 33, creatinine of 1.79, glucose is 134. Serology: Coronavirus not detected. ASSESSMENT: Ms. Nabila Huffman with: 1. Cellulitis of the left lower extremity. Cleocin has been added by Dr. Ledezma. 2. Chronic kidney disease, stage 3B. 3. Obesity. 4. Diabetes mellitus. 5. Chronic hepatitis C. 6. Hypothyroidism. PLAN: Continue with clindamycin. Physical Therapy, to walker today to see her ambulatory status. Continue with IV antibiotics. Further recommendation per clinical course. We will continue to monitor the patient along with Dr. Ledezma. MD SHAKIR Gifford/MODL /[id number]
--- NOTE | 2020-03-24 15:18 | Progress Note ---
DATE: SUBJECTIVE: Ms. Huffman is doing better. There are no new complaints. REVIEW OF SYSTEMS: HEENT: Negative. PULMONARY: Negative. CARDIAC: Negative. PHYSICAL EXAMINATION: GENERAL: She is currently alert, oriented, does not seem in acute distress. VITAL SIGNS: Stable, afebrile. HEENT: She is not icteric. NECK: Supple. CHEST: Clear. HEART: S1, S2. ABDOMEN: Soft. EXTREMITIES: The leg seems to be better. IMPRESSION AND PLAN: 1. Cellulitis of the left lower extremity, currently on Cleocin. 2. Chronic kidney disease. 3. Obesity. 4. Diabetes with neuropathy. 5. History of hepatitis C. Clinically, seems to be getting better. Continue with the same. We will follow. MD ALKA Akers/[facility] /[id number]
--- NOTE | 2020-03-24 16:53 | NUR ---
Nutrition Screen Note RD Recommendation for Physician: -Recommend adding diabetic diet to diet order Plan of Care: RD following, monitoring for tolerance and adequacy Nutrition reason for involvement: Nutrition Risk Trigger MST 2 Primary Diagnose(s): acute renal failure, cellulitis of left leg, hypoglycemic coma PMH: uncontrolled diabetes mellitus, hypothyroidism, chronic cirrhosis of the liver, hepatitis C, long-term use of insulin, chronic lymphedema with accompanying cellulitis of the left lower extremity Ht: 60 in Wt:308 lb BMI: 60.2 kg/m2 IBW: [address] Assessment: (03/24) Chart reviewed. Labs and meds reviewed. Pt is a 55 year old female admitted with acute renal failure, cellulitis of leg, and hypoglycemic coma. Pt reports that she has been eating all of her meals. Pt mentioned she had gained weight. No N/V noted. Pt requested diabetic diet and weight loss/weight management information which was provided. Will continue to monitor Current Diet: cardiac Malnutrition Evaluation (03/24/20) The patient does not meet criteria for a specified degree of malnutrition at this time. Will re-evaluate at follow-up as appropriate. Diet Education Needs Assessment: Diet education indicated, pt was interested in diabetic diet and weight management education materials Learner(s): pt Barriers: None Cultural/Language Modifications: No cultural/language modifications Readiness: eager, acceptance Method: explanation/discussion/handout Topics: carbohydrate counting, reading the food label, weight management/weight loss tips Understanding/Compliance: pt verbalized understanding Nutrition Care Level: low Signed: Flores Mckeon, RD, LD
--- NOTE | 2020-03-24 19:00 | NUR ---
Received the patient in report.sitting .stable condition.
--- NOTE | 2020-03-24 19:11 | NUR ---
report given to oncoming nurse, walking rounds compete, pt stable at this time.
--- NOTE | 2020-03-24 20:40 | NUR ---
Assessment done.no resp.distress.ambulates with walker.bed locked and in lowest position.phone and call light within reach.instructed to call for assistance as needed
[2020-03-24] MEDS: INSULIN GLARGINE 100 UNITS/ML VIAL SQ SCH (21:05)
[2020-03-25] VITALS (8 sets, daily range): BP systolic 92–121; BP diastolic 46–59
[2020-03-25] MEDS: CLINDAMYCIN 600MG / 50ML 50 ML IV SCH ×5 (00:09→23:51)
[2020-03-25] MEDS: CEFEPIME 1GM/NS 0.9% 50 ML 50 ML IV SCH ×2 (01:30→12:37)
[2020-03-25] MEDS: LEVOTHYROXINE SODIUM 50 MCG TAB PO SCH (05:48)
--- NOTE | 2020-03-25 07:05 | NUR ---
BED SIDE SHIFT REPORT GIVEN TO ONCOMING RN.STABLE CONDITION.
[2020-03-25] MEDS: INSULIN LISPRO 100 UNIT/1 ML 3ML VIAL SQ SCH ×4 (07:30→20:26)
--- NOTE | 2020-03-25 08:51 | Progress Note ---
DATE: SUBJECTIVE: The patient is a 55-year-old lady with a history of cellulitis of the left lower extremity. The patient is feeling better. Still complains of pain 10/10 in intensity and also pain in the calf area. Venous Dopplers were negative. No chest pain. No shortness of breath. OBJECTIVE: VITAL SIGNS: Temperature is 97.4, pulse 66, respirations of 18, blood pressure is 105/53, pulse oximetry of 95%. HEENT: Normocephalic, atraumatic. The patient is a morbidly obese. CVS: S1 and S2 normal. Regular rhythm. ABDOMEN: Nontender, nondistended. EXTREMITIES: Left lower extremity with erythema and tenderness. Positive for bilateral lymphedema on lower extremities. ASSESSMENT: Ms. Nabila Huffman with: 1. Cellulitis of the left lower extremity. Continue Cleocin. 2. Chronic kidney disease stage IIIB. Continue monitoring the patient's renal status. 3. Obesity. 4. Chronic hepatitis C. 5. Diabetes mellitus. PLAN: Continue with Cleocin, can be discharged tomorrow if it is okay with Dr. Ledezma. Further recommendation per clinical course. We will follow through with our renal function too and also the patient has been asked to raise her lower extremity above the heart level. MD SHAKIR Gifford/MODL /[id number]
[2020-03-25] MEDS: PROPRANOLOL HCL 10 MG TAB PO SCH ×2 (09:00→16:52)
[2020-03-25] MEDS: NYSTATIN 15 GM POWDER UD BTL TOP SCH ×2 (09:39→16:53)
[2020-03-25] MEDS: DOCUSATE SODIUM 100 MG CAP PO SCH ×2 (09:39→16:52)
[2020-03-25] MEDS: FUROSEMIDE 40 MG TAB PO SCH ×2 (09:39→16:53)
[2020-03-25] MEDS: SPIRONOLACTONE 25 MG TAB PO SCH (09:39)
[2020-03-25] MEDS: RIFAXIMIN 550 MG TABLET PO SCH ×2 (09:39→20:46)
--- NOTE | 2020-03-25 14:47 | Progress Note ---
DATE: SUBJECTIVE: Ms. Huffman is feeling better. REVIEW OF SYSTEMS: HEENT: Negative. PULMONARY: Negative. CARDIAC: Negative. : Negative. LABORATORY DATA: White count 4.25 and hemoglobin 9.2. Sodium 135, potassium 4.3, and creatinine 0.179. PHYSICAL EXAMINATION: GENERAL: She is currently alert, oriented, does not seem acute distress. VITAL SIGNS: Stable, afebrile, temperature 98.0, heart rate 66, respirations 18. HEENT: She is not icteric. NECK: Supple. CHEST: Clear. ABDOMEN: Soft and obese. EXTREMITIES: The leg seems to be slightly better. The redness has subsided significantly. IMPRESSION: Cellulitis of the leg, morbidly obese patient, chronic kidney disease. From Infectious Disease point of view, continue clindamycin as ordered for now, can start oral antibiotic in a day or two if she continues to improve. Discussed with the patient. MD ALKA Akers/[facility] /[id number]
[2020-03-25] MEDS: TRAMADOL HCL 50 MG TAB PO PRN (18:39)
--- NOTE | 2020-03-25 19:00 | NUR ---
RECEIVED THE PATIENT IN REPORT.LYEING IN THE BED.STABLE CONDITION.
--- NOTE | 2020-03-25 19:14 | NUR ---
walking rounds complete, pt stable, report given to on coming nurse.
[2020-03-25] MEDS: INSULIN GLARGINE 100 UNITS/ML VIAL SQ SCH (21:00)
--- NOTE | 2020-03-25 21:10 | NUR ---
Assessment done.no resp.distress.assisted to use rest room.voided.back to bed safely.bed locked and in lowest position.phone and call light within reach.instructed to call for assistance as needed.
--- NOTE | 2020-03-25 23:55 | NUR ---
CHARGE NURSE STARTED NEW IV TO LEFT FORE ARM #22G. PATENT.
[2020-03-26] VITALS: BP 112/48
[2020-03-26] MEDS: TRAMADOL HCL 50 MG TAB PO PRN (01:02)
[2020-03-26] MEDS: CEFEPIME 1GM/NS 0.9% 50 ML 50 ML IV SCH (01:41)
[2020-03-26] MEDS: LEVOTHYROXINE SODIUM 50 MCG TAB PO SCH (05:33)
[2020-03-26] MEDS: CLINDAMYCIN 600MG / 50ML 50 ML IV SCH (05:33)
--- NOTE | 2020-03-26 07:00 | NUR ---
RCD PT AT BED PT IS ALERT AND ORIENTED RESTING ON BED IV PATENT BY SALINE FLUSH BED LOW AND LOCKED CALL LIGHT IN REACH
--- NOTE | 2020-03-26 07:00 | NUR ---
Bed side shift report given to oncoming Rn.stable condition.
[2020-03-26] MEDS: INSULIN LISPRO 100 UNIT/1 ML 3ML VIAL SQ SCH (07:30)
[2020-03-26] MEDS ORDERED: NYSTATIN1 EAC2 EXT (07:46)
[2020-03-26 07:51] VITALS: BP 116/67
[2020-03-26 08:07] VITALS: BP 116/67
--- NOTE | 2020-03-26 08:15 | Progress Note ---
DATE: SUBJECTIVE: A 55-year-old female, comes in with acute cellulitis of the left lower extremity. The patient is feeling better, controlled pain, edema is down on cefepime and clindamycin. No chest pains. No shortness of breath at this time. PHYSICAL EXAMINATION: VITAL SIGNS: Stable. Temperature is 98.2, pulse of 77, respirations of 18, blood pressure is 112/48, and pulse oximetry of 99% on room air. HEENT: Normocephalic and atraumatic. The patient is morbidly obese. CVS: S1 and S2 normal. Regular rate and rhythm. ABDOMEN: Soft, nontender, nondistended. EXTREMITIES: Left lower extremity with tenderness, erythema, but decreased in intensity compared to the last couple of days. Response to antibiotic is good. ASSESSMENT: Ms. Nabila Huffman with, 1. Cellulitis of left lower extremity. Continue Cleocin. 2. Chronic kidney disease, stage 3B feeling better, renal status improved. 3. Obesity. 4. Chronic hepatitis C. 5. Diabetes mellitus. PLAN: Discharge today with clindamycin mainly for renal function. We will follow up in the clinic in about a week's time. Further recommendation per clinical course. The patient will have also been discharged with some tramadol for pain and strict ER warnings given, also tramadol warnings given about seizures, and also the patient has been given some nystatin for her intertrigo candidiasis. Further recommendation per clinical course. We will continue to monitor the patient. MD SHAKIR Gifford/[facility] /[id number]
[2020-03-26] MEDS: SPIRONOLACTONE 25 MG TAB PO SCH (08:51)
[2020-03-26] MEDS: DOCUSATE SODIUM 100 MG CAP PO SCH (08:51)
[2020-03-26] MEDS: PROPRANOLOL HCL 10 MG TAB PO SCH (08:51)
[2020-03-26] MEDS: NYSTATIN 15 GM POWDER UD BTL TOP SCH (08:52)
[2020-03-26] MEDS: RIFAXIMIN 550 MG TABLET PO SCH (08:52)
[2020-03-26] MEDS: FUROSEMIDE 40 MG TAB PO SCH (08:52)
--- NOTE | 2020-03-26 10:25 | Progress Note ---
DATE: SUBJECTIVE: The patient is seen and evaluated. Available labs and notes reviewed. Discussed with the charge nurse. Discussed with Dr. Ledezma. REVIEW OF SYSTEMS: No nausea, vomiting, fever, chills, chest pain, shortness of breath, headache, rash, or dysuria. PHYSICAL EXAMINATION: VITAL SIGNS: Temperature is 97.3, pulse is 100, respiration 18, and blood pressure 125/70. Recheck vital signs including temperature 98.3, pulse is 78, respiration 18, and blood pressure 116/67. GENERAL: Alert and oriented, in no acute distress. CV: S1 and S2. CHEST: Equal expansion. Clear to auscultation. No acute distress. ABDOMEN: Soft and nontender. No distention. HEENT: Moist. No pallor. No JVD. EXTREMITIES: Cellulitis of lower extremities with significant improvement, no significant erythema, edema has decreased, overall feels better. MEDICATIONS: Medications reviewed. From Infectious Disease point of view, the patient is on clindamycin. LABORATORY STUDIES: No new CBC and no new BMP. Serology: Coronavirus PCR not detected on 03/22/2020. RADIOLOGY STUDIES: No new radiology studies available. ASSESSMENT AND PLAN: 1. Cellulitis of the lower extremities. 2. Obesity. 3. Debility. 4. Chronic renal disease. 5. Discussed with Dr. Ledezma. Attending notes reviewed. The patient to be discharged with clindamycin p.o. and wants to follow with Dr. Ledezma in 2 weeks. Please refer to chart for more information. MD ALKA Akers/[facility] /[id number]
--- NOTE | 2020-03-26 11:06 | NUR ---
PATIENT WENT HOME IN SAFE CONDITION WITH HER SON
== END 2020-03-26 11:06 | disposition home or self-care (01) | DRG 603 ==
LOC: ER 11:03 → ERHOLD 13:38 → MED/SURG2 18:11
PROVIDERS: ADMIT Family Medicine; ATTEND Family Medicine
DX: L03.116 Cellulitis of left lower limb (principal); N17.9 Acute kidney failure, unspecified; Z68.44 Body mass index [BMI] 60.0-69.9, adult; E11.649 Type 2 diabetes mellitus with hypoglycemia without coma; E11.43 Type 2 diabetes mellitus with diabetic autonomic (poly)neuropathy; K31.84 Gastroparesis; E11.22 Type 2 diabetes mellitus with diabetic chronic kidney disease; N18.3 Chronic kidney disease, stage 3 (moderate); G89.4 Chronic pain syndrome; K74.60 Unspecified cirrhosis of liver; E66.01 Morbid (severe) obesity due to excess calories; B18.2 Chronic viral hepatitis C; Z88.0 Allergy status to penicillin; Z88.8 Allergy status to other drugs, medicaments and biological substances; Z86.19 Personal history of other infectious and parasitic diseases; B37.2 Candidiasis of skin and nail; E03.9 Hypothyroidism, unspecified; Z79.4 Long term (current) use of insulin
CPT/HCPCS: 36415; 71045; 80048; 80053; 81001; 82140; 82550; 82553; 82948; 83880; 84484; 85025; 87635; 93005; 93306; 93971; 96372; 99285; J0692; J1815; J3370; J7050; J7799